=== PATIENT | male | born 1950 | race Caucasian/White ===

== ENCOUNTER 2020-01-03 13:44 | Outpatient (CLI) | payer MEDICARE, SELFPAY ==
--- NOTE | ~2020-01-03 | US_ITS ---
EXAMINATION: US renal BI EXAM DATE: 01/03/2020 14:46 INDICATION: Chronic kidney disease stage III. TECHNIQUE: Multiple grayscale and Doppler images of the kidneys were obtained (by a technologist who performed the scan) and subsequently reviewed. There is no prior study for comparison. FINDINGS: Right kidney: There is normal contour and echogenicity. It measures 9.9 x 5.5 x 5.7 centimeters. Th ere are no focal renal lesions identified. There is no hydronephrosis. Left kidney: There is normal contour and echogenicity. It measures 11.2 x 4.5 x 5.8 centimeters. Th ere are no focal renal lesions identified. There is no hydronephrosis. Mild diffuse bladder wall thickening at 6 mm could indicate chronic cystitis. IMPRESSION: 1. Sonographically unremarkable kidneys. 2. Mild diffuse bladder wall thickening. Could indicate chronic cystitis. Reviewed, dictated and finalized at location A.
== END 2020-01-03 13:45 | disposition home or self-care (01) ==
PROVIDERS: PCP Family Medicine; Visit Provider Internal Medicine Nephrology
DX: N18.3 Chronic kidney disease, stage 3 (moderate) (principal)
CPT/HCPCS: 76775

== ENCOUNTER 2020-05-19 01:58 | Outpatient (CLI) | payer MEDICARE, SELFPAY ==
[2020-05-19 18:46] LABS: SARS-CoV-2 RNA PCR Negative
== END 2020-05-19 01:59 | disposition home or self-care (01) ==
LOC: ANHCOVIDDT 01:59
PROVIDERS: PCP Family Medicine; Visit Provider Internal Medicine Gastroenterology
DX: Z01.812 Encounter for preprocedural laboratory examination (principal); Z20.828 Contact with and (suspected) exposure to other viral communicable diseases
CPT/HCPCS: 87635; C9803; U0003

== ENCOUNTER 2020-05-22 00:40 | Day surgery (SDC) | payer MEDICARE, SELFPAY ==
[2020-05-18 11:08] VITALS: BMI 34.5
[2020-05-22] MEDS: LACTATED RINGERS 1,000 ML 150 ML IV CONT (06:55)
[2020-05-22 06:56] LABS: Glucose Point of Care 266 (65-105)
[2020-05-22 06:59] VITALS: BP 100/59; PULSE 95; RESP 18; TEMP 36.2; O2SAT 98; BMI 35.9
--- NOTE | 2020-05-22 07:20 | WPDANESEPPF ---
Anes - Initial Pre Proc Eval Procedure: Operation Date: 05/22/20 08:00 Proposed Procedures p Screening Colonoscopy - Eduar Garrett MD Date/Time: 05/22/20 07:20 Surgeon: Eduar Garrett MD Pre Op Diagnosis: Neoplasm Screening Patient Data Age: 69 Gender: M Height: 5 ft 7 in Weight: 104 kg Last Vital Signs Temp 36.2 C L 05/22/20 06:59 Pulse 95 05/22/20 06:59 Resp 18 05/22/20 06:59 BP 100/59 L 05/22/20 06:59 Pulse Ox 98 05/22/20 06:59 Allergies Allergy/AdvReac Type Severity Reaction Status Date / Time No Known Allergies Allergy Unknown Verified 05/18/20 11:04 Home Medications Medication Instructions Recorded Confirmed Type aspirin 81 mg tablet,delayed 81 mg PO DAILY 04/23/19 05/18/20 History release empagliflozin 10 mg tablet 10 mg PO DAILY #90 tablet 02/15/20 05/18/20 Rx carvedilol 12.5 mg tablet 25 mg PO Q12H 02/23/20 05/18/20 History sacubitril 49 mg-valsartan 51 mg 1 tablet PO BID 02/23/20 05/18/20 History tablet Tresiba FlexTouch U-100 21 unit SUBCUT BID 05/18/20 05/22/20 History atorvastatin 40 mg PO QPM 05/18/20 05/18/20 History cholecalciferol (vitamin D3) 125 mcg PO DAILY 05/18/20 05/18/20 History [Vitamin D3] tamsulosin 0.4 mg PO QPM 05/18/20 05/18/20 History peg 3350-electrolytes 236 240 ml PO Q10M #4000 ml 05/19/20 Rx gram-22.74 gram-6.74 gram-5.86 gram solution Laboratory Tests 05/22/20 06:53 POC Capillary Glucose 266 mg/dl H mg/dl (65-105) Patient hx anesthesia problems: none Family hx anesthesia problems: none PMFSH Past Medical History Medical History Anemia Atrial flutter BPH w/o urinary obs/LUTS CAD (coronary artery disease) CAD in [place] artery CHF (congestive heart failure) Chronic atrial fibrillation Chronic congestive heart failure Dyslipidemia Essential (primary) hypertension NIDIA (obstructive sleep apnea) Type 2 diabetes mellitus without complication, without long-term current use of insulin Surgical History Surgical History H/O total cystectomy Pilonidal History of implantable cardiac defibrillator (ICD) 05/27 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 Family History Family History Other Diabetes mellitus Hypertension Social History Social History Smoking status: Never smoker Second hand tobacco smoke exposure: No Alcohol intake: never Substance use: never Substance use type: does not use Living arrangements: with family Gender identity (if verbalized by the patient): Male Spiritual care concerns: No Anes - Eval Final PreProcedure Day of Procedure 05/22/20 07:20 Patient weight: obese Heart: regular rate and rhythm (paced) Lungs: clear to auscultation Airway: Mallampati scale class II Neurological: alert and oriented Last oral intake: >/= 8 hours ASA classification: IV Emergent: no Anesthetic plan: proceed Anesthesia type and monitoring: general GIVS and standard monitoring Informed Consent: The patient's anesthetic plan and its attendant risks and benefits were discussed with the patient/family/POA. Questions were solicited and answers provided to the satisfaction of the patient/family/POA.
--- NOTE | 2020-05-22 08:09 | PM.HPGS ---
History of Present Illness History of Present Illness Consent: Risks, benefits, and alternatives have been discussed and questions answered. Patient agrees to proceed with procedure. Chief complaint: Neoplasm Screening Narrative: Arthur Nicole is a 69 year old male with last colonoscopy 5 years ago. Review of Systems Constitutional: Constitutional: Denies headache(s) and Denies weakness Eyes: Eyes: Denies blurry vision ENT: Reports Normal hearing present, Denies headache(s) and Denies neck pain Cardiovascular: Cardiovascular: Denies chest pain and Denies dyspnea Respiratory: Respiratory: Denies dyspnea Gastrointestinal: Gastrointestinal: Reports no additional gastrointestinal complaints Genitourinary: Genitourinary: Denies dysuria Musculoskeletal: Musculoskeletal: Denies neck pain Integumentary/Breasts: Skin/Breast: Denies dry skin Neurologic: Reports Normal hearing present, Denies headache(s) and Denies weakness Psychiatric: Psychiatric: Denies anxiety Endocrine: Endocrine: Denies change in body appearance Hematologic/Lymphatic: Hematologic/Lymphatic: Denies easy bleeding Allergic/Immunologic: Allergic/Immunologic: Denies urticaria PMFSH Past Medical History Medical History (Updated 05/22/20 @ 08:10 by Eduar Garrett MD) Anemia Atrial flutter BPH w/o urinary obs/LUTS CAD (coronary artery disease) CAD in [place] artery CHF (congestive heart failure) Chronic atrial fibrillation Chronic congestive heart failure Colon cancer screening Dyslipidemia Essential (primary) hypertension NIDIA (obstructive sleep apnea) Type 2 diabetes mellitus without complication, without long-term current use of insulin Surgical History Surgical History H/O total cystectomy Pilonidal History of implantable cardiac defibrillator (ICD) 05/27 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 Family History Family History Other Diabetes mellitus Hypertension Social History Social History Smoking status: Never smoker Second hand tobacco smoke exposure: No Alcohol intake: never Substance use: never Substance use type: does not use Living arrangements: with family Gender identity (if verbalized by the patient): Male Spiritual care concerns: No Meds Home Medications and Allergies Home Medications Medication Instructions Recorded Confirmed Type aspirin 81 mg tablet,delayed 81 mg PO DAILY 04/23/19 05/18/20 History release empagliflozin 10 mg tablet 10 mg PO DAILY #90 tablet 02/15/20 05/18/20 Rx carvedilol 12.5 mg tablet 25 mg PO Q12H 02/23/20 05/18/20 History sacubitril 49 mg-valsartan 51 mg 1 tablet PO BID 02/23/20 05/18/20 History tablet Tresiba FlexTouch U-100 21 unit SUBCUT BID 05/18/20 05/22/20 History atorvastatin 40 mg PO QPM 05/18/20 05/18/20 History cholecalciferol (vitamin D3) 125 mcg PO DAILY 05/18/20 05/18/20 History [Vitamin D3] tamsulosin 0.4 mg PO QPM 05/18/20 05/18/20 History peg 3350-electrolytes 236 240 ml PO Q10M #4000 ml 05/19/20 Rx gram-22.74 gram-6.74 gram-5.86 gram solution Allergies Allergy/AdvReac Type Severity Reaction Status Date / Time No Known Allergies Allergy Unknown Verified 05/18/20 11:04 Vital Signs Vital Signs - 24 hr 05/22/20 06:59 Temperature 97.1 F L Pulse Rate 95 Respiratory Rate 18 Blood Pressure 100/59 L Pulse Oximetry 98 Exam Const: General: comfortable and no acute distress HENMT: General nose exam: Normal nares present Eyes: General: appearance normal, both eyes and all related structures Neck: Neck: no JVD Resp: Auscultation: clear to auscultation bilaterally Cardio: Rate: regular rate Rhythm: regular rhythm GI: Inspection: non-distended GI Palp: Yes Soft to palpation Skin: General skin exam: normal color Neuro: General: gait normal Speech:
[2020-05-22 08:39] VITALS: BP 134/86; PULSE 99; RESP 18; O2SAT 99
[2020-05-22 08:49] VITALS: BP 144/87; PULSE 92; RESP 22; O2SAT 100
[2020-05-22 08:55] LABS: Glucose Point of Care 234 (65-105)
[2020-05-22 08:59] VITALS: BP 147/89; PULSE 89; RESP 22; O2SAT 100
== END 2020-05-22 09:13 | disposition home or self-care (01) ==
PROVIDERS: PCP Family Medicine; Visit Provider Internal Medicine Gastroenterology
PROC: 0DJD8ZZ Inspection of Lower Intestinal Tract, Via Natural or Artificial Opening Endoscopic (ICD-10-PCS; CPT 45378; principal; 2020-05-22 08:00)
DX: Z12.11 Encounter for screening for malignant neoplasm of colon (principal); D12.3 Benign neoplasm of transverse colon; K63.5 Polyp of colon; Z79.82 Long term (current) use of aspirin; I11.0 Hypertensive heart disease with heart failure; D64.9 Anemia, unspecified; I48.92 Unspecified atrial flutter; I25.10 Atherosclerotic heart disease of native coronary artery without angina pectoris; I50.9 Heart failure, unspecified; I48.20 Chronic atrial fibrillation, unspecified; E78.5 Hyperlipidemia, unspecified; G47.33 Obstructive sleep apnea (adult) (pediatric); E13.8 Other specified diabetes mellitus with unspecified complications; Z79.4 Long term (current) use of insulin; Z95.1 Presence of aortocoronary bypass graft; Z95.810 Presence of automatic (implantable) cardiac defibrillator; E66.9 Obesity, unspecified; Z68.35 Body mass index [BMI] 35.0-35.9, adult
CPT/HCPCS: 45380; 88305; J2704; J7120

== ENCOUNTER → 2020-08-09 00:20 | Outpatient (CLI) | payer MEDICARE, SELFPAY ==
[2020-08-10 00:45] LABS: SARS-CoV-2 RNA PCR Negative
== END ==
PROVIDERS: PCP Family Medicine; Visit Provider Internal Medicine Critical Care Medicine
DX: Z20.822 Contact with and (suspected) exposure to COVID-19 (principal)
CPT/HCPCS: C9803; U0003; U0005

== ENCOUNTER 2020-08-09 12:32 | Outpatient (CLI) | payer MEDICARE, SELFPAY ==
--- NOTE | 2020-08-10 17:09 | P.PCNPFT_ITS ---
PFT Interpretation This is a pulmonary function test with pre and post-bronchodilator spirometry, plethysmography and diffusing capacity. The test was performed and results interpreted in accordance with the 2019 and 2005 ATS/ERS Task Force guidelines respectively using the Global Lung Function Initiative-2012 reference equations. Quality of the pre bronchodilator spi rometry maneuver was Grade A and post bronchodilator spirometry maneuver was Grade A. Findings: Spirometry: The contour of the expiratory flow tracing resembles a witch's hat . the contour of the inspiratory flow tracing is normal. The pre bronchodilator FVC is 2.51 L, 68% predicted. The pre bronchodilator FEV1 is 1.96 L, 69% predicted. The FEV1: FVC ratio is 78%. The post bronchodilator FVC is 2.44 L, representing a 3% decrease. The post bronchodilator FEV1 is 1.90 L, representing a 3% decrease. Plethysmography: The total lung capacity is 3.99 L, 64% predicted. The functional residual capacity is 1.80 L, 55% predicted. The residual volume is 1.47 L, 66% predicted. Diffusing capacity: The absolute diffusion capacity is 11.5, 47% predicted. The diffusing capacity corrected for alveolar volume is 3.35, 80% predicted. Impression: There is a moderate restrictive ventilatory abnormality. The spirometry is normal without evidence of an obstructive abnormality. There is no significant improvement after inhaling a single dose of albuterol. The absolute diffusing capacity is moderately decreased and normalizes when corrected for alveolar volume. There are no prior studies for comparison
--- NOTE | 2020-08-10 17:13 | WPDSIXMINUTE ---
Six Minute Walk This is a 6 minutes walk test. The test was performed and interpreted in accordance with the 2014 ERS/ATS task force guidelines. Findings: The patient's resting room air oxygen saturation measured by pulse oximetry was 95% and her heart rate was 88 bpm. Patient ambulated for 305 meters and oxygen saturation remained 91 to 95%. Heart rate at the end of the study was 101 bpm. There are no prior studies for comparison.
== END 2020-08-09 12:33 | disposition home or self-care (01) ==
PROVIDERS: PCP Family Medicine; Visit Provider Internal Medicine Critical Care Medicine
DX: R79.81 Abnormal blood-gas level (principal); R94.2 Abnormal results of pulmonary function studies
CPT/HCPCS: 94060; 94618; 94726; 94729; C9803; U0003; U0005

== ENCOUNTER 2020-08-11 09:14 | Outpatient (CLI) | payer MEDICARE, SELFPAY ==
--- NOTE | 2020-09-01 13:02 | WPDSLEEPSTUD ---
Sleep Study Ordering Provider: Grey Lorenzo MD Interpreting Physician: Aneta Douglass MD Sleep Study Type: Split Polysomnogram Height: 1.68 m Weight: 106.594 kg Body Mass Index: 37.9 Neck Circumference (inches): 18 [place]: 3 Reason for Sleep Study obstructive sleep apnea split night study November 25, 2008 when BMI 43.9; AHI of 39.7 and an optimal pressure was 19 cm. Sleep History Arthur Nicole is a 69 year old man with a history of sleep apnea, previously used CPAP 19 cm. However he has not worn this in years. He denies snoring, others do not complain that he snores loudly. He does not awaken at night with heartburn, belching or coughing. He does not awaken from sleep feeling short of breath. He constantly has trouble sleeping if he has a cold. He does not wake up gasping for breath at night. He does not have breathing problems at night observed by others. He does not sweat excessively at night or notices his heart pounding or beating irregularly night. He occasionally falls asleep during the day, occasionally involuntarily, never while driving. He does not fall asleep while exerting physical effort. he does not have loss of muscle tone with strong emotion. He does not have daytime difficulties due to excessive sleepiness. He does not feel paralyzed on waking or falling asleep and does not have vivid dreamlike scenes upon awakening or falling asleep. He does not feel afraid to go to sleep. He rarely remembers his dreams. He occasional has racing thoughts. He never feels sad or depressed. He never has anxiety. He denies muscular tension. he does not notice parts of his body jerking. He does not kick at night. He does not have crawling and aching feelings in his legs. He does not have any kind of leg pain at night. He denies morning jaw pain. He does not grind his teeth during sleep. He is not bothered by pain during the day. He is not awakened by pain during the night. He does not wake up feeling stiff in the morning with sore or achy muscles and he does not wake up with pain in the spine. His normal bedtime is between 8:00 p.m. and 9:00 p.m. falling asleep within 10-20 minutes, typically waking 3-4 times to urinate. He stays awake on average 5-10 minutes. He wakes the morning at 8:00 a.m.. He estimates getting between 8 and 10 hours of sleep at night. On the weekends, his bedtime is the same between 8:00 p.m. and 9:00 p.m. and he wakes later, 10:00 a.m. Heat he takes naps in the afternoon or evening. A short nap may be refreshing. He feels better in the afternoon compared to other times of day. Habits: Never smoked tobacco. Caffeine 20 oz a day. Alcohol 1 or 2 beers or a glass of wine per week. [facility] Past Medical History Medical History Anemia Atrial flutter BPH w/o urinary obs/LUTS CAD (coronary artery disease) CAD in [place] artery CHF (congestive heart failure) Chronic atrial fibrillation Chronic congestive heart failure Dyslipidemia Essential (primary) hypertension NIDIA (obstructive sleep apnea) Type 2 diabetes mellitus without complication, without long-term current use of insulin Surgical History Surgical History H/O total cystectomy (~1968) Pilonidal History of cardioversion 2019 History of implantable cardiac defibrillator (ICD) (~05/2019) 05/27 Hx of CABG (~05/2018) 05/2018 Family History Family History Other Diabetes mellitus Hypertension Social History Social History Smoking status: Never smoker Second hand tobacco smoke exposure: No Alcohol intake: never Substance use: never Substance use type: does not use Gender identity (if verbalized by the patient): Male Spiritual care concerns: No Medications Home Medications Medication
[2020-09-01 13:06] VITALS: BMI 37.9
== END 2020-08-11 09:15 | disposition home or self-care (01) ==
LOC: ANHCSM 09:14
PROVIDERS: PCP Family Medicine; Visit Provider Family Medicine
DX: G47.33 Obstructive sleep apnea (adult) (pediatric) (principal); R00.0 Tachycardia, unspecified
CPT/HCPCS: 95810

== ENCOUNTER 2023-08-27 16:02 | Outpatient (CLI) | payer MEDICARE, SELFPAY ==
[2023-08-27 19:19] LABS: Alanine Aminotransferase 27 U/L (6-50); Albumin Level 4.1 g/dL (3.5-5.1); Alkaline Phosphatase 72 U/L (38-126); Anion Gap 7 mmol/L (8-16); Aspartate Amino Transferase 35 U/L (17-59); Bilirubin,Total 1.1 mg/dL (0.2-1.3); Blood Urea Nitrogen 25 mg/dL (9-20); Calcium 9.2 mg/dL (8.4-10.2); Carbon Dioxide 28 mmol/L (22-30); Chloride 103 mmol/L (98-107); Estimated Glomerular Filt Rate > 60; Glucose 118 mg/dL (65-110); Potassium 4.5 mmol/L (3.4-5.0); Sodium 138 mmol/L (137-145)
[2023-08-29 14:38] LABS: Hemoglobin A1C 10.2 % (<5.7)
== END 2023-08-27 16:03 | disposition home or self-care (01) ==
LOC: ANHGOSHLAB 16:03
PROVIDERS: PCP Family Medicine; Visit Provider Family Medicine
DX: E11.9 Type 2 diabetes mellitus without complications (principal); I10 Essential (primary) hypertension
CPT/HCPCS: 36415; 80053; 83036

== ENCOUNTER 2025-04-02 15:19 | Emergency (ER) | payer MEDICARE, SELFPAY ==
--- OUTSIDE RECORDS SUMMARY | 2021-12-26 05:21 | XMS_ITS | Continuity of Care Document ---
Author Organization [facility] Address [address] [place] [id number] Phone Care Team Providers Care Extension Work Director Name Role Phone Sonya NINO, Wilson Unavailable Unava ilable Allergies, Adverse Reactions, Alerts Substance Reaction Status Criticality No Known Allergies Active No Inform ation Medications Medication Instructions Dosage Effective Dates (start - stop) Status Comments Benefiber Clear Sugar Free(dextrin) 3 gram/3.5 gram oral powder packet take 1 tablespoon mixed in 8 oz water by oral route every day 1 tablespoon mixed in 8 oz water - Active Nexium 20 mg capsule,delayed release take 1 capsule by oral route every day at least 1 hour before a meal swallowing whole. Do not crush or chew granules. 20 MG - Active MAGNESIUM (unknown strength) take 1 twice daily Not Available - Active Tylenol 325 mg tablet as needed - Active amlodipine 10 mg tablet take 1 tablet by oral route every day 10 MG - Active aspirin 81 mg tablet,delayed release take 1 tablet by oral route every day 81 MG - Active carvedilol 12.5 mg tablet take 3 tablet by oral route 2 times every day with food 37.5 MG - Active clonidine HCl 0.2 mg tablet take 1 tablet by oral route 3 times every day 0.2 MG - Active Procedures Procedure Date Level Iv-surg Path Gross/t, Lvl IV [facility] Facility Charge No Burn, Fall, Wrong Event, Or Hospital Transfer No JENNIFER Order Colonoscopy Flex; W/remov Les- 16 [facility] Facility Charge Ugi Endo; W/bx 1/mx Level Iv-surg Path Gross/t, Lvl IV Special Stains; Grp I Simone Spec Stain; Grp Ii All Bu Offic/outpt E&m Estab Mod-hi 2 15 Offic/outpt E&m Estab Mod-hi 2 14 Offic/outpt E&m Estab Low-mod 2 Colonoscopy Flex; W/remov Les- 11 [facility] Facility Charge Level Iv-surg Path Gross/micro 11 Offic/outpt E&m Estab Low-mod 1 Offic Cons New/estab Mod Offic/outpt E&m Estab Low-mod 1 Offic/outpt E&m New Mod Sever 0 Advance Directives Directive Yes / No Effective Date File Name No Information Encounters Encounter Description Practice Location Reason(s) For Visit Diagnoses Date Provider Providers Copied on Encounter [facility], [address] [place] [address], [id number] tel:[phone] [facility] No Information 2 Sonya Huynh [facility]. [address] [place] [address], [id number], [place]. tel:[phone] [facility], [address] [place] [address], [id number] tel:[phone] [facility] No Information 6 Faisal Bobo. [address] [place] [address], [id number], [place]. tel:[phone] Referring Provider: Jeramie Cruz, [address] [place] [address], [id number]. tel:[phone] [facility], [address] [place] [address], [id number] tel:[phone] [facility] No Information 6 [facility]. [address] [place] [address], [id number], [place]. tel:[phone] Referring Provider: Jeramie Malone MD T, [address] [place] [address], [id number]. tel:[phone] [facility], [address] [place] [address], [id number] tel:[phone] [facility] Benign neoplasm of cecumBenign neoplasm of transverse colonDvrtclo s of lg int w/o perforation or abscess w/o bleedingResi dual hemorrhoidal skin tags Faisal Bobo. [address] [place] [address], [id number], [place]. tel:[phone] Referring Provider: Howie Curiel MD, [address], [place], [address]. tel:[phone] [facility], [address] [place] [address], [id number] tel:[phone] [facility] No Information Dalton Barajas . [address] [place] [address], [id number], [place]. tel:[phone] Referring Provider: Howie Curiel MD, [address], [place], [address]. tel:[phone] [facility], [address] [place] [address], [id number] tel:[phone] [facility] No Information 5 [facility]. [address] [place] [address], [id number], [place]. tel:[phone] Referring Provider: Joe Gardner, [address] [place] [address], [id number]. tel:[phone] [facility], [address] [place] [address], [id number] tel:[phone] [facility] Esophageal StrictureHia cecily HerniaGastri tisDuodeniti s w/o hemorrhageDy sphagiaGastr itis NEC w/o hemorrhageRe flux, esophageal Apr-0 5 Herminia Diaz. [address] [place] [address], [id number], [place]. tel:[phone] Referring Provider: Referred Self. [facility], [address] [place] [address], [id number] tel:[phone] [facility] No Information Sep-0 5 Naina Avina. [address] [place], [address], [place]. tel:[phone] Referring Provider: Joe Gardner, [address] [place] [address], [id number]. tel:[phone] [facility], [address] [place] [address], [id number] tel:[phone] [facility] Anemia Aug-2 5 Aries Mccord. [address] [place] [address], [id number], [place]. tel:[phone] [facility], [address] [place] [address], [place], [place], [id number] tel:[phone] [facility] Anemia Aug-0 3 5 Alvaro Elmore. [address] [place] [address], [id number], [place]. tel:[phone] Offic/outpt E&m Estab Mod-hi 2 [facility], [address] [place] [address], [id number] tel:[phone] [facility] dysphagia (chief complaint) DysphagiaOst eoporosisAbs cess, anal/rectalA nemia Aug-0 2- 5 Aries Mccord. [address] [place] [address], [id number], [place]. tel:[phone] Referring Provider: Referred Self. [facility], [address] [place] [address], [id number] tel:[phone] [facility] Abscess, anal/rectal Dec-0 4 Alvaro Elmore. [address] [place] [address], [id number], [place]. tel:[phone] Offic/outpt E&m Estab Mod-hi 2 [facility], [address] [place] [address], [id number] tel:[phone] [facility] Follow Up of GERD (chief complaint) Reflux Esophagitis (GERD)Heartb urn Sep- 4 Aries Mccord. [address] [place] [address], [id number], [place]. tel:[phone] Referring Provider: Flex Collado, [address] [place] [address], [id number]. tel:[phone] [facility], [address] [place] [address], [id number] tel:[phone] [facility] Reflux Esophagitis Apr-0 4 No Information Offic/outpt E&m Estab Low-mod [facility], [address] [place] [address], [id number] tel:[phone] [facility] Abscess, anal/rectal Mar- 2 Aries Mccord. [address] [place] [address], [id number], [place]. tel:[phone] Referring Provider: Referred Self. [facility], [address] [place] [address], [id number] tel:[phone] [facility] Colon polypDiverti culosisHemor rhoids, uncomplicate d 1 Aries Mccord. [address] [place] [address], [id number], [place]. tel:[phone] Referring Provider: Referred Self. [facility], [address] [place] [address], [id number] tel:[phone] [facility] No Information 1 [facility]. [address] [place] [address], [id number], [place]. tel:[phone] Referring Provider: Flex Collado, [address] [place] [address], [id number]. tel:[phone] [facility], [address] [place] [address], [id number] tel:[phone] [facility] No Information 1 Aries Mccord. [address] [place] [address], [id number], [place]. tel:[phone] Referring Provider: Referred Self. Offic/outpt E&m Estab Low-mod [facility], [address] [place] [address], [id number] tel:[phone] [facility] Abscess, anal/rectal 1 Aries Mccord. [address] [place] [address], [id number], [place]. tel:[phone] Referring Provider: Referred Self. Offic Cons New/estab Mod [facility], [address] [place] [address], [id number] tel:[phone] [facility] Cellulitis / Abscess Buttock 1 Areis Mccord. [address] [place] [address], [id number], [place]. tel:[phone] Referring Provider: Referred Self. Offic/outpt E&m Estab Low-mod [facility], [address] [place] [address], [id number] tel:[phone] [facility] Cellulitis / Abscess Buttock 1 Martha Arias. [address] [place] [address], [id number], [place]. tel:[phone] Referring Provider: Referred Self. Offic/outpt E&m New Mod Sever [facility], [address] [place] [address], [id number] tel:[phone] [facility] Reflux Esophagitis (GERD)Person al history of colon polyp May- 0 Martha Arias. [address] [place] [address], [id number], [place]. tel:[phone] Referring Provider: Referred Self. Family History Family Member Type Diagnosis Age At Onset Problem (finding) No family history of Ca ncer, colon Problem (finding) No family history of Co karishma polyps Payers Payer name Insurance type Covered libertarian ID Authorkateryna feng(s) Medicare [employer] [id number] [facility] PPO [id number] Social History Type Description Quantity Date Captured Comments Sex Male Smoking Status No Information Chief Complaint And Reason For Visit No Information Reason For Referral Reason For Referral No Information Plan Of Treatment Date Type Action Status Goal Tobacco cessation counseling completed Referral Ordered: Folate, RBC Appointment date/timeframe: -today ordered Patient Education Colonoscopy: Before You r Procedure completed Patient Education Hiatal Hernia: After Yo ur Visit completed Patient Education Trouble Swallowing: Aft er Your Visit completed Patient Education Gastritis: After Your V isit completed Patient Education Upper GI Endoscopy: Bef ore Your Proced completed History Of Present Illness Encounter Date Complaint History Of Prese nt Illness dysphagia dysphagia (comments) This patien salomón is a 63-year-old male who returns to clinic secondary to dysphagia. In May, he developed acute onset abdominal pain, related to a thoracic aortic aneurysm, which required emergency surgery. During his hospitalization, he was found to have a low magnesium level. Nexium was thought to be a significant contributor, and was discontinued. Further, his recent bone DEXA scan revealed osteoporosis. Since discontinuing proton inhibitor therapy, he has rarely suffered from heartburn and regurgitation. It usually occurs with dietary indiscretion such as largely evening meals. However, over the past 2 weeks, he has suffered from intermittent dysphagia to solids only at night. To relieve his symptoms, he has induced emesis. He has no prior history of dysphagia. He denies hoarseness, cough, weight loss, or rectal bleeding.Approximately 2 months ago, he developed symptoms consistent with a recurrent perianal abscess. This resolved within 12 hours. He did not require antibiotics. Since 1994, this has occured approximately 6-7 times. This has required lancing in the ER in the past, but not with this recent episode. His last colonoscopy, performed in December,, was performed at that time, secondary to a recent perianal abscess. He denies constipation. He denies a change in stool caliber. He has occasional loose stools, which primarily occurs if he is having issues with heartburn. This responds to Imodium. He does not have more than 2-3 loose stools a day. His symptoms do not last more than one day.I have reviewed his old records, including laboratory data and imaging. His LFTs are normal. Currently, his magnesium level was normal. His fecal occult blood testing was negative. His hemoglobin was 12.3 (normal>12.7) with a normal MCV on 05-20-2014. He believes his hemoglobin has been repeated and found to be normal. These records are currently unavailable for review. Follow Up of GERD Follow Up of GERD (comments) Lana s patient is a 63-year-old male with long-standing esophageal reflux disease, who returns to clinic in routine followup. His heartburn and regurgitation are completely controlled with Nexium daily. If he misses his medication for 2-3 days consecutively, he will have heartburn with regurgitation for most of the day. This will be made worse by almost any food or beverage. He denies nausea, abdominal pain, weight loss, rectal bleeding, hoarseness, cough, or dysphagia. He does use tobacco. He rarely drinks alcohol. He has never undergone an upper endoscopy.I reviewed his old records. Functional Status Date Functional Assessmen t No Information Instructions Date Instruction Additional Infor kirsten Benefiber (generic) 1 tablespoon in 8 oz water-once daily- Related to Residual hemorrhoidal skin tags Avoid provocative fo ods: citrus, alcohol, coffee, chocolate, mints Related to Dysphagia Eat smaller meals, n o eating three hours prior to bedtime Related to Dysphagia Elevate head of bed prior to sle ep Related to Dysphagia Continue management and surveillance with Dr Curiel Related to Osteoporosis obtain a copy of his more recent CBC Related to Anemia Nexium 40 mg po qam, 30 minutes before breakfast, #90, 3 refills Related to Heartburn He will call if he d carlyn GI symptoms Related to Heartburn Stop tobacco Related to Heart burn Eat smaller meals, n o eating three hours prior to bedtime Related to Heartburn Elevate head of bed prior to sle ep Related to Heartburn Avoid provocative fo ods: citrus, alcohol, coffee, chocolate, mints Related to Heartburn Assessments Type Assessment Date No Information Patient Care Teams Name Effective Dates (start - stop) Status Members No Information
--- OUTSIDE RECORDS SUMMARY | 2022-04-16 09:29 | XMS_ITS | Continuity of Care Document ---
Author Organization [facility] Address [address], [place] [address] Phone Care Team Providers Care Investigator Claims Name Role Phone Ben Eric MD Unavailable Unavailable Allergies, Adverse Reactions, Alerts Substance Reaction Status Criticality peach Active No Information Medications Medication Instructions Dosage Effective Dates (start - stop) Status Comments Plenvu 140 gram-9 gram-5.2 gram powder packs take as directed - Active aspirin 81 mg tablet,delayed release take 1 tablet by oral route every day 81 MG - Active amlodipine 10 mg tablet take 1 tablet by oral route every day 10 MG - Active carvedilol 12.5 mg tablet take 1 tablet by oral route 2 times every day with food 12.5 MG - Active clonidine HCl 0.2 mg tablet take 1 tablet by oral route every day 0.2 MG - Active famotidine 40 mg tablet take 1 tablet by oral route every day at bedtime 40 MG - Active ProAir HFA 90 mcg/actuation aerosol inhaler inhale 2 puff by inhalation route every 4 - 6 hours as needed - Active magnesium 200 mg tablet - Active Problems Condition Type Effective Dates (start - stop) Clini emily Status Comments No Known Problems Procedures Procedure Date TISSUE EXAM BY PATHOLOGIST COLONOSCOPY AND BIOPSY OFFICE/OUTPATIENT VISIT, NEW Advance Directives Directive Yes / No Effective Date File Name No Information Encounters Encounter Description Practice Location Reason(s) For Visit Diagnoses Date Provider Providers Copied on Encounter [facility], [address] [place] [address], [address] [place] [address], tel:[phone] Main Office Neoplasm of unsp behavior of bone, soft tissue, and skin 2 Hernesto Contreras. [address] [place], [facility], . [phone] Referring Provider: Laina Levine, [address] [place], [place], [facility]. tel:[phone] [facility], [address] [place], [place], [address] [place] [address], tel:[phone] [facility] First degree hemorrhoidsDvrtclo s of lg int w/o perforation or abscess w/o bleedingBenign neoplasm of rectumPersonal history of colonic polyps 2 Abner Marina. [address] [place], [place], [facility], . [phone] Referring Provider: Laina Levine, [address], [place], [facility]. tel:[phone] [facility], [address] [place], [place], [address] [place] [address], tel:[phone] Main Office No Information 2 Abner Franklin. [address] [place], [facility], . tel:[phone] OFFICE/OUTPA TIENT VISIT, [facility], [address] [place], [place], [address] [place] [address], tel:[phone] Main Office H/o colorectal polyp(s) (chief complaint) Personal history of colonic polyps 2 Abner Marina. [address] [place], [place], [address] [place] [address]. tel:[phone] Family History Family Member Type Diagnosis Age At Onset No Information Payers Payer name Insurance type Covered alliance party ID Authoriza tion(s) Medicare MB [id number] BC BL [id number] Social History Type Description Quantity Date Captured Comments Alcohol Use Details Unknown Caffeine Use Details Unknown Tobacco Use Status Smoking Status No Information Sex Male Chief Complaint And Reason For Visit No Information Reason For Referral Reason For Referral No Information History Of Present Illness Encounter Date Complaint History Of Prese nt Illness H/o colorectal polyp(s) (comment s) 71 YO male with history of colon polyps. Last colon > 5 years in [place]. Denies rectal bleeding, change in bowel habits, or additional LGI s/s. Reports BM almost daily, soft without straining. Denies any known FH. Denies heartburn, dysphagia, or additional UGI s/s. H/o colorectal polyp(s) Functional Status Date Functional Assessmen t No Information Instructions Date Instruction Additional Infor mation No Information Assessments Type Assessment Date assessment Neoplasm of unsp behavior of bon e, soft tissue, and skin Patient Care Teams Name Effective Dates (start - stop) Status Members No Information
--- OUTSIDE RECORDS SUMMARY | 2022-04-16 09:29 | XMS_ITS | Continuity of Care Document ---
Author Organization [facility] Address [address] [address] Phone Care Team Providers Care [employer] Worker Name Role Phone Ben Eric MD Unavailable [...] on Encounter [facility], [address] [place] [address], [address] [place] [address], tel:[phone] Main Office Neoplasm of unsp behavior of bone, soft tissue, and skin 2 Hernesto Contreras. [address] [place], [facility], . [phone] Referring Provider: Laina Levine, [address] [place], [place], [facility]. tel:[phone] [facility], [address] [place], [place], [address] [place] [address], tel:[phone] [facility] First degree hemorrhoidsDvrtclo s of lg int w/o perforation or abscess w/o bleedingBenign neoplasm of rectumPersonal history of colonic polyps 2 Abner Marina. [address] [place], [place], [facility], . [phone] Referring Provider: Laina Levine, [address], [place], [facility]. tel:[phone] [facility], [address] [place], [place], [address] [place] [address], tel:[phone] Main Office No Information 2 Abner Franklin. [address] [place], [facility], . tel:[phone] OFFICE/OUTPA TIENT VISIT, [facility], [address] [place], [place], [address] [place] [address], tel:[phone] Main Office H/o colorectal polyp(s) (chief complaint) Personal history of colonic polyps 2 Abner Marina. [address] [place], [place], [address] [place] [address]. tel: [phone] Family History Family Member Type Diagnosis Age At Onset No Information Payers Payer name Insurance type Covered democrat ID Authoriza tion(s) Medicare MB [id number] BC BL [id number] Social History Type Description Quantity Date Captured [...] polyps. Last colon > 5 years in [place], [place]. Denies rectal bleeding, change in bowel [...]
--- OUTSIDE RECORDS SUMMARY | 2025-04-02 15:21 | XMS_ITS | Encounter Summary ---
Author Organization [facility] Address [address] [place] [address] Care Team Providers Care Ambulance Attendant Name Role Phone Alejandro Stevens Primary Care Provider [phone] Grey Lorenzo MD Primary Care Provider Bobby Romero MD Unavailable [phone] Maryana Haywood RN Unavailable [phone] Irma Valladares RN Unavailable [phone] Encounter Details Date Type Department Care Team (Late st Contact Info) Description 10/14/2016 Orders Only [facility] ProviderElizabeth MD [address] [place] [address] Social History Tobacco Use Types Packs/Day Years Used Date Smoking Tobacco: Never Alcohol Use Standard Drinks/Week Comments No 0 (1 standard drink = 0.6 oz pur e alcohol) Sex and Gender Information Value Date Recorded Sex Assigned at Not on file 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 Historical Provider [facility] KELLY ARNOLD Final Result documented in this encounter Visit Diagnoses Not on filedocumented in this encounter Care Teams Ambulance Attendant Relationship Specialty Start Date End Date Alejandro Stevens [address] [place] [address] PCP - General 09/06/16 08/15/17 Grey Lorenzo MD [address] [place] [address] PCP - General Family Practice 08/16/17 Bobby Romero MD [address] [place] [address] Consulting Physician Transplant 10/21/19 Maryana Haywood, BURT Perinatal Coordinator 10/28/19 Irma Valladares, RN [address] [address] Perinatal Coordinator Cardiology 08/10/20 documented as of this encounter
--- OUTSIDE RECORDS SUMMARY | 2025-04-02 15:21 | XMS_ITS | Encounter Summary ---
Author Organization [facility] Healthcare Address [address] [place] [address] Care Team Providers Care Grout Machine Operator Name Role Phone Alejandro Stevens Primary Care Provider [phone] Grey Lorenzo MD Primary Care Provider Bobby Romero MD Unavailable [phone] Maryana Haywood RN Unavailable [phone] Irma Valladares RN Unavailable [phone] Encounter Details Date Type Department Care Team (Late st Contact Info) Description 08/12/2017 Orders Only [facility] Health Information Management [address] [place] [address] Scanning, Provider Social History Tobacco Use Types Packs/Day Years Used Date Smoking Tobacco: Never Smokeless Tobacco: Never Alcohol Use Standard Drinks/Week Comments No 0 (1 standard drink = 0.6 oz pur e alcohol) Sex and Gender Information Value Date Recorded Sex Assigned at Not on file 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 Gender Identity Not on file Sexual Orientation Not on file documented as of this encounter Plan of Treatment Not on file documented as of this encounter Procedures Procedure Name Priority Date/Time Associated Diagnosis Comments CARDIOLOGY DOCUMENT SCAN 08/12/2017 documented in this encounter Results * Cardiology Document Scan (08/12/2017) Anatomical Region Laterality Modality Other us Provider Scanning [facility] PROCEDURES Final Result documented in this encounter Visit Diagnoses Not on filedocumented in this encounter Care Teams Grout Machine Operator Relationship Specialty Start Date End Date Alejandro Stevens [address] [place] [address] PCP - General 09/06/16 08/15/17 Grey Lorenzo MD [address] [place] [address] PCP - General Family Practice 08/16/17 Bobby Romero MD [address] [place] [address] Consulting Physician Transplant 10/21/19 Maryana Haywood, BURT Bandoleer Packer 10/28/19 Irma Valladares, RN [address] [address] Bandoleer Packer Cardiology 08/10/20 documented as of this encounter
--- OUTSIDE RECORDS SUMMARY | 2025-04-02 15:21 | XMS_ITS | Clinical Summary ---
Author Organization [facility] Address [address] [place] [address] Phone Care Team Providers Care Stack Supervisor Name Role Phone Grey Lorenzo MD Primary Care Provider Allergies No known active allergies Medications acetaminophen (TYLENOL) 325 MG tablet Take 650 mg by mouth 10/21/2019 Active atorvastatin (LIPITOR) 40 MG tablet TAKE 1 TABLET DAILY 11/09/2018 Active tamsulosin (FLOMAX) 0.4 MG 24 hr capsule Take 0.4 mg by mouth daily 10/21/2019 Active Tresiba FlexTouch 100 UNIT/ML injection INJECT 17 UNITS UNDER THE SKIN DAILY 01/27/2020 Active Entresto 49-51 MG per tablet Take 1 tablet by mouth 2 (two) times a day 01/17/2020 Active Cholecalciferol (Vitamin D3) 125 MCG (5000 UT) capsule Take by mouth Active Bydureon BCise 2 MG/0.85ML auto-injector INJECT 2MG UNDER THE SKIN WEEKLY 07/21/2020 Active Farxiga 10 MG tablet Take 1 tablet by mouth 1 (one) time each day 08/17/2020 Active metoprolol succinate XL (TOPROL-XL) 100 MG 24 hr tablet 01/13/2021 Act chan Active Problems Problem Noted Date Diagnosed Date Vitamin D deficiency 10/09/2020 Stage 3b chronic kidney disease 04/06/2020 Subclinical hypothyroidism 10/17/2019 Overview (12/13/2019): Last Assessment & Plan: -Repeat thyroid function studies (TSH, FreeT3 and Free T4) in 6-8 weeks as outpatient -anti-TPO Ab <20 Anemia 10/15/2019 Overview (12/13/2019): Last Assessment & Plan: Symptomatic anemia (SOB/lightheadedness for the last month or so and a fall last Monday 10/09), outpatient Hgb 7.2 (baseline Hgb 12.0), pt reported dark stool on 10/14 but no other bleeding episodes, likely GI source -Hgb 6.3 on admission -Iron panel: Iron-23, Ferritin-16, TIBC-344, Transferrin Saturation-7, Haptoglobin-136 -S/p 2 units PRBCs and Iron Dextran infusion (10/14), Hgb 8.2 today, stable -Admission INR 2.9 -Holding home Xarelto (last dose was 10/13 with dinner), will defer Heparin gtt for now -GI consulted, recommended holding Xarelto -s/p upper and lower scope, poor visualization due to stool, no source of bleeding -CT colonography today, if no stricture at IC valve will proceed with capsule endoscopy per GI -Follow CBCs Cardiac defibrillator in situ 06/25/2019 Overview (12/13/2019): Last Assessment & Plan: S/p [facility] BOTTLE SORTER-D device (05/2019) -last device check 09/14/2019; 99% afib/flutter. -VS 49%, -PATTERN SETTER 32%, AP-PATTERN SETTER 18%. No VT. Acute deep venous thrombosis of right femoral ve in 05/18/2019 Overview (12/13/2019): Last Assessment & Plan: Continue heparin gtt. - Consider adjusting home anticoagulant given acute RLE DVT Chronic systolic heart failure 04/30/2019 Overview (12/13/2019): Last Assessment & Plan: ICM, HFrEF (LVEF 15%), admitted with anemia -[facility] May 2019: RAP 2, PA mean 15, wedge 7, CI 2.4 by danny/1.75 by thermo on milrinone. -S/p [facility] BOTTLE SORTER-D device -NT-proBNP 744 (has been previously much higher) -hemodynamically stable, relatively euvolemic on exam -Continue Entresto and Carvedilol -Strict I & O, daily weights, low sodium diet -Continue telemetry monitoring -Of note, follows with Dr. Romero and is currently enrolled in LIFE trial Paroxysmal atrial fibrillation 04/23/2019 Overview (12/13/2019): History of MAZE AAD: Amio OAC: Xarelto Last Assessment & Plan: Hx of Afib/flutter on home amiodarone and xarelto -currently AV-paced -Continue home Amiodarone 200 mg daily -Holding home Xarelto given anemia -Keep K > 4.0 and Mg > 2.0, replete as needed -Continue telemetry Longstanding persistent atrial fibrillation 04/09 Overview (10/10/2021): History of MAZE AAD: Amio -> failed and underwent AVJ in November 2020 after BOTTLE SORTER pacing % had fallen and HF worsened OAC: Xarelto -> Stopped after GI bleeding Last Assessment & Plan: Hx of Afib/flutter on home amiodarone and xarelto -currently AV-paced -Continue home Amiodarone 200 mg daily -Holding home Xarelto given anemia -Keep K > 4.0 and Mg > 2.0, replete as needed -Continue telemetry History of coronary artery bypass grafting 06/29 Coronary arteriosclerosis 05/19/2018 Overview (12/13/2019): Multivessel CAD s/p CABG May 2018: GARCIA to LAD, SVG to OM, SVG to Diag, partial MAZE + SAUL occluder S/p CRTD Last Assessment & Plan: Multivessel CAD s/p CABG (May 2018, GARCIA to LAD, s/p CRTD, SVG to OM, SVG to Diag, partial MAZE + SAUL occluder) -Last ischemic evaluation was [facility] in Apr 2019: All grafts patent at that time. -Continue home Atorvastatin -holding aspirin in the setting of anemia/ likely GI bleed Ischemic cardiomyopathy 12/04/2017 Overview (12/13/2019): LVEF Nov 2017 35-40%, LVIDD 5.3 LVEF May 2018 25%, LVIDD 6 CABG in May 2018 LVEF 30% Sep 2018 LVEF 25% Apr 2019 [facility] Apr 2019: Underlying triple-vessel disease with continued patency of all grafts including GARCIA to LAD, Y-graft to the diagonal and 2nd obtuse marginal. Occluded posterior descending artery filling from fopa-[id number]-rbgyj collaterals. Ungrafted distal marginal branch in small caliber vessel. On inotropes briefly - weaned, BOTTLE SORTER upgraded Type 2 diabetes mellitus 08/07/2015 Overview (12/13/2019): Type 2 diabetes mellitus with other specified complication 68 year old male with past medical history significant for T2DM, HTN, HLD, cardiovascular disease, obesity and subclinical hypothyroidism who presented to the hospital for symptomatic anemia (hemoglobin 6.3) and suspected GI bleed. Diagnosed with type 2 diabetes approximately 5-10 years ago with variable treatment adherence. Patient has used both basal bolus and sliding scale insulin in the past, as well as metformin and SGLT-2 inhibitor (Invokana), most recently. However, he states that he has not he taken any medications for his diabetes for the last 6-12 months. HGBA1C 8.0 (H) 10/15/2019 * HGBA1C not reliable in setting of severe anemia Last Assessment & Plan: -Last A1C 8.6, hyperglycemia this admission -Diabetes consulted -continue lantus 12 units qhs, continue Lispro 6 units TID with meals, mid-dose SSI -Continue accuchecks -will plan to discharge on lantus 12 units HS and Invokana per endocrine recs -pt will need outpt endocrine follow up -arch cushion press operator and wellness educator consulted Hypertensive disorder 01/19/2015 Overview (12/13/2019): HTN (hypertension), benign Last Assessment & Plan: BPs controlled -Home BP meds held on admission (due to anemia, lightheadedness and soft BPs), now resumed Obstructive sleep apnea syndrome 01/19/2015 Overview (12/13/2019): NIDIA on CPAP Last Assessment & Plan: -Continue CPAP Immunizations Immunization Administration Dates Next Due Influenza Split High Dose Preservative Free IM 1 06/30/2018 Pneumococcal Conjugate 05/09/2019 Social History Tobacco Use Types Packs/Day Years Used Date Smoking Tobacco: Never Smokeless Tobacco: Never Alcohol Use Standard Drinks/Week Comments Yes 0 (1 standard drink = 0.6 oz pur e alcohol) rare Sex and Gender Information Value Date Recorded Sex Assigned at Not on file Legal Sex Male 9:53 AM MDT Gender Identity Not on file Sexual Orientation Not on file Last Filed Vital Signs Vital Sign Reading Time Taken Comments Blood Pressure 122/70 10/10/2021 1:19 PM CDT Pulse 72 10/10/2021 1:19 PM CDT Temperature 36.2 C (97.1 F) 10/10/2021 1:19 PM CDT Respiratory Rate - - Oxygen Saturation - - Inhaled Oxygen Concentration - - Weight 106 kg (234 lb) 10/10/2021 1:19 PM CDT Height 167.6 cm (5' 6) 10/10/2021 1:19 PM CDT Body Mass Index 37.77 10/10/2021 1:19 PM CDT Plan of Treatment Health Maintenance Due Date Last Done Comments Pneumococcal PPSV23/PCV13 65 + Years / Low and Medium Risk (1 of 2 - PCV) 10/23/1999 Influenza Vaccine (#1) 2025 Insurance [employer] MED[employer]ARE ADVANTAGE Member Subscriber Plan / Payer (Ef fective 2019-Present) Name:Arthur Nicole Member ID:[id number] [id number] [id number] Relation to Subscriber:Self Name:Arthur Nicole Subscriber ID:xxxxxxxxxxxx [id number] [id number] [id number] Payer ID:1 (NAIC) Type:Not on file Address: [facility] [id number] [place] [id number] Care Teams Stack Supervisor Relationship Specialty Start Date End Date Grey Lorenzo MD [address] [place] [address] PCP - General Internal Medicine 11/10/19
--- OUTSIDE RECORDS SUMMARY | 2025-04-02 15:21 | XMS_ITS | Encounter Summary ---
Author Organization [facility] Healthcare Address [address] [place] [address] Care Team Providers Care Automation Qa Lead Name Role Phone Grey Lorenzo MD Primary Care Provider Bobby Romero MD Unavailable [phone] Maryana Haywood RN Unavailable [phone] Imra Valladares RN Unavailable [phone] Encounter Details Date Type Department Care Team (Late st Contact Info) Description 08/02/2019 Documentation [facility] Clinical Trial [address] [place] [address] Sissy Ugarte Social History Tobacco Use Types Packs/Day Years Used Date Smoking Tobacco: Never Smokeless Tobacco: Never Alcohol Use Standard Drinks/Week Comments Yes 0 (1 standard drink = 0.6 oz pur e alcohol) socially Sex and Gender Information Value Date Recorded Sex Assigned at Not on file Legal Sex Male 2:06 AM BLOOD BANK ORDER CONTROL CLERK Gender Identity Not on file Sexual Orientation Not on file documented as of this encounter Plan of Treatment Not on file documented as of this encounter Visit Diagnoses Not on filedocumented in this encounter Care Teams Automation Qa Lead Relationship Specialty Start Date End Date Grey Lorenzo MD PCP - General Family Practice 08/16/17 Bobby Romero MD Consulting Physician Transplant 10/21/19 Maryana Haywood RN Thermal Cutter Helper 10/28/19 Irma Valladares, RN [address] [facility] [address] [place] [address] Thermal Cutter Helper Cardiology 08/10/20 documented as of this encounter
--- OUTSIDE RECORDS SUMMARY | 2025-04-02 15:21 | XMS_ITS | Encounter Summary ---
Author Organization [facility] Healthcare Address [address] [place] [address] Care Team Providers Care Manager Outreach Name Role Phone Grey Lorenzo MD Primary Care Provider Bobby Romero MD Unavailable [phone] Maryana Haywood RN Unavailable [phone] Irma Valladares RN Unavailable [phone] Encounter Details Date Type Department Care Team (Late st Contact Info) Description 07/01/[address] [facility] Clinical Trial 1 [place] [address] Sissy Ugarte Social History Tobacco Use Types Packs/Day Years Used Date Smoking Tobacco: Never Smokeless Tobacco: Never Alcohol Use Standard Drinks/Week Comments Yes 0 (1 standard drink = 0.6 oz pur e alcohol) socially Sex and Gender Information Value Date Recorded Sex Assigned at Not on file Legal Sex Male 2:06 AM IDEA WORKER Gender Identity Not on file Sexual Orientation Not on file documented as of this encounter Plan of Treatment Not on file documented as of this encounter Visit Diagnoses Not on filedocumented in this encounter Care Teams Manager Outreach Relationship Specialty Start Date End Date Grey Lorenzo MD PCP - General Family Practice 08/16/17 Bobby Romero MD Consulting Physician Transplant 10/21/19 Maryana Haywood RN Doping Supervisor 10/28/19 Irma Valladares, RN [address] [facility] [address] [place] [address] Doping Supervisor Cardiology 08/10/20 documented as of this encounter
--- OUTSIDE RECORDS SUMMARY | 2025-04-02 15:21 | XMS_ITS | Encounter Summary ---
Author Organization [facility] Healthcare Address [address] [place] [address] Care Team Providers Care Intranet Developer Name Role Phone Grey Lorenzo MD Primary Care Provider Bobby Romero MD Unavailable [phone] Maryana Haywood RN Unavailable [phone] Irma Valladares RN Unavailable [phone] Encounter Details Date Type Department Care Team (Late st Contact Info) Description 08/26/2019 Documentation [facility] Clinical Trial 1 [place] [address] Sissy Ugarte Social History Tobacco Use Types Packs/Day Years Used Date Smoking Tobacco: Never Smokeless Tobacco: Never Alcohol Use Standard Drinks/Week Comments Yes 0 (1 standard drink = 0.6 oz pur e alcohol) socially Sex and Gender Information Value Date Recorded Sex Assigned at Not on file Legal Sex Male 2:06 AM CORPORATE STRATEGY ANALYST Gender Identity Not on file Sexual Orientation Not on file documented as of this encounter Plan of Treatment Not on file documented as of this encounter Visit Diagnoses Not on filedocumented in this encounter Care Teams Intranet Developer Relationship Specialty Start Date End Date Grey Lorenzo MD PCP - General Family Practice 08/16/17 Bobby Romero MD Consulting Physician Transplant 10/21/19 Maryana Haywood RN Fabric Machine Operator 10/28/19 Irma Valladares, RN [address] [facility] [address] [place] [address] Fabric Machine Operator Cardiology 08/10/20 documented as of this encounter
--- OUTSIDE RECORDS SUMMARY | 2025-04-02 15:21 | XMS_ITS | Encounter Summary ---
Author Organization [facility] Medical Group Address [address] [facility] [place] [address] Care Team Providers Care Lead Laying And Gluing Machine Operator Name Role Phone Alejandro Stevens Primary Care Provider [phone] Alejandro Stevens Primary Care Provider [phone] Grey Lorenzo MD Primary Care Provider Bobby Romero MD Unavailable [phone] Maryana Haywood RN Unavailable [phone] Irma Valladares RN Unavailable [phone] Encounter Details Date Type Department Care Team (Late st Contact Info) Description 07/29/2016 Orders Only [facility] ProviderElizabeth MD [address] [place] [address] Social History Tobacco Use Types Packs/Day Years Used Date Smoking Tobacco: Never Alcohol Use Standard Drinks/Week Comments No 0 (1 standard drink = 0.6 oz pur e alcohol) Sex and Gender Information Value Date Recorded Sex Assigned at Not on file Legal Sex Male 2:06 AM PIPE SMOKER MACHINE OPERATOR Gender Identity Not on file Sexual Orientation Not on file documented as of this encounter Plan of Treatment Not on file documented as of this encounter Procedures Procedure Name Priority Date/Time Associated Diagnosis Comments CARDIOLOGY REPORT 07/29/2016 documented in this encounter Results * CARDIOLOGY REPORT (07/29/2016) Anatomical Region Laterality Modality Other Narrative 07/29/2016 Ordered by an unspecified provider. Historical Provider [facility] KELLY CLAYTON Final Result documented in this encounter Visit Diagnoses Not on filedocumented in this encounter Care Teams Lead Laying And Gluing Machine Operator Relationship Specialty Start Date End Date Alejandro Stevens [address] [place] [address] PCP - General 09/06/16 08/15/17 Alejandro Stevens [address] [place] [address] PCP - General 08/07/15 09/05/16 Grey Lorenzo MD [address] [address] PCP - General Family Practice 08/16/17 Bobby Romero MD [address] [address] Consulting Physician Transplant 10/21/19 Maryana Haywood, RN Brine Maker 10/28/19 Irma Valladares, BURT [address] [address] Brine Maker Cardiology 08/10/20 documented as of this encounter
--- OUTSIDE RECORDS SUMMARY | 2025-04-02 15:21 | XMS_ITS | Encounter Summary ---
Author Organization [facility] Medical Group Address [address] [place] [address] Care Team Providers Care Horse Rider Name Role Phone Alejandro Stevens Primary Care Provider [phone] Alejandro Stevens Primary Care Provider [phone] Grey Lorenzo MD Primary Care Provider Bobby Romero MD Unavailable [phone] Maryana Haywood RN Unavailable [phone] Irma Valladares RN Unavailable [phone] Encounter Details Date Type Department Care Team (Late st Contact Info) Description 09/02/2016 Orders Only [facility] ProviderElizabeth MD [address] [place] [address] Social History Tobacco Use Types Packs/Day Years Used Date Smoking Tobacco: Never Alcohol Use Standard Drinks/Week Comments No 0 (1 standard drink = 0.6 oz pur e alcohol) Sex and Gender Information Value Date Recorded Sex Assigned at Not on file Legal Sex Male 2:06 AM PRESSING DEPARTMENT SUPERVISOR Gender Identity Not on file Sexual Orientation Not on file documented as of this encounter Plan of Treatment Not on file documented as of this encounter Procedures Procedure Name Priority Date/Time Associated Diagnosis Comments CARDIOLOGY REPORT 09/02/2016 documented in this encounter Results * CARDIOLOGY REPORT (09/02/2016) Anatomical Region Laterality Modality Other Narrative 09/02/2016 Ordered by an unspecified provider. Historical Provider [facility] KELLY CLAYTON Final Result documented in this encounter Visit Diagnoses Not on filedocumented in this encounter Care Teams Horse Rider Relationship Specialty Start Date End Date Alejandro Stevens [address] [place] [address] PCP - General 09/06/16 08/15/17 Alejandro Stevens [address] [place] [address] PCP - General 08/07/15 09/05/16 Grey Lorenzo MD [address] [place] [place] [address] PCP - General Family Practice 08/16/17 Bobby Romero MD [address] [place] [place] [address] Consulting Physician Transplant 10/21/19 Maryana Haywood, RN Church History Professor 10/28/19 Irma Valladares, BURT [address] [address] Church History Professor Cardiology 08/10/20 documented as of this encounter
--- OUTSIDE RECORDS SUMMARY | 2025-04-02 15:21 | XMS_ITS | Encounter Summary ---
Author Organization [facility] Healthcare Address [address] [place] [address] Care Team Providers Care Web Designer Name Role Phone Grey Lorenzo MD Primary Care Provider Bobby Romero MD Unavailable [phone] Maryana Haywood RN Unavailable [phone] Irma Valladares RN Unavailable [phone] Encounter Details Date Type Department Care Team (Late st Contact Info) Description 05/17/2019 Documentation [facility] Case Management 1 [place] [address] Sariah Monreo RN Social History Tobacco Use Types Packs/Day Years Used Date Smoking Tobacco: Never Smokeless Tobacco: Never Alcohol Use Standard Drinks/Week Comments Yes 0 (1 standard drink = 0.6 oz pur e alcohol) socially Sex and Gender Information Value Date Recorded Sex Assigned at Not on file Legal Sex Male 2:06 AM SAUSAGE MIXER Gender Identity Not on file Sexual Orientation Not on file documented as of this encounter Plan of Treatment Not on file documented as of this encounter Visit Diagnoses Not on filedocumented in this encounter Care Teams Web Designer Relationship Specialty Start Date End Date Grey Lorenzo MD PCP - General Family Practice 08/16/17 Bobby Romero MD Consulting Physician Transplant 10/21/19 Maryana Haywood, BURT Polisher Brass 10/28/19 Irma Valladares, RN [address] [address] Polisher Brass Cardiology 08/10/20 documented as of this encounter
--- OUTSIDE RECORDS SUMMARY | 2025-04-02 15:21 | XMS_ITS | Encounter Summary ---
Author Organization [facility] Address [address] [place] [address] Phone Care Team Providers Care Communications Equipment Operator Name Role Phone Grey Lorenzo MD Primary Care Provider Bobby Romero MD Unavailable Maryana Haywood RN Unavailable [phone] Irma Valladares RN Unavailable [phone] Encounter Details Date Type Department Care Team (Late st Contact Info) Description 12/22/2019 Documentation [facility] Cardiology [address] [facility] Advanced Medicine 8th [place] [address] [place] [address] Fina Ward RN Social History Tobacco Use Types Packs/Day Years Used Date Smoking Tobacco: Never Smokeless Tobacco: Never Alcohol Use Standard Drinks/Week Comments Yes 0 (1 standard drink = 0.6 oz pur e alcohol) socially Sex and Gender Information Value Date Recorded Sex Assigned at Not on file Legal Sex Male 2:06 AM BUDGET REPORT CLERK Gender Identity Not on file Sexual Orientation Not on file documented as of this encounter Plan of Treatment Not on file documented as of this encounter Visit Diagnoses Not on filedocumented in this encounter Care Teams Communications Equipment Operator Relationship Specialty Start Date End Date Grey Lorenzo MD PCP - General Family Practice 08/16/17 Bobby Romero MD Consulting Physician Transplant 10/21/19 Maryana Haywood, RN Care Nurse Rn 10/28/19 Irma Valladares, RN [address] [facility] [address] [place] [address] Care Nurse Rn Cardiology 08/10/20 documented as of this encounter
--- OUTSIDE RECORDS SUMMARY | 2025-04-02 15:21 | XMS_ITS | Encounter Summary ---
Author Organization [facility] Address [address] [place] [address] Care Team Providers Care Photoengraving Machine Operator/Tender Name Role Phone Alejandro Stevens Primary Care Provider [phone] Alejandro Stevens Primary Care Provider [phone] Grey Lorenzo MD Primary Care Provider Bobby Romero MD Unavailable [phone] Maryana Haywood RN Unavailable [phone] Irma Valladares RN Unavailable [phone] Encounter Details Date Type Department Care Team (Late st Contact Info) Description 06/20/2016 Orders Only [facility] ProviderElizabeth MD [address] [place] [id number] Social History Tobacco Use Types Packs/Day Years Used Date Smoking Tobacco: Never Alcohol Use Standard Drinks/Week Comments No 0 (1 standard drink = 0.6 oz pur e alcohol) Sex and Gender Information Value Date Recorded Sex Assigned at Not on file Legal Sex Male 2:06 AM PHOTOGRAPH EDITOR Gender Identity Not on file Sexual Orientation Not on file documented as of this encounter Plan of Treatment Not on file documented as of this encounter Procedures Procedure Name Priority Date/Time Associated Diagnosis Comments CARDIOLOGY REPORT 06/20/2016 documented in this encounter Results * CARDIOLOGY REPORT (06/20/2016) Anatomical Region Laterality Modality Other Narrative 06/20/2016 Ordered by an unspecified provider. Historical Provider [facility] KELLY CLAYTON Final Result documented in this encounter Visit Diagnoses Not on filedocumented in this encounter Care Teams Photoengraving Machine Operator/Tender Relationship Specialty Start Date End Date Alejandro Stevens [address] [place] [address] PCP - General 09/06/16 08/15/17 Alejandro Stevens [address] [place] [address] PCP - General 08/07/15 09/05/16 Grey Lorenzo MD [address] [place] [address] PCP - General Family Practice 08/16/17 Bobby Romero MD [address] [place] [address] Consulting Physician Transplant 10/21/19 Maryana Haywood, RN Optician Apprentice Dispensing 10/28/19 Irma Valladares, BURT [address] [address] Optician Apprentice Dispensing Cardiology 08/10/20 documented as of this encounter
--- OUTSIDE RECORDS SUMMARY | 2025-04-02 15:21 | XMS_ITS | Encounter Summary ---
Author Organization [facility] Address [address] [place] [address] Phone Care Team Providers Care Photo Machine Operator Name Role Phone Grey Lorenzo MD Primary Care Provider Bobby Romero MD Unavailable [phone] Marayna Haywood RN Unavailable [phone] Irma Valladares RN Unavailable [phone] Encounter Details Date Type Department Care Team (Late st Contact Info) Description 03/14/[address] [facility] Cardiology [address] [place] [id number] Rob Han MD [address] [id number] Social History Tobacco Use Types Packs/Day Years Used Date Smoking Tobacco: Never Smokeless Tobacco: Never Alcohol Use Standard Drinks/Week Comments Yes 0 (1 standard drink = 0.6 oz pur e alcohol) socially AUDIT-C Answer Date Recorded Q1: How often do you have a drink containing alc ohol? Monthly or less 11/27/2020 Q2: How many drinks containi ng alcohol do you have on a typical day when you are drinking? 1 or 2 11/27/2020 Q3: How often do you have si x or more drinks on one occasion? 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 Leads: Appear stable CLASSROOM TEACHER Pacin.0 % Episodes since 12-13-24 No SVT / VT / VF episodes AT/AF burden: 100% James DALLAS, BSN Procedure Note Rob Han MD - 03/31/2025 Device Summary Remote interrogation of [employer] (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 Leads: Appear stable CLASSROOM TEACHER Pacin.0 % Episodes since 12-13-24 No SVT / VT / VF episodes AT/AF burden: 100% James DALLAS, BSN us Rob Han MD [facility] Final Result documented in this encounter Visit Diagnoses Not on filedocumented in this encounter Care Teams Photo Machine Operator Relationship Specialty Start Date End Date Grey Lorenzo MD PCP - General Family Practice 08/16/17 Bobby Romero MD Consulting Physician Transplant 10/21/19 Maryana Haywood, BURT Speed Belt Sander Tender 10/28/19 Irma Valladares, BURT [address] [address] Speed Belt Sander Tender Cardiology 08/10/20 documented as of this encounter
--- OUTSIDE RECORDS SUMMARY | 2025-04-02 15:21 | XMS_ITS | Encounter Summary ---
Author Organization [facility] Address [address] [place] [address] Phone Care Team Providers Care Proof Technician Helper Name Role Phone Grey Lorenzo MD Primary Care Provider Bobby Romero MD Unavailable Mrayana Haywood RN Unavailable [phone] Irma Valladares RN Unavailable Encounter Details Date Type Department Care Team (Late st Contact Info) Description 10/21/2019 Telephone [facility] Cardiology [address] [facility] [address] [place] [address] [place] [id number] Bobby Romero MD [address] [place] [address] Social History Tobacco Use Types Packs/Day Years Used Date Smoking Tobacco: Never Smokeless Tobacco: Never Alcohol Use Standard Drinks/Week Comments Yes 0 (1 standard drink = 0.6 oz pur e alcohol) socially Sex and Gender Information Value Date Recorded Sex Assigned at Not on file 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
--- OUTSIDE RECORDS SUMMARY | 2025-04-02 15:21 | XMS_ITS | Clinical Summary ---
Author Organization [facility] Address [address] [place] [address] Care Team Providers Care Corn Shucker Name Role Phone Grey Lorenzo MD Primary Care Provider Bobby Romero MD Unavailable [phone] Maryana Haywood RN Unavailable [phone] Irma Valladares RN Unavailable [phone] Allergies No known active allergies Medications aspirin 81 mg tablet Take 1 tablet (81 mg total) by mouth daily. 30 tablet 11 8 Active insulin degludec 100 unit/mL (3 mL) insulin penIndications:t ype 2 diabetes mellitus Inject 0.38 mL (38 Units total) under the skin nightly 0 Active cholecalciferol (VITAMIN D-3) 5,000 unit capsuleIndicatio ns:Vitamin D Deficiency Take 10 capsules (50,000 Units total) by mouth once a week Active Bydureon BCise 2 mg/0.85 mL auto-injectorInd ications:type 2 diabetes mellitus Inject 2 mg under the skin every 7 days Friday' 1 Active Farxiga 10 mg tablet Take 1 tablet (10 mg total) by mouth daily 14 tablet 1 Active tamsulosin (FLOMAX) 0.4 mg extended release capsuleIndicatio ns:benign prostatic hyperplasia with lower urinary tract sx Take 1 capsule (0.4 mg total) by mouth nightly 1 Active metoprolol XL (TOPROL-XL) 100 mg 24 hr tablet TAKE ONE AND ONE-HALF TABLETS BY MOUTH DAILY 135 tablet 1 2 Active atorvastatin (LIPITOR) 80 mg tablet Take 1 tablet (80 mg total) by mouth daily 90 tablet 3 2 Active Entresto 49-51 mg tablet TAKE 1 TABLET BY MOUTH TWICE A DAY 60 tablet 11 3 Active diphenhydrAMINE 25 mg capsule Take 1 tablet/capsul e (25 mg total) by mouth as needed for itching Active Active Problems Problem Noted Date Diagnosed Date A-fib 07/02/2022 Morbid (severe) obesity due to excess calories 0 01/04/2022 Contraindication to anticoagulation therapy 06/2020 High risk medication use 10/19/2019 Assessment & Plan (10/19/2019 1:24 PM CDT): Intense insulin regimen in the setting of variable oral intake places patient at increased risk of hypoglycemia/hyperglycemia which may have serious metabolic, CV and neuro consequences. We will continue to intensely monitor blood glucose and titrate insulin as needed to optimize glycemic control to avoid hypoglycemic/hyperglycemic events. Subclinical hypothyroidism 10/17/2019 Assessment & Plan (10/20/2019 11:31 AM CDT): -Repeat thyroid function studies (TSH, FreeT3 and Free T4) in 6-8 weeks as outpatient -anti-TPO Ab <20 Assessment & Plan (10/19/2019 11:46 AM CDT): -Repeat thyroid function studies (TSH, FreeT3 and Free T4) in 6-8 weeks as outpatient -anti-TPO Ab <20 Assessment & Plan (10/18/2019 10:33 AM CDT): -Repeat thyroid function studies (TSH, FreeT3 and Free T4) in 6-8 weeks as outpatient -check anti-TPO Abs Assessment & Plan (10/19/2019 1:25 PM CDT): Denies active symptoms: no cold intolerance, fatigue, constipation, or weight gain Thyroid exam shows no enlargement, masses, nodules, or tenderness Physical exam shows no bradycardia, non-pitting edema, or delayed relaxation of tendon reflexes Latest TSH 6.26(H) and Free T4 1.39 (10/15/2019) On Amiodarone Recommendations: Repeat thyroid function studies (TSH, FreeT3 and Free T4) in 6-8 weeks as outpatient (late November/early December) Consider checking anti-TPO Abs Biventricular ICD (implantab le cardioverter-defibrillator) in place 06/25/2019 Assessment & Plan (10/20/2019 11:20 AM CDT): S/p [facility] [facility] HIM TECH-D device (05/2019) -last device check 09/14/2019; 99% afib/flutter. -VS 49%, -DUMPSTER OPERATOR 32%, AP-DUMPSTER OPERATOR 18%. No VT. Assessment & Plan (10/19/2019 10:58 AM CDT): S/p [facility] [facility] HIM TECH-D device (05/2019) -last device check 09/14/2019; 99% afib/flutter. -VS 49%, -DUMPSTER OPERATOR 32%, AP-DUMPSTER OPERATOR 18%. No VT. Assessment & Plan (10/18/2019 10:20 AM CDT): S/p [facility] [facility] HIM TECH-D device (05/2019) -last device check 09/14/2019; 99% afib/flutter. -VS 49%, -DUMPSTER OPERATOR 32%, AP-DUMPSTER OPERATOR 18%. No VT. Assessment & Plan (10/17/2019 5:15 PM CDT): S/p [facility] [facility] HIM TECH-D device (05/2019) -last device check 09/14/2019; 99% afib/flutter. -VS 49%, -DUMPSTER OPERATOR 32%, AP-DUMPSTER OPERATOR 18%. No VT. Assessment & Plan (10/16/2019 8:55 AM CDT): S/p [facility] [facility] HIM TECH-D device (05/2019) -last device check 09/14/2019; 99% afib/flutter. -VS 49%, -DUMPSTER OPERATOR 32%, AP-DUMPSTER OPERATOR 18%. No VT. Assessment & Plan (10/15/2019 11:58 AM CDT): S/p [facility] [facility] HIM TECH-D device (05/2019) - last device check 09/14/2019; 99% afib/flutter. -VS 49%, -DUMPSTER OPERATOR 32%, AP-DUMPSTER OPERATOR 18%. No VT. Chronic HFrEF (heart failure with reduced ejection fraction) 04/30/2019 Assessment & Plan (10/20/2019 11:20 AM CDT): ICM, HFrEF (LVEF 15%), admitted with anemia -RHC May 2019: RAP 2, PA mean 15, wedge 7, CI 2.4 by danny/1.75 by thermo on milrinone. -S/p [facility] [facility] HIM TECH-D device -NT-proBNP 744 (has been previously much higher) -hemodynamically stable, relatively euvolemic on exam -Continue Entresto and Carvedilol -Strict I & O, daily weights, low sodium diet -Continue telemetry monitoring -Of note, follows with Dr. Romero and is currently enrolled in LIFE trial Assessment & Plan (10/19/2019 11:00 AM CDT): ICM, HFrEF (LVEF 15%), admitted with anemia -RHC May 2019: RAP 2, PA mean 15, wedge 7, CI 2.4 by danny/1.75 by thermo on milrinone. -S/p [facility] [facility] HIM TECH-D device -NT-proBNP 744 (has been previously much higher) -hemodynamically stable, relatively euvolemic on exam -Continue Entresto and Carvedilol -Strict I & O, daily weights, low sodium diet -Continue telemetry monitoring -Of note, follows with Dr. Romero and is currently enrolled in LIFE trial Assessment & Plan (10/18/2019 10:24 AM CDT): ICM, HFrEF (LVEF 15%), admitted with anemia -RHC May 2019: RAP 2, PA mean 15, wedge 7, CI 2.4 by danny/1.75 by thermo on milrinone. -S/p [facility] [facility] HIM TECH-D device -NT-proBNP 744 (has been previously much higher) -hemodynamically stable, relatively euvolemic on exam -Continue Entresto and Carvedilol -Strict I & O, daily weights, low sodium diet -Continue telemetry monitoring -Of note, follows with Dr. Romero and is currently enrolled in LIFE trial Assessment & Plan (10/17/2019 5:19 PM CDT): ICM, HFrEF (LVEF 15%), admitted with anemia -RHC May 2019: RAP 2, PA mean 15, wedge 7, CI 2.4 by danny/1.75 by thermo on milrinone. -S/p [facility] [facility] HIM TECH-D device -NT-proBNP 744 (has been previously much higher) -hemodynamically stable, mildly volume overloaded on exam today -Weight down 3 lbs from yesterday, net negative 1.6L in the last 24 hours -Continue Entresto and Carvedilol -Strict I & O, daily weights, low sodium diet -Continue telemetry monitoring -Of note, follows with Dr. Romero and is currently enrolled in LIFE trial Assessment & Plan (10/16/2019 8:56 AM CDT): ICM, HFrEF (LVEF 15%), admitted with anemia -RHC May 2019: RAP 2, PA mean 15, wedge 7, CI 2.4 by danny/1.75 by thermo on milrinone. -S/p [facility] [facility] HIM TECH-D device -NT-proBNP 744 (has been previously much higher) -hemodynamically stable, euvolemic on exam -Home BP meds held on admission, will resume today as BPs and lightheadedness have both improved after blood transfusion -Strict I & O, daily weights, low sodium diet -Continue telemetry monitoring -Of note, follows with Dr. Romero and is currently enrolled in LIFE trial Assessment & Plan (10/15/2019 11:57 AM CDT): ICM, HFrEF (LVEF 15%), admitted with anemia -RHC May 2019: RAP 2, PA mean 15, wedge 7, CI 2.4 by danny/1.75 by thermo on milrinone. -S/p [facility] [facility] HIM TECH-D device -NT-proBNP 744 (has been previously much higher) -hemodynamically stable, euvolemic on exam -Home BP meds held due to anemia/soft BP on admission -Strict I & O, daily weights, low sodium diet -Continue telemetry monitoring -Of note, follows with Dr. Romero and is currently enrolled in LIFE trial Assessment & Plan (05/24/2019 4:01 PM APRON WORKER): Acute on chronic systolic/diastolic, ICM, presented with CHF and AF with RVR, unclear to what degree AF is root of decompensation as EF significantly reduced - TTE 05/04 with severely reduced LV systolic function, EF 20-25% and grade III diastolic dysfunction - RHC 05/17/19 with normal left heart filling pressures, normal right heart filling pressures, no pulmonary hypertension with normal TPG and PVR and borderline normal cardiac output at rest on milrinone, Milrinone gtt discontinued - Hemodynamically stable, appears euvolemic on exam - Continue Torsemide 40 mg daily - Continue Hydralazine/Isosorbide - underwent evaluation for DT-LVAD this admission, however based on RHC, will defer for now and pursue HIM TECH-D placement and A. Fib management for now - EP placed primary prevention [facility] BiV ICD today Assessment & Plan (05/23/2019 11:33 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): Acute on chronic systolic/diastolic, ICM, presented with CHF and AF with RVR, unclear to what degree AF is root of decompensation as EF significantly reduced -TTE 05/04 with severely reduced LV systolic function, EF 20-25% and grade III diastolic dysfunction -RHC 05/17/19 with normal left heart filling pressures, normal right heart filling pressures, no pulmonary hypertension with normal TPG and PVR and borderline normal cardiac output at rest on milrinone, Milrinone gtt discontinued -Hemodynamically stable, appears euvolemic on exam -Continue Torsemide 40 mg daily -Continue Hydralazine/Isosorbide -underwent evaluation for DT-LVAD this admission, however based on RHC, will defer for now and pursue HIM TECH-D placement and A. Fib management for now -EP consulted for primary prevention HIM TECH-D, pt meets guideline recommendations for HIM TECH-D, will undergo procedure while admitted in light of pauses on telemetry. Assessment & Plan (05/22/2019 1:50 PM APRON WORKER): Acute on chronic systolic/diastolic, ICM, presented with CHF and AF with RVR, unclear to what degree AF is root of decompensation as EF significantly reduced -TTE 05/04 with severely reduced LV systolic function, EF 20-25% and grade III diastolic dysfunction -RHC 05/17/19 with normal left heart filling pressures, normal right heart filling pressures, no pulmonary hypertension with normal TPG and PVR and borderline normal cardiac output at rest on milrinone, Milrinone gtt discontinued -Hemodynamically stable, appears euvolemic on exam -Continue Torsemide 40 mg daily -Continue Hydralazine/Isosorbide -underwent evaluation for DT-LVAD this admission, however based on RHC, will defer for now and pursue HIM TECH-D placement and A. Fib management for now -EP consulted for primary prevention HIM TECH-D, pt meets guideline recommendations for HIM TECH-D, will undergo procedure while admitted in light of pauses on telemetry. Assessment & Plan (05/21/2019 7:39 PM APRON WORKER): Acute on chronic systolic/diastolic, ICM, presented with CHF and AF with RVR, unclear to what degree AF is root of decompensation as EF significantly reduced -TTE 05/04 with severely reduced LV systolic function, EF 20-25% and grade III diastolic dysfunction -RHC 05/17/19 with normal left heart filling pressures, normal right heart filling pressures, no pulmonary hypertension with normal TPG and PVR and borderline normal cardiac output at rest on milrinone, Milrinone gtt discontinued -Hemodynamically stable, appears euvolemic on exam -Continue Torsemide 40 mg daily -Continue Hydralazine/Isosorbide -underwent evaluation for DT-LVAD this admission, however based on RHC, will defer for now and pursue HIM TECH-D placement and A. Fib management for now -EP consulted for primary prevention HIM TECH-D, pt meets guideline recommendations for HIM TECH-D, will discuss scheduling outpatient Assessment & Plan (05/20/2019 3:13 PM APRON WORKER): Acute on chronic systolic/diastolic, ICM, presented with CHF and AF with RVR, unclear to what degree AF is root of decompensation as EF significantly reduced -TTE 05/04 with severely reduced LV systolic function, EF 20-25% and grade III diastolic dysfunction -RHC 05/17/19 with normal left heart filling pressures, normal right heart filling pressures, no pulmonary hypertension with normal TPG and PVR and borderline normal cardiac output at rest on milrinone. -Milrinone gtt discontinued -Hemodynamically stable, appears euvolemic on exam today -Continue Torsemide 40 mg daily -underwent evaluation for DT-LVAD this admission, however based on RHC, will defer for now and pursue HIM TECH-D placement and A. Fib management for now -EP consulted for possible HIM TECH-D, will likely take place outpt -Pt will be going for DCCV tomorrow if not chemically converted by then Assessment & Plan (05/19/2019 3:25 PM APRON WORKER): Acute on chronic systolic/diastolic, ICM, presented with CHF and AF with RVR, unclear to what degree AF is root of decompensation as EF significantly reduced -TTE 05/04 with severely reduced LV systolic function, EF 20-25% and grade III diastolic dysfunction -RHC 05/17/19 with normal left heart filling pressures, normal right heart filling pressures, no pulmonary hypertension with normal TPG and PVR and borderline normal cardiac output at rest on milrinone. -Milrinone gtt discontinued -Hemodynamically stable, appears euvolemic on exam today -2,385 ml UOP overnight, weight down today -Continue Torsemide 40 mg daily -underwent evaluation for DT-LVAD this admission, however based on RHC findings, will defer for now and plan for HIM TECH-D and possible A. Fib ablation -EP consulted today Assessment & Plan (05/18/2019 9:45 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): Presented initially with acute on chronic decompensated systolic and diastolic heart failure secondary to ischemic cardiomyopathy, likely secondary to atrial flutter with RVR. - HF following for likely DT-VAD placement - TTE 05/04 with severely reduced LV systolic function, EF 20-25% and grade III diastolic dysfunction - Repeat RHC 05/17 with improved CI 2.4, PAP 30/8, PCWP 7, CVP 1 - Uptitrate hydralazine 50 mg TID, isordil 30 mg TID - Will discuss with HF regarding discontinuation of PA catheter and transfer to floor - Keep milrinone off - Hemodynamically stable, appears euvolemic on exam, CVP low - Continue lisinopril 2.5 mg daily, aspirin, atorvastatin, torsemide 40 mg daily for maintenance - Trend PA, CI Q4H until d/c PAC - Daily CXR Assessment & Plan (05/17/2019 9:36 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): Acute on chronic systolic/diastolic, ICM, presented with CHF and AF with RVR, unclear to what degree AF is root of decompensation as EF significantly reduced -TTE 05/04 with severely reduced LV systolic function, EF 20-25% and grade III diastolic dysfunction -Hemodynamically stable, Appears euvolemic on exam. -Continue Torsemide 40 mg daily -Continue Milrinone gtt @ 0.125 mcg/kg/min--presented at transplant [facility] [place] 05/11. Liver bx- pathology shows no fibrosis RHC today prior to lvad being evaluated for DT-LVAD (surgery date TBD) Assessment & Plan (05/16/2019 9:38 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): Acute on chronic systolic/diastolic, ICM, presented with CHF and AF with RVR, unclear to what degree AF is root of decompensation as EF significantly reduced -TTE 05/04 with severely reduced LV systolic function, EF 20-25% and grade III diastolic dysfunction -Hemodynamically stable, Appears euvolemic on exam. -Continue Torsemide 40 mg daily -Continue Milrinone gtt @ 0.25 mcg/kg/min--presented at transplant [facility] [place] 05/11. Liver bx- pathology shows no fibrosis -tentative plan for RHC Friday (05/17) prior to LVAD placement, will keep NPO tonight -Continue Lisinopril 2.5 mg daily - being evaluated for DT-LVAD (surgery date TBD) Assessment & Plan (05/14/2019 3:05 PM APRON WORKER): Acute on chronic systolic/diastolic, ICM, presented with CHF and AF with RVR, unclear to what degree AF is root of decompensation as EF significantly reduced -TTE 05/04 with severely reduced LV systolic function, EF 20-25% and grade III diastolic dysfunction -Hemodynamically stable, Appears euvolemic on exam. -Continue Torsemide 40 mg daily -Continue Milrinone gtt @ 0.25 mcg/kg/min--presented at transplant [facility] 05/11. Liver bx- pathology shows no fibrosis. Plan for RHC next week prior to LVAD placement (timing TBD) -Continue Lisinopril 2.5 mg daily Assessment & Plan (05/13/2019 12:22 PM APRON WORKER): Acute on chronic systolic/diastolic, ICM, presented with CHF and AF with RVR, unclear to what degree AF is root of decompensation as EF significantly reduced -TTE 05/04 with severely reduced LV systolic function, EF 20-25% and grade III diastolic dysfunction -Hemodynamically stable, Appears euvolemic on exam. -Continue Torsemide 40 mg daily . -Continue Milrinone gtt @ 0.25 mcg/kg/min--presented at transplant [facility] [place] 05/11. Liver bx Result pending . Once have Liver biopsy proceed with LVAD If unremarkable. -Continue Lisinopril 2.5 mg daily -EP consult for consideration of HIM TECH-D/Aflutter management; will continue to follow and would consider atypical flutter ablation, however would ideally want patient off milrinone. Likely plan to forego ablation if persuing advanced therapies Assessment & Plan (05/12/2019 4:38 PM APRON WORKER): Acute on chronic systolic/diastolic, ICM, presented with CHF and AF with RVR, unclear to what degree AF is root of decompensation as EF significantly reduced -TTE 05/04 with severely reduced LV systolic function, EF 20-25% and grade III diastolic dysfunction -Hemodynamically stable, Appears euvolemic on exam. -Continue Torsemide 40 mg daily . -Continue Milrinone gtt @ 0.25 mcg/kg/min--presented at transplant mtg 05/11. Liver bx today and proceed with LVAD if bx unremarkable. -Continue Lisinopril 2.5 mg daily -EP consult for consideration of HIM TECH-D/Aflutter management; will continue to follow and would consider atypical flutter ablation, however would ideally want patient off milrinone. Likely plan to forego ablation if persuing advanced therapies Assessment & Plan (05/11/2019 10:48 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): Acute on chronic systolic/diastolic, ICM, presented with CHF and AF with RVR, unclear to what degree AF is root of decompensation as EF significantly reduced -TTE 05/04 with severely reduced LV systolic function, EF 20-25% and grade III diastolic dysfunction -Hemodynamically stable, Appears euvolemic on exam. -Continue Torsemide 40 mg daily . -Continue Milrinone gtt @ 0.25 mcg/kg/min--plan to present at transplant mtg today for LVAD. Unclear if this admission or home with Milrinone. -Continue Lisinopril 2.5 mg daily -EP consult for consideration of HIM TECH-D/Aflutter management; will continue to follow and would consider atypical flutter ablation, however would ideally want patient off milrinone. Likely plan to forego ablation if persuing advanced therapies Assessment & Plan (05/10/2019 10:03 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): Acute on chronic systolic/diastolic, ICM, presented with CHF and AF with RVR, unclear to what degree AF is root of decompensation as EF significantly reduced -TTE 05/04 with severely reduced LV systolic function, EF 20-25% and grade III diastolic dysfunction -Hemodynamically stable, Appears euvolemic on exam . Continue Torsemide 40 mg daily . -Continue Milrinone gtt @ 0.25 mcg/kg/min until more euvolemic before trying to wean -Continue Lisinopril 2.5 mg daily -EP consult for consideration of HIM TECH-D/Aflutter management; will continue to follow and would consider atypical flutter ablation, however would ideally want patient off milrinone. Likely plan to forego ablation if persuing advanced therapies 05/10/19: euvolemic on exam : plan to present patient at advanced heart therapies meeting - for now continue milirone infusion at 0.125 mcg/kg/min - once patient plan is secured if will proceed with LVAD or not will know how to proceed with milirone infusion. For now continue milirone infusion , Torsemide 40 mg daily And lisinopril 2.5 mg daily Assessment & Plan (05/07/2019 1:00 PM APRON WORKER): Acute on chronic systolic/diastolic, ICM, presented with CHF and AF with RVR, unclear to what degree AF is root of decompensation as EF significantly reduced -TTE 05/04 with severely reduced LV systolic function, EF 20-25% and grade III diastolic dysfunction -Hemodynamically stable, Appears euvolemic on exam . Continue Torsemide 40 mg daily . -Continue Milrinone gtt @ 0.25 mcg/kg/min until more euvolemic before trying to wean -Continue Lisinopril 2.5 mg daily -EP consult for consideration of HIM TECH-D/Aflutter management; will continue to follow and would consider atypical flutter ablation, however would ideally want patient off milrinone. Likely plan to forego ablation if persuing advanced therapies -continue telemetry monitoring -daily weights, strict I & O and low Na diet -will precede with advanced therapies work-up this admission: patient to be presented next Friday for advanced heart therapies - So no plans for weaning milirone or set up for home milirone until presentation done. -CT Chest/Abd/Pelvis WO on 05/05: Morphologic hepatic features suggestive of underlying chronic liver disease. Assessment & Plan (05/05/2019 3:10 PM APRON WORKER): Acute on chronic systolic/diastolic, ICM, presented with CHF and AF with RVR, unclear to what degree AF is root of decompensation as EF significantly reduced -TTE 05/04 with severely reduced LV systolic function, EF 20-25% and grade III diastolic dysfunction -Hemodynamically stable, remains volume overloaded on exam -continue diuresis with Lasix 80mg IV BID, may also benefit from addition of aldactone to regimen -Continue Milrinone gtt @ 0.25 mcg/kg/min until more euvolemic before trying to wean -Continue Lisinopril -EP consult for consideration of HIM TECH-D/Aflutter management -continue telemetry monitoring -daily weights, strict I & O and low Na diet -will precede with advanced therapies work-up this admission -CT Chest/Abd/Pelvis WO contrast ordered today Assessment & Plan (05/04/2019 9:55 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): -acute on chronic systolic/diastolic ischemic CMY who presented with CHF and AF with RVR -it is unclear to what degree AF is root of decompensation as EF significantly reduced -pt continues to diurese but is still volume overloaded -will continue diuresis and would favor continuing milrinone at current dose (0.25mcg/kg/minute) until more euvolemic before trying to wean -continue lasix 80mg IV BID and may benefit from addition of aldactone to regimen -transaminitis improved with diuresis--continue to follow -low dose lisinopril started--advance as BP/renal function tolerates -if pt is unable to wean from Milrinone then advanced therapies work-up will need to be pursued setting of likely passive hepatic congestion -Hemodynamically stable, remains volume overloaded on exam -Continue Milrinone gtt @ 0.25 mcg/kg/min -EP consult for consideration of HIM TECH-D/Aflutter management -tele -daily weights, strict I and O and low Na diet Assessment & Plan (05/03/2019 12:01 PM APRON WORKER): Initial presentation with hypervolemia, pitting edema, and mild lactate elevation. -Also notable for transaminitis, in the setting of likely passive hepatic congestion -Hemodynamically stable, remains volume overloaded on exam -Continue Milrinone gtt @ 0.25 mcg/kg/min -Over 4 L UOP overnight -Continue Lasix gtt, decrease rate to 15 mg/hr, maintain net negative 2L /24 hrs. -Recheck electrolytes this afternoon -Continue Lisinopril 2.5 gm daily, uptritrate rapidly as BP allows -EP consult for consideration of HIM TECH-D before discharge, and if he separates from inotropes -daily weights, strict I and O and low Na diet Diabetes mellitus type II, non insulin dependent 04/30/2019 Overview (10/19/2019): 68 year old male with past medical [...] not reliable in setting of severe anemia Assessment & Plan (10/20/2019 11:20 AM CDT): -Last A1C 8.6, hyperglycemia this admission -Diabetes consulted -continue lantus 12 units qhs, continue Lispro 6 units TID with meals, mid-dose SSI -Continue accuchecks -will plan to discharge on lantus 12 units HS and Invokana per endocrine recs -pt will need outpt endocrine follow up -[employer] recruiter and clinical nurse educator consulted Assessment & Plan (10/19/2019 11:06 AM CDT): -Last A1C 8.6, hyperglycemia this admission -Diabetes consulted -continue lantus 12 units qhs, continue Lispro 6 units TID with meals, mid-dose SSI -Continue accuchecks -will plan to discharge on lantus 12 units HS and Invokana per endocrine recs -pt will need outpt endocrine follow up -national expansion recruiter and clinical nurse educator consulted Assessment & Plan (10/18/2019 10:29 AM CDT): -Last A1C 8.6, hyperglycemia this admission -Diabetes consulted -increase lantus to 12 units tonight, continue Lispro 6 units TID with meals, mid-dose SSI -Continue accuchecks -will plan to discharge on lantus 12 units HS and Invokana per endocrine recs -pt will need outpt endocrine follow up Assessment & Plan (10/17/2019 5:20 PM CDT): -Last A1C 8.6, hyperglycemia this admission -Diabetes consult -Continue Lantus 10 units nightly, Lispro 3 units TID with meals, mid-dose SSI -Continue accuchecks Assessment & Plan (10/21/2019 3:14 PM CDT): Over the previous 24 hours, blood glucose tightly controlled with range of 74- 117 mg/dl with 8 units TDD insulin coverage. Tight glycemic control likely due to NPO status yesterday for endoscopic testing. Target inpatient blood glucose is 100- 180 mg/dl. Fasting blood glucose this morning was 126 mg/dl. At 1116, blood glucose was 215 mg/dl. Diabetes management complicated by variable oral intake and anemia. As Mr. Nicole is now eating, we recommend continuing the current insulin regimen today. We will continue to intensely monitor blood glucose and titrate insulin as needed to optimize glycemic control to avoid hypoglycemic/hyperglycemic events. Recommendations: 1) Continue Lantus 8 units qHS 2) Continue Humalog 4 units TID AC meals 3) MDSSI + QID fingerstick Discharge Planning: Diabetes education (CDE) referral needed prior to discharge; will need new glucometer Registered dietitian prior to discharge Anticipate discharge on basal insulin + oral anti-diabetic agents Lantus 8 U qHS + Canagliflozin (Invokana) 100 mg PO day in setting low EF CHF Follow Up: - 1-2 weeks after discharge with PCP (patient's preference at this time) to reassess glycemic management and to adjust diabetes regimen as needed. He should bring glucometer to follow up appointment so provider can review. Recommendations for diabetes management were discussed with the primary team. For questions regarding this patient today, please call Renetta Little NP at [phone]. If after hours, please contact the Diabetes Fellow at [phone]. Assessment & Plan (10/16/2019 9:00 AM CDT): -Last A1C 8.6 -Hyperglycemia overnight, NPH added and SSI increased to mid-dose -Continue NPH 3 units Q 12 and SSI -Continue accuchecks Assessment & Plan (10/15/2019 11:23 AM CDT): -Last A1C 8.6 -Admission BG 284 -Start low dose SSI -Continue accuchecks Assessment & Plan (05/24/2019 4:07 PM APRON WORKER): Hgb A1C 7.0 -Blood sugars reviewed, currently 120s - Continue SSI - continue carb consistent diet Assessment & Plan (05/23/2019 11:34 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): Hgb A1C 7.0 -Blood sugars reviewed, currently 120s -Continue SSI -continue Accuchecks -continue carb consistent diet Assessment & Plan (05/22/2019 1:50 PM APRON WORKER): Hgb A1C 7.0 -Blood sugars reviewed, currently 120s -Continue SSI -continue Accuchecks -continue carb consistent diet Assessment & Plan (05/21/2019 7:37 PM APRON WORKER): Hgb A1C 7.0 -Blood sugars reviewed, currently 120s -Continue SSI -continue Accuchecks -continue carb consistent diet Assessment & Plan (05/20/2019 3:14 PM APRON WORKER): Hgb A1C 7.0 -Blood sugars reviewed, currently 130s -Continue SSI -continue Accuchecks -continue carb consistent diet Assessment & Plan (05/19/2019 3:26 PM APRON WORKER): Hgb A1C 7.0 -Blood sugars reviewed, currently 140-150s -Continue SSI + Accuchecks Assessment & Plan (05/17/2019 10:53 PM APRON WORKER): HgbA1C 7.0 (05/05/2019). On Invokana at home. - Continue LDISS, Accuchecks - Diabetic diet Assessment & Plan (05/17/2019 9:40 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): HgbA1C 7.0 -Continue SSI + Accuchecks Blood sugars reviewed. Assessment & Plan (05/16/2019 9:40 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): HgbA1C 7.0 -Continue SSI + Accuchecks Assessment & Plan (05/14/2019 3:07 PM APRON WORKER): HgbA1C 7.0 Continue SSI + Accuchecks Assessment & Plan (05/13/2019 12:33 PM APRON WORKER): hemglobin a1c 7.0 -- currently treating with SSI Reviewed blood sugars: 98-204 Continue to monitor. Assessment & Plan (05/12/2019 4:40 PM APRON WORKER): hemglobin a1c 7.0 -- currently treating with SSI Assessment & Plan (05/11/2019 11:09 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): hemglobin a1c 7.0 -- currently treating with SSI Assessment & Plan (05/10/2019 10:04 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): hemglobin a1c 7.0 - currently treating with SSI Reviewed blood sugars : [phone] Continue to monitor. Assessment & Plan (05/07/2019 1:04 PM APRON WORKER): hemglobin a1c 7.0 - currently treating with SSI Longstanding persistent atrial fibrillation (CMS /HCC) 04/23/2019 Overview (06/01/2021): History of MAZE AAD: Amio -> failed and underwent AVJ in November 2020 after HIM TECH pacing % had fallen and HF worsened OAC: Xarelto -> Stopped after GI bleeding Assessment & Plan (10/20/2019 11:29 AM CDT): Hx of Afib/flutter on home amiodarone and xarelto -currently AV-paced -Continue home Amiodarone 200 mg daily -Holding home Xarelto given anemia -Keep K > 4.0 and Mg > 2.0, replete as needed -Continue telemetry Assessment & Plan (10/19/2019 11:42 AM CDT): Hx of Afib/flutter on home amiodarone and xarelto -currently AV-paced -Continue home Amiodarone 200 mg daily -Holding home Xarelto given anemia -Keep K > 4.0 and Mg > 2.0, replete as needed -Continue telemetry Assessment & Plan (10/18/2019 10:31 AM CDT): Hx of Afib/flutter on home amiodarone and xarelto -currently AV-paced -Continue home Amiodarone 200 mg daily -Holding home Xarelto given anemia and for scope tomorrow -Keep K > 4.0 and Mg > 2.0, replete as needed -Continue telemetry Assessment & Plan (10/17/2019 5:15 PM CDT): Hx of Afib/flutter on home amiodarone and xarelto -currently V-paced, HR 90s -Continue home Amiodarone 200 mg daily -Holding home Xarelto given anemia and for scope tomorrow -Keep K > 4.0 and Mg > 2.0, replete as needed -Continue telemetry Assessment & Plan (10/16/2019 8:54 AM CDT): Hx of Afib/flutter on home amiodarone and xarelto -currently V-paced, HR 94 -Continue home amiodarone 200 mg daily -Holding xarelto given anemia and for possible scope Friday -Keep K > 4.0 and Mg > 2.0, replete as needed Assessment & Plan (10/15/2019 12:09 PM CDT): Hx of Afib/flutter on home amiodarone and xarelto -currently V-paced, HR 94 -Continue home amiodarone -Holding xarelto given anemia and for possible scope -Keep K > 4.0 and Mg > 2.0, replete as needed Assessment & Plan (05/24/2019 4:00 PM APRON WORKER): Patient presented in atrial flutter with RVR on admission and was started on IV amiodarone infusion for rhythm control. Poor rate control felt to be trigger for decompensated heart failure. - Digoxin stopped on 05/04/19 - S/p successful DCCV to sinus rhythm, however pt had asystole during cardioversion requiring transcutaneous pacing for ~30 minutes. The patient was kept overnight for observation on telemetry. Telemetry shows multiple sinus pauses ~3-5 seconds. - EP placed [employer] BiV ICD today - CXR in am, device interrogation in am - continue Amiodarone 200 mg daily today - continue Xarelto 15 mg daily with dinner ([id number] of 4 pts) - Continue telemetry monitoring - Monitor electrolytes, replete as necessary - anticipate discharge with post procedure activity restrictions and outpatient follow up tomorrow Assessment & Plan (05/23/2019 11:28 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): Patient presented in atrial flutter with RVR on admission and was started on IV amiodarone infusion for rhythm control. Poor rate control felt to be trigger for decompensated heart failure. -Digoxin stopped on 05/04/19 -S/p successful DCCV to sinus rhythm today, however pt had asystole during cardioversion requiring transcutaneous pacing for ~30 minutes. The patient was kept overnight for observation on telemetry. Telemetry shows multiple sinus pauses ~3-5 seconds. -EP notified and will arrange device placement next week. -continue Amiodarone 200 mg daily today -continue Xarelto 15 mg daily with dinner ([id number] of 4 pts)--will need to hold once EP has a date for procedure -Continue telemetry monitoring -Monitor electrolytes, replete as necessary Assessment & Plan (05/22/2019 1:49 PM APRON WORKER): Patient presented in atrial flutter with RVR on admission and was started on IV amiodarone infusion for rhythm control. Poor rate control felt to be trigger for decompensated heart failure. -Digoxin stopped on 05/04/19 -S/p successful DCCV to sinus rhythm today, however pt had asystole during cardioversion requiring transcutaneous pacing for ~30 minutes. The patient was kept overnight for observation on telemetry. Telemetry shows multiple sinus pauses ~3-5 seconds. -EP notified and will arrange device placement next week. -continue Amiodarone 200 mg daily today -continue Xarelto 15 mg daily with dinner ([id number] of 4 pts) -Continue telemetry monitoring -Monitor electrolytes, replete as necessary Assessment & Plan (05/21/2019 7:33 PM APRON WORKER): Patient presented in atrial flutter with RVR on admission and was started on IV amiodarone infusion for rhythm control. Poor rate control felt to be trigger for decompensated heart failure. -Digoxin stopped on 05/04/19 -S/p successful DCCV to sinus rhythm today, however pt had asystole during cardioversion -Keep overnight for observation -Pt has had several significant pauses (2.80 sec and 4.40 sec) since coming back from his cardioversion today (during which he appears to be going from SR to A. Fib and then having conversion pauses), he has been asymptomatic during each of these episodes -continue Amiodarone 200 mg daily today -continue Xarelto 15 mg daily with dinner ([id number] of 4 pts) -Continue telemetry monitoring -Monitor electrolytes, replete as necessary Assessment & Plan (05/20/2019 3:14 PM APRON WORKER): Patient presented in atrial flutter with RVR on admission and was started on IV amiodarone infusion for rhythm control. Poor rate control felt to be trigger for decompensated heart failure. -Digoxin stopped on 05/04/19 -continue amiodarone but decrease to 200 mg daily today -[id number] of 4pts -Continue Xarelto 15 mg daily with dinner -remains in A. Flutter, HR 60s -Continue telemetry monitoring -Monitor electrolytes, replete as necessary -NPO at ME for possible DCCV tomorrow Friday (05/21) Assessment & Plan (05/19/2019 3:12 PM APRON WORKER): Patient presented in atrial flutter with RVR on admission and was started on IV amiodarone infusion for rhythm control. Poor rate control felt to be trigger for decompensated heart failure. -Digoxin stopped on 05/04/19 -continue amiodarone 400 mg daily -[id number] of 4pts -home Xarelto held on admission and heparin gtt started -will resume Xarelto at 15 mg daily (decreased dose) and discontinue Heparin gtt -remains in A. Flutter, HR 60s -NPO for EULA and possible cardioversion tomorrow (05/20/19) -Continue telemetry monitoring -Monitor electrolytes, replete as necassary Assessment & Plan (05/17/2019 10:49 PM APRON WORKER): Presented to OSH with atrial flutter with RVR, transferred to [facility] on amiodarone drip for rhythm control. Poor rate control felt to be trigger for decompensated heart failure. Briefly received digoxin, stopped on 05/04/19. - Heparin gtt restarted after C, continue holding home Xarelto - EP consulted previously, considered ablation but given HF, deferred; currently rate controlled - Continue amiodarone 400mg every day - Monitor electrolytes, replete K>4, Mg>2 Assessment & Plan (05/17/2019 9:36 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): Patient presented in atrial flutter with RVR on admission and was started on IV amiodarone infusion for rhythm control. Poor rate control felt to be trigger for decompensated heart failure. -digoxin stopped on 05/04/19 -home Xarelto remains on hold--continue heparin gtt until all testing done -remains in flutter--bradycardic (50's) -continue amiodarone 400mg QD -Continue telemetry monitoring Assessment & Plan (05/16/2019 9:39 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): Patient presented in atrial flutter with RVR on admission and was started on IV amiodarone infusion for rhythm control. Poor rate control felt to be trigger for decompensated heart failure. -digoxin stopped on 05/04/19 -home Xarelto remains on hold--continue heparin gtt until all testing done -remains in flutter--bradycardic (50's) -continue amiodarone 400mg QD -Continue telemetry monitoring Assessment & Plan (05/14/2019 3:05 PM APRON WORKER): Patient presented in atrial flutter with RVR on admission and was started on IV amiodarone infusion for rhythm control. Poor rate control felt to be trigger for decompensated heart failure. Per OSH pharmacy last Xarelto dose was 20 mg on 17:23 04/30/2019. -home Xarelto remains on hold--continue heparin gtt until all testing done -remains in flutter--bradycardic (50's) -continue amiodarone 400mg QD -digoxin stopped on 05/04/19 -Continue telemetry monitoring -Monitor electrolytes, replete as needed Assessment & Plan (05/13/2019 11:54 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): Patient presented in atrial flutter with RVR on admission and was started on IV amiodarone infusion for rhythm control. Poor rate control felt to be trigger for decompensated heart failure. Per OSH pharmacy last Xarelto dose was 20 mg on 17:23 04/30/2019. -home Xarelto remains on hold--continue heparin gtt until all testing done -remains in flutter--bradycardic (50's) -continue amiodarone 400mg QD -digoxin stopped on 05/04/19 -Continue telemetry monitoring -Monitor electrolytes, replete as needed -EP consult for consideration of ablation given recurrence; will continue to follow and would consider atypical flutter ablation, however would ideally want patient off milrinone. Likely plan to forego ablation if persuing advanced therapies Assessment & Plan (05/12/2019 4:39 PM APRON WORKER): Patient presented in atrial flutter with RVR on admission and was started on IV amiodarone infusion for rhythm control. Poor rate control felt to be trigger for decompensated heart failure. Per OSH pharmacy last Xarelto dose was 20 mg on :04/30/2019. -home Xarelto remains on hold--continue heparin gtt until all testing done -remains in flutter--bradycardic (50's) -continue amiodarone 400mg QD -digoxin stopped on 05/04/19 -Continue telemetry monitoring -Monitor electrolytes, replete as needed -EP consult for consideration of ablation given recurrence; will continue to follow and would consider atypical flutter ablation, however would ideally want patient off milrinone. Likely plan to forego ablation if persuing advanced therapies Assessment & Plan (05/11/2019 11:08 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): Patient presented in atrial flutter with RVR on admission and was started on IV amiodarone infusion for rhythm control. Poor rate control felt to be trigger for decompensated heart failure. Per OSH pharmacy last Xarelto dose was 20 mg on 17:23 04/30/2019. -home Xarelto remains on hold--continue heparin gtt until all testing done -remains in flutter--bradycardic -continue amiodarone 400mg QD -digoxin stopped on 05/04/19 -Continue telemetry monitoring -Monitor electrolytes, replete as needed -EP consult for consideration of ablation given recurrence; will continue to follow and would consider atypical flutter ablation, however would ideally want patient off milrinone. Likely plan to forego ablation if persuing advanced therapies Assessment & Plan (05/07/2019 12:51 PM APRON WORKER): Patient presented in atrial flutter with RVR on admission and was started on IV amiodarone infusion for rhythm control. Poor rate control felt to be trigger for decompensated heart failure. Per OSH pharmacy last Xarelto dose was 20 mg on 17:23 04/30/2019. -home Xarelto remains on hold--continue heparin gtt until all testing done -remains in flutter with adequate rate control -continue oral 400 mg TID (started 05/01) and follow tele -digoxin stopped on 05/04/19 -Continue telemetry monitoring -Monitor electrolytes, replete as needed -EP consult for consideration of ablation given recurrence; will continue to follow and would consider atypical flutter ablation, however would ideally want patient off milrinone. Likely plan to forego ablation if persuing advanced therapies -continue telemetry monitoring Assessment & Plan (05/05/2019 3:03 PM APRON WORKER): Patient presented in atrial flutter with RVR on admission and was started on IV amiodarone infusion for rhythm control. Poor rate control felt to be trigger for decompensated heart failure. Per OSH pharmacy last Xarelto dose was 20 mg on 17:23 04/30/2019. -home Xarelto remains on hold--continue heparin gtt until all testing done -remains in flutter with adequate rate control -continue oral 400 mg TID (started 05/01) and follow tele/ QTc (545ms today) -pt given dig for rate control previously--now stopped (05/04/19). -Continue to monitor daily EKGs -Continue telemetry monitoring -Monitor electrolytes, replete as needed -EP consult for consideration of ablation given recurrence Assessment & Plan (05/04/2019 10:28 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): Patient presented in atrial flutter with rapid ventricular response on admission and was started on IV amiodarone infusion for rhythm control. Poor rate control felt to be trigger for decompensated heart failure. Per OSH pharmacy last Xarelto dose was 20 mg on 17:23 04/30/2019. -Xarelto remains on hold--continue heparin gtt until all testing done -continue oral 400 mg TID (started 05/01) and follow tele/ QTc -pt given dig for rate control previously--now stopped 05/04/19). -Continue to monitor daily EKGs -Continue telemetry monitoring -Monitor electrolytes, replete as needed -EP consult for consideration of ablation given recurrence Assessment & Plan (05/03/2019 11:56 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): Patient in atrial flutter with rapid ventricular response on admission, started on IV amiodarone infusion to pursue rhythm control as continued atrial arrhythmia and rapid rates seem to be the trigger for this decompensated heart failure. Discussed medications with OSH pharmacy and his last Xarelto dose was 20 mg administered 17:23 04/30/2019. -holding home Xarelto in anticipation of potential procedures this admission -INR 1.94 today, continue Heparin gtt for antiocagulation, daily INRs -pt transitioned to from IV to PO Amiodarone 400 mg TID on 05/01/19, EKG with QTc of 633 ms today -Discontinue Amiodarone today -Initiate Digoxin load: 0.5 mg IV now, 0.25 mg PO Q 6 x 2 doses (to start 6 hours after initial IV dose) and then 0.125 mg daily -Check Digoxin level 12 hours after first dose (00:00 on 05/04/19). -Continue to monitor daily EKGs -Continue telemetry monitoring -Monitor electrolytes, replete as needed -EP consult for consideration of ablation given recurrence Hx of maze procedure 06/29/2018 Hx of CABG 06/29/2018 Coronary artery disease invo lving chenega heart without angina pectoris 05/19/2018 Overview (02/10/2020): Multivessel CAD s/p CABG May 2018: GARCIA to LAD, SVG to OM, SVG to Diag, partial MAZE + SAUL occluder S/p CRTD [facility] Apr 2019: Underlying triple-vessel disease with continued patency of all grafts including GARCIA to LAD, Y-graft to the diagonal and 2nd obtuse marginal. Assessment & Plan (10/20/2019 11:20 AM CDT): Multivessel CAD s/p CABG (May 2018, GARCIA to LAD, s/p CRTD, SVG to OM, SVG to Diag, partial MAZE + SAUL occluder) -Last ischemic evaluation was [facility] in Apr 2019: All grafts patent at that time. -Continue home Atorvastatin -holding aspirin in the setting of anemia/ likely GI bleed Assessment & Plan (10/19/2019 11:00 AM CDT): Multivessel CAD s/p CABG (May 2018, GARCIA to LAD, s/p CRTD, SVG to OM, SVG to Diag, partial MAZE + SAUL occluder) -Last ischemic evaluation was [facility] in Apr 2019: All grafts patent at that time. -Continue home Atorvastatin -holding aspirin in the setting of anemia/ likely GI bleed Assessment & Plan (10/18/2019 10:25 AM CDT): Multivessel CAD s/p CABG (May 2018, GARCIA to LAD, s/p CRTD, SVG to OM, SVG to Diag, partial MAZE + SAUL occluder) -Last ischemic evaluation was [facility] in Apr 2019: All grafts patent at that time. -Continue home Atorvastatin -holding aspirin in the setting of anemia/ likely GI bleed Assessment & Plan (10/17/2019 5:19 PM CDT): Multivessel CAD s/p CABG (May 2018, GARCIA to LAD, s/p CRTD, SVG to OM, SVG to Diag, partial MAZE + SAUL occluder) -Last ischemic evaluation was [facility] in Apr 2019: All grafts patent at that time. -Continue home ASA and Atorvastatin Assessment & Plan (10/16/2019 8:57 AM CDT): Multivessel CAD s/p CABG (May 2018, GARCIA to LAD, s/p CRTD, SVG to OM, SVG to Diag, partial MAZE + SAUL occluder) -Last ischemic evaluation was [facility] in Apr 2019: All grafts patent at that time. -Continue home ASA and Atorvastatin Assessment & Plan (10/15/2019 11:58 AM CDT): Multivessel CAD s/p CABG (May 2018, GARCIA to LAD, s/p CRTD, SVG to OM, SVG to Diag, partial MAZE + SAUL occluder) -Last ischemic evaluation was [facility] in Apr 2019: All grafts patent at that time. -Holding home ASA -Continue Atorvastatin Assessment & Plan (05/24/2019 3:44 PM APRON WORKER): Low level troponin elevation at time of presentation felt to be c/w stress/demand ischemia in setting of CHF exacerbation/tachyarrhythmia. - [facility] (05/03) with triple-vessel disease with continued patency of all grafts including GARCIA to LAD, Y-graft to the diagonal and 2nd obtuse marginal; occluded posterior descending artery filling from spon-rq-hhten collaterals and ungrafted distal marginal branch in small caliber vessel-medical management recommended - continue ASA 81 mg daily and atorvastatin 40mg nightly - currently holding beta nikunj - continue aggressive risk factor modification Assessment & Plan (05/23/2019 11:33 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): Low level troponin elevation at time of presentation felt to be c/w stress/demand ischemia in setting of CHF exacerbation/tachyarrhythmia. -[facility] (05/03) with triple-vessel disease with continued patency of all grafts including GARCIA to LAD, Y-graft to the diagonal and 2nd obtuse marginal; occluded posterior descending artery filling from ekzn-vb-rbdft collaterals and ungrafted distal marginal branch in small caliber vessel-medical management recommended -continue ASA 81 mg daily and atorvastatin 40mg nightly -currently holding beta nikunj -continue aggressive risk factor modification Assessment & Plan (05/22/2019 1:50 PM APRON WORKER): Low level troponin elevation at time of presentation felt to be c/w stress/demand ischemia in setting of CHF exacerbation/tachyarrhythmia. -[facility] (05/03) with triple-vessel disease with continued patency of all grafts including GARCIA to LAD, Y-graft to the diagonal and 2nd obtuse marginal; occluded posterior descending artery filling from lgjp-ae-gogur collaterals and ungrafted distal marginal branch in small caliber vessel-medical management recommended -continue ASA 81 mg daily and atorvastatin 40mg nightly -currently holding beta nikunj -continue aggressive risk factor modification Assessment & Plan (05/21/2019 7:35 PM APRON WORKER): Low level troponin elevation at time of presentation felt to be c/w stress/demand ischemia in setting of CHF exacerbation/tachyarrhythmia. -[facility] (05/03) with triple-vessel disease with continued patency of all grafts including GARCIA to LAD, Y-graft to the diagonal and 2nd obtuse marginal; occluded posterior descending artery filling from txzb-eh-gybzb collaterals and ungrafted distal marginal branch in small caliber vessel-medical management recommended -continue ASA 81 mg daily and atorvastatin 40mg nightly -currently holding beta nikunj -continue aggressive risk factor modification Assessment & Plan (05/20/2019 1:22 PM APRON WORKER): Low level troponin elevation at time of presentation felt to be c/w stress/demand ischemia in setting of CHF exacerbation/tachyarrhythmia. -[facility] (05/03) with triple-vessel disease with continued patency of all grafts including GARCIA to LAD, Y-graft to the diagonal and 2nd obtuse marginal; occluded posterior descending artery filling from hfin-wn-ajrvp collaterals and ungrafted distal marginal branch in small caliber vessel-medical management recommended -continue ASA 81 mg daily, atorvastatin 40mg nightly and lisinopril 2.5 mg daily -currently holding beta nikunj -continue aggressive risk factor modification Assessment & Plan (05/19/2019 2:49 PM APRON WORKER): Low level troponin elevation at time of presentation felt to be c/w stress/demand ischemia in setting of CHF exacerbation/tachyarrhythmia. -[facility] (05/03) with triple-vessel disease with continued patency of all grafts including GARCIA to LAD, Y-graft to the diagonal and 2nd obtuse marginal; occluded posterior descending artery filling from jxkd-al-zkazf collaterals and ungrafted distal marginal branch in small caliber vessel-medical management recommended -continue ASA 81 mg every day, atorvastatin 40mg every day and lisinopril 2.5 mg daily -currently holding beta nikunj -continue aggressive risk factor modification Assessment & Plan (05/17/2019 10:51 PM APRON WORKER): History of CAD s/p CABG in 05/2018 with GARCIA to LAD, SVG to OM, SVG to diagonal, and partial MAZE procedure, completed by Dr. Toledo at [facility]. - [facility] 05/03: Triple-vessel CAD with continued patency of all grafts including GARCIA to LAD, Y-graft to the diagonal and 2nd obtuse marginal; occluded posterior descending artery filling from pwxz-en-obaxf collaterals and ungrafted distal marginal branch in small caliber vessel; medical management recommended - Continue ASA 81 mg every day, atorvastatin 40mg every day, lisinopril - Consider restarting home metoprolol XL 25 mg daily if remains stable off milrinone - Continue aggressive risk factor modification Assessment & Plan (05/17/2019 9:36 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): -low level troponin elevation at time of presentation felt to be c/w stress/demand ischemia in setting of CHF exacerbation/tachyarrhythmia. -left heart cath (05/03) showed triple-vessel disease with continued patency of all grafts including GARCIA to LAD, Y-graft to the diagonal and 2nd obtuse marginal; occluded posterior descending artery filling from safb-rs-ehopi collaterals and ungrafted distal marginal branch in small caliber vessel---medical management recommended -continue ASA 81 mg every day, atorvastatin 40mg every day, lisinopril -holding beta nikunj while on inotropes -continue aggressive risk factor modification Assessment & Plan (05/16/2019 9:40 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): -low level troponin elevation at time of presentation felt to be c/w stress/demand ischemia in setting of CHF exacerbation/tachyarrhythmia. -left heart cath (05/03) showed triple-vessel disease with continued patency of all grafts including GARCIA to LAD, Y-graft to the diagonal and 2nd obtuse marginal; occluded posterior descending artery filling from uleq-tr-tshfz collaterals and ungrafted distal marginal branch in small caliber vessel---medical management recommended -continue ASA 81 mg every day, atorvastatin 40mg every day, lisinopril -holding beta nikunj while on inotropes -continue aggressive risk factor modification Assessment & Plan (05/14/2019 3:07 PM APRON WORKER): -low level troponin elevation at time of presentation felt to be c/w stress/demand ischemia in setting of CHF exacerbation/tachyarrhythmia. -left heart cath (05/03) showed triple-vessel disease with continued patency of all grafts including GARCIA to LAD, Y-graft to the diagonal and 2nd obtuse marginal; occluded posterior descending artery filling from raxo-fq-dxjjy collaterals and ungrafted distal marginal branch in small caliber vessel---medical management recommended -continue ASA 81 -continue statin/EMRE -hold beta nikunj given inotropes -continue aggressive risk factor modification Assessment & Plan (05/13/2019 12:36 PM APRON WORKER): -low level troponin elevation at time of presentation felt to be c/w stress/demand ischemia in setting of CHF exacerbation/tachyarrhythmia. -left heart cath (05/03) showed triple-vessel disease with continued patency of all grafts including GARCIA to LAD, Y-graft to the diagonal and 2nd obtuse marginal; occluded posterior descending artery filling from dqdz-qj-oirin collaterals and ungrafted distal marginal branch in small caliber vessel---medical management recommended -continue ASA 81 -continue statin/EMRE -hold beta nikunj given inotropes -continue aggressive risk factor modification Assessment & Plan (05/12/2019 4:40 PM APRON WORKER): -low level troponin elevation at time of presentation felt to be c/w stress/demand ischemia in setting of CHF exacerbation/tachyarrhythmia. -left heart cath (05/03) showed triple-vessel disease with continued patency of all grafts including GARCIA to LAD, Y-graft to the diagonal and 2nd obtuse marginal; occluded posterior descending artery filling from opbl-mq-vzkxi collaterals and ungrafted distal marginal branch in small caliber vessel---medical management recommended -continue ASA 81 -continue statin/EMRE -hold beta nikunj given inotropes -continue aggressive risk factor modification Assessment & Plan (05/11/2019 11:08 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): -low level troponin elevation at time of presentation felt to be c/w stress/demand ischemia in setting of CHF exacerbation/tachyarrhythmia. -left heart cath (05/03) showed triple-vessel disease with continued patency of all grafts including GARCIA to LAD, Y-graft to the diagonal and 2nd obtuse marginal; occluded posterior descending artery filling from jbli-dh-yowjb collaterals and ungrafted distal marginal branch in small caliber vessel---medical management recommended -continue ASA 81 -continue statin/EMRE -hold beta nikunj given inotropes -continue aggressive risk factor modification Assessment & Plan (05/10/2019 10:05 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): -low level troponin elevation at time of presentation felt to be c/w stress/demand ischemia in setting of CHF exacerbation/tachyarrhythmia. -left heart cath (05/03) showed triple-vessel disease with continued patency of all grafts including GARCIA to LAD, Y-graft to the diagonal and 2nd obtuse marginal; occluded posterior descending artery filling from hwxa-zh-lfohf collaterals and ungrafted distal marginal branch in small caliber vessel---medical management recommended -continue ASA 81 -continue statin/EMRE -hold beta nikunj given inotropes -continue aggressive risk factor modification Assessment & Plan (05/06/2019 8:12 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): -low level troponin elevation at time of presentation felt to be c/w stress/demand ischemia in setting of CHF exacerbation/tachyarrhythmia. -left heart cath (05/03) showed triple-vessel disease with continued patency of all grafts including GARCIA to LAD, Y-graft to the diagonal and 2nd obtuse marginal; occluded posterior descending artery filling from korp-sx-ldfom collaterals and ungrafted distal marginal branch in small caliber vessel---medical management recommended -continue ASA 81 -continue statin/EMRE -hold beta nikunj given inotropes -continue aggressive risk factor modification Assessment & Plan (05/05/2019 3:08 PM APRON WORKER): -low level troponin elevation at time of presentation felt to be c/w stress/demand ischemia in setting of CHF exacerbation/tachyarrhythmia. -left heart cath (05/03) showed triple-vessel disease with continued patency of all grafts including GARCIA to LAD, Y-graft to the diagonal and 2nd obtuse marginal; occluded posterior descending artery filling from pxrq-nn-gggeg collaterals and ungrafted distal marginal branch in small caliber vessel---medical management recommended -continue ASA 81 -continue statin/EMRE -hold beta nikunj given inotropes -continue aggressive risk factor modification Assessment & Plan (05/04/2019 9:34 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): -low level troponin elevation at time of presentation felt to be c/w stress/demand ischemia in setting of CHF exacerbation/tachyarrhythmia. -left heart cath (05/03) showed triple-vessel disease with continued patency of all grafts including GARCIA to LAD, Y-graft to the diagonal and 2nd obtuse marginal; occluded posterior descending artery filling from lqhr-gv-czjov collaterals and ungrafted distal marginal branch in small caliber vessel---medical management recommended -continue ASA 81 -continue statin/EMRE -hold beta nikunj given inotropes -continue aggressive risk factor modification Assessment & Plan (04/30/2019 8:05 PM APRON WORKER): He denies chest pain. He had a low level troponin he may at outside hospital which was stable and attributed to his acute decompensated heart failure as well as his tachyarrhythmia. -continue ASA81 -continue statin -hold beta nikunj given inotropes Ischemic cardiomyopathy 12/04/2017 Overview (11/22/2021): LVEF Nov 2017 35-40%, LVIDD 5.3 LVEF May 2018 25%, LVIDD 6 CABG in May 2018 LVEF 30% Sep 2018 LVEF 25% Apr 2019, LVIDD 6 cm [facility] Apr 2019: Underlying triple-vessel disease with continued patency of all grafts including GARCIA to LAD, Y-graft to the diagonal and 2nd obtuse marginal. Occluded posterior descending artery filling from gaju-hu-okmvg collaterals. Ungrafted distal marginal branch in small caliber vessel. On inotropes briefly - weaned, HIM TECH upgraded TTE Feb 2020 LVEF 40-45%, LVIDD 5.4 cm TTE September 2020 LVEF 25% in setting of reduced HIM TECH pacing - sent for AVJ TTE August 2021 - LVEF 55-60% - Mild MR Wide-complex tachycardia 02/11/2017 Mixed diabetic hyperlipidemi a associated with type 2 diabetes mellitus ([facility]) 08/07/2015 Overview (09/13/2016): Type 2 diabetes mellitus with other specified complication Hypertension associated with diabetes 01/19/2015 Overview (09/13/2016): HTN (hypertension), benign Assessment & Plan (10/20/2019 11:23 AM CDT): BPs controlled -Home BP meds held on admission (due to anemia, lightheadedness and soft BPs), now resumed Assessment & Plan (10/19/2019 11:41 AM CDT): BPs controlled -Home BP meds held on admission (due to anemia, lightheadedness and soft BPs), now resumed Assessment & Plan (10/18/2019 10:29 AM CDT): BPs controlled -Home BP meds held on admission (due to anemia, lightheadedness and soft BPs), now resumed Assessment & Plan (10/17/2019 5:25 PM CDT): BPs controlled -Home BP meds held on admission (due to anemia, lightheadedness and soft BPs), now resumed Assessment & Plan (10/16/2019 9:13 AM CDT): BPs currently above goal -Home BP meds held on admission (due to anemia, lightheadedness and soft BPs), will resume today as pt's BPs and symptoms have improved after transfusion -Monitor BPs Assessment & Plan (10/15/2019 11:53 AM CDT): Bps currently stable -holding home BP meds due to anemia NIDIA (obstructive sleep apnea) 01/19/2015 Overview (09/13/2016): NIDIA on CPAP Assessment & Plan (10/20/2019 11:23 AM CDT): -Continue CPAP Assessment & Plan (10/19/2019 11:41 AM CDT): -Continue CPAP Assessment & Plan (10/18/2019 10:29 AM CDT): -Continue CPAP Assessment & Plan (10/17/2019 5:25 PM CDT): -Continue CPAP Assessment & Plan (10/16/2019 9:13 AM CDT): -Continue CPAP Assessment & Plan (10/15/2019 11:38 AM CDT): Continue CPAP Assessment & Plan (05/24/2019 3:43 PM APRON WORKER): - Continue CPAP Assessment & Plan (05/23/2019 11:35 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): -Continue CPAP Assessment & Plan (05/22/2019 1:50 PM APRON WORKER): -Continue CPAP Assessment & Plan (05/21/2019 7:37 PM APRON WORKER): -Continue CPAP Assessment & Plan (05/20/2019 1:22 PM APRON WORKER): -Continue CPAP Assessment & Plan (05/19/2019 2:02 PM APRON WORKER): -Continue CPAP Assessment & Plan (05/17/2019 10:54 PM APRON WORKER): - Continue nightly CPAP per protocol Assessment & Plan (05/17/2019 9:37 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): -Continue CPAP Assessment & Plan (05/16/2019 9:40 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): -Continue CPAP Assessment & Plan (05/14/2019 3:08 PM APRON WORKER): -Continue CPAP Assessment & Plan (05/13/2019 12:33 PM APRON WORKER): -Continue CPAP Assessment & Plan (05/12/2019 4:40 PM APRON WORKER): -Continue CPAP Assessment & Plan (05/11/2019 11:09 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): -Continue CPAP Assessment & Plan (05/10/2019 10:04 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): -Continue CPAP Assessment & Plan (05/06/2019 8:13 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): -Continue CPAP Assessment & Plan (05/05/2019 3:08 PM APRON WORKER): -Continue CPAP Assessment & Plan (05/04/2019 10:02 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): -Continue CPAP Assessment & Plan (05/03/2019 11:35 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): -Continue CPAP Resolved Problems Problem Noted Date Diagnosed Date Resolved Date Hypoxia 10/17/2020 06/01/2021 Symptomatic anemia 10/15/2019 Assessment & Plan (10/20/2019 11:20 AM CDT): Symptomatic anemia (SOB/lightheadedness for the last month [...] with capsule endoscopy per GI -Follow CBCs Assessment & Plan (10/19/2019 10:57 AM CDT): Symptomatic anemia (SOB/lightheadedness for the last month [...] due to stool, no source of bleeding -npo for CT colonography tomorrow, if no stricture at IC valve will likely proceed with capsule endoscopy -split prep ordered -Follow CBCs Assessment & Plan (10/18/2019 10:35 AM CDT): Symptomatic anemia (SOB/lightheadedness for the last month [...] gtt for now -GI consulted, recommended holding Xarelto, planning for non-urgent EGD + Colonoscopy on Tuesday 10/17 for further evaluation -split prep completed, stools now clear -Follow CBCs Assessment & Plan (10/17/2019 5:33 PM CDT): Symptomatic anemia (SOB/lightheadedness for the last month [...] 2.9 -Holding home Xarelto (last dose was 5/ with dinner), will defer Heparin gtt for now -GI consulted, recommended holding Xarelto, planning for non-urgent EGD + Colonoscopy on Tuesday 10/17 for further evaluation -Clear liquid diet until MN then NPO for scope in AM, split prep ordered -Follow CBCs Assessment & Plan (10/16/2019 9:43 AM CDT): Symptomatic anemia (SOB/lightheadedness for the last month or so and a fall last Monday 10/09), outpatient Hgb 7.2 (baseline Hgb 12.0), pt reported dark stool on 10/14 but no other bleeding episodes, likely GI source -Hgb 6.3 on admission -Iron panel: Iron-23, Ferritin-16, TIBC-344, Transferrin Saturation-7, Haptoglobin-136 -S/p 2 units PRBCs and Iron Dextran infusion (10/14), post transfusion Hgb 7.6, patient reports symptomatic improvement today (less SOB and denies lightheadedness) -Holding home Xarelto (last dose was 5/ with dinner) -Admission INR 2.9, repeat INR/CBC today -GI consulted, recommended holding Xarelto, planning for non-urgent EGD + Colonoscopy on Tuesday 10/17 for further evaluation, keep patient on CLD on Monday 10/16 and contact GI for availability on Friday schedule -Follow CBCs Assessment & Plan (10/15/2019 11:59 AM CDT): Symptomatic anemia (SOB/lightheadedness for the last month or so and a fall last Friday), outpatient Hgb 7.2 (basline Hgb 12.0), pt reports dark stool this morning but no other bleeding episodes -Admission labs (including repeat CBC, Iron studies, Type and Screen) -Obtain blood consent -Transfuse 2 units PRBCs, collect post CBC 2 hours after completion -Holding home Xarelto (last dose was 10/13 with dinner) -GI consult for possible scope this admission -BPs soft no admission, holding home BP meds given anemia Fall 10/15/2019 06/01/2021 Assessment & Plan (10/20/2019 11:21 AM CDT): Patient reported lightheadedness (for the past month or so) and recent fall on Friday (10/08), pt reports he had no injury and did not lose consciousness or hit his head at the time, likely due to current anemia -Lightheadedness improved after transfusion -[facility] HIM TECH-D interrogation with A. Fib burden > 99%, no tachyarrhythmia or VT/VF episodes detected -Orthostatic VS without significant drop in BP upon changing position -S/p 2 units of PRBCs and Iron Dextran infusion (10/14) -now ambulating without symptoms -Fall precautions Assessment & Plan (10/19/2019 11:05 AM CDT): Patient reported lightheadedness (for the past month or so) and recent fall on Friday (10/08), pt reports he had no injury and did not lose consciousness or hit his head at the time, likely due to current anemia -Lightheadedness improved after transfusion -[facility] HIM TECH-D interrogation with A. Fib burden > 99%, no tachyarrhythmia or VT/VF episodes detected -Orthostatic VS without significant drop in BP upon changing position -S/p 2 units of PRBCs and Iron Dextran infusion (10/14) -Ambulate with assistance -Fall precautions Assessment & Plan (10/18/2019 10:29 AM CDT): Patient reported lightheadedness (for the past month or so) and recent fall on Friday (10/08), pt reports he had no injury and did not lose consciousness or hit his head at the time, likely due to current anemia -Lightheadedness improved after transfusion -[facility] HIM TECH-D interrogation with A. Fib burden > 99%, no tachyarrhythmia or VT/VF episodes detected -Orthostatic VS without significant drop in BP upon changing position -S/p 2 units of PRBCs and Iron Dextran infusion (10/14) -Ambulate with assistance -Fall precautions Assessment & Plan (10/17/2019 5:23 PM CDT): Patient reported lightheadedness (for the past month or so) and recent fall on Friday (10/08), pt reports he had no injury and did not lose consciousness or hit his head at the time, likely due to current anemia -Lightheadedness improved after transfusion -[facility] HIM TECH-D interrogation with A. Fib burden > 99%, no tachyarrhythmia or VT/VF episodes detected -Orthostatic VS without significant drop in BP upon changing position -S/p 2 units of PRBCs and Iron Dextran infusion (10/14) -Ambulate with assistance -Fall precautions Assessment & Plan (10/16/2019 9:09 AM CDT): Patient reports lightheadedness (for the past month or so) and recent fall on Friday (10/08), pt reports he had no injury and did not lose consciousness or hit his head at the time, likely due to current anemia -[facility] HIM TECH-D interrogation with A. Fib burden > 99%, no tachyarrhythmia or VT/VF episodes detected -Orthostatic VS without significant drop in BP upon changing position -S/p 2 units of PRBCs and Iron Dextran infusion (10/14) -Ambulate with assistance -Fall precautions Assessment & Plan (10/15/2019 12:11 PM CDT): Patient reports lightheadedness (for the past month or so) and recent fall on Friday (10/08), pt reports he has no injury from fall and did not lose consciousness or hit his head at the time, likely due to current anemia -Interrogate [facility] HIM TECH-D given recent fall -obtain orthostatic VS -Transfuse 2 units of PRBCs -Ambulate with assistance -Fall precautions Acute deep vein thrombosis ( DVT) of femoral vein of right lower extremity 05/18/2019 06/01/2021 Assessment & Plan (05/18/2019 9:55 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): Continue heparin gtt. - Consider adjusting home anticoagulant given acute RLE DVT Acute pain of left lower extremity 05/15/2019 05/17/2019 Assessment & Plan (05/15/2019 11:29 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): Previous venous Doppler on 05/10 with DVT in RLE. - repeat limited venous doppler in LLE to help assess clot burden - continue heparin gtt Cirrhosis of liver 05/13/2019 9 Assessment & Plan (05/17/2019 9:33 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): Cirrhosis of liver found on ultrasound Ultrasound guided liver biopsy done 05/12/19. Pathology without fibrosis--nothing precluding him LVAD implant Assessment & Plan (05/16/2019 9:39 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): Cirrhosis of liver found on ultrasound Ultrasound guided liver biopsy done 05/12/19. Pathology without fibrosis--nothing precluding him LVAD implant Assessment & Plan (05/14/2019 3:06 PM APRON WORKER): Cirrhosis of liver found on ultrasound Ultrasound guided liver biopsy done 05/12/19. Pathology without fibrosis--nothing precluding him LVAD implant. Assessment & Plan (05/13/2019 12:36 PM APRON WORKER): Cirrhosis of liver found on ultrasound Ultrasound guided liver biopsy done 05/12/19 - called pathology department . Pathology is not finalized and ordered more testing ordered - might be finalized till tomorrow - will need to check back with pathology tomorrow. Acute kidney injury superimp osed on chronic kidney disease 04/30/2019 10/18/2019 Assessment & Plan (05/24/2019 4:07 PM APRON WORKER): CKD Stage II (Baseline Cr 0.9-1.0) with NORMAN this admission (cardiorenal etiology) - Creatine waxes and wanes, torsemide held yesterday. Creatinine today 2.07 - Pts home Lisinopril held this admission due to renal function Assessment & Plan (05/23/2019 11:26 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): CKD Stage II (Baseline Cr 0.9-1.0) with NORMAN this admission (cardiorenal etiology) -Creatine waxes and wanes--today up from 1.86 to 2.11, torsemide held. -Pts home Lisinopril held this admission due to renal function -monitor BMPs Assessment & Plan (05/22/2019 1:45 PM APRON WORKER): CKD Stage II (Baseline Cr 0.9-1.0) with NORMAN this admission (cardiorenal etiology) -Creatine improving, today at 1.86 -Pts home Lisinopril held this admission due to renal function -monitor BMPs Assessment & Plan (05/21/2019 7:37 PM APRON WORKER): CKD Stage II (Baseline Cr 0.9-1.0) with NORMAN this admission (cardiorenal etiology) -Creatine still remains elevated 2.04 -Pts home Lisinopril held this admission due to renal function -monitor BMPs Assessment & Plan (05/20/2019 3:15 PM APRON WORKER): CKD Stage II (Baseline Cr 0.9-1.0) with NORAMN this admission (cardiorenal etiology) -Creatine still remains elevated 1.93 -monitor BMPs Assessment & Plan (05/18/2019 9:45 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): CKD Stage II (Baseline Cr 0.9-1.0) with NORMAN this admission due to cardiorenal etiology. Creatinine has fluctuated with diuresis and volume status. - Cr 1.8 today, down from 2.0 - Avoid nephrotoxins - Monitor electrolytes, volume status - If continues to uptrend with low CVP, may consider holding diuretic or giving gentle fluids Assessment & Plan (05/17/2019 9:39 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): CKD Stage II (Baseline Cr 0.9-1.0) with NORMAN this admission (cardiorenal etiology), Creatine still remains elevated 1.8 Assessment & Plan (05/15/2019 11:23 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): CKD Stage II (Baseline Cr 0.9-1.0) with NORMAN this admission (cardiorenal etiology), now improved - continue to trend Cr Assessment & Plan (05/14/2019 3:07 PM APRON WORKER): CKD Stage II (Baseline Cr 0.9-1.0) with NORMAN this admission (cardiorenal etiology) Creatine bumped from baseline of 1.4- peaked 1.87, now downtrending to 1.67 today Continue to monitor. Assessment & Plan (05/12/2019 4:40 PM APRON WORKER): CKD Stage II (Baseline Cr 0.9-1.0) with NORMAN this admission (cardiorenal etiology) Creatine bumped from baseline of 1.4- peaked 1.8, normalized today at 1.47 Continue to monitor. Assessment & Plan (05/11/2019 11:08 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): CKD Stage II (Baseline Cr 0.9-1.0) with NORMAN this admission (cardiorenal etiology) Creatine bumped from baseline of 1.4- peaked 1.8 today 1.55 Continue to monitor. Assessment & Plan (05/10/2019 10:04 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): CKD Stage II (Baseline Cr 0.9-1.0) with [facility]MAN this admission (cardiorenal etiology) Creatine bumped from baseline of 1.4- peaked 1.8 today 1.54 Continue to monitor. Assessment & Plan (05/07/2019 1:01 PM APRON WORKER): CKD Stage II (Baseline Cr 0.9-1.0) with NORMAN this admission (cardiorenal etiology) Creatine bumped from baseline of 1.4- peaked 1.8 today 1.7 Continue to monitor. Assessment & Plan (05/05/2019 3:07 PM APRON WORKER): CKD Stage II (Baseline Cr 0.9-1.0) with NORMAN this admission (cardiorenal etiology) -Cr remains stable, 1.42 today --continue to follow with diuresis -continue CHF optimization and avoid nephrotoxins -Daily BMPs Assessment & Plan (05/04/2019 10:01 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): CKD Stage II (Baseline Cr 0.9-1.0) with NORMAN this admission (cardiorenal etiology) -Cr remains stable --continue to follow with diuresis -advance EMRE as renal fxn/BP tolerates1.32, improved from yesterday -continue CHF optimization and avoid nephrotoxins Assessment & Plan (05/03/2019 12:23 PM APRON WORKER): CKD Stage II (Baseline Cr 0.9-1.0) with NORMAN this admission -Cr currently 1.32, improved from yesterday -inotropes and diuresis for treatment of cardiorenal syndrome -renally dose meds -avoid nephrotoxins -Monitor BMPs SOB (shortness of breath) 04/23/2019 Assessment & Plan (10/17/2019 5:28 PM CDT): Patient reports progressive shortness of breath over the last month or so, likely related to anemia (Hgb of 6.3 on admission) -SOB improved after blood transfusion Assessment & Plan (10/16/2019 9:14 AM CDT): Patient reports progressive shortness of breath over the last month or so, likely related to anemia (Hgb of 6.3 on admission) -Pt reports improvement following blood transfusion Assessment & Plan (10/15/2019 12:05 PM CDT): Patient reports progressive shortness of breath over the last month or so, likely related to current anemia Hyperglycemia 05/29/2018 10/18/2019 Abnormal stress test 12/04/2017 020 Chronic diastolic heart failure 08/19/2017 10/18/2019 Noncompliance with medication regimen 08/19/2017 10/18/2019 Elevated troponin I level 08/19/2017 Chronic anticoagulation 02/11/201710/07 Status post placement of imp lantable loop recorder 02/11/2017 06/01/2021 Overview (01/27/2018): Medtronic Reveal Loop Recorder. Dx; Syncope, PAF. DOI 02/14/2015. Carelink remote monitoring. Obesity (BMI 35.0-39.9 without comorbidity) 02/11/2017 10/18/2019 Body mass index 40+ - severely obese 08/06/2016 10/18/2019 Overview (09/13/2016): Morbid obesity with BMI of 40.0-44.9, adult Cardiac finding 03/21/2015 10/18/2019 Overview (09/13/2016): Status post placement of implantable loop recorder Paroxysmal atrial fibrillation 01/19/2015 10/18/2019 Overview (09/13/2016): Paroxysmal atrial fibrillation Syncope 01/19/2015 10/18/2019 Overview (09/13/2016): Syncope History of anticoagulant therapy 01/19/2015 06/01/2021 Overview (09/13/2016): Chronic anticoagulation Adiposity 01/19/2015 10/18/2019 Overview (09/13/2016): Obesity Dyslipidemia 01/19/2015 02/11/2017 Overview (09/13/2016): Dyslipidemia Encounters Date Type Department Care Team Description 03/14/2025 Remote Device Check [facility] Cardiology [address] [address] Rob Han MD from Last 3 Months Immunizations Immunization Administration Dates Next Due Influenza, Trivalent, High D ose, Split, Preservative Free, Intramuscular 04/30/2019 Surgical History Surgery Date Site/Laterality Comments OTHER SURGICAL HISTORY heart monitor left chest CYST REMOVAL base of spine TONSILLECTOMY CORONARY ARTERY BYPASS GRAFT 05/28/[address] Toledo at , GARCIA to LAD, SVG to OM, SVG to diagonal, partial MAZE procedure BIOPSY TRANSCATHETER 05/12/2019 N/A Medical History Medical History Date Comments Atrial fibrillation (HCC) Hypertension Sleep apnea Diabetes mellitus Hyperlipidemia Coronary artery disease Type 2 diabetes mellitus Hx of CABG Atrial flutter (HCC) Ischemic cardiomyopathy HFrEF (heart failure with reduced ejection fract ion) Family History Medical History Relation Name Comments Hypertension Father Hypertension; Heart disease Mother Heart disease; Atrial fibrillation Mother's Sister Atria l fibrillation; Anesthesia problems Neg Hx Relation Name Status Comments Father Mother Mother's Sister Social History Tobacco Use Types Packs/Day Years Used Date Smoking Tobacco: Never Smokeless Tobacco: Never Tobacco Cessation:Counseling Given: Not Answered Alcohol Use Standard Drinks/Week Comments Yes 0 [...] on file Legal Sex Male 2:06 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 Gender Identity Not on file Sexual Orientation Not on file Obstetrics History Last Filed Vital Signs Vital Sign Reading Time Taken Comments Blood Pressure 148/90 08/26/2024 1:16 PM CDT Pulse 70 08/26/2024 1:16 PM CDT Temperature 36.1 C (97 F) 07/02/2022 9:35 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 Respiratory Rate 15 07/02/2022 10:2 6 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 Oxygen Saturation 94% 08/26/2024 1:16 PM CDT Inhaled Oxygen Concentration - - Weight 99.7 kg (219 lb 12.8 oz) 08/26/2024 1:16 PM CDT Height 167.6 cm (5' 6) 08/26/2024 1:16 PM CDT Body Mass Index 35.48 08/26/2024 1:16 PM CDT Plan of Treatment Health Maintenance Due Date Last Done Comments Albumin Creatinine Ratio, Urine 1950 Depression Screening 1950 Dilated Eye Exam 1950 Foot Exam 1950 Well Visit 65+ 2014 Zoster Vaccine (2 of 3) 04/19/2015 02/22/2015 Pneumococcal vaccine 65+ (2 of 2 - PPSV23, PCV20, or PCV21) 07/04/2019 05/09/2019, 03/26/2017 DTaP/Tdap/Td Vaccine (3 - Td or Tdap) 01/06/2021 01/06/2011, 02/18/2008 Hemoglobin A1C 05/26/2021 11/24/2020, 0501/2020, 10/01/2019, Additional history exists Fall Risk Assessment 11/27/2021 11/27/2020 eGFR 06/14/2023 06/14/2022, 1207/2020, 11/17/2020, Additional history exists Lipid Panel 06/15/2023 06/15/2022, 03/09, 01/11/2022, Additional history exists Influenza Vaccine (#1) 2025 , 04/30/2019, 03/26/2017 Colon Cancer Screening-Colonoscopy 10/19/2029 10/20/2019, 10/18/2019 Hepatitis B Screening Completed 05/05/2019 Hepatitis C Screening Completed 05/05/2019, 019 Colon Cancer Screening-CT Colonography Discontinued 10/20/2019, 10/18/2019 Colon Cancer Screening-DNA Stool Discontinued 10/20/19, 10/18/2019 Colon Cancer Screening-FIT Discontinued 10/20/2019, Colon Cancer Screening-Sigmoidoscopy Discontinued 10/20/2019, 10/18/2019 Medical Devices Implanted Type Area Pad Extractor Tender Device Identifier Shelf Expiration Date Model / Serial / Lot Atriclip Flex 35 Implanted:Qty : 1 on 05/28/2018 by Evaristo Toledo MD at [facility] N/A: Heart Atricure [id number] 02/08/2020 [id number] / / [id number] [employer] [id number] Quadra Assura Mp [id number] Df-4 Is4 Is-1 Connector [id number] - [id number] - [id number] Implanted:Qty : 1 on 05/24/2019 by Juancho Jorge DO at [facility] ICD Left: Chest Wall [employer] 05/08/2021 [id number] / [id number] / Description:VF zone: 200 wit h ATP during charge- max outputs. VTmonitor zone: 171 [employer] 7122q/58 Durata 6.8fr 58cm 1 Coil True Bipolar Active Fixation Extendable - [id number] - [id number] Implanted:Qty : 1 on 05/24/2019 by Juancho Jorge DO at [facility] Lead Left: Heart [employer] 02/06/2022 7122Q/58 / [id number] / Description:RV [employer] 2087tc/ Tendril Sts 6fr 52cm Is-1 Connector Active Fixation Bipolar Soft - [id number] - [id number] Implanted:Qty : 1 on 05/24/2019 by Juancho Jorge DO at [facility] Lead Left: Heart [employer] 04/08/20228TC/52 / [id number] / Description:RA [employer] 1458q/86 Quartet 5fr [id number] 4 Electrode Is-4 Connector Steerable Tip - [id number] - [id number] Implanted:Qty : 1 on 05/24/2019 by Juancho Jorge DO at [facility] Lead Left: Heart [employer] 03/08/2022 1458Q/86 / [id number] / Description:LV Pacemaker Pacemaker Chest Wall Reveal Link- 7 Implanted:Qty : 1 on 02/20/2017 by Carrington Tolbert MD N/A: Chest Medtronic Inc LNQ 11 / [id number] / Daig Bhaskar/[employer] [id number] Angio-Seal Evolution 6fr .035in Guidewire Bypass Tube Suture - [id number] - [id number] Implanted:Qty : 1 on 05/03/2019 by Grey Johnson MD PhD at [facility] Daig Bhaskar/[employer] 01/07/2020 [id number] / [id number] / [id number] [employer] [id number] System 6-12fr Mvp Venous Closure Vascade - [id number] - [id number] Implanted:Qty : 1 on 11/27/2020 by Rob Han MD at [facility] [employer] 08/28/2022 [id number] [id number] / [id number] 22B / [id number] Procedures Procedure Name Priority Date/Time Associated Diagnosis Comments DEVICE CHECK - REMOTE Routine 03/14/2025 LIPID PANEL Routine 06/15/2022 BASIC METABOLIC PANEL Routine 06/14/2022 10:23 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 Chronic HFrEF (heart failure with reduced ejection fraction) (HCC) Pre-procedure lab exam Longstanding persistent atrial fibrillation (HCC) POCT HEMOGLOBIN A1C Routine 11/24/2020 1 1:[address] VIRTUAL COLONOSCOPY DIAGNOSTIC WO CONTRAST Timed 10/20/2019 10:15 AM CDT HEPATITIS C ANTIBODY Routine 05/05/2019 5:41 PM APRON WORKER from Last 3 Months or Most Recently Relevant to Health Maintenance Results * DEVICE CHECK - REMOTE (03/14/2025) Anatomical Region Laterality Modality Other 03/14/2025 03/14/2025 Narrative 03/31/2025 10:01 PM CDT Device Summary Remote interrogation of Milner ([employer]) HIM TECH-D Date of Implant: May 24, 2019 Programmed Mode: VVIR Lower Rate: 70 bpm Device Functionality Presenting rhythm: AF-BiVp 70 Device: Normal function Estimated Battery Longevity: 1 years 4 months. Leads: Appear stable HIM TECH Pacin.0 % Episodes since 12-13-24 No SVT / VT / VF episodes AT/AF burden: 100% James DALLAS, BSN Procedure Note Rob Han MD - 03/31/2025 Device Summary Remote interrogation of [employer] ([employer]) HIM TECH-D Date of Implant: May 24, 2019 Programmed Mode: VVIR Lower Rate: 70 bpm Device Functionality Presenting rhythm: AF-BiVp 70 Device: Normal function Estimated Battery Longevity: 1 years 4 months. Leads: Appear stable HIM TECH Pacin.0 % Episodes since 12-13-24 No SVT / VT / VF episodes AT/AF burden: 100% James DALLAS, BSN us Rob Han MD [facility] PRO CEDURES Final Result * Lipid panel (06/15/2022) Pathologist [facility] SCRIBED Cholesterol, Total 133 l - h EXTERNAL LAB SCRIBED HDL 30 l - h EXTERNAL LAB SCRIBED LDL 66 l - h EXTERNAL LAB SCRIBED Triglycerides 228 l - h EXTERNAL LAB Blood Historical Provider LAB BLOOD ORDERABLES Nydia l Result EXTERNAL LAB * (ABNORMAL) Basic metabolic panel (06/14/2022 10:23 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) [facility] Glucose 224(H) 70 - 99 mg/dL [facility] - 01 BUN 22 8 - 27 mg/dL [facility] - 01 Creatinine, Serum 1.66(H) 0.76 - 1.27 mg/dL [facility] - 01 eGFR 44(L) >59 mL/min/1.7 3 [facility] - 01 BUN/creat ratio 13 10 - 24 [facility] - 01 Sodium 140 134 - 144 mmol/L [facility] - 01 Potassium, sr 5.0 3.5 - 5.2 mmol/L [facility] - 01 Chloride 98 96 - 106 mmol/L [facility] - 01 CO2 20 20 - 29 mmol/L [facility] - 01 Calcium 9.7 8.6 - 10.2 mg/dL [facility] - 01 Blood 06/14/2022 10:2 3 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 06/14/2022 Narrative [facility] - 06/15/2022 7:09 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 Performed at: 01 - [facility] [address] [id number] Rn Geriatric: Bharathi Ricketts PhD, Phone: [phone] Giovani Neves MD LAB BLOOD ORDERABLES Final Resul t [facility] - 01 * (ABNORMAL) POCT hemoglobin A1c (11/24/2020 11:44 AM CDT) Pathologist [facility] Hgb A1C, POC 6.1(H) 4.0 - 6.0 % [facility] Est Average Gluc POC 128 mg/dL [facility] Comment: The ADA recommends reporting an estimated Average Glucose (eAG) with all Hemoglobin A1c results using the equation derived from a study of 507 normal and diabetic adults. Minority populations were underrepresented and children were not included. (Diabetes Care 31:5974-7992, 2008). The eAG is not equivalent to a fasting glucose. Blood specimen (specimen) 11/24/2020 11:44 AM CDT 11/24/2020 11:44 AM CDT us Rob Han MD POINT OF CARE TEST ORDAlberto JUAN Final Result [facility] Department [place] [address] * CT Colonoscopy Diagnostic WO Contrast (10/20/2019 10:15 AM CDT) Anatomical Region Laterality Modality Body N/A Computed Tomogra phy 10/20/2019 2:05 PM CDT Impressions 10/20/2019 3:21 PM CDT C1: Normal colon or benign lesion, continue routine screening. No suspicious colonic polyps identified. There is suboptimal distention of the sigmoid colon; however, this region is reported to have been visualized on recent optical colonoscopy. E1: Normal exam or anatomic variant. No clinically significant extracolonic incidental findings are identified. Dictated by: Kvng Mancuso M.D. The radiology attending physician has personally reviewed this study, and had reviewed and/or edited this written report and agrees with it. Electronically signed by: Bharathi Jackson M.D. Narrative 10/20/2019 3:21 PM CDT EXAMINATION: CT colonography without intravenous contrast HISTORY: Iron deficiency anemia. Incomplete evaluation of the colon, particularly the cecal base, on optical colonoscopy 10/18/2019. TECHNIQUE: Transaxial computed tomographic images through the abdomen and pelvis were obtained without intravenous contrast after insufflation of the colon with CO2 through a rectal catheter. Images were obtained in the supine and right lateral decubitus positions. COMPARISON: CT chest abdomen pelvis 05/05/2019 FINDINGS: The following findings are reported according to the CT Colonography Reporting and Data System (C-RADS) from Radiology 2005; 236:3-9. Colonic preparation and distention: There is suboptimal distention of the sigmoid colon in both positions. The other 5 colonic segments are adequately distended. Colonic findings: There is colonic diverticulosis No polyps greater than 5 mm are detected. Extracolonic findings: This CT examination is performed without intravenous contrast and with a low dose technique optimized for evaluation of the colon. Old granulomatous disease in the lung bases. Moderate atherosclerosis. Dense material within the gallbladder lumen, likely stones. Procedure Note Bharathi Jackson MD - 10/20/2019 EXAMINATION: CT colonography without intravenous contrast HISTORY: Iron deficiency anemia. Incomplete evaluation of the colon, particularly the cecal base, on optical colonoscopy 10/18/2019. TECHNIQUE: Transaxial computed tomographic images through the abdomen and pelvis were obtained without intravenous contrast after insufflation of the colon with CO2 through a rectal catheter. Images were obtained in the supine and right lateral decubitus positions. COMPARISON: CT chest abdomen pelvis 05/05/2019 FINDINGS: The following findings are reported according to the CT Colonography Reporting and Data System (C-RADS) from Radiology 2005; 236:3-9. Colonic preparation and distention: There is suboptimal distention of the sigmoid colon in both positions. The other 5 colonic segments are adequately distended. Colonic findings: There is colonic diverticulosis No polyps greater than 5 mm are detected. Extracolonic findings: This CT examination is performed without intravenous contrast and with a low dose technique optimized for evaluation of the colon. Old granulomatous disease in the lung bases. Moderate atherosclerosis. Dense material within the gallbladder lumen, likely stones. IMPRESSION: C1: Normal colon or benign lesion, continue routine screening. No suspicious colonic polyps identified. There is suboptimal distention of the sigmoid colon; however, this region is reported to have been visualized on recent optical colonoscopy. E1: Normal exam or anatomic variant. No clinically significant extracolonic incidental findings are identified. Dictated by: Kvng Mancuso M.D. The radiology attending physician has personally reviewed this study, and had reviewed and/or edited this written report and agrees with it. Electronically signed by: Bharathi Jackson M.D. us Natividad Estrada NUCLEAR SPECTROSCOPIST IMG CT PROCEDURES Final Re sult * Hepatitis C antibody (05/05/2019 5:41 PM APRON WORKER) Hep C Ab Nonreactive Nonreactive [facility] Comment: Interpretive Data Positive results should be confirmed by a molecular method. If positive, a second separately collected sample should be submitted for Hepatitis C Virus (HCV) RNA Detection and Quantitation by Real-Time Reverse Speech Pathology Supervisor-PCR (RT-PCR). Current interpretive data was last revised on 2016. Blood specimen (specimen) 05/05/2019 5:41 PM APRON WORKER 05/05/2019 6:21 PM APRON WORKER us Parveen Barth MD PhD LAB MICROBIO LOGY - GENERAL ORDERABLES Edited Result - Final [facility] Department [place] [address] from Last 3 Months or Most Recently Relevant to Health Maintenance Insurance [employer] MEDICARE GOLD Yecenia HUNTER [address] AETNA MEDICARE GOLD MEDICARE [facility] AETNA MEDICARE GOLD Advance Directives For more information, please contact: [phone] * Full Code (Latest Code Status on File) Date Activated Date Inactivated Comments 10/15/2019 10:29 AM 10/21/2019 7:01 PM * Full Code Date Activated Date Inactivated Comments 05/24/2019 1:32 PM 05/25/2019 5:48 PM * Full Code Date Activated Date Inactivated Comments 04/30/2019 7:07 PM 05/24/2019 1:32 PM * Full Code Date Activated Date Inactivated Comments 05/28/2018 7:38 PM 06/05/2018 4:02 PM Care Teams Corn Shucker Relationship Specialty Start Date End Date Grey Lorenzo MD PCP - General Family Practice 08/16/17 Bobby Romero MD Consulting Physician Transplant 10/21/19 Maryana Haywood, RN [employer] 10/28/19 Irma Valladares, RN [address] [address] [employer] Cardiology 08/10/20
[2025-04-02 15:27] VITALS: BP 150/108; PULSE 70; RESP 18; TEMP 36.3; O2SAT 100
--- OUTSIDE RECORDS SUMMARY | 2025-04-02 15:45 | XMS_ITS | Clinical Summary ---
Author Organization [facility] Address [address] [place] [address] Phone Care Team Providers Care Featherer Name Role Phone Grey Lorenzo MD Primary [...] Last Assessment & Plan: S/p St[employer] CRABBER-D device (05/2019) -last device check 09/14/2019; 99% afib/flutter. -VS 49%, -LEDGE MAN 32%, AP-LEDGE MAN 18%. No VT. Acute deep venous thrombosis of right femoral ve in 05/18/2019 Overview (12/13/2019): Last Assessment & Plan: Continue heparin gtt. - Consider adjusting home anticoagulant given acute RLE DVT Chronic systolic heart failure 04/30/2019 Overview (12/13/2019): Last Assessment & Plan: ICM, HFrEF (LVEF 15%), admitted with anemia -[facility] May 2019: RAP 2, PA mean 15, wedge 7, CI 2.4 by danny/1.75 by thermo on milrinone. -S/p [facility] [facility] CRABBER-D device -NT-proBNP 744 (has been previously much [...] and underwent AVJ in November 2020 after CRABBER pacing % had fallen and HF worsened [...] + SAUL occluder) -Last ischemic evaluation was [facility] in Apr 2019: All grafts patent at that time. -Continue home Atorvastatin -holding aspirin in the setting of anemia/ likely GI bleed Ischemic cardiomyopathy 12/04/2017 Overview (12/13/2019): LVEF Nov 2017 35-40%, LVIDD 5.3 LVEF May 2018 25%, LVIDD 6 CABG in May 2018 LVEF 30% Sep 2018 LVEF 25% Apr 2019 [facility] Apr 2019: Underlying triple-vessel disease with continued patency of all grafts including GARCIA to LAD, Y-graft to the diagonal and 2nd obtuse marginal. Occluded posterior descending artery filling from mgac-sv-mdica collaterals. Ungrafted distal marginal branch in small caliber vessel. On inotropes briefly - weaned, CRABBER upgraded Type 2 diabetes mellitus 08/07/2015 Overview [...] -pt will need outpt endocrine follow up -rn social services and wellness educator consulted Hypertensive disorder 01/19/2015 [...] Payer ID:1 (NAIC) Type:Not on file Address: [facility] [id number] [place] [id number] Care Teams Featherer Relationship Specialty Start Date End Date Grey Lorenzo MD [address] [place] [address] PCP - General Internal Medicine 11/10/19
--- OUTSIDE RECORDS SUMMARY | 2025-04-02 15:45 | XMS_ITS | Encounter Summary ---
Author Organization [facility] Address [address] [place] [address] Phone Care Team Providers Care Customer Solutions Representative Name Role Phone Grey Lorenzo MD Primary Care Provider Bobby Romero MD Unavailable Maryana Haywood RN Unavailable [phone] Irma Valladares RN Unavailable [phone] Encounter Details Date Type Department Care Team (Late st Contact Info) Description 12/22/2019 Documentation [facility] Cardiology [address] [facility] Advanced Medicine 8th [place] [address] [place] [address] Fina Ward RN Social History Tobacco Use Types Packs/Day Years Used Date Smoking Tobacco: Never Smokeless Tobacco: Never Alcohol Use Standard Drinks/Week Comments Yes 0 (1 standard drink = 0.6 oz pur e alcohol) socially Sex and Gender Information Value Date Recorded Sex Assigned at Not on file 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 [address] [place] [address] Tanning Wheel [employer] Cardiology 08/10/20 documented as of this encounter
--- OUTSIDE RECORDS SUMMARY | 2025-04-02 15:45 | XMS_ITS | Encounter Summary ---
Author Organization [facility] Address [address] [place] [address] Care Team Providers Care Guard Driver Name Role Phone Alejandro Stevens Primary Care Provider [phone] Grey Lorenzo MD Primary Care Provider Bobby Romero MD Unavailable [phone] Maryana Haywood RN Unavailable [phone] Irma Valladares RN Unavailable [phone] Encounter Details Date Type Department Care Team (Late st Contact Info) Description 10/14/2016 Orders Only [facility] ProviderElizabeth MD [address] [place] [address] Social History Tobacco Use Types Packs/Day Years Used Date Smoking Tobacco: Never Alcohol Use Standard Drinks/Week Comments No 0 (1 standard drink = 0.6 oz pur e alcohol) Sex and Gender Information Value Date Recorded Sex Assigned at Not on file Legal 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 Gender Identity Not on file Sexual Orientation [...] on filedocumented in this encounter Care Teams Guard Driver Relationship Specialty Start Date End Date Alejandro Stevens [address] [place] [address] PCP - General 09/06/16 08/15/17 Grey Lorenzo MD [address] [place] [address] PCP - General Family Practice 08/16/17 Bobby Romero MD [address] [place] [address] Consulting Physician Transplant 10/21/19 Maryana Haywood, BURT Document Processing Specialist 10/28/19 Irma Valladares, RN [address] [address] Document Processing Specialist Cardiology 08/10/20 documented as of this encounter
--- OUTSIDE RECORDS SUMMARY | 2025-04-02 15:45 | XMS_ITS | Encounter Summary ---
Author Organization [facility] Address [address] [place] [address] Phone Care Team Providers Care Linux Security Administrator Name Role Phone Grey Lorenzo MD Primary Care Provider Bobby Romero MD Unavailable [phone] Maryana Haywood RN Unavailable [phone] Irma Valladares RN Unavailable Encounter Details Date Type Department Care Team (Late st Contact Info) Description 03/14/2025 Remote Device Check [facility] [address] [facility] [address] [place] [address] Rob Han MD [address] [id number] Social History Tobacco Use Types Packs/Day Years [...] on file Legal Sex Male 2:06 AM MANAGER PRACTICE Gender Identity Not on file Sexual Orientation [...] Summary Remote interrogation of [place] ([facility]) CUSTOM MILLER-D Date of Implant: May 24, 2019 Programmed Mode: VVIR Lower Rate: 70 bpm Device Functionality Presenting rhythm: AF-BiVp 70 Device: Normal function Estimated Battery Longevity: 1 years 4 months. Leads: Appear stable CUSTOM MILLER Pacin.0 % Episodes since 12-13-24 No SVT / VT / VF episodes AT/AF burden: 100% James DALLAS, BSN Procedure Note Rob Han MD - 03/31/2025 Device Summary Remote interrogation of [place] ([facility]) CUSTOM MILLER-D Date of Implant: May 24, 2019 Programmed Mode: VVIR Lower Rate: 70 bpm Device Functionality Presenting rhythm: AF-BiVp 70 Device: Normal function Estimated Battery Longevity: 1 years 4 months. Leads: Appear stable CUSTOM MILLER Pacin.0 % Episodes since 12-13-24 No SVT / VT / VF episodes AT/AF burden: 100% James DALLAS, BSN us Rob Han MD CV CARDIAC SERVICES PRO CEDURES Final Result documented in this encounter Visit Diagnoses Not on filedocumented in this encounter Care Teams Linux Security Administrator Relationship Specialty Start Date End Date Grey Lorenzo MD PCP - General Family Practice 08/16/17 Bobby Romero MD Consulting Physician Transplant 10/21/19 Maryana Haywood, BURT Liaison Engineer 10/28/19 Irma Valladares, BURT [address] [address] Liaison Engineer Cardiology 08/10/20 documented as of this encounter
--- NOTE | 2025-04-02 15:46 | ED_ITS ---
HPI - Dental/Oral General Chief complaint: Dental/Oral Stated complaint: swollen jaw Time Seen by Provider: 04/02/25 15:24 Source: patient Mode of arrival: ambulatory Limitations: no limitations History of Present Illness HPI Narrative: Patient is a 74-year-old male, with past medical history of pacemaker/AICD, who presents the ED with report of right lower gum swelling. Patient reports he noticed the swelling yesterday. States he has several broken teeth. Is scheduled to see a dentist on Friday. Reports pain along right lower gumline. Denies drainage. Denies difficulty breathing or swallowing. Denies fevers. Related Data Home Medications ?Medication ?Instructions ?Recorded ?Confirmed ?Last Taken ?Type aspirin 81 mg tablet,delayed 81 mg PO DAILY 04/23/19 0 02/28/25 05/20/20 History release (Adult Aspirin Regimen) Allergies Allergy/AdvReac Type Severity Reaction Status Date / Time No Known Allergies Allergy Unknown Verified 02/28/25 11:19 Review of Systems Review of Systems: All systems reviewed & are unremarkable except as noted in HPI. 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 Chronic atrial fibrillation Chronic congestive heart failure Dyslipidemia Essential (primary) hypertension NIDIA (obstructive sleep apnea) Type 2 diabetes mellitus without complication, without long-term current use of insulin CHF (congestive heart failure) Atrial flutter Surgical History Surgical History History of cardioversion 2020 History of implantable cardiac defibrillator (ICD) (~05/2019) 05/27 Hx of CABG (~05/2018) 05/2018 H/O total cystectomy (~1968) Pilonidal Status post aorto-coronary artery bypass graft Family History Family History Other Diabetes mellitus Hypertension Social History Social History Social History: Caffeine- rarely Smoking status: Never smoker Second hand tobacco smoke exposure: No Alcohol intake: current Alcohol use details: 1 glass of wine consumed rarely Substance use: never Substance use type: does not use Lack of Transportation: No Lack of Food: Never True Current Housing: I Have Housing Concerned About Future Housing: No Difficulty Paying Gas/Electric Bills: No Difficulty Paying for Meds: No Currently Unemployed: No Education: High School Diploma/GED Difficulty w/ Childcare or Family Care: No Living arrangements: with family Gender identity (if verbalized by the patient): Male Spiritual care concerns: No Exam Narrative: GENERAL: Elderly, obese with BMI of 32.4, non-toxic, in no acute distress. HEAD: Normocephalic, atraumatic. ENT: Mild swelling throughout R lower mandibular region with tenderness. Swelling/slight fluctuance/inflammation along R lower gumline surrounding teeth #29-27. Focal TTP. No drainage. No stridor or trismus. Numerous broken/missing/caried teeth. Maintaining secretions. RESPIRATORY: Airway patent, respirations nonlabored. CARDIOVASCULAR: Regular rate and rhythm MUSCULOSKELETAL: Moves all extremities. No gross deformities. SKIN: Warm, dry, normal color. NEURO: A&O X3. Speech clear. Cranial nerves II-XII grossly intact. Steady gait. No ataxic movements. PSYCHIATRIC: Appropriate mood and affect. Normal interaction. Course Vital Signs Vital signs: Vital Signs Temperature 97.3 F L 04/02/25 15:27 Pulse Rate 70 04/02/25 15:27 Respiratory Rate 18 04/02/25 15:27 Blood Pressure 150/108 H 04/02/25 15:27 Pulse Oximetry 100 04/02/25 15:27 Temperature 97.3 F L 04/02/25 15:27 Pulse Rate 70 04/02/25 15:27 Respiratory Rate 18 04/02/25 15:27 Blood Pressure 150/108 H 04/02/25 15:27 Pulse Oximetry 100 04/02/25 15:27 Procedures Abscess I/D oral: Date of Incision: 04/02/25 Time of Incision: 16:00 Side (if applicable): right Sedation/analgesia: none Local Anesthetic: lidocaine 1% Amount of anesthesia used (mL): 3 Technique: needle aspiration Amount of fluid expressed (mL): 1 Irrigation: Yes Packing used?: none I&D Results: Pus and Blood Complications: other (none) MDM - Dental/Oral MDM Narrative Medical decision making narrative: Exam consistent with dental abscess. No evidence of airway compromise or respiratory distress. Discussed I&D. Patient agreeable. This was performed without issue. Minimal pus drained. Patient started on Augmentin. Is scheduled to see dentist on Friday. Given strict return precautions. Patient in agreement with plan. Discharged in stable condition. Medical Records Attestation: I reviewed the patient's medical records. Discharge Plan Discharge Clinical Impression: Dental abscess, Jaw swelling Patient Disposition: Home Condition: Stable Instructions: Antibiotic Form, Dental Abscess (ED), Toothache (ED) Additional Instructions: Take antibiotics as prescribed. Recommend ice/warm compresses to right-sided jaw. Recommend Tylenol, ibuprofen as needed for pain. Follow-up with your dentist for further evaluation. Return to the ED if you experience worsening or severe pain or swelling, difficulty breathing or swallowing, fevers, unable to keep down food or drink, or any other symptoms of concern. Patient Language: Georgian Prescriptions: New amoxicillin-pot clavulanate 875-125 mg tablet 1 tablet PO Q12H 7 Days Qty: 14 0RF No Action aspirin [Adult Aspirin Regimen] 81 mg tablet,delayed release (DR/EC) 81 mg PO DAILY cholecalciferol (vitamin D3) 1,250 mcg (50,000 unit) tablet 1,250 mcg PO WEEKLY Qty: 12 1RF Farxiga 10 mg tablet 10 mg PO DAILY Qty: 90 1RF (DME) Dexcom G7 Sensor Device See Rx Instructions .Route Qty: 9 1RF Rx Instructions: Use to check BS. Change every 10 days (DME) Dexcom G7 Laborer Ammunition Assembly Misc See Rx Instructions .Route Qty: 1 0RF Rx Instructions: As directed Tresiba FlexTouch U-100 100 unit/mL (3 mL) insulin pen 53 unit subcut DAILY Qty: 10 2RF metoprolol succinate 100 mg tablet extended release 24 hr 150 mg PO DAILY Qty: 135 1RF insulin aspart U-100 [Novolog FlexPen U-100 Insulin] 100 unit/mL (3 mL) insulin pen See Rx Instructions .ROUTE .COMPLEX Qty: 45 1RF Dose Instruction: INJECT 7 UNIT (0.07 ML) SUBCUTANEOUSLY 3 TIMES PER DAY WITH MEALS Rx Instructions: INJECT 7 UNIT (0.07 ML) SUBCUTANEOUSLY 3 TIMES PER DAY WITH MEALS Entresto 49-51 mg tablet 1 tablet PO BID Qty: 180 1RF tamsulosin 0.4 mg capsule 0.4 mg PO QPM Qty: 90 1RF Rx Instructions: TAKE ONE CAPSULE BY MOUTH ONCE DAILY 1/2 HOUR FOLLOWING THE SAME MEAL EACH DAY atorvastatin 80 mg tablet 80 mg PO QHS Qty: 90 1RF amlodipine 10 mg tablet 10 mg PO DAILY Qty: 90 1RF Follow-up/Referrals: Reji Lorenzo MD [Primary Care Provider, Family Practice] Time of Disposition: 16:05
--- OUTSIDE RECORDS SUMMARY | 2025-04-02 15:46 | XMS_ITS | Encounter Summary ---
Author Organization [facility] Healthcare Address [address] [place] [address] Care Team Providers Care Appliance Adjuster Name Role Phone Grey Lorenzo MD Primary Care Provider Bobby Romero MD Unavailable [phone] Maryana Haywood RN Unavailable [phone] Irma Valladares RN Unavailable [phone] Encounter Details Date Type Department Care Team (Late st Contact Info) Description 05/17/2019 Documentation [facility] Case Management [address] [place] [address] Sariah Monroe RN Social History Tobacco Use Types Packs/Day Years Used Date Smoking Tobacco: Never Smokeless Tobacco: Never Alcohol Use Standard Drinks/Week Comments Yes 0 (1 standard drink = 0.6 oz pur e alcohol) socially Sex and Gender Information Value Date Recorded Sex Assigned at Not on file Legal Sex Male 2:06 AM NON 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
--- OUTSIDE RECORDS SUMMARY | 2025-04-02 15:46 | XMS_ITS | Encounter Summary ---
Author Organization [facility] Healthcare Address [address] [place] [address] Care Team Providers Care Police Academy Instructor Name Role Phone Alejandro Stevens Primary Care Provider [phone] Grey Lorenzo MD Primary Care Provider Bobby Romero MD Unavailable [phone] Maryana Haywood RN Unavailable [phone] Irma Valladares RN Unavailable [phone] Encounter Details Date Type Department Care Team (Late st Contact Info) Description 08/12/2017 Orders Only [facility] Health Information Management [address] [place] [address] Scanning, Provider Social History Tobacco Use Types Packs/Day Years Used Date Smoking Tobacco: Never Smokeless Tobacco: Never Alcohol Use Standard Drinks/Week Comments No 0 (1 standard drink = 0.6 oz pur e alcohol) Sex and Gender Information Value Date Recorded Sex Assigned at Not on file Legal 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 Gender Identity Not on file Sexual Orientation [...] on filedocumented in this encounter Care Teams Police [employer] Instructor Relationship Specialty Start Date End Date Alejandro Stevens [address] [place] [address] PCP - General 09/06/16 08/15/17 Grey Lorenzo MD [address] [place] [address] PCP - General Family Practice 08/16/17 Bobby Romero MD [address] [place] [address] Consulting Physician Transplant 10/21/19 Maryana Haywood, BURT Doughnut Fryer 10/28/19 Irma Valladares, RN [address] [address] Doughnut Fryer Cardiology 08/10/20 documented as of this encounter
--- OUTSIDE RECORDS SUMMARY | 2025-04-02 15:46 | XMS_ITS | Encounter Summary ---
Author Organization [facility] Address [address] [facility] [address] [place] [address] Care Team Providers Care Rn Endocrinology Name Role Phone Alejandro Stevens Primary Care Provider [phone] Alejandro Stevens Primary Care Provider [phone] Grey Lorenzo MD Primary Care Provider Bobby Romero MD Unavailable [phone] Maryana Haywood RN Unavailable [phone] Irma Valladares RN Unavailable [phone] Encounter Details Date Type Department Care Team (Late st Contact Info) Description 09/02/2016 Orders Only [facility] ProviderElizabeth MD [address] [place] [address] Social History Tobacco Use Types Packs/Day Years Used Date Smoking Tobacco: Never Alcohol Use Standard Drinks/Week Comments No 0 (1 standard drink = 0.6 oz pur e alcohol) Sex and Gender Information Value Date Recorded Sex Assigned at Not on file Legal Sex Male 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 Gender Identity Not on file Sexual Orientation [...] on filedocumented in this encounter Care Teams Rn Endocrinology Relationship Specialty Start Date End Date Alejandro Stevens [address] [place] [address] PCP - General 09/06/16 08/15/17 Alejandro Stevens [address] [place] [address] PCP - General 08/07/15 09/05/16 Grey Lorenzo MD [address] [place] [address] PCP - General Family Practice 08/16/17 Bobby Romero MD [address] [place] [address] Consulting Physician Transplant 10/21/19 Maryana Haywood, RN Home Health Speech Therapist 10/28/19 Irma Valladares, BURT [address] [address] Home Health Speech Therapist Cardiology 08/10/20 documented as of this encounter
--- OUTSIDE RECORDS SUMMARY | 2025-04-02 15:46 | XMS_ITS | Encounter Summary ---
Author Organization [facility] Address [address] [place] [address] Phone Care Team Providers Care Material Lister Name Role Phone Grey Lorenzo MD Primary Care Provider Bobby Romero MD Unavailable Maryana Haywood RN Unavailable [phone] Irma Valladares RN Unavailable Encounter Details Date Type Department Care Team (Late st Contact Info) Description 10/21/2019 Telephone [facility] Cardiology [address] [facility] Advanced Medicine 8th [place] [address] [place] [id number] Bobby Romero MD [address] [place] [address] Social History Tobacco Use Types Packs/Day Years Used Date Smoking Tobacco: Never Smokeless Tobacco: Never Alcohol Use Standard Drinks/Week Comments Yes 0 (1 standard drink = 0.6 oz pur e alcohol) socially Sex and Gender Information Value Date Recorded Sex Assigned at Not on file Legal Sex Male 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
--- OUTSIDE RECORDS SUMMARY | 2025-04-02 15:46 | XMS_ITS | Encounter Summary ---
Author Organization [facility] Healthcare Address [address] [place] [address] Care Team Providers Care Catalyst Supervisor Name Role Phone Grey Lorenzo MD Primary Care Provider Bobby Romero MD Unavailable [phone] Maryana Haywood RN Unavailable [phone] Irma Valladares RN Unavailable [phone] Encounter Details Date Type Department Care Team (Late st Contact Info) Description 08/02/2019 Documentation [facility] Clinical Trial 1 [place] [address] Sissy Ugarte Social History Tobacco Use Types Packs/Day Years Used Date Smoking Tobacco: Never Smokeless Tobacco: Never Alcohol Use Standard Drinks/Week Comments Yes 0 (1 standard drink = 0.6 oz pur e alcohol) socially Sex and Gender Information Value Date Recorded Sex Assigned at Not on file Legal Sex Male 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 Gender Identity Not on file Sexual Orientation Not on file documented as of this encounter Plan of Treatment Not on file documented as of this encounter Visit Diagnoses Not on filedocumented in this encounter Care Teams Catalyst Supervisor Relationship Specialty Start Date End Date Grey Lorenzo MD PCP - General Family Practice 08/16/17 Bobby Romero MD Consulting Physician Transplant 10/21/19 Maryana Haywood RN Job Placement Officer 10/28/19 Irma Valladares, RN [address] [facility] [address] [place] [address] Job Placement Officer Cardiology 08/10/20 documented as of this encounter
--- OUTSIDE RECORDS SUMMARY | 2025-04-02 15:46 | XMS_ITS | Encounter Summary ---
Author Organization [facility] Healthcare Address [address] [place] [address] Care Team Providers Care Cement Crusher Operator Name Role Phone Grey Lorenzo MD Primary Care Provider Bobby Romero MD Unavailable [phone] Maryana Haywood RN Unavailable [phone] Irma Valladares RN Unavailable [phone] Encounter Details Date Type Department Care Team (Late st Contact Info) Description 08/26/2019 Documentation [facility] Clinical Trial 1 [place] [address] Sissy Ugarte Social History Tobacco Use Types Packs/Day Years Used Date Smoking Tobacco: Never Smokeless Tobacco: Never Alcohol Use Standard Drinks/Week Comments Yes 0 (1 standard drink = 0.6 oz pur e alcohol) socially Sex and Gender Information Value Date Recorded Sex Assigned at Not on file Legal Sex Male 2:06 AM COLLECTION TEAM LEAD Gender Identity Not on file Sexual Orientation Not on file documented as of this encounter Plan of Treatment Not on file documented as of this encounter Visit Diagnoses Not on filedocumented in this encounter Care Teams Cement Crusher Operator Relationship Specialty Start Date End Date Grey Lorenzo MD PCP - General Family Practice 08/16/17 Bobby Romero MD Consulting Physician Transplant 10/21/19 Maryana Haywood RN Financial Counselor 10/28/19 Irma Valladares, RN [address] [facility] [address] [place] [address] Financial Counselor Cardiology 08/10/20 documented as of this encounter
--- OUTSIDE RECORDS SUMMARY | 2025-04-02 15:46 | XMS_ITS | Encounter Summary ---
Author Organization [facility] Address [address] [facility] [address] [place] [address] Care Team Providers Care Doll Maker Name Role Phone Alejandro Stevens Primary Care Provider [phone] Alejandro Stevens Primary Care Provider [phone] Grey Lorenzo MD Primary Care Provider Bobby Romero MD Unavailable [phone] Maryana Haywood RN Unavailable [phone] Irma Valladares RN Unavailable [phone] Encounter Details Date Type Department Care Team (Late st Contact Info) Description 07/29/2016 Orders Only [facility] ProviderElizabeth MD [address] [place] [address] Social History Tobacco Use Types Packs/Day Years Used Date Smoking Tobacco: Never Alcohol Use Standard Drinks/Week Comments No 0 (1 standard drink = 0.6 oz pur e alcohol) Sex and Gender Information Value Date Recorded Sex Assigned at Not on file Legal Sex Male 2: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 USER 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 Gender Identity Not on file Sexual Orientation [...] on filedocumented in this encounter Care Teams Doll Maker Relationship Specialty Start Date End Date Alejandro Stevens [address] [place] [address] PCP - General 09/06/16 08/15/17 Alejandro Stevens [address] [place] [address] PCP - General 08/07/15 09/05/16 Grey Lorenzo MD [address] [place] [address] PCP - General Family Practice 08/16/17 Bobby Romero MD [address] [place] [place] [address] Consulting Physician Transplant 10/21/19 Maryana Haywood, RN Player Services Representative 10/28/19 Irma Valladares, BURT [address] [address] Player Services Representative Cardiology 08/10/20 documented as of this encounter
--- OUTSIDE RECORDS SUMMARY | 2025-04-02 15:46 | XMS_ITS | Encounter Summary ---
Author Organization [facility] Healthcare Address [address] [place] [address] Care Team Providers Care Pilot Safety Inspector Name Role Phone Grey Lorenzo MD Primary Care Provider Bobby Romero MD Unavailable [phone] Maryana Haywood RN Unavailable [phone] Irma Valladares RN Unavailable [phone] Encounter Details Date Type Department Care Team (Late st Contact Info) Description 07/01/2019 Documentation [facility] Clinical Trial 1 [place] [address] Sissy Ugarte Social History Tobacco Use Types Packs/Day Years Used Date Smoking Tobacco: Never Smokeless Tobacco: Never Alcohol Use Standard Drinks/Week Comments Yes 0 (1 standard drink = 0.6 oz pur e alcohol) socially Sex and Gender Information Value Date Recorded Sex Assigned at Not on file Legal Sex Male 2:06 AM POTLINE 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 Gender Identity Not on file Sexual Orientation Not on file documented as of this encounter Plan of Treatment Not on file documented as of this encounter Visit Diagnoses Not on filedocumented in this encounter Care Teams Pilot Safety Inspector Relationship Specialty Start Date End Date Grey Lorenzo MD PCP - General Family Practice 08/16/17 Bobby Romero MD Consulting Physician Transplant 10/21/19 Maryana Haywood RN Mobile Designer 10/28/19 Irma Valladares, RN 6839 [facility] [address] [place] [address] Mobile Designer Cardiology 08/10/20 documented as of this encounter
--- OUTSIDE RECORDS SUMMARY | 2025-04-02 15:46 | XMS_ITS | Encounter Summary ---
Author Organization [facility] Address [address] [facility] [address] [place] [address] Care Team Providers Care Production Support Consultant Name Role Phone Alejandro Stevens Primary Care Provider [phone] Alejandro Stevens Primary Care Provider [phone] Grey Lorenzo MD Primary Care Provider Bobby Romero MD Unavailable [phone] Maryana Haywood RN Unavailable [phone] Irma Valladares RN Unavailable [phone] Encounter Details Date Type Department Care Team (Late st Contact Info) Description 06/20/2016 Orders Only [facility] ProviderElizabeth MD [address] [place] [address] Social History Tobacco Use Types Packs/Day Years Used Date Smoking Tobacco: Never Alcohol Use Standard Drinks/Week Comments No 0 (1 standard drink = 0.6 oz pur e alcohol) Sex and Gender Information Value Date Recorded Sex Assigned at Not on file Legal 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 Gender Identity Not on file Sexual Orientation [...] on filedocumented in this encounter Care Teams Production Support Consultant Relationship Specialty Start Date End Date Alejandro Stevens [address] [place] [address] PCP - General 09/06/16 08/15/17 Alejandro Stevens [address] [place] [address] PCP - General 08/07/15 09/05/16 Grey Lorenzo MD [address] [place] [address] PCP - General Family Practice 08/16/17 Bobby Romero MD [address] [place] [address] Consulting Physician Transplant 10/21/19 Maryana Haywood, RN Press Pipe Inspector 10/28/19 Irma Valladares, BURT [address] [address] Press Pipe Inspector Cardiology 08/10/20 documented as of this encounter
[2025-04-02] MEDS: LIDOCAINE 1% LOCAL INJ 20 ML VIAL 5 ML INFILTRATE (15:56)
== END 2025-04-02 16:15 | disposition home or self-care (01) ==
PROVIDERS: Emergency Provider Physician Assistant; PCP Family Medicine
DX: K04.7 Periapical abscess without sinus (principal); N18.31 Chronic kidney disease, stage 3a; E11.22 Type 2 diabetes mellitus with diabetic chronic kidney disease; Z79.4 Long term (current) use of insulin; I25.10 Atherosclerotic heart disease of native coronary artery without angina pectoris; I50.9 Heart failure, unspecified; I48.20 Chronic atrial fibrillation, unspecified; E78.5 Hyperlipidemia, unspecified; G47.33 Obstructive sleep apnea (adult) (pediatric); I13.0 Hypertensive heart and chronic kidney disease with heart failure and stage 1 through stage 4 chronic kidney disease, or unspecified chronic kidney disease; Z95.1 Presence of aortocoronary bypass graft; Z95.810 Presence of automatic (implantable) cardiac defibrillator; Z83.3 Family history of diabetes mellitus
CPT/HCPCS: 10060; 41800; 99283; A9270; J2003

== ENCOUNTER 2025-04-22 10:57 | Outpatient (CLI) | payer MEDICARE, SELFPAY ==
[2025-04-22 13:57] LABS: Hematocrit 49.9 % (42.0-52.0); Hemoglobin 15.1 g/dL (14.0-18.0); Immature Granulocyte Percent A 0.5 % (0-0.5); Lymphocytes Absolute Auto 1.94 K/mm3 (0.9-3.2); Mean Corpuscular HGB Conc 30.3 g/dl (32-36); Mean Corpuscular Hemoglobin 27.4 pg (26-34); Mean Corpuscular Volume 90.4 fl (80-100); Nucleated Red Blood Cells Absolute Auto 0.000 K/mm3 (0.0-0.012); Nucleated Red Blood Cells Perc 0.0 % (0.0-0.2); Platelet Count Result 307 k/mm3 (150-375); Red Blood Count 5.52 M/mm3 (4.6-6.20); White Blood Count 10.5 K/mm3 (4.5-10.0)
[2025-04-22 14:05] LABS: Alanine Aminotransferase 30 U/L (6-50); Albumin Level 4.2 g/dL (3.5-5.1); Alkaline Phosphatase 83 U/L (38-126); Anion Gap 9 mmol/L (4-12); Aspartate Amino Transferase 63 U/L (17-59); Bilirubin,Total 1.3 mg/dL (0.2-1.3); Blood Urea Nitrogen 18 mg/dL (9-20); Calcium 9.3 mg/dL (8.4-10.2); Carbon Dioxide 29 mmol/L (22-30); Chloride 102 mmol/L (98-107); Estimated Glomerular Filt Rate 57; Glucose 172 mg/dL (65-110); Magnesium 2.1 mg/dL (1.6-2.3); Potassium 4.5 mmol/L (3.4-5.0); Sodium 140 mmol/L (137-145); Total Protein 7.9 g/dL (6.3-8.2)
== END 2025-04-22 10:58 | disposition home or self-care (01) ==
PROVIDERS: PCP Family Medicine; Visit Provider Nurse Practitioner Family
DX: I12.9 Hypertensive chronic kidney disease with stage 1 through stage 4 chronic kidney disease, or unspecified chronic kidney disease (principal); I50.9 Heart failure, unspecified; N18.31 Chronic kidney disease, stage 3a; K04.7 Periapical abscess without sinus
CPT/HCPCS: 36415; 80053; 83735; 85025

== ENCOUNTER 2025-05-09 02:06 | Emergency (ER) | payer MEDICARE, SELFPAY ==
--- OUTSIDE RECORDS SUMMARY | 2025-05-09 02:09 | XMS_ITS | Clinical Summary ---
Author Organization [facility] Address [address] [place] [id number] Phone Care Team Providers Care Shoer Name Role Phone Grey Lorenzo MD Primary [...] Last Assessment & Plan: S/p [facility] OVERLOCK SLEEVE SETTER-D device (05/2019) -last device check 09/14/2019; 99% afib/flutter. -VS 49%, -PROGRAMS ASSISTANT 32%, AP-PROGRAMS ASSISTANT 18%. No VT. Acute deep venous thrombosis of right femoral ve in 05/18/2019 Overview (12/13/2019): Last Assessment & Plan: Continue heparin gtt. - Consider adjusting home anticoagulant given acute RLE DVT Chronic systolic heart failure 04/30/2019 Overview (12/13/2019): Last Assessment & Plan: ICM, HFrEF (LVEF 15%), admitted with anemia -[facility] May 2019: RAP 2, PA mean 15, wedge 7, CI 2.4 by danny/1.75 by thermo on milrinone. -S/p [facility] OVERLOCK SLEEVE SETTER-D device -NT-proBNP 744 (has been previously much [...] and underwent AVJ in November 2020 after OVERLOCK SLEEVE SETTER pacing % had fallen and HF worsened [...] + SAUL occluder) -Last ischemic evaluation was [facility] in Apr 2019: All grafts patent at that time. -Continue home Atorvastatin -holding aspirin in the setting of anemia/ likely GI bleed Ischemic cardiomyopathy 12/04/2017 Overview (12/13/2019): LVEF Nov 2017 35-40%, LVIDD 5.3 LVEF May 2018 25%, LVIDD 6 CABG in May 2018 LVEF 30% Sep 2018 LVEF 25% Apr [address] [facility] Apr 2019: Underlying triple-vessel disease with continued patency of all grafts including GARCIA to LAD, Y-graft to the diagonal and 2nd obtuse marginal. Occluded posterior descending artery filling from ixdd-dg-dveli collaterals. Ungrafted distal marginal branch in small caliber vessel. On inotropes briefly - weaned, OVERLOCK SLEEVE SETTER upgraded Type 2 diabetes mellitus 08/07/2015 Overview [...] -pt will need outpt endocrine follow up -intake specialist and chemical educator consulted Hypertensive disorder 01/19/2015 Overview (12/13/2019): [...] Payer ID:1 (NAIC) Type:Not on file Address: [facility] [id number] [place] [id number] Care Teams Shoer Relationship Specialty Start Date End Date Grey Lorenzo MD [address] [place] [address] PCP - General Internal Medicine 11/10/19
--- OUTSIDE RECORDS SUMMARY | 2025-05-09 02:09 | XMS_ITS | Encounter Summary ---
Author Organization [facility] Healthcare Address [address] [place] [address] Care Team Providers Care Assorter Laundry Name Role Phone Alejandro Stevens Primary Care Provider [phone] Grey Lorenzo MD Primary Care Provider Bobby Romero MD Unavailable [phone] Maryana Haywood RN Unavailable [phone] Irma Valladares RN Unavailable [phone] Encounter Details Date Type Department Care Team (Late st Contact Info) Description 08/12/2017 Orders Only [facility] [place] [facility] Information Management [address] [place] [address] Scanning, Provider Social History Tobacco Use Types Packs/Day Years Used Date Smoking Tobacco: Never Smokeless Tobacco: Never Alcohol Use Standard Drinks/Week Comments No 0 (1 standard drink = 0.6 oz pur e alcohol) Sex and Gender Information Value Date Recorded Sex Assigned at Not on file 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 Gender Identity Not on file Sexual [...] on filedocumented in this encounter Care Teams Assorter Laundry Relationship Specialty Start Date End Date Alejandro Stevens [address] [place] [address] PCP - General 09/06/16 08/15/17 Grey Lorenzo MD [address] [place] [address] PCP - General Family Practice 08/16/17 Bobby Romero MD [address] [place] [address] Consulting Physician Transplant 10/21/19 Maryana Haywood, BURT Emergency Medicine Physician Assistant 10/28/19 Irma Valladares, RN [address] [address] Emergency Medicine Physician Assistant Cardiology 08/10/20 documented as of this encounter
--- OUTSIDE RECORDS SUMMARY | 2025-05-09 02:09 | XMS_ITS | Encounter Summary ---
Author Organization [facility] Healthcare Address [address] [place] [address] Care Team Providers Care Classifying Machine Operator Name Role Phone Grey Lorenzo MD Primary Care Provider Bobby Romero MD Unavailable [phone] Maryana Haywood RN Unavailable [phone] Irma Valladares RN Unavailable [phone] Encounter Details Date Type Department Care Team (Late st Contact Info) Description 05/17/2019 Documentation [facility] Case Management [address] [place] [address] Sariah Monroe RN Social History Tobacco Use Types Packs/Day Years Used Date Smoking Tobacco: Never Smokeless Tobacco: Never Alcohol Use Standard Drinks/Week Comments Yes 0 (1 standard drink = 0.6 oz pur e alcohol) socially Sex and Gender Information Value Date Recorded Sex Assigned at Not on file 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 Gender Identity Not on file Sexual Orientation Not on file documented as of this encounter Functional Status * Lamar Fall Risk Question Answer Date of Assessment Author History of Falling 0 05/20/2019 7:20 PM Shy Ng RN Secondary Diagnosis 15 05/20/2019 7:20 PM Shy Mai, parts finisher Aids 0 05/20/2019 7:20 PM Shy Gleason, BURT Intravenous Therapy/Heparin/Saline Lock 20 05/20/2019 7:20 PM Shy Ng RN Gait/Transferring 0 05/20/2019 7:20 PM Shy Ng RN Mental Status 0 05/20/2019 7:20 PM Shy Hamm RN * Steve Scale Question Answer Date of Assessment Author Sensory Perceptions 4 05/20/2019 7:20 PM CS Shy Negron RN Moisture 4 05/20/2019 7:20 PM Shy Worthington RN Activity 3 05/20/2019 7:20 PM Shy Worthington RN Mobility 4 05/20/2019 7:20 PM Shy Worthington RN Nutrition 2 05/20/2019 7:20 PM Shy Worthington RN Friction and Shear 3 05/20/2019 7:20 PM Shy Ng RN Steve Scale Score 20 05/20/2019 7:20 PM Shy Ng RN * Question Answer Date of Assessment Author BP Location Right arm 05/20/2019 7:11 PM Lexy Jones BP Method Automatic 05/20/2019 7:11 PM Lexy Jones MAP (mmHg) 72 05/20/2019 7:11 PM Lexy Jones * Fall Risk Interventions Question Answer Date of Assessment Author All Low Fall Interventions Applied Yes 05/20/2019 7:20 PM Mary Ng RN All Moderate Fall Interventions Applied No 05/20/2019 7:20 PM Mary Ng RN All Moderate Fall Risk Interventions EXCEPT: Remain with patient while toileting;Assist with activity and transfers;PT eval requested or obtained;OT eval requested or obtained 05/20/2019 7:20 PM Shy Ng RN All High Fall Risk Interventions Applied No 05/20/2019 7:20 PM Mary Ng RN All High Risk Interventions EXCEPT: Bed alarm;Chair alarm 05/20/2019 7:20 PM Shy Ng RN Additional Interventions Applied Over-bed table on non-exit side;Exit bed on strong/preferred side 05/20/2019 7:20 PM Shy Ng, BURT Reason For Exception(s) urinal at bedisd e, steady gait, bmat level 4 05/20/2019 7:20 PM Shy Ng, BURT Reason For Exception(s) Steady gait, BMA t level 4 05/20/2019 7:20 PM Shy Ng, BURT * B.M.A.T. - Bedside Mobility Assessment Tool for Nurses Question Answer Date of Assessment Author Is patient able to participate in the BMAT? Yes 05/20/2019 7:20 PM Shy Ng RN Reason patient is unable to participate in BMAT Bed rest orders 05/17/2019 8:00 PM Fina Louie RN BMAT Level Level 4 - Green 05/20/2019 7:20 PM Shy Ng RN Level 1 Equipment Use total lift with sling and/or repositioning sheet;Use friction reducing devices 05/17/2019 8:00 PM Fina Louie RN * Integumentary Question Answer Date of Assessment Author Skin Color Appropriate for ethnicity 05/18/2019 9:00 AM Carolyn Mccauley RN Skin Condition/Temp Warm;Dry 05/18/2019 9 :00 AM Carolyn Mccauley RN Skin Integrity Intact 05/17/2019 8:00 PM Fina Louie RN Skin Turgor Non-tenting 05/20/2019 7:20 PM Shy Ng RN Integumentary Additional Assessments Yes-Steve 05/20/2019 7:20 PM Shy Ng, BURT Integumentary (WDL) WDL 05/20/2019 7 :20 PM Shy Ng, BURT * Question Answer Date of Assessment Author Special Mattress Low air loss and alternating pressure relief 05/18/2019 8:00 AM Carolyn Mccauley RN * Question Answer Date of Assessment Author Edema Trace 05/17/2019 8:00 PM Fina Peña RN RUE Edema No pitting 05/20/2019 7:20 PM Shy Worthington, BURT RLE Edema No pitting 05/20/2019 7:20 PM Shy Worthington RN LUE Edema No pitting 05/20/2019 7:20 PM Shy Worthington RN LLE Edema No pitting 05/20/2019 7:20 PM Shy Worthington RN Edema Right lower extremit y;Left lower extremity 05/18/2019 10:10 PM FLOOR SANDING MACHINE OPERATOR Praveena Hutchinson RN * Question Answer Date of Assessment Author Percent Meal Eaten (%) 100 05/20/2019 12:30 P M Demond Llamas RN Percent Snack Eaten (%) 100 05/20/2019 2:30 P M Demond Llamas RN * Question Answer Date of Assessment Author BP Location Right arm 05/20/2019 7:11 PM Lexy Jones BP Method Automatic 05/20/2019 7:11 PM Lexy Jones * Question Answer Date of Assessment Author Bed In Lowest Position Yes 05/20/2019 11:00 P M Lexy Jones Bed Wheels Locked Yes 05/20/2019 11:00 PM Lexy Jones * Fall Risk Interventions Question Answer Date of Assessment Author All Low Fall Interventions Applied Yes 05/20/2019 7:20 PM Mary Ng RN All Moderate Fall Interventions Applied No 05/20/2019 7:20 PM Mary Ng RN All Moderate Fall Risk Interventions EXCEPT: Remain with patient while toileting;Assist with activity and transfers;PT eval requested or obtained;OT eval requested or obtained 05/20/2019 7:20 PM Shy Ng RN All High Fall Risk Interventions Applied No 05/20/2019 7:20 PM Mary Ng RN All High Risk Interventions EXCEPT: Bed alarm;Chair alarm 05/20/2019 7:20 PM Shy Ng RN Additional Interventions Applied Over-bed table on non-exit side;Exit bed on strong/preferred side 05/20/2019 7:20 PM Shy Ng RN Reason For Exception(s) urinal at bedisd e, steady gait, bmat level 4 05/20/2019 7:20 PM Shy Ng, BURT Reason For Exception(s) Steady gait, BMA t level 4 05/20/2019 7:20 PM Shy Ng, BURT * Question Answer Date of Assessment Author Skin Care Protective Foam Dressing 05/18/2019 8:00 AM Carolyn Mccauley RN Hygiene Ángela care 05/18/2019 2:00 AM Fina Louie, BURT Hygiene Level of Assistance Dependent 05/18/2019 2:00 AM Fina Louie RN Toileting: Assistance with Perineal hygiene 05/18/2019 2:00 AM Fina Louie, BURT * RN Oversight of Sitter Question Answer Date of Assessment Author Sitter Not indicated 05/19/2019 6:00 AM Praveena Gilbert RN * Nutrition Question Answer Date of Assessment Author Feeding Level of Assistance Able to feed self 05/20/2019 7:20 PM Shy Ng RN Appetite Good 05/18/2019 10:00 PM Praveena Gilbert RN documented as of this encounter Mental Status * Question Answer Entry Date Author Neuro ([facility]) [facility] 05/18/2019 8:00 PM Kely Caban RN * Question Answer Entry Date Author Level of Consciousness Alert;Awake 9 7:20 PM Shy Ng, BURT Orientation Oriented X4 (person, place, time, situation) 05/20/2019 7:20 PM Shy Ng, BURT Neuro ([facility]) [facility] 05/20/2019 7:20 PM Shy Ng, BURT * Short Blessed Test Question Answer Entry Date Author What year is it now? 0 05/20/2019 1:38 PM Praveena Brian OT What month is it now? 0 05/20/2019 1:38 PM Praveena Brian OT Without looking at the clock, tell me what time it is 0 05/20/2019 1:38 PM Praveena Brian OT Count aloud backwards from 20-1 0 05/20/2019 1:38 PM FLOOR SANDING MACHINE OPERATOR Praveena Tejeda, OT Say the months of the year backwards in reverse order 2 05/20/2019 1:38 PM FLOOR SANDING MACHINE OPERATOR Praveena Tejeda, OT Repeat the name and address I asked you to remember 2 05/20/2019 1:38 PM FLOOR SANDING MACHINE OPERATOR Praveena Tejeda, OT Repeat this name and address after me Grey Romero [address] [place] [address] 05/20/2019 1:38 PM FLOOR SANDING MACHINE OPERATOR Nikhil Praveena, OT Short Blessed Total Score 4 05/20/2019 1:38 PM FLOOR SANDING MACHINE OPERATOR Nikhil Praveena, OT Short Blessed Comments WNL 9 1:38 PM FLOOR SANDING MACHINE OPERATOR Praveena Tejeda, OT * Question Answer Entry Date Author Feature 1: Acute Onset or Fluctuating Course Negative 05/18/2019 8:00 PM FLOOR SANDING MACHINE OPERATOR Kely Caba RN Overall CAM-ICU Negative 05/18/2019 8:00 PM FLOOR SANDING MACHINE OPERATOR Kely Miller RN documented in this encounter Plan of Treatment Not on file documented as of this encounter Visit Diagnoses Not on filedocumented in this encounter Care Teams Classifying Machine Operator Relationship Specialty Start Date End Date Grey Lorenzo MD PCP - General Family Practice 08/16/17 Bobby Romero MD Consulting Physician Transplant 10/21/19 Maryana Haywood RN Nurse Researcher 10/28/19 Irma Valladares, BURT [address] [facility] [address] [place] [address] Nurse Researcher Cardiology 08/10/20 documented as of this encounter
--- OUTSIDE RECORDS SUMMARY | 2025-05-09 02:09 | XMS_ITS | Encounter Summary ---
Author Organization [facility] Address [address] [place] [address] Care Team Providers Care Rug Cutter Name Role Phone Alejandro Stevens Primary Care Provider [phone] Alejandro Stevens Primary Care Provider [phone] Grey Lorenzo MD Primary Care Provider Bobby Romero MD Unavailable [phone] Maryana Haywood RN Unavailable [phone] Irma Valladares RN Unavailable [phone] Encounter Details Date Type Department Care Team (Late st Contact Info) Description 06/20/2016 Orders Only [facility] ProviderElizabeth MD [address] [place] [address] Social History Tobacco Use Types Packs/Day Years Used Date Smoking Tobacco: Never Alcohol Use Standard Drinks/Week Comments No 0 (1 standard drink = 0.6 oz pur e alcohol) Sex and Gender Information Value Date Recorded Sex Assigned at Not on file 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 Gender Identity Not on file Sexual Orientation [...] on filedocumented in this encounter Care Teams Rug Cutter Relationship Specialty Start Date End Date Alejandro Stevens [address] [place] [address] PCP - General 09/06/16 08/15/17 Alejandro Stevens [address] [place] [address] PCP - General 08/07/15 09/05/16 Grey Lorenzo MD [address] [place] [address] PCP - General Family Practice 08/16/17 Bobby Romero MD [address] [place] [address] Consulting Physician Transplant 10/21/19 aMryana Haywood, RN Chief Cloth Finishing Range Operator 10/28/19 Irma Valladares, BURT [address] [address] Chief Cloth Finishing Range Operator Cardiology 08/10/20 documented as of this encounter
--- OUTSIDE RECORDS SUMMARY | 2025-05-09 02:09 | XMS_ITS | Clinical Summary ---
Author Organization [facility] Address [address] [place] [address] Care Team Providers Care Loan Closer Name Role Phone Grey Lorenzo MD Primary Care Provider Source Comments [facility],non-owned Affiliates and Associated Physician Practices is amultiple site organization consisting of ambulatory clinics and hospital sitesin [place], [place], [place] and [place]. This disclosure is being madepursuant to the Care Everywhere program and may not contain all information available regarding this patient. Last updated 18.[facility] Allergies Active Allergy Reactions Criticality Noted Date Comments Penicillins Rash Medium 04/08/2025 Developed full-body rash on 04/08/25 after receiving ampicillin from 04/05/25-04/07/25 (had been on augmentin prior) Lower suspicion was related to cefepime or vancomycin. Tolerating cefprozil (2nd generation cephalosporin) Medications * Be aware that medications may not be up to date on this document. Alwaysverify current medications with the patient. amLODIPine (Norvasc) 10 MG tablet Take 1 (one) tablet by mouth once daily 02/29/20 25 Active atorvastatin (Lipitor) 80 MG tablet Take 1 (one) tablet by mouth at bedtime 02/29/20 25 Active Tresiba FlexTouch 100 UNIT/ML pen Inject 53 (fifty three) Units subcutaneously once daily 04/01/20 25 Active tamsulosin (Flomax) 0.4 MG capsule Take 1 (one) capsule by mouth once daily 02/29/20 25 Active aspirin EC (Ecotrin) 81 MG tablet Take 1 (one) tablet by mouth once daily Active acetaminophen (Tylenol) 325 MG tablet 2 (two) tablets by Enteral Tube route every 6 hours as needed for Fever or Pain Maximum allowable Acetaminophen amount = 4 Grams (4000 mg) / 24 hours. 04/14/20 25 Active losartan (Cozaar) 50 MG tablet Take 1 (one) tablet by mouth once daily 30 tablet 04/14/20 25 Active metoprolol tartrate IR (Lopressor) 100 MG tablet Take 1 (one) tablet by mouth 2 times daily 60 tablet 04/14/20 25 Active clotrimazole (Lotrimin AF) 1 % cream Apply to affected area 2 times daily 04/14/20 Active clopidogrel (plaVIX) 75 MG tablet Take 1 (one) tablet by mouth once daily 30 tablet 04/14/20 25 Active insulin aspart (NovoLOG) pen Inject 0 (zero) Units to 6 (six) Units subcutaneously every 6 hours Low Dose: Correction Insulin BG (mg/dL) Corrective Action LESS than 70 follow Hypoglycemic guidelines 70-180 NO Correction insulin 181-220 GIVE 2 units of insulin 221-260 GIVE 3 units of insulin 261-300 GIVE 4 units of insulin 301-350 GIVE 5 units of insulin Greater than 350 GIVE 6 units of insulin and notify physician DO NOT HOLD if Patient is NPO. If patient has orders for Mealtime insulin combine and give at same time. . WASTE DISPOSAL INSTRUCTIONS: Black Bin Disposal required. 15 mL 04/14/20 25 Active metoprolol succinate XL 24hr (Toprol XL) 100 MG tablet Take 1.5 (one and one-half) tablets by mouth once daily 02/29/20 25 025 Discontinu ed(Clinica l Decision) cefprozil (Cefzil) 500 MG tablet Take 1 (one) tablet by mouth every 12 hours for 1 day 2 tablet 04/14/20 25 025 metroNIDAZOLE (Flagyl) 500 MG tablet Take 1 (one) tablet by mouth every 8 hours for 1 day 3 tablet 04/14/20 25 025 Active Problems Problem Noted Date Diagnosed Date Cerebrovascular accident (CVA), unspecified [facility] 04/05/2025 Encounters Date Type Department Care Team Description 04/05/2025 6:55 PM CDT - 04/14/2025 2:55 PM CONDUIT CLEANER Hospital Encounter [facility] 7S TELE/NEURO [address] [place] [address] Daly Parr MD Duff, Michael P, MD Yu, Yang, MD Eljourni, Ahmed S, MD Ward, Jacques Gordon II, DO Internal Medicine Discharge Disposition: Home or Self Care 04/05/2025 6:44 PM CDT - 04/05/2025 6:54 PM CDT Hospital Encounter [facility] Health Imaging Services - [place] Scan [id number] [place] [address] Bobby Hubbard, DO Discharge Disposition: Home or Self Care 04/05/2025 6:44 PM CDT - 04/05/2025 6:54 PM CDT Hospital Encounter [facility] Health Imaging [place] - [place] Scan [id number] [place] [address] Bobby Hubbard, DO Discharge Disposition: Home or Self Care 04/05/2025 Travel from Last 3 Months Social History Tobacco Use Types Packs/Day Years Used Date Smoking Tobacco: Never Smokeless Tobacco: Never Tobacco Cessation:Counseling Given: Yes Alcohol Use Standard Drinks/Week Comments Never 0 (1 standard drink = 0.6 oz pur e alcohol) PHQ-2 Answer Date Recorded Patient Health Questionnaire-2 Score 0 04/14/2025 AUDIT-C Answer Date Recorded Q1: How often do you have a drink containing alcohol? Never 04/05/2025 Q2: How many drinks containi ng alcohol do you have on a typical day when you are drinking? Patient does not drink Q3: How often do you have si x or more drinks on one occasion? Never 04/05/2025 Overall Financial Resource Strain (CARDIA) Answe r Date Recorded How hard is it for you to pa y for the very basics like food, housing, medical care, and heating? Not hard at all 04/06/2025 [facility] - Occupational Stress Questionnaire Answer Date Recorded Do you feel stress - tense, restless, nervous, or anxious, or unable to sleep at night because your mind is troubled all the time - these days? Patient unable to answer 04/05/2025 Hunger Vital Sign Answer Date Recorded Within the past 12 months, y ou worried that your food would run out before you got the money to buy more. Never true 04/06/20 25 Within the past 12 months, t he food you bought just didn't last and you didn't have money to get more. Never true 04/06/2025 PRAPARE - Transportation Answer Date Re corded In the past 12 months, has l ack of transportation kept you from medical appointments or from getting medications? No 03/10 In the past 12 months, has l ack of transportation kept you from meetings, work, or from getting things needed for daily living? No 04/06/2025 Housing Stability Vital Sign Answer Ryan e Recorded In the last 12 months, was t here a time when you were not able to pay the mortgage or rent on time? Patient unable to answer 04/06/2025 In the past 12 months, how m any times have you moved where you were living? 0 04/06/2025 At any time in the past 12 m [facility], were you homeless or living in a nursing home (including now)? No 04/06/2025 Sex and Gender Information Value Date Recorded Sex Assigned at Not on file Legal Sex Male 12:56 PM CONDUIT CLEANER Gender Identity Not on file Sexual Orientation Not on file Last Filed Vital Signs Vital Sign Reading Time Taken Comments Blood Pressure 120/78 04/14/2025 11:59 AM CONDUIT CLEANER Pulse 71 04/14/2025 11:59 AM CONDUIT CLEANER Temperature 37.3 C (99.1 F) 04/14/2025 11:59 AM CONDUIT CLEANER Respiratory Rate 16 04/14/2025 11:5 9 AM CONDUIT CLEANER Oxygen Saturation 98% 04/14/2025 11: 59 AM CONDUIT CLEANER Inhaled Oxygen Concentration - - Weight 99.2 kg (218 lb 12.8 oz) 04/14/2025 6:55 AM CONDUIT CLEANER Height 172.7 cm (5' 8) 04/05/2025 8:19 PM CDT Body Mass Index 33.27 04/05/2025 8:19 PM CDT Plan of Treatment Health Maintenance Due Date Last Done Comments COLOGUARD (AGES 45-75) - COLON CA SCREENING 1949 CT COLONOGRAPHY - COLON CA SCREENING 1949 FIT - COLON CA SCREENING 1949 FLEX SIG - COLON CA SCREENING 1949 HEPATITIS C SCREENING 10/18/1967 DTAP/TDAP/TD VACCINES (1 - Tdap) 1968 PNEUMOCOCCAL VACCINE 50+ (1 of 1 - PCV) 10/23/1999 ZOSTER VACCINE (1 of 2) 10/23/1999 MEDICARE AWV CALENDAR YEAR 2024 Respiratory Syncytial Virus (RSV) Vaccine Pt: or over 60 yrs (1 - 1-dose 75+ series) 2024 COVID-19 VACCINE ( - season) 2025 05/06/2022, 06/13/2021, 10/26/2020, Additional history exists INFLUENZA VACCINE (#1) 2025 2, 04/12/2021, 07/08/2019, Additional history exists COLON MONITORING 10/17/2029 10/18/2019 COLONOSCOPY - COLON CA SCREENING 10/17/2029 10/18/2019 Colorectal Cancer Screening 10/17/2029 DEPRESSION SCREENING Completed 04/05/2025 HEPATITIS B VACCINE Aged Out No longe r eligible based on patient's age to complete this topic HIB VACCINE Aged Out No longer eligi ble based on patient's age to complete this topic HPV VACCINE Aged Out No longer eligi ble based on patient's age to complete this topic MENINGOCOCCAL (Group B) VACCINE SHARED DECISION-MAKING Aged Out No longer eligible based on patient's age to complete this topic MENINGOCOCCAL GROUPS A/C/Y/W VACCINE Aged Out No longer eligible based on patient's age to complete this topic Medical Devices Implanted Type Area Pulp Screen Operator Device Identifier Shelf Expiration Date Model / Serial / Lot Pacemaker-2022 Implanted:06/20 (Quantity not on file) Pacemaker Chest / [id number]/ [id number] / Procedures Procedure Name Priority Date/Time Associated Diagnosis Comments CARDIAC RHYTHM STRIP ORDER 04/15/2025 6:05 PM CONDUIT CLEANER GLUCOSE - POINT OF CARE Routine 04/14/2025 1:22 PM CONDUIT CLEANER GLUCOSE - POINT OF CARE Routine 04/14/2025 6:44 AM CONDUIT CLEANER PHOSPHORUS BLOOD AM Draw 04/14/2025 4:00 AM CONDUIT CLEANER MAGNESIUM BLOOD AM Draw 04/14/2025 4:00 AM CONDUIT CLEANER COMPREHENSIVE METABOLIC PANEL AM Draw 04/14/2025 4:00 AM CONDUIT CLEANER CBC W AUTO DIFFERENTIAL AM Draw 04/14/2025 4:00 AM CONDUIT CLEANER GLUCOSE - POINT OF CARE Routine 04/14/2025 12:55 AM CONDUIT CLEANER GLUCOSE - POINT OF CARE Routine 04/14/2025 12:38 AM CONDUIT CLEANER GLUCOSE - POINT OF CARE Routine 04/13/2025 4:26 PM CONDUIT CLEANER GLUCOSE - POINT OF CARE Routine 04/13/2025 11:05 AM CONDUIT CLEANER GLUCOSE - POINT OF CARE Routine 04/13/2025 7:02 AM CONDUIT CLEANER PHOSPHORUS BLOOD AM Draw 04/13/2025 12:5 0 AM CONDUIT CLEANER MAGNESIUM BLOOD AM Draw 04/13/2025 12:50 AM CONDUIT CLEANER COMPREHENSIVE METABOLIC PANEL AM Draw 04/13/2025 12:50 AM CONDUIT CLEANER CBC W AUTO DIFFERENTIAL AM Draw 04/13/2025 12:50 AM CONDUIT CLEANER GLUCOSE - POINT OF CARE Routine 04/13/2025 12:40 AM CONDUIT CLEANER GLUCOSE - POINT OF CARE Routine 04/12/2025 5:59 PM CONDUIT CLEANER FL SWALLOWING FUNCTION STUDY Routine 04/12/2025 1:09 PM CONDUIT CLEANER Oropharyngeal dysphagia GLUCOSE - POINT OF CARE Routine 04/12/2025 12:19 PM CONDUIT CLEANER GLUCOSE - POINT OF CARE Routine 04/12/2025 6:29 AM CONDUIT CLEANER PHOSPHORUS BLOOD AM Draw 04/12/2025 12:2 3 AM CONDUIT CLEANER MAGNESIUM BLOOD AM Draw 04/12/2025 12:23 AM CONDUIT CLEANER COMPREHENSIVE METABOLIC PANEL AM Draw 04/12/2025 12:23 AM CONDUIT CLEANER CBC W AUTO DIFFERENTIAL AM Draw 04/12/2025 12:23 AM CONDUIT CLEANER GLUCOSE - POINT OF CARE Routine 04/12/2025 12:19 AM CONDUIT CLEANER GLUCOSE - POINT OF CARE Routine 04/11/2025 8:26 PM CONDUIT CLEANER GLUCOSE - POINT OF CARE Routine 04/11/2025 7:27 PM CONDUIT CLEANER GLUCOSE - POINT OF CARE Routine 04/11/2025 11:55 AM CONDUIT CLEANER GLUCOSE - POINT OF CARE Routine 04/11/2025 6:40 AM CONDUIT CLEANER PHOSPHORUS BLOOD AM Draw 04/11/2025 1:36 AM CONDUIT CLEANER MAGNESIUM BLOOD AM Draw 04/11/2025 1:36 AM CONDUIT CLEANER COMPREHENSIVE METABOLIC PANEL AM Draw 04/11/2025 1:36 AM CONDUIT CLEANER CBC W AUTO DIFFERENTIAL AM Draw 04/11/2025 1:36 AM CONDUIT CLEANER GLUCOSE - POINT OF CARE Routine 04/10/2025 11:39 PM CONDUIT CLEANER GLUCOSE - POINT OF CARE Routine 04/10/2025 8:14 PM CONDUIT CLEANER GLUCOSE - POINT OF CARE Routine 04/10/2025 4:17 PM CONDUIT CLEANER XR ABDOMEN KUB STAT 04/10/2025 12:23 PM CONDUIT CLEANER Cerebrovascular accident (CVA), unspecified mechanism (HCC) GLUCOSE - POINT OF CARE Routine 04/10/2025 11:11 AM CONDUIT CLEANER GLUCOSE - POINT OF CARE Routine 04/10/2025 6:16 AM CONDUIT CLEANER PHOSPHORUS BLOOD AM Draw 04/10/2025 1:07 AM CDT MAGNESIUM BLOOD AM Draw 04/10/2025 1:07 AM CDT COMPREHENSIVE METABOLIC PANEL AM Draw 04/10/2025 1:07 AM CDT CBC W AUTO DIFFERENTIAL AM Draw 04/10/2025 1:07 AM CDT GLUCOSE - POINT OF CARE Routine 04/09/2025 11:29 PM CDT GLUCOSE - POINT OF CARE Routine 04/09/2025 8:04 PM CDT GLUCOSE - POINT OF CARE Routine 04/09/2025 6:18 PM CDT GLUCOSE - POINT OF CARE Routine 04/09/2025 12:31 PM CDT GLUCOSE - POINT OF CARE Routine 04/09/2025 5:58 AM CDT PHOSPHORUS BLOOD AM Draw 04/09/2025 3:41 AM CDT MAGNESIUM BLOOD AM Draw 04/09/2025 3:41 AM CDT COMPREHENSIVE METABOLIC PANEL AM Draw 04/09/2025 3:41 AM CDT CBC W AUTO DIFFERENTIAL AM Draw 04/09/2025 3:41 AM CDT GLUCOSE - POINT OF CARE Routine 04/09/2025 1:17 AM CDT GLUCOSE - POINT OF CARE Routine 04/08/2025 6:06 PM CDT GLUCOSE - POINT OF CARE Routine 04/08/2025 1:[address] FACIAL BONES W CONTRAST STAT 04/08/2025 1:18 PM CDT Gram-positive bacteremia CT CHEST WO CONTRAST STAT 04/08/2025 1:13 PM CDT Gram-positive bacteremia MRI BRAIN WO CONTRAST Routine 04/08/2025 12:46 PM CDT Cerebrovascular accident (CVA), unspecified mechanism (HCC) BLOOD GASES ARTERIAL Routine 04/08/2025 10:14 AM CDT PHOSPHORUS BLOOD AM Draw 04/08/2025 6:04 AM CDT MAGNESIUM BLOOD AM Draw 04/08/2025 6:04 AM CDT COMPREHENSIVE METABOLIC PANEL AM Draw 04/08/2025 6:04 AM CDT GLUCOSE - POINT OF CARE Routine 04/08/2025 5:44 AM CDT BLOOD GASES ELI Routine 04/08/2025 4:46 AM CDT CBC W AUTO DIFFERENTIAL AM Draw 04/08/2025 4:01 AM CDT VANCOMYCIN LEVEL TROUGH Timed 04/08/2025 1:14 AM CDT GLUCOSE - POINT OF CARE Routine 04/07/2025 11:55 PM CDT XR ABDOMEN KUB STAT 04/07/2025 11:18 PM CDT Encounter for feeding tube placement GLUCOSE - POINT OF CARE Routine 04/07/2025 5:40 PM CDT XR ABDOMEN KUB STAT 04/07/2025 12:03 PM CDT Cerebrovascular accident (CVA), unspecified mechanism (HCC) Meningitis (HCC) GLUCOSE - POINT OF CARE Routine 04/07/2025 11:54 AM CDT GLUCOSE - POINT OF CARE Routine 04/07/2025 5:25 AM CDT BLOOD GASES ELI Routine 04/07/2025 4:30 AM CDT PHOSPHORUS BLOOD AM Draw 04/07/2025 4:18 AM CDT MAGNESIUM BLOOD AM Draw 04/07/2025 4:18 AM CDT COMPREHENSIVE METABOLIC PANEL AM Draw 04/07/2025 4:18 AM CDT CBC W AUTO DIFFERENTIAL AM Draw 04/07/2025 4:18 AM CDT XR CHEST 1VW PORTABLE Routine 04/07/2025 1:53 AM CDT Meningitis (HCC) GLUCOSE - POINT OF CARE Routine 04/07/2025 12:02 AM CDT GLUCOSE - POINT OF CARE Routine 04/06/2025 5:55 PM CDT ECHO COMPLETE W CONTRAST Routine 04/06/2025 3:56 PM CDT Cerebrovascular accident (CVA), unspecified mechanism (HCC) LACTIC ACID BLOOD Timed 04/06/2025 1:0 9 PM CDT GLUCOSE - POINT OF CARE Routine 04/06/2025 12:04 PM CDT CULTURE BLOOD STAT 04/06/2025 9:22 AM CDT CULTURE BLOOD STAT 04/06/2025 9:08 AM CDT GLUCOSE - POINT OF CARE Routine 04/06/2025 8:28 AM CDT LACTIC ACID BLOOD Timed 04/06/2025 8:1 8 AM CDT VANCOMYCIN LEVEL TROUGH Timed 04/06/2025 8:18 AM CDT URINALYSIS REFLEX MICROSCOPIC REFLEX CULTURE Routine 04/06/2025 8:17 AM CDT CULTURE URINE Routine 04/06/2025 8:17 AM CDT GLUCOSE - POINT OF CARE Routine 04/06/2025 4:45 AM CDT GLUCOSE - POINT OF CARE Routine 04/06/2025 4:11 AM CDT VANCOMYCIN LEVEL PEAK Timed 04/06/2025 1:45 AM CDT BASIC METABOLIC PANEL (CALCIUM TOTAL) AM Draw 04/06/2025 1:45 AM CDT HEPATIC FUNCTION PANEL AM Draw 1:45 AM CDT CBC W/O DIFFERENTIAL AM Draw 04/06/2025 1:45 AM CDT MAGNESIUM BLOOD AM Draw 04/06/2025 1:45 AM CDT PHOSPHORUS BLOOD AM Draw 04/06/2025 1:45 AM CDT LIPID PROFILE AM Draw 04/06/2025 1:45 AM CDT GLUCOSE - POINT OF CARE Routine 04/06/2025 12:16 AM CDT XR ABDOMEN KUB STAT 04/05/2025 10:17 PM CDT Cerebrovascular accident (CVA), unspecified mechanism (HCC) Meningitis (HCC) BLOOD GASES ELI + COOX PANEL STAT 04/05/2025 8:43 PM CDT GLUCOSE - POINT OF CARE Routine 04/05/2025 8:16 PM CDT NT-PRO BNP STAT 04/05/2025 8:12 PM CDT CBC W AUTO DIFFERENTIAL STAT 04/05/2025 8:12 PM CDT COMPREHENSIVE METABOLIC PANEL STAT 04/05/2025 8:12 PM CDT MAGNESIUM BLOOD STAT 04/05/2025 8:12 PM CDT PHOSPHORUS BLOOD STAT 04/05/2025 8:12 PM CDT TROPONIN-I HIGH SENSITIVE BASELINE + 1HR STAT 04/05/2025 8:12 PM CDT HEMOGLOBIN A1C Add on 04/05/2025 8:12 PM CDT GLUCOSE - POINT OF CARE Routine 04/05/2025 7:[address] ANGIO BRAIN AND NECK STAT 04/05/2025 7:01 PM CDT Cerebrovascular accident (CVA), unspecified mechanism (HCC) CT CEREBRAL PERFUSION ANALYSIS STAT 04/05/2025 6:58 PM CDT Cerebrovascular accident (CVA), unspecified mechanism (HCC) from Last 3 Months Results * CARDIAC RHYTHM STRIP ORDER (04/15/2025 6:05 PM CONDUIT CLEANER) Narrative 04/15/2025 6:05 PM CONDUIT CLEANER Ordered by an unspecified provider. us Scanned Document CARDIAC SERVICES ORDERABLES Fin al Result * (ABNORMAL) GLUCOSE - POINT OF CARE (04/14/2025 1:22 PM CONDUIT CLEANER) Only the most recent of43 resultswithin the time period is included. Glucose WB/POC 177(H) 70 - 99 mg/dL 04/14/2025 1:23 PM CONDUIT CLEANER [facility] Specimen Type Arterial/C apillary 04/14/2025 1:23 PM CONDUIT CLEANER [facility] Blood BLOOD SPECIMEN / Unknown 04/14/2025 1:22 PM CONDUIT CLEANER 04/14/2025 1:23 PM CONDUIT CLEANER us Jacques Gordon Luz II, DO LAB - POINT OF CARE ORDERABLE S Final Result [facility] [address] [place] [address] * (ABNORMAL) CBC W AUTO DIFFERENTIAL (04/14/2025 4:00 AM CONDUIT CLEANER) Only the most recent of9 resultswithin the time period is included. WBC 7.8 4.0 - 10.7 x10E9/L 04/14/2025 5:23 AM [facility] RBC Count 4.98 4.30 - 5.80 x10E12/L 04/14/2025 5:23 AM [facility] Hemoglobin 13.6 13.3 - 17.5 g/dL 04/14/2025 5:23 AM [facility] Hematocrit 43.2 38.7 - 51.1 % 04/14/2025 5:23 AM [facility] MCV 86.7 80.0 - 98.0 fL 04/14/2025 5:23 AM [facility] MCH 27.3 26.7 - 33.6 pg 04/14/2025 5:23 AM [facility] MCHC 31.5(L) 31.7 - 36.3 g/dL 04/14/2025 5:23 AM [facility] RDW-CV 14.6 11.3 - 14.8 % 04/14/2025 5:23 AM [facility] Platelet Count 203 150 - 420 x10E9/L 04/14/2025 5:23 AM [facility] MPV 9.6 7.8 - 11.4 fL 04/14/2025 5:23 AM [facility] Neutrophil % 69.2 41.0 - 74.0 % 04/14/2025 5:23 AM [facility] Lymphocyte % 19.5 17.0 - 47.0 % 04/14/2025 5:23 AM [facility] Monocyte % 7.1 3.0 - 11.0 % 04/14/2025 5:23 AM [facility] Eosinophil % 2.5 0.0 - 7.0 % 04/14/2025 5:23 AM [facility] Basophil % 0.8 0.0 - 1.6 % 04/14/2025 5:23 AM [facility] Immature Granulocytes % 0.9 0.0 - 1.0 % 04/14/2025 5:23 AM [facility] Neutrophil Absolute 5.37 1.60 - 7.50 x10E9/L 04/14/2025 5:23 AM [facility] Lymphocyte Absolute 1.51 1.00 - 4.40 x10E9/L 04/14/2025 5:23 AM [facility] Monocyte Absolute 0.55 0.15 - 1.00 x10E9/L 04/14/2025 5:23 AM [facility] Eosinophil Absolute 0.19 0.00 - 0.60 x10E9/L 04/14/2025 5:23 AM [facility] Basophil Absolute 0.06 0.00 - 0.13 x10E9/L 04/14/2025 5:23 AM [facility] Blood BLOOD SPECIMEN / Unknown Venipuncture / Unknown 04/14/2025 4:00 AM CONDUIT CLEANER 04/14/2025 5:13 AM [facility] us Feng Mercado MD LAB - HEMATOLOGY ORDERABLES Fi nal Result [facility] [id number] [place] [address] * (ABNORMAL) COMPREHENSIVE METABOLIC PANEL (04/14/2025 4:00 AM [facility]) Only the most recent of9 resultswithin the time period is included. Glucose 186(H) 70 - 99 mg/dL 04/14/2025 5:42 AM [facility] Sodium 137 136 - 145 mmol/L 04/14/2025 5:42 AM [facility] Potassium 3.8 3.5 - 5.1 mmol/L 04/14/2025 5:42 AM [facility] Chloride 105 98 - 107 mmol/L 04/14/2025 5:42 AM [facility] CO2 22 22 - 29 mmol/L 04/14/2025 5:42 AM [facility] Calcium 8.5 8.4 - 10.4 mg/dL 04/14/2025 5:42 AM [facility] Anion Gap 10 6 - 16 mmol/L 04/14/2025 5:42 AM [facility] BUN 10 7 - 26 mg/dL 04/14/2025 5:42 AM [facility] Creatinine 0.78 0.70 - 1.30 mg/dL 04/14/2025 5:42 AM [facility] Alkaline Phosphatase 81 40 - 150 U/L 04/14/2025 5:42 AM [facility] ALT 22 6 - 57 U/L 04/14/2025 5:42 AM [facility] AST 31 10 - 48 U/L 04/14/2025 5:42 AM [facility] Protein Total 6.8 6.4 - 8.3 gm/dL 04/14/2025 5:42 AM [facility] Albumin 3.0(L) 3.1 - 4.5 gm/dL 04/14/2025 5:42 AM [facility] Bilirubin Total 0.9 0.2 - 1.2 mg/dL 04/14/2025 5:42 AM [facility] eGFR by CKD-EPI >90 >=90 mL/min/1.7 3 m2 04/14/2025 5:42 AM [facility] Comment:Estimated Glomerular Filtration Rate (eGFR) calculated using the CKD-EPI Creatinine Equation (2020), per the National Kidney Foundation and [place] [employer] recommendations. Blood BLOOD SPECIMEN / Unknown Venipuncture / Unknown 04/14/2025 4:00 AM CONDUIT CLEANER 04/14/2025 5:13 AM [facility] us Feng Mercado MD LAB - CHEMISTRY ORDERABLES Fin al Result [facility] [address] [place] [address] * (ABNORMAL) PHOSPHORUS BLOOD (04/14/2025 4:00 AM [facility]) Only the most recent of10 resultswithin the time period is included. Phosphorus 2.0(L) 2.5 - 4.5 mg/dL 04/14/2025 5:42 AM [facility] Blood BLOOD SPECIMEN / Unknown Venipuncture / Unknown 04/14/2025 4:00 AM CONDUIT CLEANER 04/14/2025 5:13 AM CONDUIT CLEANER Feng Mercado MD LAB - CHEMISTRY ORDERABLES Fin al Result Performing Organization Address [facility] de Phone Number [facility] [id number] [place] [address] * MAGNESIUM BLOOD (04/14/2025 4:00 AM CONDUIT CLEANER) Only the most recent of10 resultswithin the time period is included. Magnesium 1.9 1.6 - 2.6 mg/dL 04/14/2025 5:42 AM CONDUIT CLEANER [facility] Blood BLOOD SPECIMEN / Unknown Venipuncture / Unknown 04/14/2025 4:00 AM CONDUIT CLEANER 04/14/2025 5:13 AM CONDUIT CLEANER Feng Mercado MD LAB - CHEMISTRY ORDERABLES Fin al Result Performing Organization Address [facility] de Phone Number [facility] [id number] [place] [address] * MODIFIED BARIUM SWALLOW W/SPEECH (04/12/2025 1:09 PM CONDUIT CLEANER) Anatomical Region Laterality Modality Chest Computed Radiogr aphy 04/12/2025 1:30 PM CONDUIT CLEANER Narrative 04/12/2025 1:30 PM CONDUIT CLEANER PROCEDURE: FL SWALLOWING FUNCTION STUDY, DATE/TIME OF EXAM: 04/12/2025 1:10 PM, LOCATION [facility] INDICATION: R13.12: Oropharyngeal dysphagia ADDITIONAL CLINICAL INFORMATION: Ordering Provider Reason For Exam: Technologist Note: Additional: COMPARISON: None. FLUOROSCOPY DOSE: 2.16 mGy Reference air kerma (ka,r). FLUOROSCOPY TIME: 2 minutes; Number of images: TECHNIQUE: Modified barium swallow fluoroscopy performed in conjunction with speech pathology staff. The speech pathologist administered varying thickness barium liquids and solids under direct Cine fluoroscopy. FINDINGS/IMPRESSION: Fluoroscopic assistance was provided for a modified barium swallow test performed by Speech Therapy. Please see the Speech Therapy report for details. > Interpreting Provider: Bobby Landa MD on 04/12/2025 1:30 PM Procedure Note Bobby Landa MD - 04/12/2025 PROCEDURE: FL SWALLOWING FUNCTION STUDY, DATE/TIME OF EXAM: 04/12/2025 1:10 PM, LOCATION [facility] INDICATION: R13.12: Oropharyngeal dysphagia ADDITIONAL CLINICAL INFORMATION: Ordering Provider Reason For Exam: Technologist Note: Additional: COMPARISON: None. FLUOROSCOPY DOSE: 2.16 mGy Reference air kerma (ka,r). FLUOROSCOPY TIME: 2 minutes; Number of images: TECHNIQUE: Modified barium swallow fluoroscopy performed in conjunction with speech pathology staff. The speech pathologist administered varying thickness barium liquids and solids under direct Cine fluoroscopy. FINDINGS/IMPRESSION: Fluoroscopic assistance was provided for a modified barium swallow test performed by Speech Therapy. Please see the Speech Therapy report for details. > Interpreting Provider: Bobby Landa MD on 04/12/2025 1:30 PM Reggie Cagle MD FLUOROSCOPY ORDERABLES Final Res ult * XR Abdomen Kub (04/10/2025 12:23 PM CONDUIT CLEANER) Only the most recent of4 resultswithin the time period is included. Anatomical Region Laterality Modality Abdomen Computed Radiogr aphy 04/10/2025 12:2 4 PM CONDUIT CLEANER Impressions 04/10/2025 12:25 PM CONDUIT CLEANER IMPRESSION: Feeding tube placement as described above. > Interpreting Provider: David Stiles MD on 04/10/2025 12:25 PM Narrative 04/10/2025 12:25 PM CONDUIT CLEANER PROCEDURE: XR ABDOMEN KUB DATE/TIME OF EXAM: 04/10/2025 12:23 PM CLINICAL INFORMATION: Feeding tube placement. Indication: I63.9: Cerebrovascular accident (CVA), unspecified mechanism (HCC) Additional History: COMPARISON: April 07, 2025 FINDINGS: Single view of the abdomen demonstrates insertion of a feeding tube with the tip located overlying the spine, probably in the distal stomach. awake overnight monitor wires obscure the abdomen and lower chest. No mass effect or pathologic calcifications. No acute osseous abnormalities. Procedure Note David Stiles MD - 04/10/2025 PROCEDURE: XR ABDOMEN KUB DATE/TIME OF EXAM: 04/10/2025 12:23 PM CLINICAL INFORMATION: Feeding tube placement. Indication: I63.9: Cerebrovascular accident (CVA), unspecified mechanism (HCC) Additional History: COMPARISON: April 07, 2025 FINDINGS: Single view of the abdomen demonstrates insertion of a feeding tube with the tip located overlying the spine, probably in the distal stomach. awake overnight monitor wires obscure the abdomen and lower chest. No masseffect or pathologic calcifications. No acute osseous abnormalities. IMPRESSION: Feeding tube placement as described above. > Interpreting Provider: David Stiles MD on 04/10/2025 12:25 PM Reggie Cagle MD DIAGNOSTIC IMAGING ORDERABLES Fi nal Result * CT Facial Bones W Contrast (04/08/2025 1:18 PM CDT) Anatomical Region Laterality Modality Head Computed Tomogra phy 04/08/2025 1:25 PM CDT Impressions 04/08/2025 1:34 PM CDT IMPRESSION: 1. No focal inflammatory process or abscess is identified within the face or upper neck. 2. Occluded LEFT internal carotid artery. 3. No significant paranasal sinus or middle ear disease. Mildly opacified left mastoid air cells. 4. Several dental caries and mild periodontal disease. Correlate with oral examination. > Interpreting Provider: Hugo Graham DO on 04/08/2025 1:34 PM Narrative 04/08/2025 1:34 PM CDT PROCEDURE: CT FACIAL BONES W CONTRAST DATE/TIME OF EXAM: 04/08/2025 1:18 PM CLINICAL INFORMATION: Gram-positive bacteremia. Sepsis. Oral infection. COMPARISON: MRI brain 04/08/2025. TECHNIQUE: CT of the maxillofacial bones was performed utilizing standard protocol. CT dose reduction technique was used, including Automated Exposure Control. IV CONTRAST: IOPAMIDOL 76 % IV SOLN:80 mL FINDINGS: No inflammation or focal drainable fluid collection is seen within the face or upper neck. Parotid glands are symmetric as are the submandibular glands. There is no inflammation or fluid collection within the floor of mouth. Right-sided NG tube passes into the hypopharynx. The parapharyngeal and retropharyngeal spaces are normal without fluid collection. Small lymph nodes are present within the neck bilaterally but no enlarged or suppurative lymphadenopathy is identified. No significant paranasal sinus disease. Multiple dental caries and accompanying periodontal disease. The right mastoid air cells and both middle ear cavities are clear. Mildly opacified left mastoid air cells without aggressive bone destruction or coalescence. The central skull base is intact. Again noted is an occluded left internal carotid artery. Right carotid bifurcation atherosclerosis. No jugular vein thrombosis. Procedure Note Hugo Graham DO - 04/08/2025 PROCEDURE: CT FACIAL BONES W CONTRAST DATE/TIME OF EXAM: 04/08/2025 1:18 PM CLINICAL INFORMATION: Gram-positive bacteremia. Sepsis. Oral infection. COMPARISON: MRI brain 04/08/2025. TECHNIQUE: CT of the maxillofacial bones was performed utilizing standard protocol. CT dose reduction technique was used, including Automated ExposureControl. IV CONTRAST: IOPAMIDOL 76 % IV SOLN:80 mL FINDINGS: No inflammation or focal drainable fluid collection is seen within theface or upper neck. Parotid glands are symmetric as are the submandibular glands. There isno inflammation or fluid collection within the floor of mouth. Right-sidedNG tube passes into the hypopharynx. The parapharyngeal and retropharyngeal spaces are normal without fluid collection. Small lymph nodes are present within the neck bilaterally but noenlarged or suppurative lymphadenopathy is identified. No significant paranasal sinus disease. Multiple dental caries and accompanying periodontal disease. The right mastoid air cells and both middle ear cavities are clear. Mildly opacified left mastoid air cells without aggressive bone destruction or coalescence. The central skullbase is intact. Again noted is an occluded left internal carotid artery. Right carotid bifurcation atherosclerosis. No jugular vein thrombosis. IMPRESSION: 1. No focal inflammatory process or abscess is identified within theface or upper neck. 2. Occluded LEFT internal carotid artery. 3. No significant paranasal sinus or middle ear disease. Mildlyopacified left mastoid air cells. 4. Several dental caries and mild periodontal disease. Correlate withoral examination. > Interpreting Provider: Hugo Graham DO on 04/08/2025 1:34 PM us Daly Parr MD CT ORDERABLES Final Result * CT CHEST NON CONTRAST (04/08/2025 1:13 PM CDT) Anatomical Region Laterality Modality Chest Computed Tomogra phy 04/08/2025 2:25 PM CDT Impressions 04/08/2025 2:31 PM CDT IMPRESSION: 1. Nodular groundglass opacities seen bilaterally most likely represents multifocal pneumonia. Follow-up to radiographic resolution is recommended. 2. Trace dependent bilateral pleural effusions. > Interpreting Provider: Hugo Graham DO on 04/08/2025 2:31 PM Narrative 04/08/2025 2:31 PM CDT PROCEDURE: CT CHEST WO CONTRAST DATE/TIME OF EXAM: 04/08/2025 1:13 PM CLINICAL INFORMATION: Gram-positive bacteremia. COMPARISON: Chest radiograph 04/07/2025. TECHNIQUE: CT of the chest was performed without intravenous contrast utilizing standard protocol. CT dose reduction technique was used, including Automated Exposure Control. FINDINGS: Mildly degraded by respiratory motion artifact. Trace dependent bilateral pleural effusions. There are nodular groundglass opacities involving both the upper and lower lobes but greater dependently within the lower lobes, right slightly more than left. In the acute setting, evidence of pneumonia. Follow-up to radiographic resolution. There is dynamic collapse of the central airways. No endoluminal debris is identified. No evidence of a pneumothorax. Cardiomegaly. No pericardial effusion. Coronary arterial calcifications status post CABG. There are several mediastinal lymph nodes many of which reveal fatty ronda. There is no bulky adenopathy. No pneumomediastinum. Aorta is atherosclerotic but nonaneurysmal. Enlargement of the pulmonary trunk may indicate the presence of underlying pulmonary hypertension. Left chest wall pacemaker. No bulky axillary adenopathy. Limited assessment of upper abdomen demonstrates cholelithiasis. Thoracic spondylosis and/or DISH. No compression fracture. No aggressive bone or endplate destructive process. Procedure Note Hugo Graham DO - 04/08/2025 PROCEDURE: CT CHEST WO CONTRAST DATE/TIME OF EXAM: 04/08/2025 1:13 PM CLINICAL INFORMATION: Gram-positive bacteremia. COMPARISON: Chest radiograph 04/07/2025. TECHNIQUE: CT of the chest was performed without intravenous contrast utilizing standard protocol. CT dose reduction technique was used, including Automated ExposureControl. FINDINGS: Mildly degraded by respiratory motion artifact. Trace dependent bilateral pleural effusions. There are nodulargroundglass opacities involving both the upper and lower lobes but greaterdependently within the lower lobes, right slightly more than left. In the acute setting, evidence of pneumonia. Follow-up to radiographic resolution. There is dynamic collapse of the central airways. No endoluminal debrisis identified. No evidence of a pneumothorax. Cardiomegaly. No pericardial effusion. Coronary arterial calcifications status post CABG. There are several mediastinal lymph nodes many ofwhich reveal fatty ronda. There is no bulky adenopathy. No pneumomediastinum. Aorta is atherosclerotic but nonaneurysmal. Enlargement of the pulmonary trunk may indicate the presence of underlying pulmonary hypertension. Left chest wall pacemaker. No bulky axillary adenopathy. Limited assessment of upper abdomen demonstrates cholelithiasis. Thoracic spondylosis and/or DISH. No compression fracture. No aggressive bone or endplate destructive process. IMPRESSION: 1. Nodular groundglass opacities seen bilaterally most likely represents multifocal pneumonia. Follow-up to radiographic resolution isrecommended. 2. Trace dependent bilateral pleural effusions. > Interpreting Provider: Hugo Graham DO on 04/08/2025 2:31 PM Daly Parr MD CT ORDERABLES Final Result * MRI Brain Wo Contrast (04/08/2025 12:46 PM CDT) Anatomical Region Laterality Modality Head Magnetic Resonan ce 04/08/2025 1:05 PM CDT Impressions 04/08/2025 1:15 PM CDT IMPRESSION: No acute infarct. Changes related to chronic small vessel ischemic disease and cerebral atrophy. > Interpreting Provider: Melissa Jackson MD on 04/08/2025 1:15 PM Narrative 04/08/2025 1:15 PM CDT PROCEDURE: MRI BRAIN WO CONTRAST, DATE/TIME OF EXAM: 04/08/2025 12:46 PM, LOCATION [facility] INDICATION: I63.9: Cerebrovascular accident (CVA), unspecified mechanism (HCC) ADDITIONAL CLINICAL INFORMATION: Ordering Provider Reason For Exam: Technologist Note: Additional: COMPARISON: None. TECHNIQUE: MRI of the brain was performed without contrast. FINDINGS: Bilateral periventricular white matter hyperintensity. Prominent ventricles and cerebral sulci, consistent with cerebral atrophy. No diffusion restriction to suggest acute infarct is seen. No evidence of hemorrhage is seen on gradient sequence. Midline structures are not displaced. No mass or mass effect is seen. Vascular flow-voids are normal. Clear paranasal sinuses.. The calvarium has normal marrow signal intensity. Procedure Note Melissa Jackson MD - 04/08/2025 PROCEDURE: MRI BRAIN WO CONTRAST, DATE/TIME OF EXAM: 04/08/2025 12:46PM, LOCATION [facility] INDICATION: I63.9: Cerebrovascular accident (CVA), unspecified mechanism (HCC) ADDITIONAL CLINICAL INFORMATION: Ordering Provider Reason For Exam: Technologist Note: Additional: COMPARISON: None. TECHNIQUE: MRI of the brain was performed without contrast. FINDINGS: Bilateral periventricular white matter hyperintensity.Prominent ventricles and cerebral sulci, consistent with cerebral atrophy. No diffusion restriction to suggest acute infarct is seen. No evidence of hemorrhage is seen on gradient sequence. Midline structures are not displaced. No mass or mass effect is seen. Vascular flow-voids are normal. Clear paranasal sinuses.. The calvariumhas normal marrow signal intensity. IMPRESSION: No acute infarct. Changes related to chronic small vessel ischemic disease and cerebral atrophy. 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 MANAGER MR ORDERABLES Final R esult * (ABNORMAL) BLOOD GASES ARTERIAL (04/08/2025 10:14 AM CDT) pH Arterial 7.45 7.35 - 7.45 pH 04/08/2025 10:30 AM CDT [facility] pO2 Arterial 74(L) 80 - 100 mmHg 04/08/2025 10:30 AM CDT [facility] pCO2 Arterial 42 35 - 45 mmHg 04/08/2025 10:30 AM CDT [facility] HCO3 Arterial 29.2(H) 22.0 - 26.0 mmol/L 04/08/2025 10:30 AM CDT [facility] BE Arterial 4.7(H) -2.0 - 2.0 mmol/L 04/08/2025 10:30 AM CDT [facility] O2 Saturation Arterial 97 90 - 100 % 04/08/2025 10:30 AM CDT [facility] Ryan's Test Yes 04/08/2025 10:30 AM CDT [facility] Sample Site Right RA 04/08/2025 10:30 AM CDT [facility] O2 Device Cannula 04/08/2025 10:30 AM CDT [facility] Liter Flow (LPM) 2 04/08/2025 10:30 AM CDT [facility] Blood, arterial ARTERIAL BLOOD SPECIMEN / Unknown 04/08/2025 10:14 AM CDT 04/08/2025 10:14 AM CDT us Daly Parr MD LAB - BLOOD GASES ORD ERABLES Final Result Performing Organization Address City/[facility] Co de Phone Number [facility] [id number] [phone] * (ABNORMAL) BLOOD GASES ELI (04/08/2025 4:46 AM CDT) Only the most recent of2 resultswithin the time period is included. pH Venous 7.41 7.32 - 7.42 pH 04/08/2025 4:49 AM CDT [facility] pO2 Venous 68(H) 35 - 40 mmHg 04/08/2025 4:49 AM CDT [facility] pCO2 Venous 42 40 - 50 mmHg 04/08/2025 4:49 AM CDT [facility] HCO3 Venous 26.6(H) 24 - 26 mmol/L 04/08/2025 4:49 AM CDT [facility] Base Excess Venous 1.7 -2.0 - 2.0 mmol/L 04/08/2025 4:49 AM CDT [facility] O2 Saturation Venous 96 >=70 % 04/08/2025 4:49 AM CDT [facility] Ryan's Test NA 04/08/2025 4:49 AM CDT [facility] Blood BLOOD SPECIMEN / Unknown 04/08/2025 4:46 AM CDT 04/08/2025 4:46 AM CDT Mushtaq Barrow DO LAB - BLOOD GASES ORDERABLES F inal Result [facility] RESP THERAPY [id number] [id number] [phone] * VANCOMYCIN LEVEL TROUGH (04/08/2025 1:14 AM CDT) Only the most recent of2 resultswithin the time period is included. Vancomycin Trough 17.8 10.0 - 20.0 ug/mL 04/08/2025 1:46 AM CDT [facility] Blood BLOOD SPECIMEN / Unknown Venipuncture / Unknown 04/08/2025 1:14 AM CDT 04/08/2025 1:16 AM CDT Feng Mercado MD LAB - CHEMISTRY ORDERABLES Fin al Result Performing Organization Address [facility] Co de Phone Number [facility] [id number] [place] [address] * XR CHEST 1VW PORTABLE (04/07/2025 1:53 AM CDT) Anatomical Region Laterality Modality Chest Computed Radiogr aphy 04/07/2025 7:12 AM CDT Narrative 04/07/2025 7:13 AM CDT XR CHEST 1VW PORTABLE INDICATION: G03.9: Meningitis (HCC). COMPARISON: None. FINDINGS: Left-sided pacemaker is present with lead tips in the right atrium and right ventricle. Midline sternal wires and atrial appendage clip are present. Low lung volumes are present with hypoventilatory changes. Small left basilar pleural effusion may be present. There is no pneumothorax. The heart size is enlarged. > Interpreting Provider: Adam King MD on 04/07/2025 7:13 AM Procedure Note Adam King MD - 04/07/2025 XR CHEST 1VW PORTABLE INDICATION: G03.9: Meningitis (HCC). COMPARISON: None. FINDINGS: Left-sided pacemaker is present with lead tips in the right atrium and right ventricle. Midline sternal wires and atrial appendageclip are present. Low lung volumes are present with hypoventilatory changes. Small left basilar pleural effusion may be present. There is no pneumothorax. The heart size is enlarged. > Interpreting Provider: Adam King MD on 04/07/2025 7:13 AM us Feng Mercado MD DIAGNOSTIC IMAGING ORDERABLES Final Result * ECHO COMPLETE W CONTRAST (04/06/2025 3:56 PM CDT) IVSd 2D 1.354 cm SSM CV FUJ I PACS LVIDd 3.742 cm SSM CV FUJ I PACS LVIDs 2.717 cm SSM CV FUJ I PACS LVOT diam 1.971 cm SSM CV FUJ I PACS LVPWd 1.406 cm SSM CV FUJ I PACS LV A4C EF 58.848 % SSM CV FUJ I PACS LV EDV A4C 92.136 ml SSM CV FU JI PACS LV ESV A4C 37.916 ml SSM CV FU JI PACS LVOT pk grad 3.115 mmHg SSM CV FUJI PACS LVOT pk reji 88.251 cm/s SSM CV F UJI PACS LVOT VTI 18.627 cm SSM CV FUJ I PACS LA size 5.252 cm SSM CV FUJ I PACS LA vol BP 70.062 ml SSM CV FUJ I PACS AV area pk reji 1.827 cm SSM CV FUJI PACS AV area cont VTI 2.011 cm SSM CV FUJI PACS AV pk grad 8.692 mmHg SSM CV FU JI PACS AV mn grad 5.134 mmHg SSM CV FU JI PACS AV pk reji 147.411 cm/s SSM CV FUJ I PACS AV VTI 28.278 cm SSM CV FUJ I PACS MV E pk reji 131.684 cm/s SSM CV F UJI PACS MV E' lateral reji 12.895 cm/s SS M CV FUJI PACS PV pk reji 111.075 cm/s SSM CV FUJ I PACS TR pk reji 335.009 cm/s SSM CV FUJ I PACS AV area index 0.93 cm /m SSM CV FUJI PACS LA vol index 0.032 l/m SSM CV FUJI PACS Dimensionless Index 0.659 unitless SSM CV FUJI PACS Myocardial strain charge 2 unitless SSM CV FUJI PACS Anatomical Region Laterality Modality Ultrasound 04/06/2025 7:33 AM CDT Narrative 04/06/2025 6:59 PM CDT Summary * Left ventricular systolic function is normal with an estimated ejection fraction of 55-60% by visual estimate. * There is mild concentric left ventricular wall thickness. * The left ventricular mass is normal with concentric remodeling. * Left ventricular segmental wall motion is grossly normal, however endocardial definition is limited despite contrast. * The left atrium is dilated with a left atrial volume index of 32 ml/m2 by BP MOD. * The right atrium is dilated. * There is mild aortic valve stenosis. Patient Info Name: Chely Eng Age: 74 years : 1950 Gender: Male Ht: 68 in Wt: 209 lb BSA: 2.16 m2 HR: 74 bpm BP: 144 / 70 mmHg Exam Date: 04/06/2025 7:33 AM Patient Status: I/P Study Site: [facility] Primary Location: [facility] EStudy Info Exam Type: ECHO COMPLETE W CONTRAST Indications I63.9 - Cerebrovascular accident (CVA), unspecified mechanism (HCC) Procedure(s) * A complete 2D, color Doppler, spectral Doppler and M-Mode transthoracic echocardiogram was performed with Definity and a Bubble Study. Reason for Technically Difficult Study: restricted mobility Staff Referring Physician: Mushtaq Barrow Ordering Provider: Mushtaq Barrow Attending Physician: Mushtaq Barrow Digital Circuit Designer: Mark Montgomery Left Ventricle Left ventricular systolic function is normal with an estimated ejection fraction of 55-60% by visual estimate. There is mild concentric left ventricular wall thickness. The left ventricular mass is normal with concentric remodeling. Left ventricular segmental wall motion is grossly normal, however endocardial definition is limited despite contrast. Right Ventricle The right ventricle is dilated. Left Atrium The left atrium is dilated with a left atrial volume index of 32 ml/m2 by BP MOD. Right Atrium The right atrium is dilated. Aortic Valve Cannot r/o mild Aortic stenosis. The aortic valve is not well visualized and mildly calcified. There is mild aortic valve stenosis. Pulmonic Valve The pulmonic valve is not well visualized. There is no pulmonic valve stenosis. Mitral Valve The mitral valve is not well visualized. There is mild mitral valve regurgitation. Tricuspid Valve The tricuspid valve is not well visualized. There is mild tricuspid valve regurgitation. Pericardium/Pleural There is no pericardial effusion. Aorta The ascending aorta is normal in size. Measurements Left Ventricular Outflow Tract Name Value Normal LVOT 2D LVOT Diameter 2.0 cm LVOT Area 3.1 cm2 LVOT Doppler LVOT Peak Velocity 0.9 m/s LVOT Peak Gradient 3 mmHg LVOT Mean Velocity 63.98 cm/s LVOT Mean Gradient 2 mmHg LVOT VTI 18.6 cm LVOT VTI/AV VTI Ratio 0.7 LVOT Stroke Volume 57 ml LVOT Stroke Volume Index 26 ml/m2 35-58 LVOT CO 4.2 l/min LVOT CI 1.9 l/min/m2 Pulmonic Valve Name Value Normal PV Doppler PV Peak Velocity 1.1 m/s PV Peak Gradient 4 mmHg Mitral Valve Name Value Normal MV Doppler MV PHT 63 ms MV Area (PHT) 3.49 cm2 4.00-5.00 MV Diastolic Function MV E Peak Velocity 1.3 m/sec MV Decel Time (PW) 217 ms MV Annular TDI MV Septal e' Velocity 7 cm/s >=8 MV E/e' (Septal) 19 <=8 MV Lateral e' Velocity 13 cm/s >=10 MV E/e' (Lateral) 10 <=8 MV e' Average 10 cm/s MV E/e' (Average) 15 Tricuspid Valve Name Value Normal TV Regurgitation Doppler TR Peak Velocity 3.4 m/s TR Peak Gradient 45 mmHg TV Annular TDI TV Lateral Liset s' Velocity 9 cm/s 10-19 Aorta Name Value Normal Ascending Aorta Ao Root Diameter (MM) 3.3 cm Ao Root Diam Index (MM) 1.5 cm/m2 Aortic Valve Name Value Normal AV Doppler AV Peak Velocity 1.47 m/s AV Peak Gradient 9 mmHg AV Mean Gradient 5 mmHg AV VTI 28 cm AV Area (Cont Eq VTI) 2.01 cm2 >=2.00 AV Area (Cont Eq Reji) 1.83 cm2 AV DI (VTI) 0.66 AV DI (Reji) 0.60 AV Regurgitation 2D LVOT Area 3.05 cm2 Ventricles Name Value Normal LV Dimensions 2D/MM IVS Diastolic Thickness (2D) 1.4 cm 0.6-1.0 LVID Diastole (2D) 3.7 cm 4.2-5.8 LVPW Diastolic Thickness (2D) 1.4 cm 0.6-1.0 LVID Systole (2D) 2.7 cm 2.5-4.0 LV Mass (2D Cubed) 186 g 88-224 LV Mass Index (2D Cubed) 86 g/m2 49-115 Relative Wall Thickness (2D) 0.75 <=0.42 LV Fractional Shortening/Ejection Fraction 2D/MM LV Diastolic Volume (4C MOD) 92 ml LV Diastolic Length (4C) 8.0 cm LV Systolic Length (4C) 7.2 cm LV Stroke Volume (4C MOD) 54 ml Atria Name Value Normal LA Dimensions LA Dimension (2D) 5.3 cm 3.0-4.1 LA Dimen Index (2D) 2.4 cm/m2 LA Dimension (MM) 5.4 cm 3.0-4.1 LA Volume (BP MOD) 70 ml LA Volume Index (BP MOD) 32 ml/m2 16-34 Report Signatures Finalized by Ralph Lange on 04/06/2025 06:59 PM Procedure Note Ralph Lange MD - 04/06/2025 Summary * Left ventricular systolic function is normal with an estimatedejection fraction of 55-60% by visual estimate. * There is mild concentric left ventricular wall thickness. * The left ventricular mass is normal with concentric remodeling. * Left ventricular segmental wall motion is grossly normal, however endocardial definition is limited despite contrast. * The left atrium is dilated with a left atrial volume index of 32 ml/m2by BP MOD. * The right atrium is dilated. * There is mild aortic valve stenosis. Patient Info Name: Chely Eng Age: 74 years : 1950 Gender: Male Ht: 68 in Wt: 209 lb BSA: 2.16 m2 HR: 74 bpm BP: 144 / 70 mmHg Exam Date: 04/06/2025 7:33 AM Patient Status: I/P Study Site: [facility] Primary Location: [facility] EStudy Info Exam Type: ECHO COMPLETE W CONTRAST Indications I63.9 - Cerebrovascular accident (CVA), unspecified mechanism (HCC) Procedure(s) * A complete 2D, color Doppler, spectral Doppler and M-Modetransthoracic echocardiogram was performed with Definity and a Bubble Study. Reason for Technically Difficult Study: restricted mobility Staff Referring Physician: Mushtaq Barrow Ordering Provider: Mushtaq Barrow Attending Physician: Mushtaq Barrow Digital Circuit Designer: Mark Montgomery Left Ventricle Left ventricular systolic function is normal with an estimatedejection fraction of 55-60% by visual estimate. There is mild concentric left ventricular wall thickness. The left ventricular mass is normal with concentric remodeling. Left ventricular segmental wall motion is grossly normal, however endocardial definition is limited despite contrast. Right Ventricle The right ventricle is dilated. Left Atrium The left atrium is dilated with a left atrial volume index of 32 ml/m2by BP MOD. Right Atrium The right atrium is dilated. Aortic Valve Cannot r/o mild Aortic stenosis. The aortic valve is not well visualizedand mildly calcified. There is mild aortic valve stenosis. Pulmonic Valve The pulmonic valve is not well visualized. There is no pulmonic valve stenosis. Mitral Valve The mitral valve is not well visualized. There is mild mitral valve regurgitation. Tricuspid Valve The tricuspid valve is not well visualized. There is mild tricuspidvalve regurgitation. Pericardium/Pleural There is no pericardial effusion. Aorta The ascending aorta is normal in size. Measurements Left Ventricular Outflow Tract Name Value Normal LVOT 2D LVOT Diameter 2.0 cm LVOT Area 3.1 cm2 LVOT Doppler LVOT Peak Velocity 0.9 m/s LVOT Peak Gradient 3 mmHg LVOT Mean Velocity 63.98 cm/s LVOT Mean Gradient 2 mmHg LVOT VTI 18.6 cm LVOT VTI/AV VTI Ratio 0.7 LVOT Stroke Volume 57 ml LVOT Stroke Volume Index 26 ml/m2 35-58 LVOT CO 4.2 l/min LVOT CI 1.9 l/min/m2 Pulmonic Valve Name Value Normal PV Doppler PV Peak Velocity 1.1 m/s PV Peak Gradient 4 mmHg Mitral Valve Name Value Normal MV Doppler MV PHT 63 ms MV Area (PHT) 3.49 cm2 4.00-5.00 MV Diastolic Function MV E Peak Velocity 1.3 m/sec MV Decel Time (PW) 217 ms MV Annular TDI MV Septal e' Velocity 7 cm/s >=8 MV E/e' (Septal) 19 <=8 MV Lateral e' Velocity 13 cm/s >=10 MV E/e' (Lateral) 10 <=8 MV e' Average 10 cm/s MV E/e' (Average) 15 Tricuspid Valve Name Value Normal TV Regurgitation Doppler TR Peak Velocity 3.4 m/s TR Peak Gradient 45 mmHg TV Annular TDI TV Lateral Liset s' Velocity 9 cm/s 10-19 Aorta Name Value Normal Ascending Aorta Ao Root Diameter (MM) 3.3 cm Ao Root Diam Index (MM) 1.5 cm/m2 Aortic Valve Name Value Normal AV Doppler AV Peak Velocity 1.47 m/s AV Peak Gradient 9 mmHg AV Mean Gradient 5 mmHg AV VTI 28 cm AV Area (Cont Eq VTI) 2.01 cm2 >=2.00 AV Area (Cont Eq Reji) 1.83 cm2 AV DI (VTI) 0.66 AV DI (Reji) 0.60 AV Regurgitation 2D LVOT Area 3.05 cm2 Ventricles Name Value Normal LV Dimensions 2D/MM IVS Diastolic Thickness (2D) 1.4 cm 0.6-1.0 LVID Diastole (2D) 3.7 cm 4.2-5.8 LVPW Diastolic Thickness (2D) 1.4 cm 0.6-1.0 LVID Systole (2D) 2.7 cm 2.5-4.0 LV Mass (2D Cubed) 186 g 88-224 LV Mass Index (2D Cubed) 86 g/m2 49-115 Relative Wall Thickness (2D) 0.75 <=0.42 LV Fractional Shortening/Ejection Fraction 2D/MM LV Diastolic Volume (4C MOD) 92 ml LV Diastolic Length (4C) 8.0 cm LV Systolic Length (4C) 7.2 cm LV Stroke Volume (4C MOD) 54 ml Atria Name Value Normal LA Dimensions LA Dimension (2D) 5.3 cm 3.0-4.1 LA Dimen Index (2D) 2.4 cm/m2 LA Dimension (MM) 5.4 cm 3.0-4.1 LA Volume (BP MOD) 70 ml LA Volume Index (BP MOD) 32 ml/m2 16-34 Report Signatures Finalized by Ralph Lange on 04/06/2025 06:59 PM Mushtaq Barrow DO ECHO CUPID Final Result * LACTIC ACID BLOOD (04/06/2025 1:09 PM CDT) Only the most recent of2 resultswithin the time period is included. Lactic Acid 1.1 <=2 mmol/L 04/06/2025 1:45 PM CDT [facility] Blood BLOOD SPECIMEN / Unknown Line Draw / Unknown 04/06/2025 1:09 PM CDT 04/06/2025 1:22 PM CDT Feng Mercado MD LAB - CHEMISTRY ORDERABLES Fin al Result Performing Organization Address City/[facility]/ZIP Co de Phone Number [facility] [address] [place] [address] * CULTURE BLOOD (04/06/2025 9:22 AM CDT) Only the most recent of2 resultswithin the time period is included. Culture No growth day 5 SHADI 04/11/2025 10:00 AM [facility] Blood PERIPHERAL BLOOD / Unknown Venipuncture / Unknown 04/06/2025 9:22 AM CDT 04/06/2025 9:24 AM CDT Feng Mercado MD LAB - MICROBIOLOGY ORDERABLES Final Result Performing Organization Address City/[facility]/ZIP Co de Phone Number [facility] [address] [place] [address], [facility] [phone] * (ABNORMAL) URINALYSIS REFLEX MICROSCOPIC REFLEX CULTURE (04/06/2025 8:17 AM T) Color UA Yellow Yellow, Straw 04/06/2025 9:05 AM [facility] Clarity UA Clear Clear 04/06/2025 9:05 AM T [facility] Glucose UA Normal Normal 04/06/2025 9:05 AM [facility] Bilirubin UA Negative Negative 04/06/2025 9:05 AM [facility] Ketone UA Negative Negative 04/06/2025 9:05 AM [facility] Specific [place] UA 1.023 1.005 - 1.030 04/06/2025 9:05 AM [facility] Blood UA 1+(A) Negative 04/06/2025 9:05 AM [facility] pH UA 7.0 5.0 - 8.0 04/06/2025 9:05 AM [facility] Protein UA 1+(A) Negative 04/06/2025 9:05 AM [facility] Urobilinogen UA Normal Normal mg/dL 04/06/2025 9:05 AM [facility] Nitrite UA Negative Negative 04/06/2025 9:05 AM [facility] Leukocyte Esterase UA 250 JAYCEE/uL(A) Negative 04/06/2025 9:05 AM [facility] RBC UA 6-10(A) 0 - 5 # /hpf 04/06/2025 9:05 AM [facility] WBC UA 11-20(A) 0 - 5 # /hpf 04/06/2025 9:05 AM [facility] WBC Clumps UA Rare(A) None Seen /HPF 04/06/2025 9:05 AM [facility] Bacteria UA Trace(A) None Seen 04/06/2025 9:05 AM [facility] Squamous Epithelial Cells None Seen 0 - 5 /hpf 04/06/2025 9:05 AM [facility] Transitional Epithelial Cell UA 0-2(A) None Seen /HPF 04/06/2025 9:05 AM T [facility] Mucus UA 1+ /LPF 04/06/2025 9:05 AM CDT [facility] Reflex Status Culture to follow 04/06/2025 9:05 AM CDT [facility] Urine URINE SPECIMEN OBTAINED VIA [employer] CATHETER / Unknown Collection / Unknown 04/06/2025 8:17 AM CDT 04/06/2025 8:23 AM CDT Feng Mercado MD LAB - URINALYSIS ORDERABLES Fi nal Result Performing Organization Address City/[facility]/ZIP Co de Phone Number [facility] [address] [place] [address] * CULTURE URINE (04/06/2025 8:17 AM CDT) Pathologist [facility] Culture Urine No growth (<100 CFU/mL) SHADI 04/07/2025 11:30 AM CDT [facility] Urine URINE SPECIMEN OBTAINED VIA [employer]HE[facility] / Unknown Collection / Unknown 04/06/2025 8:17 AM CDT 04/06/2025 8:23 AM CDT Feng Mercado MD LAB - MICROBIOLOGY ORDERABLES Final Result Performing Organization Address City/[facility] Co de Phone Number [facility] [address] [place] [address] [phone] * (ABNORMAL) CBC W/O DIFFERENTIAL (04/06/2025 1:45 AM CDT) WBC 17.6(H) 4.0 - 10.7 x10E9/L 04/06/2025 2:01 AM CDT [facility] RBC Count 5.39 4.30 - 5.80 x10E12/L 04/06/2025 2:01 AM CDT [facility] Hemoglobin 15.0 13.3 - 17.5 g/dL 04/06/2025 2:01 AM CDT [facility] Hematocrit 46.3 38.7 - 51.1 % 04/06/2025 2:01 AM CDT [facility] MCV 85.9 80.0 - 98.0 fL 04/06/2025 2:01 AM CDT [facility] MCH 27.8 26.7 - 33.6 pg 04/06/2025 2:01 AM CDT [facility] MCHC 32.4 31.7 - 36.3 g/dL 04/06/2025 2:01 AM CDT [facility] RDW-CV 14.8 11.3 - 14.8 % 04/06/2025 2:01 AM CDT [facility] Platelet Count 256 150 - 420 x10E9/L 04/06/2025 2:01 AM CDT [facility] MPV 9.2 7.8 - 11.4 fL 04/06/2025 2:01 AM CDT [facility] Blood BLOOD SPECIMEN / Unknown Venipuncture / Unknown 04/06/2025 1:45 AM CDT 04/06/2025 1:49 AM CDT us Mushtaq Barrow DO LAB - HEMATOLOGY ORDERABLES Fi nal Result [facility] [address] [place] [address] * (ABNORMAL) BASIC METABOLIC PANEL (CALCIUM TOTAL) (04/06/2025 1:45 AM CDT) Glucose 69(L) 70 - 99 mg/dL 04/06/2025 2:44 AM CDT [facility] Sodium 137 136 - 145 mmol/L 04/06/2025 2:44 AM CDT [facility] Potassium 4.5 3.5 - 5.1 mmol/L 04/06/2025 2:44 AM CDT [facility] Chloride 103 98 - 107 mmol/L 04/06/2025 2:44 AM CDT [facility] CO2 22 22 - 29 mmol/L 04/06/2025 2:44 AM CDT [facility] Calcium 8.2(L) 8.4 - 10.4 mg/dL 04/06/2025 2:44 AM CDT [facility] Anion Gap 12 6 - 16 mmol/L 04/06/2025 2:44 AM CDT [facility] BUN 20 7 - 26 mg/dL 04/06/2025 2:44 AM CDT [facility] Creatinine 1.20 0.70 - 1.30 mg/dL 04/06/2025 2:44 AM CDT [facility] eGFR by CKD-EPI 63(L) >=90 mL/min/1.7 3 m2 04/06/2025 2:44 AM CDT [facility] Comment:Estimated Glomerular Filtration Rate (eGFR) calculated using the CKD-EPI Creatinine Equation (2020), per the National Kidney Foundation and [place] [employer]ph[employer] recommendations. Blood BLOOD SPECIMEN / Unknown Venipuncture / Unknown 04/06/2025 1:45 AM CDT 04/06/2025 1:49 AM CDT Mushtaq Barrow DO LAB - CHEMISTRY ORDERABLES Fin al Result Performing Organization Address City/[facility]/ZIP Co de Phone Number [facility] [address] [place] [phone] * (ABNORMAL) HEPATIC FUNCTION PANEL (04/06/2025 1:45 AM CDT) Alkaline Phosphatase 138 40 - 150 U/L 04/06/2025 2:39 AM CDT [facility] ALT 38 6 - 57 U/L 04/06/2025 2:39 AM CDT [facility] AST 67(H) 10 - 48 U/L 04/06/2025 2:39 AM CDT [facility] Protein Total 7.0 6.4 - 8.3 gm/dL 04/06/2025 2:39 AM CDT [facility] Albumin 2.9(L) 3.1 - 4.5 gm/dL 04/06/2025 2:39 AM CDT [facility] Bilirubin Total 1.3(H) 0.2 - 1.2 mg/dL 04/06/2025 2:39 AM CDT [facility] Bilirubin Direct 0.527(H) 0.10 - 0.50 mg/dL 04/06/2025 2:39 AM CDT [facility] Blood BLOOD SPECIMEN / Unknown Venipuncture / Unknown 04/06/2025 1:45 AM CDT 04/06/2025 1:49 AM CDT us Mushtaq Barrow DO LAB - CHEMISTRY ORDERABLES Fin al Result [facility] [id number] [place] [id number] * (ABNORMAL) VANCOMYCIN LEVEL PEAK (04/06/2025 1:45 AM CDT) Vancomycin Peak 63.0(H) 25.0 - 40.0 ug/mL 04/06/2025 2:44 AM CDT [facility] Blood BLOOD SPECIMEN / Unknown Venipuncture / Unknown 04/06/2025 1:45 AM CDT 04/06/2025 1:49 AM CDT Candido Mccoy MD LAB - CHEMISTRY ORDERABLES F inal Result Performing Organization Address [facility] Co de Phone Number [facility] [address] [place] [phone] * (ABNORMAL) LIPID PROFILE (04/06/2025 1:45 AM CDT) Cholesterol 151 <200 mg/dL 04/06/2025 2:39 AM CDT [facility] Triglycerides 61 <150 mg/dL 04/06/2025 2:39 AM CDT [facility] HDL Cholesterol 39(L) >40 mg/dL 2:39 AM CDT [facility] LDL Calculated 100 <130 mg/dL 04/06/2025 2:39 AM CDT [facility] Comment:LDL is calculated us ing the Friedewald equation. VLDL Calculated 12 <=30 mg/dL 2:39 AM CDT [facility] Chol HDL Ratio 3.9 <4.5 04/06/2025 2:39 AM CDT [facility] LDL/HDL Ratio 2.6 <5.0 04/06/2025 2:39 AM CDT [facility] Blood BLOOD SPECIMEN / Unknown Venipuncture / Unknown 04/06/2025 1:45 AM CDT 04/06/2025 1:49 AM CDT us Mushtaq Barrow DO LAB - CHEMISTRY ORDERABLES Fin al Result Performing Organization Address City/[facility]/ZIP Co de Phone Number [facility] [address] [place] [phone] * (ABNORMAL) BLOOD GASES ELI + COOX PANEL (04/05/2025 8:43 PM CDT) pH Venous 7.49(H) 7.32 - 7.42 pH 04/05/2025 8:46 PM CDT [facility] pO2 Venous 64(H) 35 - 40 mmHg 04/05/2025 8:46 PM CDT [facility] pCO2 Venous 34(L) 40 - 50 mmHg 04/05/2025 8:46 PM CDT [facility] HCO3 Venous 25.9 24 - 26 mmol/L 04/05/2025 8:46 PM CDT [facility] Base Excess Venous 3.0(H) -2.0 - 2.0 mmol/L 04/05/2025 8:46 PM CDT [facility] Oxyhemoglobin Venous 91.7 % 03/10 8:46 PM CDT [facility] Deoxyhemoglobin (HHB) Venous % 5.8 % 04/05/2025 8:46 PM CDT [facility] O2 Content Venous 21.9 ml/dL 025 8:46 PM CDT [facility] TCO2 Venous 27 23 - 31 mmol/L 04/05/2025 8:46 PM CDT [facility] O2 Saturation Venous 94 >=70 % 03/10 8:46 PM CDT [facility] Methemoglobin <0.8 0.0 - 2.0 % 04/05/2025 8:46 PM CDT [facility] Carboxyhemoglobin 2.0 0.0 - 2.0 % 04/05/2025 8:46 PM CDT [facility] Hemoglobin by COOX 17.0 12.0 - 17.6 g/dL 04/05/2025 8:46 PM CDT [facility] Hematocrit COOX 51.0 35.2 - 51.7 % 04/05/2025 8:46 PM CDT [facility] Ryan's Test NA 04/05/2025 8:46 PM CDT [facility] Blood BLOOD SPECIMEN / Unknown 04/05/2025 8:43 PM CDT 04/05/2025 8:43 PM CDT Mushtaq Barrow DO LAB - BLOOD GASES ORDERABLES F inal Result Performing Organization Address City/[facility]/ZIP Co de Phone Number [facility] [address] [place] [address] * NT-PRO BNP (04/05/2025 8:12 PM CDT) NT-proBNP 813.0 <1,800.0 pg/mL 04/05/2025 8:42 PM CDT [facility] Blood BLOOD SPECIMEN / Unknown Venipuncture / Unknown 04/05/2025 8:12 PM CDT 04/05/2025 8:16 PM CDT Narrative [facility] - 04/05/2025 8:42 PM CDT NT-pro-BNP values below 300 pg/mL, for individuals 18 or above, have a 99% negative predictive value for excluding acute congestive heart failure (CHF). In patients with eGFR less than 60 mL/min/1.73 m2, caution should be used when interpreting NT-pro-BNP results. Results should be assessed in conjunction with the patient s medical history, clinical examination, and other findings. NT-pro-BNP is measured on the [employer] Alinity analyzer using chemiluminescent microparticle immunoassay (CMIA) technology. Mushtaq aBrrow DO LAB - CHEMISTRY ORDERABLES Fin al Result Performing Organization Address City/[facility]/ZIP Co de Phone Number [facility] [address] [place] [address] * TROPONIN-I HIGH SENSITIVE BASELINE + 1HR (04/05/2025 8:12 PM CDT) Troponin I High Sensitive 35 <=35 ng/L 04/05/2025 8:42 PM CDT [facility] Blood BLOOD SPECIMEN / Unknown Venipuncture / Unknown 04/05/2025 8:12 PM CDT 04/05/2025 8:16 PM CDT Mushtaq Barrow DO LAB - CHEMISTRY ORDERABLES Fin al Result Performing Organization Address [facility] Co de Phone Number [facility] [address] [place] [address] * (ABNORMAL) HEMOGLOBIN A1C (04/05/2025 8:12 PM CDT) Hemoglobin A1c 10.8(H) <5.7 % 04/05/2025 8:53 PM CDT [facility] Estimated Average Glucose 263 mg/dL 04/05/2025 8:53 PM CDT [facility] Blood BLOOD SPECIMEN / Unknown Venipuncture / Unknown 04/05/2025 8:12 PM CDT 04/05/2025 8:16 PM CDT Narrative [facility] - 04/05/2025 8:53 PM CDT HbA1c Interpretation: Normal: < 5.7% Pre-diabetes: 5.7-6.4% Diabetes: Equal to or greater than 6.5% Test results diagnostic of diabetes should be repeated for confirmation. Treatment target values recommended by ADA and other clinical organizations should be used to evaluate metabolic control in patients. This test should not replace glucose testing for patients with Type 1 diabetes, pediatric patients, or women. Falsely low HbA1c results may be observed in patients with clinical conditions that shorten erythrocyte life span or decrease mean erythrocyte age such as the presence of unstable hemoglobin variants, elevated hemoglobin F level or other causes of hemolytic anemia. HbA1c may not accurately reflect glycemic control when clinical conditions that affect erythrocyte survival are present. Severe Iron deficiency anemia may yield falsely high results. Hemoglobin A1c assay should not be used to diagnose or monitor diabetes in patients with malignancy, recent blood transfusion, chronic kidney or liver disease. This method may yield falsely low results when hemoglobin (HbF) exceeds 5% in the specimen. The [employer] Alinity assay for the measurement of HbA1c is a National Glycohemoglobin Standardization Program (NGSP) certified method. Mushtaq Barrow DO LAB - CHEMISTRY ORDERABLES Fin al Result Performing Organization Address [facility] Co de Phone Number [facility] [address] [place] [address] * CT Angio Brain And Neck (04/05/2025 7:01 PM CDT) Anatomical Region Laterality Modality Head Computed Tomogra phy 04/06/2025 10:2 1 AM CDT Impressions 04/06/2025 10:37 AM CDT Impression: CTA neck- Left internal carotid artery is occluded Atherosclerotic calcification of the proximal right internal carotid artery with less than 50% stenosis (NASCET) Atherosclerosis within the distal right internal carotid artery, just below the skull base, with slightly less than 50% luminal narrowing Patchy opacity within the upper lungs bilaterally Periapical lucencies involving upper and lower teeth CTA head- No evidence of flow-limiting stenosis or large vessel occlusion involving the [place]. There is reconstitution of flow into the left anterior circulation via a patent anterior communicating artery and patent left posterior communicating artery Prelim report was provided by [facility] > Interpreting Provider: Adam Ta MD on 04/06/2025 10:37 AM Narrative 04/06/2025 10:37 AM CDT PROCEDURE: CT ANGIO BRAIN AND NECK DATE/TIME OF EXAM: 04/05/2025 7:03 PM CLINICAL INFORMATION: None relevant/not provided if blank. Indication: I63.9: Cerebrovascular accident (CVA), unspecified mechanism (HCC) Additional History: COMPARISON: CT head 04/05/2025 TECHNIQUE: CT angiography of the brain and neck was performed without IV contrast followed by IV contrast, including 3D MIPS post processing CTA image reconstruction provided from an independent workstation. Stenosis measurements are based on NASCET criteria. CT dose reduction technique was used, including Automated Exposure Control. Viz.Modify large vessel occlusion software was utilized CONTRAST: IOPAMIDOL 76 % IV SOLN:150 mL Findings: CTA neck: Aortic arch:Unremarkable Innominate artery: No stenosis Right subclavian artery: No stenosis Right vertebral artery: No stenosis Right common carotid artery: No stenosis. Mild atherosclerotic disease within the bulb Right internal carotid artery: Proximal calcified atherosclerotic disease with less than 50% narrowing (NASCET). Mild to moderate atherosclerotic plaque just below the skull base, series 602 images 253 with slightly less than 50% narrowing Right external carotid artery: Moderate proximal stenosis Left common carotid artery: No Stenosis. Moderate atherosclerotic disease within the bulb with approximately 50% luminal narrowing Left internal carotid artery: Occluded just distal to the origin. Left external carotid artery: Moderate proximal narrowing Left subclavian artery: No stenosis Left vertebral artery: No stenosis Other findings: Evaluation lung apices limited by motion artifact. There appears to be mild patchy opacity in the upper lungs, particularly the superior segment of the lower lobes. Soft tissues of the neck are unremarkable. Periapical lucencies involving upper and lower teeth. CTA head: Anterior circulation: Atherosclerotic calcification of the cavernous portion of the right internal carotid artery. The right middle cerebral artery and anterior cerebral artery are patent with no evidence of large vessel occlusion or flow-limiting stenosis. There is reconstitution of flow into the left middle cerebral and left anterior cerebral artery via a patent anterior communicating artery and a patent posterior communicating artery. The left middle cerebral artery and anterior cerebral artery are patent with no evidence of flow-limiting stenosis or focal occlusion. Posterior circulation: No stenosis or aneurysm. Dominant right posterior communicating artery. Procedure Note Adam Ta MD - 04/06/2025 PROCEDURE: CT ANGIO BRAIN AND NECK DATE/TIME OF EXAM: 04/05/2025 7:03 PM CLINICAL INFORMATION: None relevant/not provided if blank. Indication: I63.9: Cerebrovascular accident (CVA), unspecified mechanism (HCC) Additional History: COMPARISON: CT head 04/05/2025 TECHNIQUE: CT angiography of the brain and neck was performed without IV contrast followed by IV contrast, including 3D MIPS post processing CTA image reconstruction provided from an independent workstation. Stenosis measurements are based on NASCET criteria. CT dose reduction technique was used, including Automated ExposureControl. PunchTab.Modify large vessel occlusion software was utilized CONTRAST: IOPAMIDOL 76 % IV SOLN:150 mL Findings: CTA neck: Aortic arch:Unremarkable Innominate artery: No stenosis Right subclavian artery: No stenosis Right vertebral artery: No stenosis Right common carotid artery: No stenosis. Mild atherosclerotic disease within the bulb Right internal carotid artery: Proximal calcified atheroscleroticdisease with less than 50% narrowing (NASCET). Mild to moderate atherosclerotic plaque just below the skull base, series 602 images 253 with slightlyless than 50% narrowing Right external carotid artery: Moderate proximal stenosis Left common carotid artery: No Stenosis. Moderate atheroscleroticdisease within the bulb with approximately 50% luminal narrowing Left internal carotid artery: Occluded just distal to the origin. Left external carotid artery: Moderate proximal narrowing Left subclavian artery: No stenosis Left vertebral artery: No stenosis Other findings: Evaluation lung apices limited by motion artifact.There appears to be mild patchy opacity in the upper lungs, particularly the superior segment of the lower lobes. Soft tissues of the neck are unremarkable. Periapical lucencies involving upper and lower teeth. CTA head: Anterior circulation: Atherosclerotic calcification of the cavernous portion of the right internal carotid artery. The right middle cerebral artery and anterior cerebral artery are patent with no evidence of large vessel occlusion or flow-limiting stenosis. There is reconstitution offlow into the left middle cerebral and left anterior cerebral artery via a patent anterior communicating artery and a patent posteriorcommunicating artery. The left middle cerebral artery and anterior cerebral artery are patent with no evidence of flow-limiting stenosis or focal occlusion. Posterior circulation: No stenosis or aneurysm. Dominant right posterior communicating artery. Impression: CTA neck- Left internal carotid artery is occluded Atherosclerotic calcification of the proximal right internal carotidartery with less than 50% stenosis (NASCET) Atherosclerosis within the distal right internal carotid artery, justbelow the skull base, with slightly less than 50% luminal narrowing Patchy opacity within the upper lungs bilaterally Periapical lucencies involving upper and lower teeth CTA head- No evidence of flow-limiting stenosis or large vessel occlusioninvolving the [place]. There is reconstitution of flow into the left anterior circulation via a patent anterior communicating artery and patent left posterior communicating artery Prelim report was provided by [facility] > Interpreting Provider: Adam Ta MD on 04/06/2025 10:37 AM us Bobby Hubbard DO CT ORDERABLES Final Result * CT Cerebral Perfusion Analysis (04/05/2025 6:58 PM CDT) Anatomical Region Laterality Modality Head Computed Tomogra phy 04/06/2025 11:1 3 AM CDT Impressions 04/06/2025 11:31 AM CDT IMPRESSION: 1. Limited examination is degraded by motion. Possible small area of ischemia (10 cc) left frontoparietal deep watershed or border zone territory. This is observed in conjunction of a known proximal LEFT ICA occlusion. Preliminary report was provided by [facility]. > Interpreting Provider: Hugo Graham DO on 04/06/2025 11:31 AM Narrative 04/06/2025 11:31 AM CDT PROCEDURE: CT CEREBRAL PERFUSION ANALYSIS DATE/TIME OF EXAM: 04/05/2025 7:00 PM CLINICAL INFORMATION: CVA. Right-sided facial droop with weakness. COMPARISON: CT angiogram 04/05/2024. TECHNIQUE: CT perfusion was obtained of the brain with intravenous contrast. Images were processed by RAPID software. CT dose reduction technique was used, including Automated Exposure Control. IV CONTRAST: IOPAMIDOL 76 % IV SOLN:150 mL FINDINGS: Adequate contrast bolus timing. Significant image degradation secondary to motion. Question subtle area of hyperperfusion involving the left cerebral hemisphere at the frontoparietal convexity involving expected watershed or border zone territory. No corresponding abnormality of cerebral blood volume and cerebral blood flow. CBF less than 30%: 0 cc T Max greater than 6 seconds: 10 cc Mismatch volume: 10 cc Mismatch ratio: Not applicable Procedure Note Hugo Graham DO - 04/06/2025 PROCEDURE: CT CEREBRAL PERFUSION ANALYSIS DATE/TIME OF EXAM: 04/05/2025 7:00 PM CLINICAL INFORMATION: CVA. Right-sided facial droop with weakness. COMPARISON: CT angiogram 04/05/2024. TECHNIQUE: CT perfusion was obtained of the brain with intravenous contrast. Images were processed by RAPID software. CT dose reduction technique was used, including Automated Exposure Control. IV CONTRAST: IOPAMIDOL 76 % IV SOLN:150 mL FINDINGS: Adequate contrast bolus timing. Significant image degradation secondaryto motion. Question subtle area of hyperperfusion involving the left cerebral hemisphere at the frontoparietal convexity involving expected watershedor border zone territory. No corresponding abnormality of cerebral blood volume and cerebral blood flow. CBF less than 30%: 0 cc T Max greater than 6 seconds: 10 cc Mismatch volume: 10 cc Mismatch ratio: Not applicable IMPRESSION: 1. Limited examination is degraded by motion. Possible small area of ischemia (10 cc) left frontoparietal deep watershed or border zone territory. This is observed in conjunction of a known proximal LEFT ICA occlusion. Preliminary report was provided by [facility]. > Interpreting Provider: Hugo Graham DO on 04/06/2025 11:31 AM us Bobby Osheacain STEVE CT ORDERABLES Final Result from Last 3 Months Insurance AETNA MEDICARE AETNA MEDICARE ADV Advance Directives Documents on File Type Date Recorded Patient Nutritionists Expl anation Adv Directive/Living Will/POA 04/15/2025 5:58 PM * Full Code (Latest Code Status on File) Date Activated Date Inactivated Comments 04/05/2025 7:50 PM 04/14/2025 5:23 PM Care Teams Loan Closer Relationship Specialty Start Date End Date Grey Lorenzo MD [address] [place] [address] PCP - General Family Medicine 04/06/25
--- OUTSIDE RECORDS SUMMARY | 2025-05-09 02:09 | XMS_ITS | Encounter Summary ---
Author Organization [facility] Healthcare Address [address] [place] [address] Care Team Providers Care Fire Crew Specialist Name Role Phone Grey Lorenzo MD Primary Care Provider Bobby Romero MD Unavailable [phone] Maryana Haywood RN Unavailable [phone] Irma Valladares RN Unavailable [phone] Encounter Details Date Type Department Care Team (Late st Contact Info) Description 08/26/2019 Documentation [facility] Clinical Trial 1 [place] [address] Sissy Ugarte Social History Tobacco Use Types Packs/Day Years Used Date Smoking Tobacco: Never Smokeless Tobacco: Never Alcohol Use Standard Drinks/Week Comments Yes 0 (1 standard drink = 0.6 oz pur e alcohol) socially Sex and Gender Information Value Date Recorded Sex Assigned at Not on file 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 Gender Identity Not on file Sexual Orientation Not on file documented as of this encounter Plan of Treatment Not on file documented as of this encounter Visit Diagnoses Not on filedocumented in this encounter Care Teams Fire Crew Specialist Relationship Specialty Start Date End Date Grey Lorenzo MD PCP - General Family Practice 08/16/17 Bobby Romero MD Consulting Physician Transplant 10/21/19 Maryana Haywood RN Photographic Equipment Assembler 10/28/19 Irma Valladares, RN [address] [facility] [address] [place] [address] Photographic Equipment Assembler Cardiology 08/10/20 documented as of this encounter
--- OUTSIDE RECORDS SUMMARY | 2025-05-09 02:09 | XMS_ITS | Encounter Summary ---
Author Organization [facility] Healthcare Address [address] [place] [address] Care Team Providers Care Quality Assurance Monitor Body Name Role Phone Grey Lorenzo MD Primary Care Provider Bobby Romero MD Unavailable [phone] Maryana Haywood RN Unavailable [phone] Irma Valladarse RN Unavailable [phone] Encounter Details Date Type Department Care Team (Late st Contact Info) Description 07/01/2019 Documentation [facility] Clinical Trial 1 [place] [address] Sissy Ugarte Social History Tobacco Use Types Packs/Day Years Used Date Smoking Tobacco: Never Smokeless Tobacco: Never Alcohol Use Standard Drinks/Week Comments Yes 0 (1 standard drink = 0.6 oz pur e alcohol) socially Sex and Gender Information Value Date Recorded Sex Assigned at Not on file 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 [address] [place] [address] Straightener And Aligner Cardiology 08/10/20 documented as of this encounter
--- OUTSIDE RECORDS SUMMARY | 2025-05-09 02:09 | XMS_ITS | Encounter Summary ---
Author Organization [facility] Address [address] [place] [address] Care Team Providers Care Budget Consultant Name Role Phone Alejandro Stevens Primary Care Provider [phone] Grey Lorenzo MD Primary Care Provider Bobby Romero MD Unavailable [phone] Maryana Haywood RN Unavailable [phone] Irma Valladares RN Unavailable [phone] Encounter Details Date Type Department Care Team (Late st Contact Info) Description 10/14/2016 Orders Only [facility] ProviderElizabeth MD [address] [place] [address] Social History Tobacco Use Types Packs/Day Years Used Date Smoking Tobacco: Never Alcohol Use Standard Drinks/Week Comments No 0 (1 standard drink = 0.6 oz pur e alcohol) Sex and Gender Information Value Date Recorded Sex Assigned at Not on file 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 Gender Identity Not on file Sexual Orientation [...] on filedocumented in this encounter Care Teams Budget Consultant Relationship Specialty Start Date End Date Alejandro Stevens [address] [place] [address] PCP - General 09/06/16 08/15/17 Grey Lorenzo MD [address] [place] [address] PCP - General Family Practice 08/16/17 Bobby Romero MD [address] [place] [address] Consulting Physician Transplant 10/21/19 Maryana Haywood, BURT Field Secretary 10/28/19 Irma Valladares, RN [address] [address] Field Secretary Cardiology 08/10/20 documented as of this encounter
--- OUTSIDE RECORDS SUMMARY | 2025-05-09 02:09 | XMS_ITS | Encounter Summary ---
Author Organization [facility] Address [address] [place] [address] Phone Care Team Providers Care Lace Stripper Name Role Phone Grey Lorenzo MD Primary Care Provider Bobby Romero MD Unavailable Maryana Haywood RN Unavailable [phone] Irma Valladares RN Unavailable [phone] Encounter Details Date Type Department Care Team (Late st Contact Info) Description 10/21/2019 Telephone [facility] Cardiology [address] [facility] Advanced Medicine [address]th [place] [address] [place] [address] Bobby Romero MD [address] [facility] [address] [place], [place] [id number] Social History Tobacco Use Types Packs/Day Years Used Date Smoking Tobacco: Never Smokeless Tobacco: Never Alcohol Use Standard Drinks/Week Comments Yes 0 (1 standard drink = 0.6 oz pur e alcohol) socially Sex and Gender Information Value Date Recorded Sex Assigned at Not on file 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 Gender Identity Not on file Sexual Orientation Not on file documented as of this encounter Functional Status * Lamar Fall Risk Question Answer Date of Assessment Author History of Falling 25 10/21/2019 8:46 AM Melissa Del Castillo RN Secondary Diagnosis 15 10/21/2019 8:46 AM Melissa Ovalle RN Ambulatory Aids 0 10/21/2019 8:46 AM [facility]ST Melissa Santiago RN Intravenous Therapy/Heparin/Saline Lock 20 10/21/2019 8:46 AM Melissa Del Castillo RN Gait/Transferring 0 10/21/2019 8:46 AM Melissa Del Castillo RN Mental Status 0 10/21/2019 8:46 AM Melissa Ortiz RN Lamar Fall Risk Score (Score >= 45 places fall precaution order) 60 10/21/2019 8:46 AM Melissa Del Castillo RN * Steve Scale Question Answer Date of Assessment Author Sensory Perceptions 4 10/21/2019 8:45 AM CD Melissa Arguello RN Moisture 4 10/21/2019 8:45 AM Melissa Oliver RN Activity 3 10/21/2019 8:45 AM Melissa Oliver RN Mobility 4 10/21/2019 8:45 AM Melissa Oliver RN Nutrition 3 10/21/2019 8:45 AM Melissa Oliver RN Friction and Shear 3 10/21/2019 8:45 AM Melissa Del Castillo RN Steve Scale Score 21 10/21/2019 8:45 AM Melissa Del Castillo RN * Question Answer Date of Assessment Author BP Location Left arm 10/21/2019 11:48 AM Zaira Redman EP-C BP Method Automatic 10/21/2019 11:48 AM Zaira Redman EP-C MAP (mmHg) 57 10/21/2019 11:48 AM Zaira Redman EP-C * Fall Risk Interventions Question Answer Date of Assessment Author All Low Fall Interventions Applied Yes 10/21/2019 8:46 AM Melissa Del Castillo RN All Moderate Fall Interventions Applied Yes 10/21/2019 8:46 AM Melissa Del Castillo RN All High Fall Risk Interventions Applied No 10/21/2019 8:46 AM Melissa Del Castillo RN All High Risk Interventions EXCEPT: Bed alarm;Chair alarm 10/21/2019 8:46 AM Melissa Del Castillo RN Reason For Exception(s) patient bmat gre en, uses call light appropriately 10/21/2019 8:46 AM Melissa Del Castillo RN * Integumentary Question Answer Date of Assessment Author Integumentary (WDL) WDL 10/21/2019 8:45 AM Melissa Ovalle RN * Question Answer Date of Assessment Author Percent Meal Eaten (%) 100 10/21/2019 10:35 A M [facility]ST Irma Mayo * Question Answer Date of Assessment Author BP Location Left arm 10/21/2019 11:48 AM CH[facility]ST Zaira Saunders EP-C BP Method Automatic 10/21/2019 11:48 AM [facility]ST Zaira Saunders EP-C * Question Answer Date of Assessment Author Bed In Lowest Position Yes 10/21/2019 10:13 A M Melissa Del Castillo RN Bed Wheels Locked Yes 10/21/2019 10:13 AM Melissa Del Castillo RN * Fall Risk Interventions Question Answer Date of Assessment Author All Low Fall Interventions Applied Yes 10/21/2019 8:46 AM Melissa Del Castillo RN All Moderate Fall Interventions Applied Yes 10/21/2019 8:46 AM Melissa Del Castillo RN All High Fall Risk Interventions Applied No 10/21/2019 8:46 AM Melissa Del Castillo RN All High Risk Interventions EXCEPT: Bed alarm;Chair alarm 10/21/2019 8:46 AM Melissa Del Castillo RN Reason For Exception(s) patient bmat gre en, uses call light appropriately 10/21/2019 8:46 AM Melissa Del Castillo RN * Question Answer Date of Assessment Author Hygiene Bathed with chlorhex idine gluconate (CHG) 10/21/2019 9:59 AM CDT Irma Mayo documented as of this encounter Mental Status * Question Answer Entry Date Author Level of Consciousness Alert;Awake 0 8:45 AM CHRIST Melissa Grace, BURT Orientation Oriented X4 (person, place, time, situation) 10/21/2019 8:45 AM CDT Melissa Grace RN * Question Answer Entry Date Author Neuro (WDL) WDL 10/21/2019 8:45 AM CDT Melissa Lopez RN documented in this encounter Plan of Treatment Not on file documented as of this encounter Visit Diagnoses Not on filedocumented in this encounter Care Teams Lace Stripper Relationship Specialty Start Date End Date Grey Lorenzo MD PCP - General Family Practice 08/16/17 Bobby Romero MD Consulting Physician Transplant 10/21/19 Maryana Haywood, BURT Nicker 10/28/19 Irma Valladares, BURT [address] [address] [place] Cardiology 08/10/20 documented as of this encounter
--- OUTSIDE RECORDS SUMMARY | 2025-05-09 02:09 | XMS_ITS | Encounter Summary ---
Author Organization [facility] Address [address] [place] [address] Care Team Providers Care Mining Plant Operator Name Role Phone Alejandro Stevens Primary Care Provider [phone] Alejandro Stevens Primary Care Provider [phone] Grey Lorenzo MD Primary Care Provider Bobby Romero MD Unavailable [phone] Maryana Haywood RN Unavailable [phone] Irma Valladares RN Unavailable [phone] Encounter Details Date Type Department Care Team (Late st Contact Info) Description 07/29/2016 Orders Only [facility] ProviderElizabeth MD [address] [place] [address] Social History Tobacco Use Types Packs/Day Years Used Date Smoking Tobacco: Never Alcohol Use Standard Drinks/Week Comments No 0 (1 standard drink = 0.6 oz pur e alcohol) Sex and Gender Information Value Date Recorded Sex Assigned at Not on file 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 Gender Identity Not on file Sexual [...] on filedocumented in this encounter Care Teams Mining Plant Operator Relationship Specialty Start Date End Date Alejandro Stevens [address] [place] [address] PCP - General 09/06/16 08/15/17 Alejandro Stevens [address] [place] [address] PCP - General 08/07/15 09/05/16 Grey Lorenzo MD [address] [place] [address] PCP - General Family Practice 08/16/17 Bobby Romero MD [address] [place] [place] [address] Consulting Physician Transplant 10/21/19 Maryana Haywood, RN Creative Consultant 10/28/19 Irma Valladares, BURT [address] [address] Creative Consultant Cardiology 08/10/20 documented as of this encounter
--- OUTSIDE RECORDS SUMMARY | 2025-05-09 02:09 | XMS_ITS | Encounter Summary ---
Author Organization [facility] Healthcare Address [address] [place] [address] Care Team Providers Care Dispatch Manager Name Role Phone Grey Lorenzo MD Primary Care Provider Bobby Romero MD Unavailable [phone] Maryana Haywood RN Unavailable [phone] Irma Valladares RN Unavailable [phone] Encounter Details Date Type Department Care Team (Late st Contact Info) Description 08/02/2019 Documentation 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 Gender Identity Not on file Sexual Orientation Not on file documented as of this encounter Plan of Treatment Not on file documented as of this encounter Visit Diagnoses Not on filedocumented in this encounter Care Teams Dispatch Manager Relationship Specialty Start Date End Date Grey Lorenzo MD PCP - General Family Practice 08/16/17 Bobby Romero MD Consulting Physician Transplant 10/21/19 Maryana Haywood RN Vallez Filter Operator 10/28/19 Irma Valladares, RN [address] [facility] [address] [place] [address] Vallez Filter Operator Cardiology 08/10/20 documented as of this encounter
--- OUTSIDE RECORDS SUMMARY | 2025-05-09 02:09 | XMS_ITS | Encounter Summary ---
Author Organization [facility] Address [address] [place] [address] Phone Care Team Providers Care Tabulating Clerk Name Role Phone Grey Lorenzo MD Primary Care Provider Bobby Romero MD Unavailable Maryana Haywood RN Unavailable [phone] Irma Valladares RN Unavailable [phone] Encounter Details Date Type Department Care Team (Late st Contact Info) Description 12/22/2019 Documentation [facility] Cardiology [address] [facility] Advanced Medicine 8th [place] [address] [place] [address] Fina Ward RN Social History Tobacco Use Types Packs/Day Years Used Date Smoking Tobacco: Never Smokeless Tobacco: Never Alcohol Use Standard Drinks/Week Comments Yes 0 (1 standard drink = 0.6 oz pur e alcohol) socially Sex and Gender Information Value Date Recorded Sex Assigned at Not on file 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 [address] [place] [address] Pharmaceutical Scientist Cardiology 08/10/20 documented as of this encounter
--- OUTSIDE RECORDS SUMMARY | 2025-05-09 02:09 | XMS_ITS | Clinical Summary ---
Author Organization [facility] Address [address] [place] [address] Care Team Providers Care Machine Cell Tuber Name Role Phone Grey Lorenzo MD Primary Care Provider Bobby Romero MD Unavailable [phone] Maryana Haywood RN Unavailable [phone] Irma Valladares RN Unavailable [phone] Allergies No known active allergies Medications aspirin [...] (10/20/2019 11:20 AM CDT): S/p [facility] BANKRUPTCY MANAGER-D device (05/2019) -last device check 09/14/2019; 99% afib/flutter. -VS 49%, -SALES AUDIT CLERK 32%, AP-SALES AUDIT CLERK 18%. No VT. Assessment & Plan (10/19/2019 10:58 AM CDT): S/p [facility] BANKRUPTCY MANAGER-D device (05/2019) -last device check 09/14/2019; 99% afib/flutter. -VS 49%, -SALES AUDIT CLERK 32%, AP-SALES AUDIT CLERK 18%. No VT. Assessment & Plan (10/18/2019 10:20 AM CDT): S/p [facility] BANKRUPTCY MANAGER-D device (05/2019) -last device check 09/14/2019; 99% afib/flutter. -VS 49%, -SALES AUDIT CLERK 32%, AP-SALES AUDIT CLERK 18%. No VT. Assessment & Plan (10/17/2019 5:15 PM CDT): S/p [facility] BANKRUPTCY MANAGER-D device (05/2019) -last device check 09/14/2019; 99% afib/flutter. -VS 49%, -SALES AUDIT CLERK 32%, AP-SALES AUDIT CLERK 18%. No VT. Assessment & Plan (10/16/2019 8:55 AM CDT): S/p [facility] BANKRUPTCY MANAGER-D device (05/2019) -last device check 09/14/2019; 99% afib/flutter. -VS 49%, -SALES AUDIT CLERK 32%, AP-SALES AUDIT CLERK 18%. No VT. Assessment & Plan (10/15/2019 11:58 AM CDT): S/p [facility] BANKRUPTCY MANAGER-D device (05/2019) - last device check 09/14/2019; 99% afib/flutter. -VS 49%, -SALES AUDIT CLERK 32%, AP-SALES AUDIT CLERK 18%. No VT. Chronic HFrEF (heart failure with reduced ejection fraction) 04/30/2019 Assessment & Plan (10/20/2019 11:20 AM CDT): ICM, HFrEF (LVEF 15%), admitted with anemia -RHC May 2019: RAP 2, PA mean 15, wedge 7, CI 2.4 by danny/1.75 by thermo on milrinone. -S/p [facility] BANKRUPTCY MANAGER-D device -NT-proBNP 744 (has been previously much [...] by thermo on milrinone. -S/p [facility] BANKRUPTCY MANAGER-D device -NT-proBNP 744 (has been previously much [...] by thermo on milrinone. -S/p [facility] BANKRUPTCY MANAGER-D device -NT-proBNP 744 (has been previously much [...] by thermo on milrinone. -S/p [facility] BANKRUPTCY MANAGER-D device -NT-proBNP 744 (has been previously much [...] by thermo on milrinone. -S/p [facility] BANKRUPTCY MANAGER-D device -NT-proBNP 744 (has been previously much [...] by thermo on milrinone. -S/p [facility] BANKRUPTCY MANAGER-D device -NT-proBNP 744 (has been previously much higher) -hemodynamically stable, euvolemic on exam -Home BP meds held due to anemia/soft BP on admission -Strict I & O, daily weights, low sodium diet -Continue telemetry monitoring -Of note, follows with Dr. Romero and is currently enrolled in LIFE trial Assessment & Plan (05/24/2019 4:01 PM SEWER PIPE LAYER): Acute on chronic systolic/diastolic, ICM, presented with [...] RHC, will defer for now and pursue BANKRUPTCY MANAGER-D placement and A. Fib management for now - EP placed primary prevention [facility] BiV ICD today Assessment & Plan (05/23/2019 11:33 AM SEWER PIPE LAYER): Acute on chronic systolic/diastolic, ICM, presented with [...] RHC, will defer for now and pursue BANKRUPTCY MANAGER-D placement and A. Fib management for now -EP consulted for primary prevention BANKRUPTCY MANAGER-D, pt meets guideline recommendations for BANKRUPTCY MANAGER-D, will undergo procedure while admitted in light of pauses on telemetry. Assessment & Plan (05/22/2019 1:50 PM SEWER PIPE LAYER): Acute on chronic systolic/diastolic, ICM, presented with [...] RHC, will defer for now and pursue BANKRUPTCY MANAGER-D placement and A. Fib management for now -EP consulted for primary prevention BANKRUPTCY MANAGER-D, pt meets guideline recommendations for BANKRUPTCY MANAGER-D, will undergo procedure while admitted in light of pauses on telemetry. Assessment & Plan (05/21/2019 7:39 PM SEWER PIPE LAYER): Acute on chronic systolic/diastolic, ICM, presented with [...] RHC, will defer for now and pursue BANKRUPTCY MANAGER-D placement and A. Fib management for now -EP consulted for primary prevention BANKRUPTCY MANAGER-D, pt meets guideline recommendations for BANKRUPTCY MANAGER-D, will discuss scheduling outpatient Assessment & Plan (05/20/2019 3:13 PM SEWER PIPE LAYER): Acute on chronic systolic/diastolic, ICM, presented with [...] RHC, will defer for now and pursue BANKRUPTCY MANAGER-D placement and A. Fib management for now -EP consulted for possible BANKRUPTCY MANAGER-D, will likely take place outpt -Pt will be going for DCCV tomorrow if not chemically converted by then Assessment & Plan (05/19/2019 3:25 PM SEWER PIPE LAYER): Acute on chronic systolic/diastolic, ICM, presented with [...] will defer for now and plan for BANKRUPTCY MANAGER-D and possible A. Fib ablation -EP consulted today Assessment & Plan (05/18/2019 9:45 AM SEWER PIPE LAYER): Presented initially with acute on chronic decompensated [...] CXR Assessment & Plan (05/17/2019 9:36 AM SEWER PIPE LAYER): Acute on chronic systolic/diastolic, ICM, presented with CHF and AF with RVR, unclear to what degree AF is root of decompensation as EF significantly reduced -TTE 05/04 with severely reduced LV systolic function, EF 20-25% and grade III diastolic dysfunction -Hemodynamically stable, Appears euvolemic on exam. -Continue Torsemide 40 mg daily -Continue Milrinone gtt @ 0.125 mcg/kg/min--[place] [facility]- pathology shows no fibrosis RHC today prior to lvad being evaluated for DT-LVAD (surgery date TBD) Assessment & Plan (05/16/2019 9:38 AM SEWER PIPE LAYER): Acute on chronic systolic/diastolic, ICM, presented with CHF and AF with RVR, unclear to what degree AF is root of decompensation as EF significantly reduced -TTE 05/04 with severely reduced LV systolic function, EF 20-25% and grade III diastolic dysfunction -Hemodynamically stable, Appears euvolemic on exam. -Continue Torsemide 40 mg daily -Continue Milrinone gtt @ 0.25 mcg/kg/min--[place] [facility] bx- pathology shows no fibrosis -tentative plan for RHC Friday (05/17) prior to LVAD placement, will keep NPO tonight -Continue Lisinopril 2.5 mg daily - being evaluated for DT-LVAD (surgery date TBD) Assessment & Plan (05/14/2019 3:05 PM SEWER PIPE LAYER): Acute on chronic systolic/diastolic, ICM, presented with [...] daily Assessment & Plan (05/13/2019 12:22 PM SEWER PIPE LAYER): Acute on chronic systolic/diastolic, ICM, presented with CHF and AF with RVR, unclear to what degree AF is root of decompensation as EF significantly reduced -TTE 05/04 with severely reduced LV systolic function, EF 20-25% and grade III diastolic dysfunction -Hemodynamically stable, Appears euvolemic on exam. -Continue Torsemide 40 mg daily . -Continue Milrinone gtt @ 0.25 mcg/kg/min--[place] [facility] Liver bx Result pending . Once have Liver biopsy proceed with LVAD If unremarkable. -Continue Lisinopril 2.5 mg daily -EP consult for consideration of BANKRUPTCY MANAGER-D/Aflutter management; will continue to follow and would consider atypical flutter ablation, however would ideally want patient off milrinone. Likely plan to forego ablation if persuing advanced therapies Assessment & Plan (05/12/2019 4:38 PM SEWER PIPE LAYER): Acute on chronic systolic/diastolic, ICM, presented with [...] mg daily -EP consult for consideration of BANKRUPTCY MANAGER-D/Aflutter management; will continue to follow and would consider atypical flutter ablation, however would ideally want patient off milrinone. Likely plan to forego ablation if persuing advanced therapies Assessment & Plan (05/11/2019 10:48 AM SEWER PIPE LAYER): Acute on chronic systolic/diastolic, ICM, presented with [...] mg daily -EP consult for consideration of BANKRUPTCY MANAGER-D/Aflutter management; will continue to follow and would consider atypical flutter ablation, however would ideally want patient off milrinone. Likely plan to forego ablation if persuing advanced therapies Assessment & Plan (05/10/2019 10:03 AM SEWER PIPE LAYER): Acute on chronic systolic/diastolic, ICM, presented with [...] mg daily -EP consult for consideration of BANKRUPTCY MANAGER-D/Aflutter management; will continue to follow and would [...] daily Assessment & Plan (05/07/2019 1:00 PM SEWER PIPE LAYER): Acute on chronic systolic/diastolic, ICM, presented with [...] mg daily -EP consult for consideration of BANKRUPTCY MANAGER-D/Aflutter management; will continue to follow and would [...] disease. Assessment & Plan (05/05/2019 3:10 PM SEWER PIPE LAYER): Acute on chronic systolic/diastolic, ICM, presented with [...] -Continue Lisinopril -EP consult for consideration of BANKRUPTCY MANAGER-D/Aflutter management -continue telemetry monitoring -daily weights, strict I & O and low Na diet -will precede with advanced therapies work-up this admission -CT Chest/Abd/Pelvis WO contrast ordered today Assessment & Plan (05/04/2019 9:55 AM SEWER PIPE LAYER): -acute on chronic systolic/diastolic ischemic CMY who [...] 0.25 mcg/kg/min -EP consult for consideration of BANKRUPTCY MANAGER-D/Aflutter management -tele -daily weights, strict I and O and low Na diet Assessment & Plan (05/03/2019 12:01 PM SEWER PIPE LAYER): Initial presentation with hypervolemia, pitting edema, and [...] BP allows -EP consult for consideration of BANKRUPTCY MANAGER-D before discharge, and if he separates from [...] -pt will need outpt endocrine follow up -computer tech and clinical educator consulted Assessment & Plan (10/19/2019 11:06 AM CDT): -Last A1C 8.6, hyperglycemia this admission -Diabetes consulted -continue lantus 12 units qhs, continue Lispro 6 units TID with meals, mid-dose SSI -Continue accuchecks -will plan to discharge on lantus 12 units HS and Invokana per endocrine recs -pt will need outpt endocrine follow up -computer tech and clinical educator consulted Assessment & Plan (10/18/2019 10:29 [...] today, please call Renetta Little NP at [phone]. If after hours, please contact the Diabetes Fellow at [phone]. Assessment & Plan (10/16/2019 9:00 AM CDT): -Last A1C 8.6 -Hyperglycemia overnight, NPH added and SSI increased to mid-dose -Continue NPH 3 units Q 12 and SSI -Continue accuchecks Assessment & Plan (10/15/2019 11:23 AM CDT): -Last A1C 8.6 -Admission BG 284 -Start low dose SSI -Continue accuchecks Assessment & Plan (05/24/2019 4:07 PM SEWER PIPE LAYER): Hgb A1C 7.0 -Blood sugars reviewed, currently 120s - Continue SSI - continue carb consistent diet Assessment & Plan (05/23/2019 11:34 AM SEWER PIPE LAYER): Hgb A1C 7.0 -Blood sugars reviewed, currently 120s -Continue SSI -continue Accuchecks -continue carb consistent diet Assessment & Plan (05/22/2019 1:50 PM SEWER PIPE LAYER): Hgb A1C 7.0 -Blood sugars reviewed, currently 120s -Continue SSI -continue Accuchecks -continue carb consistent diet Assessment & Plan (05/21/2019 7:37 PM SEWER PIPE LAYER): Hgb A1C 7.0 -Blood sugars reviewed, currently 120s -Continue SSI -continue Accuchecks -continue carb consistent diet Assessment & Plan (05/20/2019 3:14 PM SEWER PIPE LAYER): Hgb A1C 7.0 -Blood sugars reviewed, currently 130s -Continue SSI -continue Accuchecks -continue carb consistent diet Assessment & Plan (05/19/2019 3:26 PM SEWER PIPE LAYER): Hgb A1C 7.0 -Blood sugars reviewed, currently 140-150s -Continue SSI + Accuchecks Assessment & Plan (05/17/2019 10:53 PM SEWER PIPE LAYER): HgbA1C 7.0 (05/05/2019). On Invokana at home. - Continue LDISS, Accuchecks - Diabetic diet Assessment & Plan (05/17/2019 9:40 AM SEWER PIPE LAYER): HgbA1C 7.0 -Continue SSI + Accuchecks Blood sugars reviewed. Assessment & Plan (05/16/2019 9:40 AM SEWER PIPE LAYER): HgbA1C 7.0 -Continue SSI + Accuchecks Assessment & Plan (05/14/2019 3:07 PM SEWER PIPE LAYER): HgbA1C 7.0 Continue SSI + Accuchecks Assessment & Plan (05/13/2019 12:33 PM SEWER PIPE LAYER): hemglobin a1c 7.0 -- currently treating with SSI Reviewed blood sugars: 98-204 Continue to monitor. Assessment & Plan (05/12/2019 4:40 PM SEWER PIPE LAYER): hemglobin a1c 7.0 -- currently treating with SSI Assessment & Plan (05/11/2019 11:09 AM SEWER PIPE LAYER): hemglobin a1c 7.0 -- currently treating with SSI Assessment & Plan (05/10/2019 10:04 AM SEWER PIPE LAYER): hemglobin a1c 7.0 - currently treating with SSI Reviewed blood sugars : [phone] Continue to monitor. Assessment & Plan (05/07/2019 1:04 PM SEWER PIPE LAYER): hemglobin a1c 7.0 - currently treating with SSI Longstanding persistent atrial fibrillation (CMS /HCC) 04/23/2019 Overview (06/01/2021): History of MAZE AAD: Amio -> failed and underwent AVJ in November 2020 after BANKRUPTCY MANAGER pacing % had fallen and HF worsened [...] needed Assessment & Plan (05/24/2019 4:00 PM SEWER PIPE LAYER): Patient presented in atrial flutter with RVR [...] continue Xarelto 15 mg daily with dinner ([id number] of 4 pts) - Continue telemetry monitoring - Monitor electrolytes, replete as necessary - anticipate discharge with post procedure activity restrictions and outpatient follow up tomorrow Assessment & Plan (05/23/2019 11:28 AM SEWER PIPE LAYER): Patient presented in atrial flutter with RVR [...] -continue Xarelto 15 mg daily with dinner ([id number] of 4 pts)--will need to hold once EP has a date for procedure -Continue telemetry monitoring -Monitor electrolytes, replete as necessary Assessment & Plan (05/22/2019 1:49 PM SEWER PIPE LAYER): Patient presented in atrial flutter with RVR [...] -continue Xarelto 15 mg daily with dinner ([id number] of 4 pts) -Continue telemetry monitoring -Monitor electrolytes, replete as necessary Assessment & Plan (05/21/2019 7:33 PM SEWER PIPE LAYER): Patient presented in atrial flutter with RVR [...] -continue Xarelto 15 mg daily with dinner ([id number] of 4 pts) -Continue telemetry monitoring -Monitor electrolytes, replete as necessary Assessment & Plan (05/20/2019 3:14 PM SEWER PIPE LAYER): Patient presented in atrial flutter with RVR on admission and was started on IV amiodarone infusion for rhythm control. Poor rate control felt to be trigger for decompensated heart failure. -Digoxin stopped on 05/04/19 -continue amiodarone but decrease to 200 mg daily today -[id number] of 4pts -Continue Xarelto 15 mg daily with dinner -remains in A. Flutter, HR 60s -Continue telemetry monitoring -Monitor electrolytes, replete as necessary -NPO at [place] for possible DCCV tomorrow Friday (05/21) Assessment & Plan (05/19/2019 3:12 PM SEWER PIPE LAYER): Patient presented in atrial flutter with RVR on admission and was started on IV amiodarone infusion for rhythm control. Poor rate control felt to be trigger for decompensated heart failure. -Digoxin stopped on 05/04/19 -continue amiodarone 400 mg daily -[id number] of 4pts -home Xarelto held on admission and heparin gtt started -will resume Xarelto at 15 mg daily (decreased dose) and discontinue Heparin gtt -remains in A. Flutter, HR 60s -NPO for EULA and possible cardioversion tomorrow (05/20/19) -Continue telemetry monitoring -Monitor electrolytes, replete as necassary Assessment & Plan (05/17/2019 10:49 PM SEWER PIPE LAYER): Presented to OSH with atrial flutter with RVR, transferred to [facility] on amiodarone drip for rhythm [...] Mg>2 Assessment & Plan (05/17/2019 9:36 AM SEWER PIPE LAYER): Patient presented in atrial flutter with RVR on admission and was started on IV amiodarone infusion for rhythm control. Poor rate control felt to be trigger for decompensated heart failure. -digoxin stopped on 05/04/19 -home Xarelto remains on hold--continue heparin gtt until all testing done -remains in flutter--bradycardic (50's) -continue amiodarone 400mg QD -Continue telemetry monitoring Assessment & Plan (05/16/2019 9:39 AM SEWER PIPE LAYER): Patient presented in atrial flutter with RVR on admission and was started on IV amiodarone infusion for rhythm control. Poor rate control felt to be trigger for decompensated heart failure. -digoxin stopped on 05/04/19 -home Xarelto remains on hold--continue heparin gtt until all testing done -remains in flutter--bradycardic (50's) -continue amiodarone 400mg QD -Continue telemetry monitoring Assessment & Plan (05/14/2019 3:05 PM SEWER PIPE LAYER): Patient presented in atrial flutter with RVR [...] needed Assessment & Plan (05/13/2019 11:54 AM SEWER PIPE LAYER): Patient presented in atrial flutter with RVR [...] therapies Assessment & Plan (05/12/2019 4:39 PM SEWER PIPE LAYER): Patient presented in atrial flutter with RVR [...] therapies Assessment & Plan (05/11/2019 11:08 AM SEWER PIPE LAYER): Patient presented in atrial flutter with RVR [...] therapies Assessment & Plan (05/07/2019 12:51 PM SEWER PIPE LAYER): Patient presented in atrial flutter with RVR [...] monitoring Assessment & Plan (05/05/2019 3:03 PM SEWER PIPE LAYER): Patient presented in atrial flutter with RVR [...] recurrence Assessment & Plan (05/04/2019 10:28 AM SEWER PIPE LAYER): Patient presented in atrial flutter with rapid [...] recurrence Assessment & Plan (05/03/2019 11:56 AM SEWER PIPE LAYER): Patient in atrial flutter with rapid ventricular [...] CABG 06/29/2018 Coronary artery disease invo lving [place] heart without angina pectoris 05/19/2018 Overview (02/10/2020): Multivessel CAD s/p CABG May 2018: GARCIA to LAD, SVG to OM, SVG to Diag, partial MAZE + SAUL occluder S/p CRTD [facility] Apr 2019: Underlying triple-vessel disease with continued patency of all grafts including GARCIA to LAD, Y-graft to the diagonal and 2nd obtuse marginal. Assessment & Plan (10/20/2019 11:20 AM CDT): Multivessel CAD s/p CABG (May 2018, GARCIA to LAD, s/p CRTD, SVG to OM, SVG to Diag, partial MAZE + SAUL occluder) -Last ischemic evaluation was [facility] in Apr 2019: All grafts patent at that time. -Continue home Atorvastatin -holding aspirin in the setting of anemia/ likely GI bleed Assessment & Plan (10/19/2019 11:00 AM CDT): Multivessel CAD s/p CABG (May 2018, GARCIA to LAD, s/p CRTD, SVG to OM, SVG to Diag, partial MAZE + SAUL occluder) -Last ischemic evaluation was [facility] in Apr 2019: All grafts patent at that time. -Continue home Atorvastatin -holding aspirin in the setting of anemia/ likely GI bleed Assessment & Plan (10/18/2019 10:25 AM CDT): Multivessel CAD s/p CABG (May 2018, GARCIA to LAD, s/p CRTD, SVG to OM, SVG to Diag, partial MAZE + SAUL occluder) -Last ischemic evaluation was [facility] in Apr 2019: All grafts patent at that time. -Continue home Atorvastatin -holding aspirin in the setting of anemia/ likely GI bleed Assessment & Plan (10/17/2019 5:19 PM CDT): Multivessel CAD s/p CABG (May 2018, GARCIA to LAD, s/p CRTD, SVG to OM, SVG to Diag, partial MAZE + SAUL occluder) -Last ischemic evaluation was [facility] in Apr 2019: All grafts patent at that time. -Continue home ASA and Atorvastatin Assessment & Plan (10/16/2019 8:57 AM CDT): Multivessel CAD s/p CABG (May 2018, GARCIA to LAD, s/p CRTD, SVG to OM, SVG to Diag, partial MAZE + SAUL occluder) -Last ischemic evaluation was [facility] in Apr 2019: All grafts patent at that time. -Continue home ASA and Atorvastatin Assessment & Plan (10/15/2019 11:58 AM CDT): Multivessel CAD s/p CABG (May 2018, GARCIA to LAD, s/p CRTD, SVG to OM, SVG to Diag, partial MAZE + SAUL occluder) -Last ischemic evaluation was [facility] in Apr 2019: All grafts patent at that time. -Holding home ASA -Continue Atorvastatin Assessment & Plan (05/24/2019 3:44 PM SEWER PIPE LAYER): Low level troponin elevation at time of presentation felt to be c/w stress/demand ischemia in setting of CHF exacerbation/tachyarrhythmia. - [facility] (05/03) with triple-vessel disease with continued patency of all grafts including GARCIA to LAD, Y-graft to the diagonal and 2nd obtuse marginal; occluded posterior descending artery filling from xqzo-gg-hyhoo collaterals and ungrafted distal marginal branch in small caliber vessel-medical management recommended - continue ASA 81 mg daily and atorvastatin 40mg nightly - currently holding beta nikunj - continue aggressive risk factor modification Assessment & Plan (05/23/2019 11:33 AM SEWER PIPE LAYER): Low level troponin elevation at time of presentation felt to be c/w stress/demand ischemia in setting of CHF exacerbation/tachyarrhythmia. -[facility] (05/03) with triple-vessel disease with continued patency of all grafts including GARCIA to LAD, Y-graft to the diagonal and 2nd obtuse marginal; occluded posterior descending artery filling from ipgw-dm-velne collaterals and ungrafted distal marginal branch in small caliber vessel-medical management recommended -continue ASA 81 mg daily and atorvastatin 40mg nightly -currently holding beta nikunj -continue aggressive risk factor modification Assessment & Plan (05/22/2019 1:50 PM SEWER PIPE LAYER): Low level troponin elevation at time of presentation felt to be c/w stress/demand ischemia in setting of CHF exacerbation/tachyarrhythmia. -[facility] (05/03) with triple-vessel disease with continued patency of all grafts including GARCIA to LAD, Y-graft to the diagonal and 2nd obtuse marginal; occluded posterior descending artery filling from tesp-nf-ylxkm collaterals and ungrafted distal marginal branch in small caliber vessel-medical management recommended -continue ASA 81 mg daily and atorvastatin 40mg nightly -currently holding beta nikunj -continue aggressive risk factor modification Assessment & Plan (05/21/2019 7:35 PM SEWER PIPE LAYER): Low level troponin elevation at time of presentation felt to be c/w stress/demand ischemia in setting of CHF exacerbation/tachyarrhythmia. -[facility] (05/03) with triple-vessel disease with continued patency of all grafts including GARCIA to LAD, Y-graft to the diagonal and 2nd obtuse marginal; occluded posterior descending artery filling from cjru-mz-isiud collaterals and ungrafted distal marginal branch in small caliber vessel-medical management recommended -continue ASA 81 mg daily and atorvastatin 40mg nightly -currently holding beta nikunj -continue aggressive risk factor modification Assessment & Plan (05/20/2019 1:22 PM SEWER PIPE LAYER): Low level troponin elevation at time of presentation felt to be c/w stress/demand ischemia in setting of CHF exacerbation/tachyarrhythmia. -[facility] (05/03) with triple-vessel disease with continued patency of all grafts including GARCIA to LAD, Y-graft to the diagonal and 2nd obtuse marginal; occluded posterior descending artery filling from zfli-wg-qceef collaterals and ungrafted distal marginal branch in small caliber vessel-medical management recommended -continue ASA 81 mg daily, atorvastatin 40mg nightly and lisinopril 2.5 mg daily -currently holding beta nikunj -continue aggressive risk factor modification Assessment & Plan (05/19/2019 2:49 PM SEWER PIPE LAYER): Low level troponin elevation at time of presentation felt to be c/w stress/demand ischemia in setting of CHF exacerbation/tachyarrhythmia. -[facility] (05/03) with triple-vessel disease with continued patency of all grafts including GARCIA to LAD, Y-graft to the diagonal and 2nd obtuse marginal; occluded posterior descending artery filling from sjcn-cq-ofzvg collaterals and ungrafted distal marginal branch in small caliber vessel-medical management recommended -continue ASA 81 mg every day, atorvastatin 40mg every day and lisinopril 2.5 mg daily -currently holding beta nikunj -continue aggressive risk factor modification Assessment & Plan (05/17/2019 10:51 PM SEWER PIPE LAYER): History of CAD s/p CABG in 05/2018 with GARCIA to LAD, SVG to OM, SVG to diagonal, and partial MAZE procedure, completed by Dr. Toledo at [facility]. - [facility] 05/03: Triple-vessel CAD with continued patency of all grafts including GARCIA to LAD, Y-graft to the diagonal and 2nd obtuse marginal; occluded posterior descending artery filling from bwwx-tr-fzmjm collaterals and ungrafted distal marginal branch in small caliber vessel; medical management recommended - Continue ASA 81 mg every day, atorvastatin 40mg every day, lisinopril - Consider restarting home metoprolol XL 25 mg daily if remains stable off milrinone - Continue aggressive risk factor modification Assessment & Plan (05/17/2019 9:36 AM SEWER PIPE LAYER): -low level troponin elevation at time of presentation felt to be c/w stress/demand ischemia in setting of CHF exacerbation/tachyarrhythmia. -left heart cath (05/03) showed triple-vessel disease with continued patency of all grafts including GARCIA to LAD, Y-graft to the diagonal and 2nd obtuse marginal; occluded posterior descending artery filling from sztu-tj-oiuua collaterals and ungrafted distal marginal branch in small caliber vessel---medical management recommended -continue ASA 81 mg every day, atorvastatin 40mg every day, lisinopril -holding beta nikunj while on inotropes -continue aggressive risk factor modification Assessment & Plan (05/16/2019 9:40 AM SEWER PIPE LAYER): -low level troponin elevation at time of presentation felt to be c/w stress/demand ischemia in setting of CHF exacerbation/tachyarrhythmia. -left heart cath (05/03) showed triple-vessel disease with continued patency of all grafts including GARCIA to LAD, Y-graft to the diagonal and 2nd obtuse marginal; occluded posterior descending artery filling from ivfu-qt-vfevy collaterals and ungrafted distal marginal branch in small caliber vessel---medical management recommended -continue ASA 81 mg every day, atorvastatin 40mg every day, lisinopril -holding beta nikunj while on inotropes -continue aggressive risk factor modification Assessment & Plan (05/14/2019 3:07 PM SEWER PIPE LAYER): -low level troponin elevation at time of presentation felt to be c/w stress/demand ischemia in setting of CHF exacerbation/tachyarrhythmia. -left heart cath (05/03) showed triple-vessel disease with continued patency of all grafts including GARCIA to LAD, Y-graft to the diagonal and 2nd obtuse marginal; occluded posterior descending artery filling from qnwz-pw-obfyk collaterals and ungrafted distal marginal branch in small caliber vessel---medical management recommended -continue ASA 81 -continue statin/EMRE -hold beta nikunj given inotropes -continue aggressive risk factor modification Assessment & Plan (05/13/2019 12:36 PM SEWER PIPE LAYER): -low level troponin elevation at time of presentation felt to be c/w stress/demand ischemia in setting of CHF exacerbation/tachyarrhythmia. -left heart cath (05/03) showed triple-vessel disease with continued patency of all grafts including GARCIA to LAD, Y-graft to the diagonal and 2nd obtuse marginal; occluded posterior descending artery filling from aqbb-jm-burcn collaterals and ungrafted distal marginal branch in small caliber vessel---medical management recommended -continue ASA 81 -continue statin/EMRE -hold beta nikunj given inotropes -continue aggressive risk factor modification Assessment & Plan (05/12/2019 4:40 PM SEWER PIPE LAYER): -low level troponin elevation at time of presentation felt to be c/w stress/demand ischemia in setting of CHF exacerbation/tachyarrhythmia. -left heart cath (05/03) showed triple-vessel disease with continued patency of all grafts including GARCIA to LAD, Y-graft to the diagonal and 2nd obtuse marginal; occluded posterior descending artery filling from qxxp-tg-vjwzi collaterals and ungrafted distal marginal branch in small caliber vessel---medical management recommended -continue ASA 81 -continue statin/EMRE -hold beta nikunj given inotropes -continue aggressive risk factor modification Assessment & Plan (05/11/2019 11:08 AM SEWER PIPE LAYER): -low level troponin elevation at time of presentation felt to be c/w stress/demand ischemia in setting of CHF exacerbation/tachyarrhythmia. -left heart cath (05/03) showed triple-vessel disease with continued patency of all grafts including GARCIA to LAD, Y-graft to the diagonal and 2nd obtuse marginal; occluded posterior descending artery filling from tzfq-ga-upadl collaterals and ungrafted distal marginal branch in small caliber vessel---medical management recommended -continue ASA 81 -continue statin/EMRE -hold beta nikunj given inotropes -continue aggressive risk factor modification Assessment & Plan (05/10/2019 10:05 AM SEWER PIPE LAYER): -low level troponin elevation at time of presentation felt to be c/w stress/demand ischemia in setting of CHF exacerbation/tachyarrhythmia. -left heart cath (05/03) showed triple-vessel disease with continued patency of all grafts including GARCIA to LAD, Y-graft to the diagonal and 2nd obtuse marginal; occluded posterior descending artery filling from ydxp-zv-prkri collaterals and ungrafted distal marginal branch in small caliber vessel---medical management recommended -continue ASA 81 -continue statin/EMRE -hold beta nikunj given inotropes -continue aggressive risk factor modification Assessment & Plan (05/06/2019 8:12 AM SEWER PIPE LAYER): -low level troponin elevation at time of presentation felt to be c/w stress/demand ischemia in setting of CHF exacerbation/tachyarrhythmia. -left heart cath (05/03) showed triple-vessel disease with continued patency of all grafts including GARCIA to LAD, Y-graft to the diagonal and 2nd obtuse marginal; occluded posterior descending artery filling from zhdc-vi-vitoq collaterals and ungrafted distal marginal branch in small caliber vessel---medical management recommended -continue ASA 81 -continue statin/EMRE -hold beta nikunj given inotropes -continue aggressive risk factor modification Assessment & Plan (05/05/2019 3:08 PM SEWER PIPE LAYER): -low level troponin elevation at time of presentation felt to be c/w stress/demand ischemia in setting of CHF exacerbation/tachyarrhythmia. -left heart cath (05/03) showed triple-vessel disease with continued patency of all grafts including GARCIA to LAD, Y-graft to the diagonal and 2nd obtuse marginal; occluded posterior descending artery filling from ocpl-gg-tuwju collaterals and ungrafted distal marginal branch in small caliber vessel---medical management recommended -continue ASA 81 -continue statin/EMRE -hold beta nikunj given inotropes -continue aggressive risk factor modification Assessment & Plan (05/04/2019 9:34 AM SEWER PIPE LAYER): -low level troponin elevation at time of presentation felt to be c/w stress/demand ischemia in setting of CHF exacerbation/tachyarrhythmia. -left heart cath (05/03) showed triple-vessel disease with continued patency of all grafts including GARCIA to LAD, Y-graft to the diagonal and 2nd obtuse marginal; occluded posterior descending artery filling from mjmr-mt-hedda collaterals and ungrafted distal marginal branch in small caliber vessel---medical management recommended -continue ASA 81 -continue statin/EMRE -hold beta nikunj given inotropes -continue aggressive risk factor modification Assessment & Plan (04/30/2019 8:05 PM SEWER PIPE LAYER): He denies chest pain. He had a [...] LVEF 25% Apr 2019, LVIDD 6 cm [facility] Apr 2019: Underlying triple-vessel disease with continued patency of all grafts including GARCIA to LAD, Y-graft to the diagonal and 2nd obtuse marginal. Occluded posterior descending artery filling from ftpc-fd-wukca collaterals. Ungrafted distal marginal branch in small caliber vessel. On inotropes briefly - weaned, BANKRUPTCY MANAGER upgraded TTE Feb 2020 LVEF 40-45%, LVIDD 5.4 cm TTE September 2020 LVEF 25% in setting of reduced BANKRUPTCY MANAGER pacing - sent for AVJ TTE August 2021 - LVEF 55-60% - Mild MR Wide-complex tachycardia 02/11/2017 Mixed diabetic hyperlipidemi a associated with type 2 diabetes mellitus ([facility] 08/07/2015 Overview (09/13/2016): Type 2 diabetes mellitus [...] -holding home BP meds due to anemia NIDAI (obstructive sleep apnea) 01/19/2015 Overview (09/13/2016): NIDIA [...] CPAP Assessment & Plan (05/24/2019 3:43 PM SEWER PIPE LAYER): - Continue CPAP Assessment & Plan (05/23/2019 11:35 AM SEWER PIPE LAYER): -Continue CPAP Assessment & Plan (05/22/2019 1:50 PM SEWER PIPE LAYER): -Continue CPAP Assessment & Plan (05/21/2019 7:37 PM SEWER PIPE LAYER): -Continue CPAP Assessment & Plan (05/20/2019 1:22 PM SEWER PIPE LAYER): -Continue CPAP Assessment & Plan (05/19/2019 2:02 PM SEWER PIPE LAYER): -Continue CPAP Assessment & Plan (05/17/2019 10:54 PM SEWER PIPE LAYER): - Continue nightly CPAP per protocol Assessment & Plan (05/17/2019 9:37 AM SEWER PIPE LAYER): -Continue CPAP Assessment & Plan (05/16/2019 9:40 AM SEWER PIPE LAYER): -Continue CPAP Assessment & Plan (05/14/2019 3:08 PM SEWER PIPE LAYER): -Continue CPAP Assessment & Plan (05/13/2019 12:33 PM SEWER PIPE LAYER): -Continue CPAP Assessment & Plan (05/12/2019 4:40 PM SEWER PIPE LAYER): -Continue CPAP Assessment & Plan (05/11/2019 11:09 AM SEWER PIPE LAYER): -Continue CPAP Assessment & Plan (05/10/2019 10:04 AM SEWER PIPE LAYER): -Continue CPAP Assessment & Plan (05/06/2019 8:13 AM SEWER PIPE LAYER): -Continue CPAP Assessment & Plan (05/05/2019 3:08 PM SEWER PIPE LAYER): -Continue CPAP Assessment & Plan (05/04/2019 10:02 AM SEWER PIPE LAYER): -Continue CPAP Assessment & Plan (05/03/2019 11:35 AM SEWER PIPE LAYER): -Continue CPAP Resolved Problems Problem Noted Date [...] anemia -Lightheadedness improved after transfusion -[facility] BANKRUPTCY MANAGER-D interrogation with A. Fib burden > 99%, [...] anemia -Lightheadedness improved after transfusion -[facility] [employer]ANK[employer]CY MANAGER-D interrogation with A. Fib burden > 99%, [...] anemia -Lightheadedness improved after transfusion -[facility] [employer]ANK[employer]CY MANAGER-D interrogation with A. Fib burden > 99%, [...] anemia -Lightheadedness improved after transfusion -[facility] [employer]ANK[employer]CY MANAGER-D interrogation with A. Fib burden > 99%, [...] likely due to current anemia -[facility] [employer]ANKRUPTCY MANAGER-D interrogation with A. Fib burden > 99%, [...] due to current anemia -Interrogate [facility] [employer]ANK[employer]CY MANAGER-D given recent fall -obtain orthostatic VS -Transfuse 2 units of PRBCs -Ambulate with assistance -Fall precautions Acute deep vein thrombosis ( DVT) of femoral vein of right lower extremity 05/18/2019 06/01/2021 Assessment & Plan (05/18/2019 9:55 AM SEWER PIPE LAYER): Continue heparin gtt. - Consider adjusting home anticoagulant given acute RLE DVT Acute pain of left lower extremity 05/15/2019 05/17/2019 Assessment & Plan (05/15/2019 11:29 AM SEWER PIPE LAYER): Previous venous Doppler on 05/10 with DVT in RLE. - repeat limited venous doppler in LLE to help assess clot burden - continue heparin gtt Cirrhosis of liver 05/13/2019 9 Assessment & Plan (05/17/2019 9:33 AM SEWER PIPE LAYER): Cirrhosis of liver found on ultrasound Ultrasound guided liver biopsy done 05/12/19. Pathology without fibrosis--nothing precluding him LVAD implant Assessment & Plan (05/16/2019 9:39 AM SEWER PIPE LAYER): Cirrhosis of liver found on ultrasound Ultrasound guided liver biopsy done 05/12/19. Pathology without fibrosis--nothing precluding him LVAD implant Assessment & Plan (05/14/2019 3:06 PM SEWER PIPE LAYER): Cirrhosis of liver found on ultrasound Ultrasound guided liver biopsy done 05/12/19. Pathology without fibrosis--nothing precluding him LVAD implant. Assessment & Plan (05/13/2019 12:36 PM SEWER PIPE LAYER): Cirrhosis of liver found on ultrasound Ultrasound guided liver biopsy done 05/12/19 - called pathology department . Pathology is not finalized and ordered more testing ordered - might be finalized till tomorrow - will need to check back with pathology tomorrow. Acute kidney injury superimp osed on chronic kidney disease 04/30/2019 10/18/2019 Assessment & Plan (05/24/2019 4:07 PM SEWER PIPE LAYER): CKD Stage II (Baseline Cr 0.9-1.0) with NORMAN this admission (cardiorenal etiology) - Creatine waxes and wanes, torsemide held yesterday. Creatinine today 2.07 - Pts home Lisinopril held this admission due to renal function Assessment & Plan (05/23/2019 11:26 AM SEWER PIPE LAYER): CKD Stage II (Baseline Cr 0.9-1.0) with NORMAN this admission (cardiorenal etiology) -Creatine waxes and wanes--today up from 1.86 to 2.11, torsemide held. -Pts home Lisinopril held this admission due to renal function -monitor BMPs Assessment & Plan (05/22/2019 1:45 PM SEWER PIPE LAYER): CKD Stage II (Baseline Cr 0.9-1.0) with NORMAN this admission (cardiorenal etiology) -Creatine improving, today at 1.86 -Pts home Lisinopril held this admission due to renal function -monitor BMPs Assessment & Plan (05/21/2019 7:37 PM SEWER PIPE LAYER): CKD Stage II (Baseline Cr 0.9-1.0) with NORMAN this admission (cardiorenal etiology) -Creatine still remains elevated 2.04 -Pts home Lisinopril held this admission due to renal function -monitor BMPs Assessment & Plan (05/20/2019 3:15 PM SEWER PIPE LAYER): CKD Stage II (Baseline Cr 0.9-1.0) with NORMAN this admission (cardiorenal etiology) -Creatine still remains elevated 1.93 -monitor BMPs Assessment & Plan (05/18/2019 9:45 AM SEWER PIPE LAYER): CKD Stage II (Baseline Cr 0.9-1.0) with NORMAN this admission due to cardiorenal etiology. Creatinine has fluctuated with diuresis and volume status. - Cr 1.8 today, down from 2.0 - Avoid nephrotoxins - Monitor electrolytes, volume status - If continues to uptrend with low CVP, may consider holding diuretic or giving gentle fluids Assessment & Plan (05/17/2019 9:39 AM SEWER PIPE LAYER): CKD Stage II (Baseline Cr 0.9-1.0) with NORMAN this admission (cardiorenal etiology), Creatine still remains elevated 1.8 Assessment & Plan (05/15/2019 11:23 AM SEWER PIPE LAYER): CKD Stage II (Baseline Cr 0.9-1.0) with NORMAN this admission (cardiorenal etiology), now improved - continue to trend Cr Assessment & Plan (05/14/2019 3:07 PM SEWER PIPE LAYER): CKD Stage II (Baseline Cr 0.9-1.0) with NORMAN this admission (cardiorenal etiology) Creatine bumped from baseline of 1.4- peaked 1.87, now downtrending to 1.67 today Continue to monitor. Assessment & Plan (05/12/2019 4:40 PM SEWER PIPE LAYER): CKD Stage II (Baseline Cr 0.9-1.0) with NORMAN this admission (cardiorenal etiology) Creatine bumped from baseline of 1.4- peaked 1.8, normalized today at 1.47 Continue to monitor. Assessment & Plan (05/11/2019 11:08 AM SEWER PIPE LAYER): CKD Stage II (Baseline Cr 0.9-1.0) with NORMAN this admission (cardiorenal etiology) Creatine bumped from baseline of 1.4- peaked 1.8 today 1.55 Continue to monitor. Assessment & Plan (05/10/2019 10:04 AM SEWER PIPE LAYER): CKD Stage II (Baseline Cr 0.9-1.0) with NORMAN this admission (cardiorenal etiology) Creatine bumped from baseline of 1.4- peaked 1.8 today 1.54 Continue to monitor. Assessment & Plan (05/07/2019 1:01 PM SEWER PIPE LAYER): CKD Stage II (Baseline Cr 0.9-1.0) with NORMAN this admission (cardiorenal etiology) Creatine bumped from baseline of 1.4- peaked 1.8 today 1.7 Continue to monitor. Assessment & Plan (05/05/2019 3:07 PM SEWER PIPE LAYER): CKD Stage II (Baseline Cr 0.9-1.0) with NORMAN this admission (cardiorenal etiology) -Cr remains stable, 1.42 today --continue to follow with diuresis -continue CHF optimization and avoid nephrotoxins -Daily BMPs Assessment & Plan (05/04/2019 10:01 AM SEWER PIPE LAYER): CKD Stage II (Baseline Cr 0.9-1.0) with NORMAN this admission (cardiorenal etiology) -Cr remains stable --continue to follow with diuresis -advance EMRE as renal fxn/BP tolerates1.32, improved from yesterday -continue CHF optimization and avoid nephrotoxins Assessment & Plan (05/03/2019 12:23 PM SEWER PIPE LAYER): CKD Stage II (Baseline Cr 0.9-1.0) with [...] Encounters Date Type Department Care Team Description 04/12/[address] [facility] Medicine Cardiology [address] [facility] [address] [place] [address] [place] [address] Bobby Romero MD 04/11/[address] [facility] Medicine Cardiology [address] [facility] [address] [place] [address] [place] [address] Rob Han MD 04/04/2025 6:08 PM CDT - 04/04/2025 8:38 PM CDT Emergency [facility] Emergency Department [address] [place] [address] Rajendra Hollingsworth MD Hypoglycemia (Primary Dx); Essential hypertension Discharge Disposition: Discharge to home or self care 03/14/2025 [facility] [address] [facility] [address] [place] [address] Rob Han MD from Last 3 Months [...] Never 11/27/2020 Personal Safety Answer Date Recorded Have you ever been in or are you currently in a harmful physical or emotional relationship or is someone making you feel afraid or unsafe? Denies 04/04/2025 Sex and Gender Information Value Date Recorded Sex Assigned at Not on file Legal Sex Male 2:06 AM SEWER PIPE LAYER Gender Identity Not on file Sexual Orientation Not on file Last Filed Vital Signs Vital Sign Reading Time Taken Comments Blood Pressure 162/78 04/04/2025 8:15 PM CDT Pulse 70 04/04/2025 8:15 PM CDT Temperature 36.4 C (97.5 F) 04/04/2025 6:01 PM CDT Respiratory Rate 22 04/04/2025 8:15 PM CDT Oxygen Saturation 95% 04/04/2025 8:15 PM CDT Inhaled Oxygen Concentration - - Weight 94.8 kg (209 lb) 04/04/2025 6:01 PM CDT Height 167.6 cm (5' 6) 08/26/2024 1:16 PM CDT Body Mass Index 33.73 08/26/2024 1:16 PM CDT Plan of Treatment Health Maintenance Due Date Last Done Comments Albumin Creatinine Ratio, Urine 1950 Depression Screening 1950 Dilated Eye Exam 1950 Foot Exam 1950 Well Visit 65+ 2014 Pneumococcal vaccine 65+ (2 of 2 - PPSV23, PCV20, or PCV21) 07/04/2019 05/09/2019, 03/26/2017 DTaP/Tdap/Td Vaccine (3 - Td or Tdap) 01/06/2021 01/06/2011, 02/18/2008 Zoster Vaccine (1 of 2) 03/29/2021 02/01/2021, 02/22 Fall Risk Assessment 11/27/2021 11/27/2020 Influenza Vaccine (#1) 2025 , 04/30/2019, 03/26/2017 Hemoglobin A1C 10/04/2025 04/05/2025, 11/07, 10/15/2019, Additional history exists eGFR 04/04/2026 04/04/2025, 0 11/2022, 05/10/2021, Additional history exists Lipid Panel 04/06/2026 04/06/2025, 0 12/2022, 03/19/2022, Additional history exists Colon Cancer Screening-Colonoscopy 10/19/2029 10/20/2019, 10/18/2019 Hepatitis B Screening Completed 05/05/2019 Hepatitis C Screening Completed 05/05/2019, 019 Colon Cancer Screening-CT Colonography Discontinued 10/20/2019, 10/18/2019 Colon Cancer Screening-DNA Stool Discontinued 10/20/19, 10/18/2019 Colon Cancer Screening-FIT Discontinued 10/20/2019, Colon Cancer Screening-Sigmoidoscopy Discontinued 10/20/2019, 10/18/2019 Medical Devices Implanted Type Area Wheel Buffer Device Identifier Shelf Expiration Date Model / Serial / Lot Atriclip Flex 35 Implanted:Qty : 1 on 05/28/2018 by Evaristo Toledo MD at [facility] Clip N/A: Heart At[employer] [id number] 02/08/2020 [id number] / / [id number] [employer] [id number] Quadra Assura Mp [id number] Df-4 Is4 Is-1 Connector [id number] 40j - [id number] - [id number] Implanted:Qty : 1 on 05/24/2019 by Juancho Jorge DO at [facility] ICD Left: Chest Wall [employer] 05/08/2021 [id number] / [id number] / Description:VF zone: 200 wit h ATP during charge- max outputs. VTmonitor zone: 171 [employer] 7122q/58 Durata 6.8fr 58cm 1 Coil True Bipolar Active Fixation Extendable - [id number] - [id number] Implanted:Qty : 1 on 05/24/2019 by Juancho Jorge DO at [facility] Lead Left: Heart [employer] 02/06/2022 7122Q/58 / [id number] / Description:RV [employer] 8tc/52 Tendril Sts 6fr 52cm Is-1 Connector Active Fixation Bipolar Soft - [id number] - [id number] Implanted:Qty : 1 on 05/24/2019 by Juancho Jorge DO at [facility] Lead Left: Heart [employer] 04/08/2022 2088TC/52 / [id number] / Description:RA [employer] 1458q/86 Quartet 5fr 80tiq06of 4 Electrode Is-4 Connector Steerable Tip - [id number] - [id number] Implanted:Qty : 1 on 05/24/2019 by Juancho Jorge DO at [facility] Lead Left: Heart [employer] 03/08/2022 1458Q/86 / [id number] / Description:LV Pacemaker Pacemaker Chest Wall Reveal Link-02/20/201 7 Implanted:Qty : 1 on 02/20/2017 by Carrington Tolbert MD N/A: Chest [employer] LNQ 11 / [id number] / Daig Bhaskar/[employer] [id number] Angio-Seal Evolution 6fr .035in Guidewire Bypass Tube Suture - [id number] - [id number] Implanted:Qty : 1 on 05/03/2019 by Grey Johnson MD PhD at [facility] Daig Bhaskar/[employer] 01/07/2020 [id number] / [id number] / [id number] [employer] [id number] System 6-12fr Mvp Venous Closure Vascade - [id number] - [id number] Implanted:Qty : 1 on 11/27/2020 by Rob Han MD at [facility] [employer] 08/28/2022 [id number] 10U / [id number] 22B / [id number] Procedures Procedure Name Priority Date/Time Associated Diagnosis Comments [place] CRITICAL CARE ILL/INJURED PATIENT INIT 30-74 MIN Routine 04/04/2025 8:19 PM CDT TROPONIN T HIGH-SENSITIVITY 2-HOUR Timed 04/04/2025 7:48 PM CDT EGFR STAT 04/04/2025 6:51 PM CDT MAGNESIUM Routine 04/04/2025 6:51 PM CDT APTT STAT 04/04/2025 6:51 PM CDT PROTIME-INR STAT 04/04/2025 6:51 PM CDT PRO B-TYPE NATRIURETIC PEPTIDE STAT 04/04/2025 6:51 PM CDT TROPONIN T HIGH-SENSITIVITY STAT 04/04/2025 6:51 PM CDT COMPREHENSIVE METABOLIC PANEL STAT 04/04/2025 6:51 PM CDT POCT GLUCOSE DEVICE Routine 04/04/2025 6 :[address] HEAD WO CONTRAST ED 04/04/2025 6 :37 PM CDT ECG 12-LEAD Routine 04/04/2025 6:16 PM CDT DIFFERENTIAL AUTO STAT 04/04/2025 6:1 3 PM CDT PRO B-TYPE NATRIURETIC PEPTIDE STAT 04/04/2025 6:13 PM CDT CBC WITH AUTO DIFFERENTIAL STAT 04/04/2025 6:13 PM CDT POCT GLUCOSE DEVICE Routine 04/04/2025 6 :00 PM CDT DEVICE CHECK - REMOTE Routine 03/14/2025 LIPID PANEL Routine 06/15/2022 POCT HEMOGLOBIN A1C Routine 11/24/2020 1 1:[address] VIRTUAL COLONOSCOPY DIAGNOSTIC WO CONTRAST Timed 10/20/2019 10:15 AM CDT HEPATITIS C ANTIBODY Routine 05/05/2019 5:41 PM SEWER PIPE LAYER from Last 3 Months or Most Recently Relevant to Health Maintenance Results * [place] CRITICAL CARE ILL/INJURED PATIENT INIT 30-74 MIN (04/04/2025 8:19 PM CDT) Narrative Rajendra Hollingsworth MD - 04/04/2025 8:19 PM CDT Rajendra Hollingsworth MD 04/04/2025 8:20 PM Critical Care Performed by: Rajendra Hollingsworth MD Authorized by: Rajendra Hollingsworth MD Critical care provider statement: As reflected in the history, physical exam, orders, notes, and/or MDM, I was personally present while the patient was critically ill and provided critical care services for 30 minutes, excluding time involved in separately billable procedures. Critical care was necessary to treat or prevent imminent or life-threatening deterioration of the following condition(s): hypertensive crisis Critical care was time spent by me providing the following: initiation and active titration of vasoactive medications I provided emergent necessary critical care medicine services to this patient. I ordered and reviewed test results and/or imaging studies. I spent time discussing the management of this critically ill patient with consultants and the medical staff. Result Kaylin Hollingsworth MD IN CLINIC/BEDSIDE ORDERABLES Final Result * Troponin T high-sensitivity 2-hour (04/04/2025 7:48 PM CDT) Trop T hs 18 <=22 ng/L Comment: Interpretive Data For further hscTnT resources including the diagnostic algorithm and an aid in interpretation, copy and paste this link: [email or web address] Current Interpretive Data last revised 2020. Trop T hs interp See Comment [facility] Comment:Delta calculation an d interpretation not available. Blood 04/04/2025 7:48 PM CDT 04/04/2025 7:54 PM CDT us Rajendra Hollingsworth MD LAB BLOOD ORDERABLES Final R esult [facility] [address] [facility] [place] [address] * Troponin T high-sensitivity (04/04/2025 6:51 PM CDT) Trop T hs 17 <=22 ng/L Comment: Interpretive Data For further hscTnT resources including the diagnostic algorithm and an aid in interpretation, copy and paste this link: [email or web address] Current Interpretive Data last revised 2020. Blood 04/04/2025 6:51 PM CDT 04/04/2025 6:53 PM CDT us Rajendra Hollingsworth MD LAB BLOOD ORDERABLES Final R esult [facility] ([place]) 1 [facility] [place] [address] * eGFR (04/04/2025 6:51 PM CDT) eGFR 74 >=60 mL/min/1. 73 m2 Comment: Interpretive Data Reference Interval Normal >/= 90 mL/min/1.73m2 Mildly decreased* 60 - 89 mL/min/1.73m2 Mildly to moderately decreased 45 - 59 mL/min/1.73m2 Moderately to severely decreased 30 - 44 mL/min/1.73m2 Severely decreased 15 - 29 mL/min/1.73m2 Kidney Failure < 15 mL/min/1.73m2 *Relative to young adult level Estimated glomerular filtration rate is determined by the 2020 CKD-EPI equation recommended by the National Kidney Foundation (A Unifying Approach to GFR Estimation: Recommendations of the NKF-ASK Task Force on Reassessing the Inclusion of Race in Diagnosing Kidney Disease, JASN 2020). The CKD-EPI equation should not be used for patients with unstable renal function and has not been validated in children and those over 70. Current interpretive data was last reviewed 2021. Blood 04/04/2025 6:51 PM CDT 04/04/2025 6:53 PM CDT Rajendra Hollingsworth MD LAB BLOOD ORDERABLES Final R esult [facility] ([place]) 1 [facility] Department [place] [address] * (ABNORMAL) Pro B-type natriuretic peptide (04/04/2025 6:51 PM CDT) NT-proBNP 470(H) <=450 pg/mL Comment: Interpretive Comments: A. Dyspnea in Acute Care Setting All Ages: < 300 pg/ml, acute heart failure unlikely. < 50 yrs: 300 - 450 pg/ml, further investigation warranted. > 450 pg/ml, acute heart failure likely. 50 - 74 yrs: 300 - 900 pg/ml, further investigation warranted. > 900 pg/ml, acute heart failure likely . > or = 75 yrs: 450 - 1800 pg/ml, further investigation warranted. > 1800 pg/ml, acute heart failure likely. B. Non-acute Setting < 75 yrs < 125 pg/ml, rules out heart failure. > or = 125 pg/ml, further investigation warranted. > or = 75 yrs < 450 pg/ml, rules out heart failure. > or = 450 pg/ml, further investigation warranted. - Knowledge of each individual patient's NT-proBNP range may be more useful than using similar cut-points for every patient. Please note that marked elevations in NT-proBNP levels may be observed in state other than Left Ventricular Congestive Failure, including: acute coronary syndromes, right heart strain/failure (including pulmonary embolism and cor pulmonale), critical illness, renal failure, as well as advanced age. - References: 1. Landen JL et.al. Eur Heart J. 2006:27:330-337. 2. Kim BALTAZAR, Ana OLIVERA. J. AM Archie Cardiol: Cardiovasc Imag. 2009;2: 216- 225. Interpretive Data Last Revised Date: 2018. Blood 04/04/2025 6:51 PM CDT 04/04/2025 6:53 PM CDT Rajendra Hollingsworth MD LAB BLOOD ORDERABLES Final R esult Performing Organization Address City/[facility] Co de Phone Number [facility] [place]) 1 [facility] [place] [address] * aPTT (04/04/2025 6:51 PM CDT) aPTT 32 26 - 38 sec [facility] ([place]) Comment: Interpretive Data Heparin therapeutic range: 66.0 - 100.0 seconds. Range based on correlation with therapeutic heparin activity range of 0.3 - 0.7 Units/mL. Current interpretive data was last revised on 2023. Blood 04/04/2025 6:51 PM CDT 04/04/2025 6:53 PM CDT Rajendra Hollingsworth MD LAB BLOOD ORDERABLES Final R esult Performing Organization Address City/[facility] Co de Phone Number [facility] [place]) 1 [place] [address] * Protime-INR (04/04/2025 6:51 PM CDT) [facility] PT 13.2 10.2 - 13.5 sec [facility] ([place]) INR 1.17 0.90 - 1.20 [facility] ([place]) Comment: Interpretive data Oral anticoagulant therapeutic ranges: Venous thromboembolism prophylaxis or treatment: 2.0-3.0 CARDIOLOGY Standard range: 2.0-3.0 High-intensity range: 2.5-3.5 Refer to indication-specific guidelines for appropriate target ranges for prosthetic heart valve replacement. Current interpretive data was last revised on 2019. Blood 04/04/2025 6:51 PM CDT 04/04/2025 6:53 PM CDT Rajendra Hollingsworth MD LAB BLOOD ORDERABLES Final R esult Performing Organization Address City/[facility]/ZIP Co de Phone Number [facility] ([place]) 1 [place] [address] * Magnesium (04/04/2025 6:51 PM CDT) [facility] Magnesium 2.0 1.4 - 2.5 mg/dL Blood 04/04/2025 6:51 PM CDT 04/04/2025 6:53 PM CDT Rajendra Hollingsworth MD LAB BLOOD ORDERABLES Final R esult [facility] ([place]) 1 [place] [address] * (ABNORMAL) Comprehensive metabolic panel (04/04/2025 6:51 PM CDT) [facility] Sodium 131(L) 135 - 145 mmol/L Potassium, pl 4.5 3.3 - 4.9 mmol/L [facility] ([place]) Chloride 94(L) 97 - 110 mmol/L [facility] ([place]) CO2 26 22 - 32 mmol/L [facility] ([place]) Anion gap 11 2 - 15 mmol/L [facility] ([place]) BUN 18 6 - 25 mg/dL [facility] ([place]) Creatinine 1.05 0.80 - 1.30 mg/dL [facility] ([place]) Glucose 201(H) 70 - 199 mg/dL [facility] ([place]) Comment: Interpretive Data Fasting glucose >/= 126 mg/dl is diagnostic for diabetes. Fasting is defined as no caloric intake for at least 8 hours. Fasting glucose between 100 mg/dl to 125 mg/dl is diagnostic of prediabetes. In a patient with classic symptoms of hyperglycemia or hyperglycemic crisis, a random glucose >/= 200 mg/dl is diagnostic for diabetes. In the absence of unequivocal hyperglycemia, results should be confirmed by repeat testing. The classification and Diagnosis of Diabetes Diabetes Care 2021; 46: S19-S40. Current interpretive data was last revised 2022. Calcium 9.5 8.5 - 10.3 mg/dL [facility] ([place]) Bilirubin, total 0.8 0.1 - 1.2 mg/dL [facility] ([place]) Protein, pl 7.6 6.5 - 8.5 g/dL [facility] ([place]) Albumin 3.7 3.5 - 5.0 g/dL [facility] ([place] Alk phos 162(H) 40 - 130 Units/L [facility] ([place]) ALT 57(H) 7 - 55 Units/L [facility] ([place] AST 49 10 - 50 Units/L [facility] ([place]) Blood 04/04/2025 6:51 PM CDT 04/04/2025 6:53 PM CDT us Rajendra Hollingsworth MD LAB BLOOD ORDERABLES Final R esult [facility] ([place]) 1 [facility] Department [place] [address] * POCT glucose (04/04/2025 6:45 PM CDT) Glucose, POC 170 70 - 199 mg/dL Blood 04/04/2025 6:45 PM CDT 04/04/2025 6:45 PM CDT us Rajendra Hollingsworth MD LAB POCT ORDERABLES - DEVICE Final Result [facility] ([place]) 1 [facility] Department [place] [address] * CT Head WO Contrast (04/04/2025 6:37 PM CDT) Anatomical Region Laterality Modality Head and Neck N/A Computed Tomogra phy 04/04/2025 6:41 PM CDT Impressions 04/04/2025 6:41 PM CDT No acute intracranial process. Electronically signed by: Flex Woodard M.D. Narrative 04/04/2025 6:41 PM CDT EXAMINATION: 1. CT head without contrast 2. 3D volume rendering of head CT HISTORY: Mental status change TECHNIQUE: CT of the head was performed with images acquired from skull base to vertex without intravenous contrast. 3D surface reconstructions were performed by the technologist at the CT scanner. COMPARISON: None Available. FINDINGS: There is no acute intracranial hemorrhage. Ventricles are of normal size and morphology. No mass effect or midline shift is present. The lynch-white matter differentiation is normal. The visualized portions of the orbits are normal. The visualized portions of the mastoids are normal. The visualized portions of the paranasal sinuses are normal. No fractures are identified. 3D surface reconstructions show no sign of fracture. Procedure Note Flex Woodard MD - 04/04/2025 EXAMINATION: 1. CT head without contrast 2. 3D volume rendering of head CT HISTORY: Mental status change TECHNIQUE: CT of the head was performed with images acquired from skull base to vertex without intravenous contrast. 3D surface reconstructions were performed by the technologist at the CT scanner. COMPARISON: None Available. FINDINGS: There is no acute intracranial hemorrhage. Ventricles are of normal size and morphology. No mass effect or midline shift is present. The lynch-white matter differentiation is normal. The visualized portions of the orbits are normal. The visualized portions of the mastoids are normal. The visualized portions of the paranasal sinuses are normal. No fractures are identified. 3D surface reconstructions show no sign of fracture. IMPRESSION: No acute intracranial process. Electronically signed by: Flex Woodard M.D. Rajendra Hollingsworth MD IMG CT PROCEDURES Final Resu lt * ECG 12 lead (04/04/2025 6:16 PM CDT) 04/04/2025 6:16 PM CDT Narrative [facility] - 04/05/2025 8:29 AM CDT Vent Rate: 69 bpm RR Interval: 858 msec VT Interval: 0 msec QRS Duration: 151 msec QT Interval: 457 msec QTC Interval: 477 msec P-R-T [place]: [id number] - 227 - 47 degrees IMPRESSION: ELECTRONIC VENTRICULAR PACEMAKER ABNORMAL RHYTHM ECG No change compared to prior EKG Electronically Signed By: Rudy Cruz MD Rajendra Hollingsworth MD ECG ORDERABLES Final Result [facility] * (ABNORMAL) Differential, auto (04/04/2025 6:13 PM CDT) Neutrophil abs 9.66(H) 1.50 - 6.50 K/cumm Imm gran abs 0.09 0.00 - 0.10 K/cumm [facility] ([place]) Lymphocyte abs 0.80 0.80 - 3.30 K/cumm [facility] ([place]) Monocyte abs 0.56 0.20 - 0.80 K/cumm [facility] ([place]) Eosinophil abs 0.04 0.00 - 0.50 K/cumm [facility] ([place]) Basophil abs 0.07 0.00 - 0.10 K/cumm [facility] ([place]) Neutrophil pct 86.1 % [facility] ([place]) Comment: Interpretive Data Percent cell count reference ranges are not reported, since discordance with absolute values may lead to misinterpretation of CBC data. Current Interpretive Data was last revised on 2017. Imm gran pct 0.8 % [facility] ([place]) Comment: Interpretive Data Percent cell count reference ranges are not reported, since discordance with absolute values may lead to misinterpretation of CBC data. Current Interpretive Data was last revised on 2017. Lymphocyte pct 7.1 % [facility] ([place]) Comment: Interpretive Data Percent cell count reference ranges are not reported, since discordance with absolute values may lead to misinterpretation of CBC data. Current Interpretive Data was last revised on 2017. Monocyte pct 5.0 % [facility] ([place]) Comment: Interpretive Data Percent cell count reference ranges are not reported, since discordance with absolute values may lead to misinterpretation of CBC data. Current Interpretive Data was last revised on 2017. Eosinophil pct 0.4 % [facility] ([place]) Comment: Interpretive Data Percent cell count reference ranges are not reported, since discordance with absolute values may lead to misinterpretation of CBC data. Current Interpretive Data was last revised on 2017. Basophil pct 0.6 % [facility] ([place]) Comment: Interpretive Data Percent cell count reference ranges are not reported, since discordance with absolute values may lead to misinterpretation of CBC data. Current Interpretive Data was last revised on 2017. Blood 04/04/2025 6:13 PM CDT 04/04/2025 6:16 PM CDT us Rajendra Hollingsworth MD LAB BLOOD ORDERABLES Final R esult [facility] ([place]) 1 [facility] Department [place] [address] * Pro B-type natriuretic peptide (04/04/2025 6:13 PM CDT) NT-proBNP 444 <=450 pg/mL Comment: Interpretive Comments: A. Dyspnea in Acute Care Setting All Ages: < 300 pg/ml, acute heart failure unlikely. < 50 yrs: 300 - 450 pg/ml, further investigation warranted. > 450 pg/ml, acute heart failure likely. 50 - 74 yrs: 300 - 900 pg/ml, further investigation warranted. > 900 pg/ml, acute heart failure likely . > or = 75 yrs: 450 - 1800 pg/ml, further investigation warranted. > 1800 pg/ml, acute heart failure likely. B. Non-acute Setting < 75 yrs < 125 pg/ml, rules out heart failure. > or = 125 pg/ml, further investigation warranted. > or = 75 yrs < 450 pg/ml, rules out heart failure. > or = 450 pg/ml, further investigation warranted. - Knowledge of each individual patient's NT-proBNP range may be more useful than using similar cut-points for every patient. Please note that marked elevations in NT-proBNP levels may be observed in state other than Left Ventricular Congestive Failure, including: acute coronary syndromes, right heart strain/failure (including pulmonary embolism and cor pulmonale), critical illness, renal failure, as well as advanced age. - References: 1. Landen RAMOS et.al. Eur Heart J. 2006:27:330-337. 2. Kim BALTAZAR, Ana OLIVERA. J. AM Archie Cardiol: Cardiovasc Imag. 2009;2: 216- 225. Interpretive Data Last Revised Date: 2018. Blood 04/04/2025 6:13 PM CDT 04/04/2025 6:16 PM CDT us Rajendra Hollingsworth MD LAB BLOOD ORDERABLES Final R esult [facility] ([place]) 1 [facility] Department [place] [address] * (ABNORMAL) CBC with auto differential (04/04/2025 6:13 PM CDT) WBC 11.22(H) 3.80 - 9.90 K/cumm Hgb 15.5 13.0 - 17.5 g/dL [facility] ([place]) Hct 49.1 38.9 - 50.3 % [facility] ([place]) Plt 178 150 - 400 K/cumm [facility] ([place]) MPV 9.2 9.1 - 12.3 fL [facility] ([place]) RBC 5.53 4.30 - 5.80 M/cumm [facility] ([place]) MCV 88.8 81.3 - 96.4 fL [facility] ([place]) MCH 28.0 27.1 - 33.3 pg [facility] ([place]) MCHC 31.6(L) 32.3 - 35.7 g/dL [facility] ([place]) RDW CV 15.1(H) 11.1 - 14.9 % [facility] ([place]) RDW SD 49.2(H) 35.7 - 48.1 fL [facility] ([place]) NRBC abs 0.00 0.00 - 0.01 K/cumm [facility] ([place]) Blood 04/04/2025 6:13 PM CDT 04/04/2025 6:16 PM CDT us Rajendra Hollingsworth MD LAB BLOOD ORDERABLES Final R esult [facility]) 1 [facility] [place] [address] * (ABNORMAL) POCT glucose (04/04/2025 6:00 PM CDT) [facility] Signature Glucose, POC 65(L) 70 - 199 mg/dL Blood 04/04/2025 6:00 PM CDT 04/04/2025 6:00 PM CDT us Rajendra Hollingsworth MD LAB POCT ORDERABLES - DEVICE Edited Result - Final Performing Organization Address City/[facility]/ZIP Co de Phone Number [place] [place] 1 [facility] [place] [address] * DEVICE CHECK - REMOTE (03/14/2025) Anatomical Region Laterality Modality Other 03/14/2025 03/14/2025 Narrative 03/31/2025 10:01 PM CDT Device Summary Remote interrogation of [place] ([place] BANKRUPTCY MANAGER-D Date of Implant: May 24, 2019 Programmed Mode: VVIR Lower Rate: 70 bpm Device Functionality Presenting rhythm: AF-BiVp 70 Device: Normal function Estimated Battery Longevity: 1 years 4 months. Leads: Appear stable BANKRUPTCY MANAGER Pacin.0 % Episodes since 12-13-24 No SVT / VT / VF episodes AT/AF burden: 100% James DALLAS, BSN Procedure Note Rob Han MD - 03/31/2025 Device Summary Remote interrogation of [place] ([employer]) BANKRUPTCY MANAGER-D Date of Implant: May 24, 2019 Programmed Mode: VVIR Lower Rate: 70 bpm Device Functionality Presenting rhythm: AF-BiVp 70 Device: Normal function Estimated Battery Longevity: 1 years 4 months. Leads: Appear stable BANKRUPTCY MANAGER Pacin.0 % Episodes since 12-13-24 No SVT / VT / VF episodes AT/AF burden: 100% James DALLAS, BSN Rob Han MD [facility] CARDI[facility] PRO CEDURES Final Result * Lipid panel (06/15/2022) SCRIBED Cholesterol, Total 133 l - h EXTERNAL LAB SCRIBED HDL 30 l - h EXTERNAL LAB SCRIBED LDL 66 l - h EXTERNAL LAB SCRIBED Triglycerides 228 l - h EXTERNAL LAB Blood Historical Provider LAB BLOOD ORDERABLES Nydia l Result EXTERNAL LAB * CT Colonoscopy Diagnostic WO Contrast (10/20/2019 [...] by: Bharathi Jackson M.D. us Natividad Estrada COMMISSIONER PUBLIC WORKS IMG CT PROCEDURES Final Re sult * Hepatitis C antibody (05/05/2019 5:41 PM SEWER PIPE LAYER) Hep C Ab Nonreactive Nonreactive [facility] Comment: Interpretive Data Positive results should be confirmed by a molecular method. If positive, a second separately collected sample should be submitted for Hepatitis C Virus (HCV) RNA Detection and Quantitation by Real-Time Reverse Product Marketing Specialist-PCR (RT-PCR). Current interpretive data was last revised on 2016. Blood specimen (specimen) 05/05/2019 5:41 PM SEWER PIPE LAYER 05/05/2019 6:21 PM SEWER PIPE LAYER us Parveen Barth MD PhD LAB MICROBIO LOGY - GENERAL ORDERABLES Edited Result - Final [facility] Department [place] [address] from Last 3 Months or Most Recently Relevant to Health Maintenance Insurance T MEDICARE GOLD [employer] MEDICARE GOLD MEDICARE [facility] Address: [address] [address] [place] [address] [employer] MEDICARE GOLD Advance Directives For more information, please contact: [phone] * Full Code (Latest Code Status on File) Date Activated Date Inactivated Comments 10/15/2019 10:29 AM 10/21/2019 7:01 PM * Full Code Date Activated Date Inactivated Comments 05/24/2019 1:32 PM 05/25/2019 5:48 PM * Full Code Date Activated Date Inactivated Comments 04/30/2019 7:07 PM 05/24/2019 1:32 PM * Full Code Date Activated Date Inactivated Comments 05/28/2018 7:38 PM 06/05/2018 4:02 PM Care Teams Machine Cell Tuber Relationship Specialty Start Date End Date Grey Lorenzo MD PCP - General Family Practice 08/16/17 Bobby Romero MD Consulting Physician Transplant 10/21/19 Maryana Haywood, BURT [employer] Advanced Operator Maintainer 10/28/19 Irma Valladares, BURT [address] [address] [employer] Advanced Operator Maintainer Cardiology 08/10/20
--- OUTSIDE RECORDS SUMMARY | 2025-05-09 02:09 | XMS_ITS | Encounter Summary ---
Author Organization [facility] Address [address] [place] [address] Care Team Providers Care Housekeeping Worker Name Role Phone Alejandro Stevens Primary Care Provider [phone] Alejandro Stevens Primary Care Provider [phone] Grey Lorenzo MD Primary Care Provider Bobby Romero MD Unavailable [phone] Maryana Haywood RN Unavailable [phone] Irma Valladares RN Unavailable [phone] Encounter Details Date Type Department Care Team (Late st Contact Info) Description 09/02/2016 Orders Only [facility] ProviderElizabeth MD [address] [place] [id number] Social History Tobacco Use Types Packs/Day Years Used Date Smoking Tobacco: Never Alcohol Use Standard Drinks/Week Comments No 0 (1 standard drink = 0.6 oz pur e alcohol) Sex and Gender Information Value Date Recorded Sex Assigned at Not on file 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 Gender Identity Not on file Sexual Orientation [...] on filedocumented in this encounter Care Teams Housekeeping Worker Relationship Specialty Start Date End Date Alejandro Stevens [address] [place] [address] PCP - General 09/06/16 08/15/17 Alejandro Stevens [address] [place] [address] PCP - General 08/07/15 09/05/16 Grey Lorenzo MD [address] [place] [address] PCP - General Family Practice 08/16/17 Bobby Romero MD [address] [place] [address] Consulting Physician Transplant 10/21/19 Maryana Haywood, RN Manager Power 10/28/19 Irma Valladares, BURT [address] [address] Manager Power Cardiology 08/10/20 documented as of this encounter
[2025-05-09 02:17] VITALS: BP 108/48; PULSE 70; RESP 18; O2SAT 100
[2025-05-09 02:22] VITALS: TEMP 36.5
[2025-05-09 03:16] VITALS: BP 139/66; PULSE 72; RESP 16; O2SAT 100
[2025-05-09 04:00] VITALS: O2SAT 99
[2025-05-09 04:02] VITALS: BP 140/71; PULSE 70; RESP 18; O2SAT 99
--- OUTSIDE RECORDS SUMMARY | 2025-05-09 05:18 | XMS_ITS | Encounter Summary ---
Author Organization [facility] Address [address] [place] [address] Care Team Providers Care Family Practice Md Name Role Phone Alejandro Stevens Primary Care Provider [phone] Alejandro Stevens Primary Care Provider [phone] Grey Lorenzo MD Primary Care Provider Bobby Romero MD Unavailable [phone] Maryana Haywood RN Unavailable [phone] Irma Valladares RN Unavailable [phone] Encounter Details Date Type Department Care Team (Late st Contact Info) Description 09/02/2016 Orders Only [facility] ProviderElizabeth MD [address] [place] [address] Social History Tobacco Use Types Packs/Day Years Used Date Smoking Tobacco: Never Alcohol Use Standard Drinks/Week Comments No 0 (1 standard drink = 0.6 oz pur e alcohol) Sex and Gender Information Value Date Recorded Sex Assigned at Not on file 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 Gender Identity Not on file Sexual Orientation [...] on filedocumented in this encounter Care Teams Family Practice Md Relationship Specialty Start Date End Date Alejandro Stevens [address] [place] [address] PCP - General 09/06/16 08/15/17 Alejandro Stevens [address] [place] [address] PCP - General 08/07/15 09/05/16 Grey Lorenzo MD [address] [place] [address] PCP - General Family Practice 08/16/17 Bobby Romero MD [address] [place] [address] Consulting Physician Transplant 10/21/19 Maryana Haywood, RN Desktop Support Associate 10/28/19 Irma Valladares, BURT [address] [address] Desktop Support Associate Cardiology 08/10/20 documented as of this encounter
--- OUTSIDE RECORDS SUMMARY | 2025-05-09 05:18 | XMS_ITS | Encounter Summary ---
Author Organization [facility] Healthcare Address [address] [place] [address] Care Team Providers Care Network Cabler Name Role Phone Grey Lorenzo MD Primary Care Provider Bobby Romero MD Unavailable [phone] Maryana Haywood RN Unavailable [phone] Irma Valladares RN Unavailable [phone] Encounter Details Date Type Department Care Team (Late st Contact Info) Description 08/26/[address] 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 Gender Identity Not on file Sexual Orientation Not on file documented as of this encounter Plan of Treatment Not on file documented as of this encounter Visit Diagnoses Not on filedocumented in this encounter Care Teams Network Cabler Relationship Specialty Start Date End Date Grey Lorenzo MD PCP - General Family Practice 08/16/17 Bobby Romero MD Consulting Physician Transplant 10/21/19 Maryana Haywood RN Trust Accounts Supervisor 10/28/19 Irma Valladares, RN [address] [facility] [address] [place] [address] Trust Accounts Supervisor Cardiology 08/10/20 documented as of this encounter
--- OUTSIDE RECORDS SUMMARY | 2025-05-09 05:18 | XMS_ITS | Encounter Summary ---
Author Organization [facility] Address [address] [place] [address] Phone Care Team Providers Care Electronic Component Processor Name Role Phone Grey Lorenzo MD Primary Care Provider Bobby Romero MD Unavailable [phone] Maryana Haywood RN Unavailable [phone] Irma Valladares RN Unavailable Encounter Details Date Type Department Care Team (Late st Contact Info) Description 10/21/2019 Telephone [facility] Cardiology [address] [facility] Advanced Medicine [address]th [place] [address] [place] [address] Bobby Romero MD [address] [facility] [address] [place], [place] [id number] Social History Tobacco Use Types Packs/Day Years Used Date Smoking Tobacco: Never Smokeless Tobacco: Never Alcohol Use Standard Drinks/Week Comments Yes 0 (1 standard drink = 0.6 oz pur e alcohol) socially Sex and Gender Information Value Date Recorded Sex Assigned at Not on file 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 Gender Identity Not on file Sexual Orientation [...] Sensory Perceptions 4 10/21/2019 8:45 AM CD Meilssa Arguello RN Moisture 4 10/21/2019 8:45 AM Melissa Oliver RN Activity 3 10/21/2019 8:45 AM Melissa Oliver RN Mobility 4 10/21/2019 8:45 AM Melissa Oliver RN Nutrition 3 10/21/2019 8:45 AM eMlissa Oliver RN Friction and Shear 3 10/21/2019 [...] on filedocumented in this encounter Care Teams Electronic Component Processor Relationship Specialty Start Date End Date Grey Lorenzo MD PCP - General Family Practice 08/16/17 Bobby Romero MD Consulting Physician Transplant 10/21/19 Maryana Haywood, BURT Interior Mechanic 10/28/19 Irma Valladares, BURT [address] [address] Interior Mechanic Cardiology 08/10/20 documented as of this encounter
--- OUTSIDE RECORDS SUMMARY | 2025-05-09 05:18 | XMS_ITS | Encounter Summary ---
Author Organization [facility] Healthcare Address [address] [place] [address] Care Team Providers Care Outside Installer Apprentice Name Role Phone Grey Lorenzo MD Primary Care Provider Bobby Romero MD Unavailable [phone] Maryana Haywood RN Unavailable [phone] Irma Valladares RN Unavailable [phone] Encounter Details Date Type Department Care Team (Late st Contact Info) Description 05/17/[address] 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 Gender Identity Not on file Sexual Orientation Not on file documented as of this encounter Functional Status * Lamar Fall Risk Question Answer Date of Assessment Author History of Falling 0 05/20/2019 7:20 PM Shy Ng RN Secondary Diagnosis 15 05/20/2019 7:20 PM 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, 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 Aids 0 05/20/2019 7:20 PM Shy Gleason, [...] extremit y;Left lower extremity 05/18/2019 10:10 PM MAIL LIST LIBRARIAN Praveena Hutchinson RN * Question Answer Date [...] * Question Answer Entry Date Author Neuro ([facility]) [facility] 05/18/2019 8:00 PM Kely Caban RN * Question Answer Entry Date Author Level of Consciousness Alert;Awake 9 7:20 PM Shy Ng, BURT Orientation Oriented X4 (person, place, time, situation) 05/20/2019 7:20 PM Shy Ng, BURT Neuro ([facility]) [facility] 05/20/2019 7:20 PM Shy Ng, BURT * [...] backwards from 20-1 0 05/20/2019 1:38 PM MAIL LIST LIBRARIAN Praveena Tejeda, OT Say the months of the year backwards in reverse order 2 05/20/2019 1:38 PM MAIL LIST LIBRARIAN Praveena Tejeda, OT Repeat the name and address I asked you to remember 2 05/20/2019 1:38 PM MAIL LIST LIBRARIAN Praveena Tejeda, OT Repeat this name and address after me Grey Romero [address] [place] [address] 05/20/2019 1:38 PM MAIL LIST LIBRARIAN Nikhil Praveena, OT Short Blessed Total Score 4 05/20/2019 1:38 PM MAIL LIST LIBRARIAN Nikhil Praveena, OT Short Blessed Comments WNL 9 1:38 PM MAIL LIST LIBRARIAN Praveena Tejeda, OT * Question Answer Entry Date Author Feature 1: Acute Onset or Fluctuating Course Negative 05/18/2019 8:00 PM MAIL LIST LIBRARIAN Kely Caba RN Overall CAM-ICU Negative 05/18/2019 8:00 PM MAIL LIST LIBRARIAN Kely Miller RN documented in this encounter Plan of Treatment Not on file documented as of this encounter Visit Diagnoses Not on filedocumented in this encounter Care Teams Outside Installer Apprentice Relationship Specialty Start Date End Date Grye Lorenzo MD PCP - General Family Practice 08/16/17 Bobby Romero MD Consulting Physician Transplant 10/21/19 Maryana Haywood RN Endoscopy Specialty Technician 10/28/19 Irma Valladares, BURT [address] [facility] [address] [place] [address] Endoscopy Specialty Technician Cardiology 08/10/20 documented as of this encounter
--- OUTSIDE RECORDS SUMMARY | 2025-05-09 05:18 | XMS_ITS | Clinical Summary ---
Author Organization [facility] Address [address] [place] [address] Phone Care Team Providers Care Despatch Clerk Name Role Phone Grey Lorenzo MD [...] Last Assessment & Plan: S/p [facility] BUSINESS BROKER-D device (05/2019) -last device check 09/14/2019; 99% afib/flutter. -VS 49%, -WEB APPLICATION DEVELOPER 32%, AP-WEB APPLICATION DEVELOPER 18%. No VT. Acute deep venous thrombosis of right femoral ve in 05/18/2019 Overview (12/13/2019): Last Assessment & Plan: Continue heparin gtt. - Consider adjusting home anticoagulant given acute RLE DVT Chronic systolic heart failure 04/30/2019 Overview (12/13/2019): Last Assessment & Plan: ICM, HFrEF (LVEF 15%), admitted with anemia -[facility] May 2019: RAP 2, PA mean 15, wedge 7, CI 2.4 by danny/1.75 by thermo on milrinone. -S/p [facility] BUSINESS BROKER-D device -NT-proBNP 744 (has been previously much [...] and underwent AVJ in November 2020 after BUSINESS BROKER pacing % had fallen and HF worsened [...] + SAUL occluder) -Last ischemic evaluation was [facility] in Apr 2019: All grafts patent at that time. -Continue home Atorvastatin -holding aspirin in the setting of anemia/ likely GI bleed Ischemic cardiomyopathy 12/04/2017 Overview (12/13/2019): LVEF Nov 2017 35-40%, LVIDD 5.3 LVEF May 2018 25%, LVIDD 6 CABG in May 2018 LVEF 30% Sep 2018 LVEF 25% Apr 2019 [facility] Apr 2019: Underlying triple-vessel disease with continued patency of all grafts including GARCIA to LAD, Y-graft to the diagonal and 2nd obtuse marginal. Occluded posterior descending artery filling from [id number] collaterals. Ungrafted distal marginal branch in small caliber vessel. On inotropes briefly - weaned, BUSINESS BROKER upgraded Type 2 diabetes mellitus 08/07/2015 Overview [...] -pt will need outpt endocrine follow up -miller helper distillery and special education paraeducator consulted Hypertensive disorder 01/19/2015 Overview (12/13/2019): HTN [...] Payer ID:1 (NAIC) Type:Not on file Address: [facility] [id number] [place] [id number] Care Teams Despatch Clerk Relationship Specialty Start Date End Date Grey Lorenzo MD [address] [place] [address] PCP - General Internal Medicine 11/10/19
--- OUTSIDE RECORDS SUMMARY | 2025-05-09 05:18 | XMS_ITS | Encounter Summary ---
Author Organization [facility] Healthcare Address [address] [place] [address] Care Team Providers Care Delinquent Tax Collector Assistant Name Role Phone Alejandro Stevens Primary Care Provider [phone] Grey Lorenzo MD Primary Care Provider Bobby Romero MD Unavailable [phone] Maryana Haywood RN Unavailable [phone] Irma Valladares RN Unavailable [phone] Encounter Details Date Type Department Care Team (Late st Contact Info) Description 08/12/2017 Orders Only [facility] Health Information Management [address] [place] [address] Scanning, Provider Social History Tobacco Use Types Packs/Day Years Used Date Smoking Tobacco: Never Smokeless Tobacco: Never Alcohol Use Standard Drinks/Week Comments No 0 (1 standard drink = 0.6 oz pur e alcohol) Sex and Gender Information Value Date Recorded Sex Assigned at Not on file 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 Gender Identity Not on file Sexual [...] on filedocumented in this encounter Care Teams Delinquent Tax Collector Assistant Relationship Specialty Start Date End Date Alejandro Stevens [address] [place] [address] PCP - General 09/06/16 08/15/17 Grey Lorenzo MD [address] [place] [address] PCP - General Family Practice 08/16/17 Bobby Romero MD [address] [place] [address] Consulting Physician Transplant 10/21/19 Maryana Haywood, BURT Mail Sorter 10/28/19 Irma Valladares, RN [address] [address] Mail Sorter Cardiology 08/10/20 documented as of this encounter
--- OUTSIDE RECORDS SUMMARY | 2025-05-09 05:18 | XMS_ITS | Encounter Summary ---
Author Organization [facility] Address [address] [place] [address] Phone Care Team Providers Care Gas Meter Repair Supervisor Name Role Phone Grey Lorenzo MD Primary Care Provider Bobby Romero MD Unavailable Maryana Haywood RN Unavailable [phone] Irma Valladares RN Unavailable [phone] Encounter Details Date Type Department Care Team (Late st Contact Info) Description 12/22/2019 Documentation [facility] Cardiology [address] [facility] Advanced Medicine 8th [place] [address] [place] [address] Fina Ward RN Social History Tobacco Use Types Packs/Day Years Used Date Smoking Tobacco: Never Smokeless Tobacco: Never Alcohol Use Standard Drinks/Week Comments Yes 0 (1 standard drink = 0.6 oz pur e alcohol) socially Sex and Gender Information Value Date Recorded Sex Assigned at Not on file 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 Gender Identity Not on file Sexual Orientation Not on file documented as of this encounter Plan of Treatment Not on file documented as of this encounter Visit Diagnoses Not on filedocumented in this encounter Care Teams Gas Meter Repair Supervisor Relationship Specialty Start Date End Date Grey Lorenzo MD PCP - General Family Practice 08/16/17 Bobby Romero MD Consulting Physician Transplant 10/21/19 Maryana Haywood, RN Director Of Collections And Archives 10/28/19 Irma Valladares, RN [address] [facility] [address] [place] [address] Director Of Collections And Archives Cardiology 08/10/20 documented as of this encounter
--- OUTSIDE RECORDS SUMMARY | 2025-05-09 05:18 | XMS_ITS | Encounter Summary ---
Author Organization [facility] Healthcare Address [address] [place] [address] Care Team Providers Care Registered Pharmacist Name Role Phone Grey Lorenzo MD Primary Care Provider Bobby Romero MD Unavailable [phone] Maryana Haywood RN Unavailable [phone] Irma Valladares RN Unavailable [phone] Encounter Details Date Type Department Care Team (Late st Contact Info) Description 07/01/2019 Documentation [facility] Clinical Trial [address] [place] [address] Sissy Ugarte Social History Tobacco Use Types Packs/Day Years Used Date Smoking Tobacco: Never Smokeless Tobacco: Never Alcohol Use Standard Drinks/Week Comments Yes 0 (1 standard drink = 0.6 oz pur e alcohol) socially Sex and Gender Information Value Date Recorded Sex Assigned at Not on file Legal 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 Male 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 Gender Identity Not on file Sexual Orientation Not on file documented as of this encounter Plan of Treatment Not on file documented as of this encounter Visit Diagnoses Not on filedocumented in this encounter Care Teams Registered Pharmacist Relationship Specialty Start Date End Date Grey Lorenzo MD PCP - General Family Practice 08/16/17 Bobby Romero MD Consulting Physician Transplant 10/21/19 Maryana Haywood RN Elevating Grader Operator 10/28/19 Irma Valladares, RN [address] [facility] [address] [place] [address] Elevating Grader Operator Cardiology 08/10/20 documented as of this encounter
--- OUTSIDE RECORDS SUMMARY | 2025-05-09 05:18 | XMS_ITS | Clinical Summary ---
Author Organization [facility] [employer] Address [address] [place] [address] Care Team Providers Care Pet Walker Name Role Phone Grey Lorenzo MD Primary Care Provider Source Comments [facility] [employer],non-owned Affiliates and Associated Physician Practices is amultiple site organization consisting of ambulatory clinics and hospital sitesin [place], [place], [place] and [place]. This disclosure is being madepursuant to the Care Everywhere program and may not contain all information available regarding this patient. Last updated 18.[facility] [employer] Allergies Active Allergy Reactions Criticality Noted Date [...] Date Diagnosed Date Cerebrovascular accident (CVA), unspecified [facility] anis 04/05/2025 Encounters Date Type Department Care Team Description 04/05/2025 6:55 PM CDT - 04/14/2025 2:55 PM [facility]ER Hospital Encounter [facility] 7S TELE/NEURO [address] [place] [address] Daly Prar MD Duff, Michael P, MD Yu, Yang, MD Eljourni, Ahmed S, MD Ward, Jacques Gordon II, DO Internal Medicine Discharge Disposition: Home or Self Care 04/05/2025 6:44 PM CDT - 04/05/2025 6:54 PM CDT Hospital Encounter [facility] [place] [address] [place] [address] Bobby Hubbard, DO Discharge Disposition: Home or Self Care 04/05/2025 6:44 PM CDT - 04/05/2025 6:54 PM CDT Hospital Encounter [facility] Health [place] Scan [id number] [place] [address] Bobby Hubbard, DO Discharge Disposition: Home or [...] and heating? Not hard at all 04/06/2025 [facility] Occupat ional Health - Occupational Stress [...] any time in the past 12 m [facility], were you homeless or living in a long-term (including now)? No 04/06/2025 Sex and Gender Information Value Date Recorded Sex Assigned at Not on file Legal Sex Male 12:56 PM [facility]ER Gender Identity Not on file Sexual Orientation Not on file Last Filed Vital Signs Vital Sign Reading Time Taken Comments Blood Pressure 120/78 04/14/2025 11:59 AM BR[facility]ER Pulse 71 04/14/2025 11:59 AM [facility]ER Temperature 37.3 C (99.1 F) 04/14/2025 11:59 AM BR[facility]ER Respiratory Rate 16 04/14/2025 11:5 9 AM [facility]ER Oxygen Saturation 98% 04/14/2025 11: 59 AM [facility]ER Inhaled Oxygen Concentration - - Weight 99.2 kg (218 lb 12.8 oz) 04/14/2025 6:55 AM BR[facility]ER Height 172.7 cm (5' 8) 04/05/2025 8:19 [...] this topic Medical Devices Implanted Type Area Rnfa Device Identifier Shelf Expiration Date Model / Serial / Lot Pacemaker-2022 Implanted:06/20 (Quantity not on file) Pacemaker Chest / [id number]/ [id number] / Procedures Procedure Name Priority Date/Time Associated Diagnosis Comments CARDIAC RHYTHM STRIP ORDER 04/15/2025 6:05 PM [facility]ER GLUCOSE - POINT OF CARE Routine 04/14/2025 1:22 PM [facility]ER GLUCOSE - POINT OF CARE Routine 04/14/2025 6:44 AM [facility]ER PHOSPHORUS BLOOD AM Draw 04/14/2025 4:00 AM [facility] MAGNESIUM BLOOD AM Draw 04/14/2025 4:00 AM [facility]ER COMPREHENSIVE METABOLIC PANEL AM Draw 04/14/2025 4:00 AM BR[facility]ER CBC W AUTO DIFFERENTIAL AM Draw 04/14/2025 4:00 AM [facility]ER GLUCOSE - POINT OF CARE Routine 04/14/2025 12:55 AM [facility]ER GLUCOSE - POINT OF CARE Routine 04/14/2025 12:38 AM [facility]ER GLUCOSE - POINT OF CARE Routine 04/13/2025 4:26 PM [facility]ER GLUCOSE - POINT OF CARE Routine 04/13/2025 11:05 AM [facility]ER GLUCOSE - POINT OF CARE Routine 04/13/2025 7:02 AM [facility]ER PHOSPHORUS BLOOD AM Draw 04/13/2025 12:5 0 AM [facility]ER MAGNESIUM BLOOD AM Draw 04/13/2025 12:50 AM [facility]ER COMPREHENSIVE METABOLIC PANEL AM Draw 04/13/2025 12:50 AM BR[facility]ER CBC W AUTO DIFFERENTIAL AM Draw 04/13/2025 12:50 AM [facility]ER GLUCOSE - POINT OF CARE Routine 04/13/2025 12:40 AM [facility]ER GLUCOSE - POINT OF CARE Routine 04/12/2025 5:59 PM BRADDISHER FL SWALLOWING FUNCTION STUDY Routine 04/12/2025 1:09 PM BR[facility]ER Oropharyngeal dysphagia GLUCOSE - POINT OF CARE Routine 04/12/2025 12:19 PM [facility]ER GLUCOSE - POINT OF CARE Routine 04/12/2025 6:29 AM [facility]ER PHOSPHORUS BLOOD AM Draw 04/12/2025 12:2 3 AM [facility]ER MAGNESIUM BLOOD AM Draw 04/12/2025 12:23 AM [facility]ER COMPREHENSIVE METABOLIC PANEL AM Draw 04/12/2025 12:23 AM BR[facility]ER CBC W AUTO DIFFERENTIAL AM Draw 04/12/2025 12:23 AM [facility]ER GLUCOSE - POINT OF CARE Routine 04/12/2025 12:19 AM [facility]ER GLUCOSE - POINT OF CARE Routine 04/11/2025 8:26 PM [facility]ER GLUCOSE - POINT OF CARE Routine 04/11/2025 7:27 PM [facility]ER GLUCOSE - POINT OF CARE Routine 04/11/2025 11:55 AM [facility]ER GLUCOSE - POINT OF CARE Routine 04/11/2025 6:40 AM [facility]ER PHOSPHORUS BLOOD AM Draw 04/11/2025 1:36 AM [facility]ER MAGNESIUM BLOOD AM Draw 04/11/2025 1:36 AM [facility]ER COMPREHENSIVE METABOLIC PANEL AM Draw 04/11/2025 1:36 AM BR[facility]ER CBC W AUTO DIFFERENTIAL AM Draw 04/11/2025 1:36 AM [facility]ER GLUCOSE - POINT OF CARE Routine 04/10/2025 11:39 PM [facility]ER GLUCOSE - POINT OF CARE Routine 04/10/2025 8:14 PM [facility]ER GLUCOSE - POINT OF CARE Routine 04/10/2025 4:17 PM BR[facility]ER XR ABDOMEN KUB STAT 04/10/2025 12:23 PM [facility]ER Cerebrovascular accident (CVA), unspecified mechanism (HCC) GLUCOSE - POINT OF CARE Routine 04/10/2025 11:11 AM [facility]ER GLUCOSE - POINT OF CARE Routine 04/10/2025 6:16 AM [facility]ER PHOSPHORUS BLOOD AM Draw 04/10/2025 1:07 AM [...] CARDIAC RHYTHM STRIP ORDER (04/15/2025 6:05 PM BR[facility]ER) Narrative 04/15/2025 6:05 PM [facility]ER Ordered by an unspecified provider. us Scanned Document CARDIAC SERVICES ORDERABLES Fin al Result * (ABNORMAL) GLUCOSE - POINT OF CARE (04/14/2025 1:22 PM BR[facility]ER) Only the most recent of43 resultswithin the time period is included. Glucose WB/POC 177(H) 70 - 99 mg/dL 04/14/2025 1:23 PM [facility] Specimen Type Arterial/C apillary 04/14/2025 1:23 PM [facility] Blood BLOOD SPECIMEN / Unknown 04/14/2025 1:22 PM BR[facility]ER 04/14/2025 1:23 PM [facility]ER us Jacques Gordon Luz II, DO LAB - POINT OF CARE ORDERABLE S Final Result [facility] [address] [place] [address] * (ABNORMAL) CBC W AUTO DIFFERENTIAL (04/14/2025 4:00 AM BR[facility]ISHER) Only the most recent of9 resultswithin the time period is included. WBC 7.8 4.0 - 10.7 x10E9/L 04/14/2025 5:23 AM [facility] RBC Count 4.98 4.30 - 5.80 x10E12/L 04/14/2025 5:23 AM [facility] Hemoglobin 13.6 13.3 - 17.5 g/dL 04/14/2025 5:23 AM [facility] Hematocrit 43.2 38.7 - 51.1 % 04/14/2025 5:23 AM [facility] MCV 86.7 80.0 - 98.0 fL 04/14/2025 5:23 AM [facility] MCH 27.3 26.7 - 33.6 pg 04/14/2025 5:23 AM [facility] MCHC 31.5(L) 31.7 - 36.3 g/dL 04/14/2025 5:23 AM [facility] RDW-CV 14.6 11.3 - 14.8 % 04/14/2025 5:23 AM [facility] Platelet Count 203 150 - 420 x10E9/L 04/14/2025 5:23 AM [facility] MPV 9.6 7.8 - 11.4 fL 04/14/2025 5:23 AM [facility] Neutrophil % 69.2 41.0 - 74.0 % 04/14/2025 5:23 AM [facility] Lymphocyte % 19.5 17.0 - 47.0 % 04/14/2025 5:23 AM [facility] Monocyte % 7.1 3.0 - 11.0 % 04/14/2025 5:23 AM [facility] Eosinophil % 2.5 0.0 - 7.0 % 04/14/2025 5:23 AM [facility] Basophil % 0.8 0.0 - 1.6 % 04/14/2025 5:23 AM [facility] Immature Granulocytes % 0.9 0.0 - 1.0 % 04/14/2025 5:23 AM [facility] Neutrophil Absolute 5.37 1.60 - 7.50 x10E9/L 04/14/2025 5:23 AM [facility] Lymphocyte Absolute 1.51 1.00 - 4.40 x10E9/L 04/14/2025 5:23 AM [facility] Monocyte Absolute 0.55 0.15 - 1.00 x10E9/L 04/14/2025 5:23 AM [facility] Eosinophil Absolute 0.19 0.00 - 0.60 x10E9/L 04/14/2025 5:23 AM [facility] Basophil Absolute 0.06 0.00 - 0.13 x10E9/L 04/14/2025 5:23 AM [facility] Blood BLOOD SPECIMEN / Unknown Venipuncture / Unknown 04/14/2025 4:00 AM [facility]ER 04/14/2025 5:13 AM [facility] us Feng Mercado MD LAB - HEMATOLOGY ORDERABLES Fi nal Result [facility] [address] [place] [address] * (ABNORMAL) COMPREHENSIVE METABOLIC PANEL (04/14/2025 4:00 AM [facility]) Only the most recent of9 resultswithin the time period is included. Glucose 186(H) 70 - 99 mg/dL 04/14/2025 5:42 AM [facility] Sodium 137 136 - 145 mmol/L 04/14/2025 5:42 AM [facility] Potassium 3.8 3.5 - 5.1 mmol/L 04/14/2025 5:42 AM [facility] Chloride 105 98 - 107 mmol/L 04/14/2025 5:42 AM [facility] CO2 22 22 - 29 mmol/L 04/14/2025 5:42 AM [facility] Calcium 8.5 8.4 - 10.4 mg/dL 04/14/2025 5:42 AM [facility] Anion Gap 10 6 - 16 mmol/L 04/14/2025 5:42 AM [facility] BUN 10 7 - 26 mg/dL 04/14/2025 5:42 AM [facility] Creatinine 0.78 0.70 - 1.30 mg/dL 04/14/2025 5:42 AM [facility] Alkaline Phosphatase 81 40 - 150 U/L 04/14/2025 5:42 AM [facility] ALT 22 6 - 57 U/L 04/14/2025 5:42 AM [facility] AST 31 10 - 48 U/L 04/14/2025 5:42 AM [facility] Protein Total 6.8 6.4 - 8.3 gm/dL 04/14/2025 5:42 AM [facility] Albumin 3.0(L) 3.1 - 4.5 gm/dL 04/14/2025 5:42 AM [facility] Bilirubin Total 0.9 0.2 - 1.2 mg/dL 04/14/2025 5:42 AM [facility] eGFR by CKD-EPI >90 >=90 mL/min/1.7 3 m2 04/14/2025 5:42 AM [facility] Comment:Estimated Glomerular Filtration Rate (eGFR) calculated using the CKD-EPI Creatinine Equation (2020), per the National Kidney Foundation and [place] [employer] Neph[employer] recommendations. Blood BLOOD SPECIMEN / Unknown Venipuncture / Unknown 04/14/2025 4:00 AM [facility]ER 04/14/2025 5:13 AM [facility] us Feng Mercado MD LAB - CHEMISTRY ORDERABLES Fin al Result [facility] [address] [place] [address] * (ABNORMAL) PHOSPHORUS BLOOD (04/14/2025 4:00 AM [facility]) Only the most recent of10 resultswithin the time period is included. Phosphorus 2.0(L) 2.5 - 4.5 mg/dL 04/14/2025 5:42 AM [facility] Blood BLOOD SPECIMEN / Unknown Venipuncture / Unknown 04/14/2025 4:00 AM [facility]ER 04/14/2025 5:13 AM [facility]ER Feng Mercado MD LAB - CHEMISTRY ORDERABLES Fin al Result Performing Organization Address [facility] de Phone Number [facility] [address] [place] [address] * MAGNESIUM BLOOD (04/14/2025 4:00 AM [facility]ER) Only the most recent of10 resultswithin the time period is included. Magnesium 1.9 1.6 - 2.6 mg/dL 04/14/2025 5:42 AM BR[facility]ER [facility] Blood BLOOD SPECIMEN / Unknown Venipuncture / Unknown 04/14/2025 4:00 AM [facility]ER 04/14/2025 5:13 AM [facility] Feng Mercado MD LAB - CHEMISTRY ORDERABLES Fin al Result Performing Organization Address [facility] de Phone Number [facility] [address] [place] [address] * MODIFIED BARIUM SWALLOW W/SPEECH (04/12/2025 1:09 PM [facility]ER) Anatomical Region Laterality Modality Chest Computed Radiogr aphy 04/12/2025 1:30 PM [facility]ER Narrative 04/12/2025 1:30 PM [facility]ER PROCEDURE: FL SWALLOWING FUNCTION STUDY, DATE/TIME OF EXAM: 04/12/2025 1:10 PM, LOCATION [facility] INDICATION: R13.12: Oropharyngeal dysphagia ADDITIONAL CLINICAL [...] DATE/TIME OF EXAM: 04/12/2025 1:10 PM, LOCATION [facility] INDICATION: R13.12: Oropharyngeal dysphagia ADDITIONAL CLINICAL [...] * XR Abdomen Kub (04/10/2025 12:23 PM [facility]ER) Only the most recent of4 resultswithin the time period is included. Anatomical Region Laterality Modality Abdomen Computed Radiogr aphy 04/10/2025 12:2 4 PM [facility]ER Impressions 04/10/2025 12:25 PM [facility]ER IMPRESSION: Feeding tube placement as described above. > Interpreting Provider: David Stiles MD on 04/10/2025 12:25 PM Narrative 04/10/2025 12:25 PM [facility]ER PROCEDURE: XR ABDOMEN KUB DATE/TIME OF EXAM: 04/10/2025 12:23 PM CLINICAL INFORMATION: Feeding tube placement. Indication: I63.9: Cerebrovascular accident (CVA), unspecified mechanism (HCC) Additional History: COMPARISON: April 07, 2025 FINDINGS: Single view of the abdomen demonstrates insertion of a feeding tube with the tip located overlying the spine, probably in the distal stomach. coat room attendant wires obscure the abdomen and lower chest. [...] the spine, probably in the distal stomach. coat room attendant wires obscure the abdomen and lower chest. [...] DATE/TIME OF EXAM: 04/08/2025 12:46 PM, LOCATION [facility] INDICATION: I63.9: Cerebrovascular accident (CVA), unspecified [...] CONTRAST, DATE/TIME OF EXAM: 04/08/2025 12:46PM, LOCATION [facility] INDICATION: I63.9: Cerebrovascular accident (CVA), unspecified [...] MD on 04/08/2025 1:15 PM Hiral Soliman CHARGE ATTENDANT-MEDICAL ORDERLY MR ORDERABLES Final R esult * (ABNORMAL) [...] ORD ERABLES Final Result Performing Organization Address City/[facility] Co de Phone Number [facility] [address] [phone] * (ABNORMAL) BLOOD GASES ELI (04/08/2025 4:46 [...] - BLOOD GASES ORDERABLES F inal Result [facility] RESP THERAPY [address] [place] [id number] [phone] * VANCOMYCIN LEVEL TROUGH (04/08/2025 1:14 AM CDT) Only the most recent of2 resultswithin the time period is included. Vancomycin Trough 17.8 10.0 - 20.0 ug/mL 04/08/2025 1:46 AM CDT [facility] Blood BLOOD SPECIMEN / Unknown Venipuncture / Unknown 04/08/2025 1:14 AM CDT 04/08/2025 1:16 AM CDT Feng Mercado MD LAB - CHEMISTRY ORDERABLES Fin al Result Performing Organization Address [facility] Co de Phone Number [facility] [address] [place] [address] * XR CHEST 1VW PORTABLE (04/07/2025 1:53 [...] 7:33 AM Patient Status: I/P Study Site: [facility] Primary Location: [facility] EStudy Info Exam Type: ECHO COMPLETE W CONTRAST Indications I63.9 - Cerebrovascular accident (CVA), unspecified mechanism (HCC) Procedure(s) * A complete 2D, color Doppler, spectral Doppler and M-Mode transthoracic echocardiogram was performed with Definity and a Bubble Study. Reason for Technically Difficult Study: restricted mobility Staff Referring Physician: Mushtaq Barrow Ordering Provider: Mushtaq Barrow Attending Physician: Mushtaq Barrow Film Sorter: Mark Montgomery Left Ventricle Left ventricular systolic [...] 7:33 AM Patient Status: I/P Study Site: [facility] Primary Location: [facility] EStudy Info Exam Type: ECHO COMPLETE W CONTRAST Indications I63.9 - Cerebrovascular accident (CVA), unspecified mechanism (HCC) Procedure(s) * A complete 2D, color Doppler, spectral Doppler and M-Modetransthoracic echocardiogram was performed with Definity and a Bubble Study. Reason for Technically Difficult Study: restricted mobility Staff Referring Physician: Mushtaq Barrow Ordering Provider: Mushtaq Barrow Attending Physician: Mushtaq Barrow Film Sorter: Mark Montgomery Left Ventricle Left ventricular systolic [...] 1.1 <=2 mmol/L 04/06/2025 1:45 PM CDT [facility] Blood BLOOD SPECIMEN / Unknown Line Draw / Unknown 04/06/2025 1:09 PM CDT 04/06/2025 1:22 PM CDT Feng Mercado MD LAB - CHEMISTRY ORDERABLES Fin al Result Performing Organization Address City/[facility]/ZIP Co de Phone Number [facility] [address] [place] [address] * CULTURE BLOOD (04/06/2025 9:22 AM CDT) Only the most recent of2 resultswithin the time period is included. Culture No growth day 5 SHADI 04/11/2025 10:00 AM [facility] Blood PERIPHERAL BLOOD / Unknown Venipuncture / Unknown 04/06/2025 9:22 AM CDT 04/06/2025 9:24 AM CDT Feng Mercado MD LAB - MICROBIOLOGY ORDERABLES Final Result Performing Organization Address City/[facility]/ZIP Co de Phone Number [facility] [address] [place] [address], [facility] [phone] * (ABNORMAL) URINALYSIS REFLEX MICROSCOPIC REFLEX CULTURE (04/06/2025 8:17 AM T) Color UA Yellow Yellow, Straw 04/06/2025 9:05 AM [facility] Clarity UA Clear Clear 04/06/2025 9:05 AM T [facility] Glucose UA Normal Normal 04/06/2025 9:05 AM [facility] Bilirubin UA Negative Negative 04/06/2025 9:05 AM [facility] Ketone UA Negative Negative 04/06/2025 9:05 AM [facility] Specific [place] UA 1.023 1.005 - 1.030 04/06/2025 9:05 AM [facility] Blood UA 1+(A) Negative 04/06/2025 9:05 AM [facility] pH UA 7.0 5.0 - 8.0 04/06/2025 9:05 AM [facility] Protein UA 1+(A) Negative 04/06/2025 9:05 AM [facility] Urobilinogen UA Normal Normal mg/dL 04/06/2025 9:05 AM [facility] Nitrite UA Negative Negative 04/06/2025 9:05 AM [facility] Leukocyte Esterase UA 250 JAYCEE/uL(A) Negative 04/06/2025 9:05 AM [facility] RBC UA 6-10(A) 0 - 5 # /hpf 04/06/2025 9:05 AM [facility] WBC UA 11-20(A) 0 - 5 # /hpf 04/06/2025 9:05 AM [facility] WBC Clumps UA Rare(A) None Seen /HPF 04/06/2025 9:05 AM [facility] Bacteria UA Trace(A) None Seen 04/06/2025 9:05 AM [facility] Squamous Epithelial Cells None Seen 0 - 5 /hpf 04/06/2025 9:05 AM [facility] Transitional Epithelial Cell UA 0-2(A) None Seen /HPF 04/06/2025 9:05 AM T [facility] Mucus UA 1+ /LPF 04/06/2025 9:05 AM CDT [facility] Reflex Status Culture to follow 04/06/2025 9:05 AM CDT [facility] Urine URINE SPECIMEN OBTAINED VIA [employer] URINARY CATHETER / Unknown Collection / Unknown 04/06/2025 8:17 AM CDT 04/06/2025 8:23 AM CDT Feng Mercado MD LAB - URINALYSIS ORDERABLES Fi nal Result Performing Organization Address City/[facility]/ZIP Co de Phone Number [facility] [address] [place] [address] * CULTURE URINE (04/06/2025 8:17 AM CDT) Pathologist [facility] Culture Urine No growth (<100 CFU/mL) SHADI 04/07/2025 11:30 AM CDT [facility] Urine URINE SPECIMEN OBTAINED VIA [employer] URINARY CATHETER / Unknown Collection / Unknown 04/06/2025 8:17 AM CDT 04/06/2025 8:23 AM CDT Feng Mercado MD LAB - MICROBIOLOGY ORDERABLES Final Result Performing Organization Address City/[facility] Co de Phone Number [facility]CRO[facility] [address] [place] [address] [phone] * (ABNORMAL) CBC W/O DIFFERENTIAL (04/06/2025 1:45 AM CDT) WBC 17.6(H) 4.0 - 10.7 x10E9/L 04/06/2025 2:01 AM CDT [facility] RBC Count 5.39 4.30 - 5.80 x10E12/L 04/06/2025 2:01 AM CDT [facility] Hemoglobin 15.0 13.3 - 17.5 g/dL 04/06/2025 2:01 AM CDT [facility] Hematocrit 46.3 38.7 - 51.1 % 04/06/2025 2:01 AM CDT [facility] MCV 85.9 80.0 - 98.0 fL 04/06/2025 2:01 AM CDT [facility] MCH 27.8 26.7 - 33.6 pg 04/06/2025 2:01 AM CDT [facility] MCHC 32.4 31.7 - 36.3 g/dL 04/06/2025 2:01 AM CDT [facility] RDW-CV 14.8 11.3 - 14.8 % 04/06/2025 2:01 AM CDT [facility] Platelet Count 256 150 - 420 x10E9/L 04/06/2025 2:01 AM CDT [facility] MPV 9.2 7.8 - 11.4 fL 04/06/2025 2:01 AM CDT [facility] Blood BLOOD SPECIMEN / Unknown Venipuncture / Unknown 04/06/2025 1:45 AM CDT 04/06/2025 1:49 AM CDT us Mushtaq Barrow DO LAB - HEMATOLOGY ORDERABLES Fi nal Result [facility] [address] [place] [address] * (ABNORMAL) BASIC METABOLIC PANEL (CALCIUM TOTAL) (04/06/2025 1:45 AM CDT) Glucose 69(L) 70 - 99 mg/dL 04/06/2025 2:44 AM CDT [facility] Sodium 137 136 - 145 mmol/L 04/06/2025 2:44 AM CDT [facility] Potassium 4.5 3.5 - 5.1 mmol/L 04/06/2025 2:44 AM CDT [facility] Chloride 103 98 - 107 mmol/L 04/06/2025 2:44 AM CDT [facility] CO2 22 22 - 29 mmol/L 04/06/2025 2:44 AM CDT [facility] Calcium 8.2(L) 8.4 - 10.4 mg/dL 04/06/2025 2:44 AM CDT [facility] Anion Gap 12 6 - 16 mmol/L 04/06/2025 2:44 AM CDT [facility] BUN 20 7 - 26 mg/dL 04/06/2025 2:44 AM CDT [facility] Creatinine 1.20 0.70 - 1.30 mg/dL 04/06/2025 2:44 AM CDT [facility] eGFR by CKD-EPI 63(L) >=90 mL/min/1.7 3 m2 04/06/2025 2:44 AM CDT [facility] Comment:Estimated Glomerular Filtration Rate (eGFR) calculated using the CKD-EPI Creatinine Equation (2020), per the [employer] and [place] [employer] recommendations. Blood BLOOD SPECIMEN / Unknown Venipuncture / Unknown 04/06/2025 1:45 AM CDT 04/06/2025 1:49 AM CDT Mushtaq Barrow DO LAB - CHEMISTRY ORDERABLES Fin al Result Performing Organization Address City/[facility]/ZIP Co de Phone Number [facility] [address] [address] [phone] * (ABNORMAL) HEPATIC FUNCTION PANEL (04/06/2025 1:45 AM CDT) Alkaline Phosphatase 138 40 - 150 U/L 04/06/2025 2:39 AM CDT [facility] ALT 38 6 - 57 U/L 04/06/2025 2:39 AM CDT [facility] AST 67(H) 10 - 48 U/L 04/06/2025 2:39 AM CDT [facility] Protein Total 7.0 6.4 - 8.3 gm/dL 04/06/2025 2:39 AM CDT [facility] Albumin 2.9(L) 3.1 - 4.5 gm/dL 04/06/2025 2:39 AM CDT [facility] Bilirubin Total 1.3(H) 0.2 - 1.2 mg/dL 04/06/2025 2:39 AM CDT [facility] Bilirubin Direct 0.527(H) 0.10 - 0.50 mg/dL 04/06/2025 2:39 AM CDT [facility] Blood BLOOD SPECIMEN / Unknown Venipuncture / Unknown 04/06/2025 1:45 AM CDT 04/06/2025 1:49 AM CDT us Mushtaq Barrow DO LAB - CHEMISTRY ORDERABLES Fin al Result [facility] [id number] [place] [address] * (ABNORMAL) VANCOMYCIN LEVEL PEAK (04/06/2025 1:45 AM CDT) Vancomycin Peak 63.0(H) 25.0 - 40.0 ug/mL 04/06/2025 2:44 AM CDT [facility] Blood BLOOD SPECIMEN / Unknown Venipuncture / Unknown 04/06/2025 1:45 AM CDT 04/06/2025 1:49 AM CDT Candido Mccoy MD LAB - CHEMISTRY ORDERABLES F inal Result Performing Organization Address [facility] Co de Phone Number [facility] [address] [place] [phone] * (ABNORMAL) LIPID PROFILE (04/06/2025 1:45 AM CDT) Cholesterol 151 <200 mg/dL 04/06/2025 2:39 AM CDT [facility] Triglycerides 61 <150 mg/dL 04/06/2025 2:39 AM CDT [facility] HDL Cholesterol 39(L) >40 mg/dL 2:39 AM CDT [facility] LDL Calculated 100 <130 mg/dL 04/06/2025 2:39 AM CDT [facility] Comment:LDL is calculated us ing the Friedewald equation. VLDL Calculated 12 <=30 mg/dL 2:39 AM CDT [facility] Chol HDL Ratio 3.9 <4.5 04/06/2025 2:39 AM CDT [facility] LDL/HDL Ratio 2.6 <5.0 04/06/2025 2:39 AM CDT [facility] Blood BLOOD SPECIMEN / Unknown Venipuncture / Unknown 04/06/2025 1:45 AM CDT 04/06/2025 1:49 AM CDT us Mushtaq Barrow DO LAB - CHEMISTRY ORDERABLES Fin al Result Performing Organization Address [facility]/ZIP Co de Phone Number [facility] [address] [place] [phone] * (ABNORMAL) BLOOD GASES ELI + COOX [...] ORDERABLES F inal Result Performing Organization Address [facility]/ZIP Co de Phone Number [facility] [address] [place] [address] * NT-PRO BNP (04/05/2025 8:12 PM CDT) NT-proBNP 813.0 <1,800.0 pg/mL 04/05/2025 8:42 PM CDT [facility] Blood BLOOD SPECIMEN / Unknown Venipuncture / Unknown 04/05/2025 8:12 PM CDT 04/05/2025 8:16 PM CDT Narrative [facility] - 04/05/2025 8:42 PM CDT NT-pro-BNP [...] other findings. NT-pro-BNP is measured on the [employer] Alinity analyzer using chemiluminescent microparticle immunoassay (CMIA) technology. Mushtaq Barrow DO LAB - CHEMISTRY ORDERABLES Fin al Result Performing Organization Address City/[facility]/ZIP Co de Phone Number [facility] [address] [place] [address] * TROPONIN-I HIGH SENSITIVE BASELINE + 1HR (04/05/2025 8:12 PM CDT) Troponin I High Sensitive 35 <=35 ng/L 04/05/2025 8:42 PM CDT [facility] Blood BLOOD SPECIMEN / Unknown Venipuncture / Unknown 04/05/2025 8:12 PM CDT 04/05/2025 8:16 PM CDT Mushtaq Barrow DO LAB - CHEMISTRY ORDERABLES Fin al Result Performing Organization Address [facility] Co de Phone Number [facility] [address] [place] [address] * (ABNORMAL) HEMOGLOBIN A1C (04/05/2025 8:12 PM CDT) Hemoglobin A1c 10.8(H) <5.7 % 04/05/2025 8:53 PM CDT [facility] Estimated Average Glucose 263 mg/dL 04/05/2025 8:53 PM CDT [facility] Blood BLOOD SPECIMEN / Unknown Venipuncture / Unknown 04/05/2025 8:12 PM CDT 04/05/2025 8:16 PM CDT Narrative [facility] - 04/05/2025 8:53 PM CDT HbA1c [...] ORDERABLES Fin al Result Performing Organization Address [facility] Co de Phone Number [facility] [address] [place] [address] * CT Angio Brain And Neck (04/05/2025 [...] stenosis or large vessel occlusion involving the augustine of [place]. There is reconstitution of flow into the left anterior circulation via a patent anterior communicating artery and patent left posterior communicating artery Prelim report was provided by [facility] > Interpreting Provider: Adam Ta MD [...] technique was used, including Automated Exposure Control. [employer] large vessel occlusion software was utilized CONTRAST: [...] reduction technique was used, including Automated ExposureControl. [employer] large vessel occlusion software was utilized CONTRAST: [...] flow-limiting stenosis or large vessel occlusioninvolving the augustine of [place]. There is reconstitution of flow into the left anterior circulation via a patent anterior communicating artery and patent left posterior communicating artery Prelim report was provided by [facility] > Interpreting Provider: Adam Ta MD [...] ICA occlusion. Preliminary report was provided by [facility]. > Interpreting Provider: Hugo Graham DO [...] ICA occlusion. Preliminary report was provided by [facility]. > Interpreting Provider: Hugo Graham DO on 04/06/2025 11:31 AM us Bobby Osheacain STEVE CT ORDERABLES Final Result from Last 3 Months Insurance A[employer] MEDICARE AETNA MEDICARE ADV Advance Directives Documents on File Type Date Recorded Patient Stitcher Around Expl anation Adv Directive/Living Will/POA 04/15/2025 5:58 PM * Full Code (Latest Code Status on File) Date Activated Date Inactivated Comments 04/05/2025 7:50 PM 04/14/2025 5:23 PM Care Teams Pet Walker Relationship Specialty Start Date End Date Grey Lorenzo MD [address] [place] [address] PCP - General Family Medicine 04/06/25
--- OUTSIDE RECORDS SUMMARY | 2025-05-09 05:18 | XMS_ITS | Encounter Summary ---
Author Organization [facility] Address [address] [place] [address] Care Team Providers Care Care Team Coordinator Scheduler Name Role Phone Alejandro Stevens Primary Care Provider [phone] Alejandro Stevens Primary Care Provider [phone] Grey Lorenzo MD Primary Care Provider Bobby Romero MD Unavailable [phone] Maryana Haywood RN Unavailable [phone] Irma Valladares RN Unavailable [phone] Encounter Details Date Type Department Care Team (Late st Contact Info) Description 06/20/2016 Orders Only [facility] ProviderElizabeth MD [address] [place] [address] Social History Tobacco Use Types Packs/Day Years Used Date Smoking Tobacco: Never Alcohol Use Standard Drinks/Week Comments No 0 (1 standard drink = 0.6 oz pur e alcohol) Sex and Gender Information Value Date Recorded Sex Assigned at Not on file 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 Gender Identity Not on file Sexual Orientation [...] on filedocumented in this encounter Care Teams Care Team Coordinator Scheduler Relationship Specialty Start Date End Date Alejandro Stevens [address] [place] [address] PCP - General 09/06/16 08/15/17 Alejandro Stevens [address] [place] [address] PCP - General 08/07/15 09/05/16 Grey Lorenzo MD [address] [place] [address] PCP - General Family Practice 08/16/17 Bobby Romero MD [address] [place] [address] Consulting Physician Transplant 10/21/19 Maryana Haywood, RN Orthopedic Surgeon 10/28/19 Irma Valladares, BURT [address] [address] Orthopedic Surgeon Cardiology 08/10/20 documented as of this encounter
--- OUTSIDE RECORDS SUMMARY | 2025-05-09 05:18 | XMS_ITS | Encounter Summary ---
Author Organization [facility] Address [address] [place] [address] Care Team Providers Care Silk Screen Processor Name Role Phone Alejandro Stevens Primary Care Provider [phone] Grey Lorenzo MD Primary Care Provider Bobby Romero MD Unavailable [phone] Maryana Haywood RN Unavailable [phone] Irma Valladares RN Unavailable [phone] Encounter Details Date Type Department Care Team (Late st Contact Info) Description 10/14/2016 Orders Only [facility] ProviderElizabeth MD [address] [place] [address] Social History Tobacco Use Types Packs/Day Years Used Date Smoking Tobacco: Never Alcohol Use Standard Drinks/Week Comments No 0 (1 standard drink = 0.6 oz pur e alcohol) Sex and Gender Information Value Date Recorded Sex Assigned at Not on file 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
--- OUTSIDE RECORDS SUMMARY | 2025-05-09 05:18 | XMS_ITS | Encounter Summary ---
Author Organization [facility] Address [address] [place] [address] Care Team Providers Care Body Service Team Member Name Role Phone Alejandro Stevens Primary Care Provider [phone] Alejandro Stevens Primary Care Provider [phone] Grey Lorenzo MD Primary Care Provider Bobby Romero MD Unavailable [phone] Maryana Haywood RN Unavailable [phone] Irma Valladares RN Unavailable [phone] Encounter Details Date Type Department Care Team (Late st Contact Info) Description 07/29/2016 Orders Only [facility] ProviderElizabeth MD [address] [place] [address] Social History Tobacco Use Types Packs/Day Years Used Date Smoking Tobacco: Never Alcohol Use Standard Drinks/Week Comments No 0 (1 standard drink = 0.6 oz pur e alcohol) Sex and Gender Information Value Date Recorded Sex Assigned at Not on file 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 Gender Identity Not on file Sexual Orientation [...] on filedocumented in this encounter Care Teams Body Service Team Member Relationship Specialty Start Date End Date Alejandro Stevens [address] [place] [address] PCP - General 09/06/16 08/15/17 Alejandro Stevens [address] [place] [address] PCP - General 08/07/15 09/05/16 Grey Lorenzo MD [address] [place] [address] PCP - General Family Practice 08/16/17 Bobby Romero MD [address] [place] [address] Consulting Physician Transplant 10/21/19 Maryana Haywood, RN Route Driver 10/28/19 Irma Valladares, BURT [address] [address] Route Driver Cardiology 08/10/20 documented as of this encounter
--- OUTSIDE RECORDS SUMMARY | 2025-05-09 05:18 | XMS_ITS | Encounter Summary ---
Author Organization [facility] Address [address] [place] [address] Care Team Providers Care Warp Changer Name Role Phone Grey Lorenzo MD Primary Care Provider Bobby Romero MD Unavailable [phone] Maryana Haywood RN Unavailable [phone] Irma Valladares RN Unavailable [phone] Encounter Details Date Type Department Care Team (Late st Contact Info) Description 08/02/2019 Documentation 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 Gender Identity Not on file Sexual Orientation Not on file documented as of this encounter Plan of Treatment Not on file documented as of this encounter Visit Diagnoses Not on filedocumented in this encounter Care Teams Warp Changer Relationship Specialty Start Date End Date Grey Lorenzo MD PCP - General Family Practice 08/16/17 Bobby Romero MD Consulting Physician Transplant 10/21/19 Maryana Haywood RN Molding Machine Operator 10/28/19 Irma Valladares, RN [address] [facility] [address] [place] [address] Molding Machine Operator Cardiology 08/10/20 documented as of this encounter
== END 2025-05-09 05:18 | disposition left against medical advice (07) ==
PROVIDERS: PCP Family Medicine
DX: K08.89 Other specified disorders of teeth and supporting structures (principal)
CPT/HCPCS: 99199

== ENCOUNTER 2025-05-19 13:19 | Outpatient (CLI) | payer MEDICARE, SELFPAY ==
[2025-05-19 18:54] LABS: Alanine Aminotransferase 55 U/L (6-50); Albumin Level 4.3 g/dL (3.5-5.1); Alkaline Phosphatase 99 U/L (38-126); Anion Gap 11 mmol/L (4-12); Aspartate Amino Transferase 42 U/L (17-59); Bilirubin,Total 0.9 mg/dL (0.2-1.3); Blood Urea Nitrogen 24 mg/dL (9-20); Calcium 9.7 mg/dL (8.4-10.2); Carbon Dioxide 25 mmol/L (22-30); Chloride 102 mmol/L (98-107); Estimated Glomerular Filt Rate 60; Glucose 167 mg/dL (65-110); Magnesium 2.0 mg/dL (1.6-2.3); Potassium 4.5 mmol/L (3.4-5.0); Sodium 138 mmol/L (137-145); Total Protein 7.7 g/dL (6.3-8.2)
[2025-05-19 19:06] LABS: Hematocrit 44.4 % (42.0-52.0); Hemoglobin 13.6 g/dL (14.0-18.0); Immature Granulocyte Percent A 0.9 % (0-0.5); Lymphocytes Absolute Auto 2.09 K/mm3 (0.9-3.2); Mean Corpuscular HGB Conc 30.6 g/dl (32-36); Mean Corpuscular Hemoglobin 28.1 pg (26-34); Mean Corpuscular Volume 91.7 fl (80-100); Nucleated Red Blood Cells Absolute Auto 0.000 K/mm3 (0.0-0.012); Nucleated Red Blood Cells Perc 0.0 % (0.0-0.2); Platelet Count Result 196 k/mm3 (150-375); Red Blood Count 4.84 M/mm3 (4.6-6.20); White Blood Count 9.4 K/mm3 (4.5-10.0)
[2025-05-19 20:31] LABS: Thyroid Stimulating Hormone Reflex 3.480 uIU/mL (0.465-4.68)
[2025-05-19 21:33] LABS: Hemoglobin A1C 8.0 % (<5.7)
== END 2025-05-19 13:20 | disposition home or self-care (01) ==
PROVIDERS: PCP Family Medicine; Visit Provider Nurse Practitioner Family
DX: E11.9 Type 2 diabetes mellitus without complications (principal); I10 Essential (primary) hypertension; R79.89 Other specified abnormal findings of blood chemistry; E55.9 Vitamin D deficiency, unspecified
CPT/HCPCS: 36415; 80053; 82306; 83036; 83735; 84443; 85025